=== PATIENT | female | born 1940 | race Caucasian/White ===

== ENCOUNTER → 2017-07-29 11:20 | Outpatient (CLI) | payer MEDICARE, SELFPAY ==
--- NOTE | 2017-07-29 16:23 | STRESSREP ---
Stress Test Report Exercise stress test. 77-year-old lady with a history of chest pain. Stress protocol: Resting EKG demonstrate normal sinus rhythm with a rate of 77 bpm. Resting blood pressure 7 and 38/92 mmHg. The patient exercised according to the regular [facility] protocol for a total duration of 3 minutes. The maximum heart rate attained was 126 bpm which was 87% of maximum predicted heart rate the maximum workload attained was 4.6 metabolic equivalents. At rest there were no ST or T-wave changes noted suggest ischemia at peak exercise upsloping ST changes only were noted with no meet the criteria for ischemia. Resting blood pressure was 138/92 with a peak blood pressure 152/84. The test was terminated due to leg fatigue. Conclusion: Exercise stress test with no EKG criteria for ischemia at a low workload. No clinical angina noted.
== END ==
PROVIDERS: Family Provider Family Medicine; PCP Family Medicine; Visit Provider Internal Medicine Cardiovascular Disease
DX: I47.1 Supraventricular tachycardia (principal); R06.09 Other forms of dyspnea
CPT/HCPCS: 93017

== ENCOUNTER 2017-11-03 22:25 | Emergency (ER) | payer MEDICARE, SELFPAY ==
--- NOTE | 2017-11-03 22:20 | CT_ITS ---
STUDY: CT BRAIN WITHOUT CONTRAST REASON FOR EXAM: Female, 77 years old. FALL, DIZZINESS AND NECK PAIN, BUMP RT FOREHEAD HX:HTN RADIATION DOSAGE (If Supplied By Facility): CTDIvol = ( 44.99 ) mGy, DLP = ( 796.11 ) mGycm TECHNIQUE: Transaxial CT imaging of the brain was performed without administration of intravenous contrast material. COMPARISON: None. FINDINGS: Soft tissue swelling of the right scalp. There is no underlying fracture. Normal calvarium. There are calcifications around the carotid artery. These are noted in the cavernous carotid arteries. There is mild cerebral atrophy with widening of the extra-axial spaces and ventricular dilatation. There are areas of decreased attenuation within the white matter tracts of the supratentorial brain, consistent with microvascular disease changes. Normal basal ganglia and thalami. Normal brainstem. There is mild cerebellar atrophy. There is no intracranial hemorrhage. There are no findings of an acute ischemic infarction. Normal visualized paranasal sinuses. IMPRESSION: Chronic involutional changes of the brain. Soft tissue swelling of the right scalp. There is no underlying fracture. Electronically Signed: Chester Ya MD at 22:54 EDT , Service support , EXAM: CT SPINE - CERVICAL WITHOUT IV REASON FOR EXAM: Female, 77 years old. FALL, DIZZINESS AND NECK PAIN, BUMP RT FOREHEAD HX:HTN RADIATION DOSAGE (If Supplied By Facility): CTDIvol = ( 28.47 ) mGy, DLP = ( 524.22 ) mGycm TECHNIQUE: Multiplanar images were obtained of the cervical spine. IV contrast was not utilized. COMPARISON: None. FINDINGS: The vertebral bodies do maintain their height. The odontoid process is intact. There is mild straightening of the normal cervical lordosis. This can suggest neck strain. There is no anterolisthesis or fracture. No pre-vertebral soft tissue swelling is seen. The intravertebral disc height is lost. There are scattered lymph nodes in the neck. There are degenerative changes of the osseous structures. There is bilateral facet arthropathy. There are scattered levels of foraminal stenosis. CT/Spine Cervical without Contras IMPRESSION: Degenerative changes of the cervical spine. There is mild straightening of the normal cervical lordosis. This can suggest neck strain. Electronically Signed: Chester Ya MD at 22:55 EDT , Service support ,
--- NOTE | 2017-11-03 22:20 | CT_ITS ---
STUDY: CT BRAIN WITHOUT CONTRAST REASON FOR EXAM: Female, 77 years old. FALL, DIZZINESS AND NECK PAIN, BUMP RT FOREHEAD HX:HTN RADIATION DOSAGE (If Supplied By Facility): CTDIvol = ( 44.99 ) mGy, DLP = ( 796.11 ) mGycm TECHNIQUE: Transaxial CT imaging of the brain was performed without administration of intravenous contrast material. COMPARISON: None. FINDINGS: Soft tissue swelling of the right scalp. There is no underlying fracture. Normal calvarium. There are calcifications around the carotid artery. These are noted in the cavernous carotid arteries. There is mild cerebral atrophy with widening of the extra-axial spaces and ventricular dilatation. There are areas of decreased attenuation within the white matter tracts of the supratentorial brain, consistent with microvascular disease changes. Normal basal ganglia and thalami. Normal brainstem. There is mild cerebellar atrophy. There is no intracranial hemorrhage. There are no findings of an acute ischemic infarction. Normal visualized paranasal sinuses. IMPRESSION: Chronic involutional changes of the brain. Soft tissue swelling of the right scalp. There is no underlying fracture. Electronically Signed: Chester Ya MD at 22:54 EDT , Service support , EXAM: CT SPINE - CERVICAL WITHOUT IV REASON FOR EXAM: Female, 77 years old. FALL, DIZZINESS AND NECK PAIN, BUMP RT FOREHEAD HX:HTN RADIATION DOSAGE (If Supplied By Facility): CTDIvol = ( 28.47 ) mGy, DLP = ( 524.22 ) mGycm TECHNIQUE: Multiplanar images were obtained of the cervical spine. IV contrast was not utilized. COMPARISON: None. FINDINGS: The vertebral bodies do maintain their height. The odontoid process is intact. There is mild straightening of the normal cervical lordosis. This can suggest neck strain. There is no anterolisthesis or fracture. No pre-vertebral soft tissue swelling is seen. The intravertebral disc height is lost. There are scattered lymph nodes in the neck. There are degenerative changes of the osseous structures. There is bilateral facet arthropathy. There are scattered levels of foraminal stenosis. CT/Brain/Head without Contrast IMPRESSION: Degenerative changes of the cervical spine. There is mild straightening of the normal cervical lordosis. This can suggest neck strain. Electronically Signed: Chester Ya MD at 22:55 EDT , Service support ,
--- NOTE | 2017-11-03 22:25 | DT_ITS ---
This patient was seen during an EMR downtime October 28, 2017 - November 04, 2017. This patient may have a combination of paper and electronic documentation or all paper documentation. All documentation is viewable within the e-chart portion of [facility] for each patient visit.
--- NOTE | 2017-11-03 22:35 | RAD_ITS ---
STUDY: X-RAY - RIGHT SHOULDER REASON FOR EXAM: Female, 77 years old. Pain, fall TECHNIQUE: 4 view(s) of the shoulder. COMPARISON: None. FINDINGS: Normal glenohumeral articulation. Normal acromioclavicular joint. Normal acromion. Normal humeral head and visualized proximal humerus. The soft tissue structures are unremarkable. Normal visualized pulmonary apex. RAD/Shoulder min 2 Views IMPRESSION: Normal x-ray examination of the shoulder. Electronically Signed: Alfonzo Elliott DO at 23:29 EDT , Service support ,
--- NOTE | 2017-11-03 22:35 | RAD_ITS ---
STUDY: X-RAY - LEFT ELBOW REASON FOR EXAM: Female, 77 years old. Fall, pain TECHNIQUE: 4 view(s) of the elbow. COMPARISON: None. FINDINGS: Normal visualized humerus, radius and ulna. Normal radiocapitellar and ulnotrochlear articulations. The soft tissue structures are unremarkable. There is no demonstrated fracture. RAD/Elbow min 3 Views IMPRESSION: Normal x-ray examination of the elbow. Electronically Signed: Alfonzo Elliott DO at 23:28 EDT , Service support ,
== END 2017-11-04 00:15 | disposition home or self-care (01) ==
PROVIDERS: Emergency Provider Emergency Medicine; Family Provider Family Medicine; PCP Family Medicine
DX: S00.03XA Contusion of scalp, initial encounter (principal); S16.1XXA Strain of muscle, fascia and tendon at neck level, initial encounter; S40.011A Contusion of right shoulder, initial encounter; S50.02XA Contusion of left elbow, initial encounter; R40.2410 Glasgow coma scale score 13-15, unspecified time; W01.198A Fall on same level from slipping, tripping and stumbling with subsequent striking against other object, initial encounter; Y93.9 Activity, unspecified; Y92.9 Unspecified place or not applicable; I10 Essential (primary) hypertension; E78.00 Pure hypercholesterolemia, unspecified; J45.909 Unspecified asthma, uncomplicated; Z90.89 Acquired absence of other organs; Z90.49 Acquired absence of other specified parts of digestive tract; Z78.0 Asymptomatic menopausal state; Z79.899 Other long term (current) drug therapy
CPT/HCPCS: 70450; 72125; 73030; 73080; 99283

== ENCOUNTER 2017-11-28 01:59 | Emergency (ER) | payer MEDICARE, SELFPAY ==
[2017-11-28 02:01] VITALS: BP 137/85; PULSE 72; RESP 16; TEMP 36.7; O2SAT 96; BMI 42.4
--- NOTE | 2017-11-28 02:18 | CT_ITS ---
STUDY: CT CERVICAL SPINE WITHOUT CONTRAST REASON FOR EXAM: Female, 77 years old. Trauma RADIATION DOSAGE (If Supplied By Facility): CTDIvol = ( 28.38 ) mGy, DLP = ( 494.25 ) mGycm TECHNIQUE: High resolution transaxial imaging was performed without contrast material. Sagittal and coronal images were reconstructed. Individualized dose optimization techniques were used for this CT. COMPARISON: None FINDINGS: There is normal alignment and curvature of the cervical spine with no acute fractures or dislocations but with degenerative changes at C5-C6 C6-C7 and C7-T1. The craniovertebral junction is intact. The tectorial membrane is also intact. The central canal is clear . CT/Spine Cervical without Contras IMPRESSION: Multilevel degenerative changes of cervical spine. No fractures Electronically Signed: Waldo Adams, at 3:08 EDT Tel , Service support ,
--- NOTE | 2017-11-28 02:18 | CT_ITS ---
STUDY: CT BRAIN WITHOUT CONTRAST REASON FOR EXAM: Female, 77 years old. Trauma RADIATION DOSAGE (If Supplied By Facility): CTDIvol = ( 44.99 ) mGy, DLP = ( 779.24 ) mGycm TECHNIQUE: Transaxial CT imaging of the brain was performed without administration of intravenous contrast material. Individualized dose optimization techniques were used for this CT. COMPARISON: None. FINDINGS: There is no scalp hematoma and no calvarial fractures. Age related involutional changes of the brain are noted. 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 No acute hemorrhage. There is no intra or extra-axial tumor mass. The orbits, paranasal sinuses and mastoid air cells are normal. CT/Brain/Head without Contrast IMPRESSION: No acute findings in the brain. Electronically Signed: Waldo Adams, at 3:10 EDT Tel , Service support ,
--- NOTE | 2017-11-28 02:18 | CT_ITS ---
STUDY: CT FACIAL BONES WITHOUT CONTRAST REASON FOR EXAM: Female, 77 years old. Trauma RADIATION DOSAGE (If Supplied By Facility): CTDIvol = ( 29.38 ) mGy, DLP = ( 532.76 ) mGycm TECHNIQUE: The patient was scanned in a multi detector CT scanner. Sagittal and coronal images were reconstructed. Individualized dose optimization techniques were used for this CT. COMPARISON: None. FINDINGS: The nasal septum is midline. The frontal processes of the maxillae are intact. The nasal bones are normal. The zygomatic arches, pterygoid plates and mandibles are normal. There are degenerative changes involving both temporomandibular joints. No fractures The orbits, paranasal sinuses and mastoid air cells are normal. The soft tissues of the face are normal. CT/Sinus/Facial Bone IMPRESSION: No acute fractures of the facial bones. Degenerative changes involving both temporomandibular joints Electronically Signed: Waldo Adams, at 3:12 EDT Tel , Service support ,
--- NOTE | 2017-11-28 02:18 | ED.VISSUMM ---
- ER Visit Summary Date of Service: 11/28/17 Chief Complaint: Fall, facial injuries History of Present Illness: The patient is a 77 F who presents with complaints of facial injuries after a fall. Patient tripped and fell approximately 8 hours ago, striking her face and head on concrete. She denies loss of consciousness. Patient is complaining of pain in the nose, cut in her mouth, and teeth numbness. She is also complaining of neck pain and forehead pain. Patient also landed on her right knee and has scrapes on it that were attended to by the medic on scene. Patient is not on any blood thinners. Denies any other complaints at this time. Physical Examination: Patient is well-nourished and well-developed, ambulated into the emergency department. No gait difficulty. Airway is patent. Pulses are 2+ and symmetrical distal extremities. Head shows mild tenderness to the mid forehead without any contusion, hematoma, abrasions or laceration. Mild swelling and abrasions to the nasal bridge. No septal hematoma. Mild amount of dried blood in the nares. Pupils are equal round reactive to light and extraocular movement intact. Small abrasion to the right superior nasal bridge consistent with the eyeglass nasal piece. Oropharynx shows no loose teeth. No impactions or obvious tooth fractures. There is a partial-thickness 5 mm laceration to the mid mucosal surface of the upper lip. No hemotympanum. No malocclusion. No midline tenderness deformities or step-offs to the neck. Mild paraspinal tenderness on the left. Lungs are clear to auscultation bilaterall. heart regular rate and rhythm without murmurs. No chest wall tenderness. Abdomen soft and nontender. Pelvis is stable. Negative logroll to the hips bilaterally. Small skin avulsion and surrounding abrasions to the right knee. Full flexion and extension. No other deformities or injuries noted to the extremities. Sensation, motor function and pulses present in all extremities. No back tenderness. Test Results: Clinical Impression(s) from Imaging Studies Brain CT 11/28/17 02:18 IMPRESSION: No acute findings in the brain. Electronically Signed: Waldo Adams, at 3:10 EDT Tel , Service support , Cervical Spine CT 11/28/17 02:18 IMPRESSION: Multilevel degenerative changes of cervical spine. No fractures Electronically Signed: Waldo Adams, at 3:08 EDT Tel , Service support , Facial/Sinus 11/28/17 02:18 IMPRESSION: No acute fractures of the facial bones. Degenerative changes involving both temporomandibular joints Electronically Signed: Waldo Adams, at 3:12 EDT Tel , Service support , Emergency Department Course and Treatment: Patient was given Tylenol for pain. CT of the head, C-spine, and facial bones was performed. There was no intracranial hemorrhage, fracture or dislocation of the C-spine, or maxillofacial fractures. Patient's mucosal lip laceration was small enough and superficial enough that primary closure is not necessary. There were no dental injuries identified that would require intervention at this time. Patient's knee was cleaned and bandaged. She is to follow-up with her dentist within the next day or 2 for reevaluation of her teeth. Patient was given care instructions for the mucosal laceration in her mouth, and was placed on prophylactic antibiotics to help prevent infection. Patient has multiple antibiotics listed on her allergy list. We discussed her amoxicillin allergy, and she stated she is not really allergic to it, it just causes her severe stomach upset, which may have resolved since she has had hiatal hernia repair in the meantime. She has taken penicillin in the past without any difficulty. Thus penicillin was chosen as her antibiotic for prophylaxis. Return precautions given. Patient was discharged home well-appearing and ambulating without difficulty. Treatment Plan: [] Disposition: [] Impression: Fall, closed head injury, nasal contusion, 5 mm mucosal upper lip laceration This note was generated with Wrappation software. It may contain incorrect words, spelling, and punctuation that were not noted in review of the chart prior to signing ED Disposition - Plan for ED Patient: Disposition: Home or Assisted Living Chief Complaint: Fall Instructions: ED Contusion Face, ED Mechanical Fall, ED Laceration Mouth Prescriptions: Penicillin V Potassium 500 mg PO BID 5 Days #10 tab Referrals: Christo Bland MD [Primary Care Provider] - 3-5 Days if not improving Additional Instructions: Your scans of your head, face and neck showed no fractures. Please apply ice to your nose as needed for pain and swelling. You may continue to use Tylenol as needed for pain. Please rinse your mouth out several times a day with warm water to help keep the cut on your upper inner lip clean. Avoid spicy or acid the foods until it is healed. Take the penicillin as prescribed to help prevent infection. Please follow-up with your dentist as soon as possible for an examination of your teeth. No obvious fractures or other injuries to your teeth were noted on your exam today, however given that you are having some numbness in your front teeth, this should be evaluated by your dentist. If you have any worsening of your condition or any new concerning symptoms, please return immediately to the emergency department for another evaluation.
--- NOTE | 2017-11-28 02:22 | ED.DCSUM_ITS ---
- ER Visit Summary Date of Service: 11/28/17 Chief Complaint: Fall, facial injuries History of Present Illness: The patient is a 77 F who presents with complaints of facial injuries after a fall. Patient tripped and fell approximately 8 hours ago, striking her face and head on concrete. She denies loss of consciousness. Patient is complaining of pain in the nose, cut in her mouth, and teeth numbness. She is also complaining of neck pain and forehead pain. Patient also landed on her right knee and has scrapes on it that were attended to by the medic on scene. Patient is not on any blood thinners. Denies any other complaints at this time. Physical Examination: Patient is well-nourished and well-developed, ambulated into the emergency department. No gait difficulty. Airway is patent. Pulses are 2+ and symmetrical distal extremities. Head shows mild tenderness to the mid forehead without any contusion, hematoma, abrasions or laceration. Mild swelling and abrasions to the nasal bridge. No septal hematoma. Mild amount of dried blood in the nares. Pupils are equal round reactive to light and extraocular movement intact. Small abrasion to the right superior nasal bridge consistent with the eyeglass nasal piece. Oropharynx shows no loose teeth. No impactions or obvious tooth fractures. There is a partial-thickness 5 mm laceration to the mid mucosal surface of the upper lip. No hemotympanum. No malocclusion. No midline tenderness deformities or step-offs to the neck. Mild paraspinal tenderness on the left. Lungs are clear to auscultation bilaterall. heart regular rate and rhythm without murmurs. No chest wall tenderness. Abdomen soft and nontender. Pelvis is stable. Negative logroll to the hips bilaterally. Small skin avulsion and surrounding abrasions to the right knee. Full flexion and extension. No other deformities or injuries noted to the extremities. Sensation, motor function and pulses present in all extremities. No back tenderness. Test Results: Clinical Impression(s) from Imaging Studies Brain CT 11/28/17 02:18 IMPRESSION: No acute findings in the brain. Electronically Signed: Waldo Adams, at 3:10 EDT Tel , Service support , Cervical Spine CT 11/28/17 02:18 IMPRESSION: Multilevel degenerative changes of cervical spine. No fractures Electronically Signed: Waldo Adams, at 3:08 EDT Tel , Service support , Facial/Sinus 11/28/17 02:18 IMPRESSION: No acute fractures of the facial bones. Degenerative changes involving both temporomandibular joints Electronically Signed: Waldo Adams, at 3:12 EDT Tel , Service support , Emergency Department Course and Treatment: Patient was given Tylenol for pain. CT of the head, C-spine, and facial bones was performed. There was no intracranial hemorrhage, fracture or dislocation of the C-spine, or maxillofacial fractures. Patient's mucosal lip laceration was small enough and superficial enough that primary closure is not necessary. There were no dental injuries identified that would require intervention at this time. Patient's knee was cleaned and bandaged. She is to follow-up with her dentist within the next day or 2 for reevaluation of her teeth. Patient was given care instructions for the mucosal laceration in her mouth, and was placed on prophylactic antibiotics to help prevent infection. Patient has multiple antibiotics listed on her allergy list. We discussed her amoxicillin allergy, and she stated she is not really allergic to it, it just causes her severe stomach upset, which may have resolved since she has had hiatal hernia repair in the meantime. She has taken penicillin in the past without any difficulty. Thus penicillin was chosen as her antibiotic for prophylaxis. Return precautions given. Patient was discharged home well-appearing and ambulating without difficulty. Treatment Plan: [] Disposition: [] Impression: Fall, closed head injury, nasal contusion, 5 mm mucosal upper lip laceration This note was generated with Ula[employer]ation software. It may contain incorrect words, spelling, and punctuation that were not noted in review of the chart prior to signing ED Disposition - Plan for ED Patient: Disposition: Home or Assisted Living Chief Complaint: Fall Instructions: ED Contusion Face, ED Mechanical Fall, ED Laceration Mouth Prescriptions: Penicillin V Potassium 500 mg PO BID 5 Days #10 tab Referrals: Christo Bland MD [Primary Care Provider] - 3-5 Days if not improving Additional Instructions: Your scans of your head, face and neck showed no fractures. Please apply ice to your nose as needed for pain and swelling. You may continue to use Tylenol as needed for pain. Please rinse your mouth out several times a day with warm water to help keep the cut on your upper inner lip clean. Avoid spicy or acid the foods until it is healed. Take the penicillin as prescribed to help prevent infection. Please follow-up with your dentist as soon as possible for an examination of your teeth. No obvious fractures or other injuries to your teeth were noted on your exam today, however given that you are having some numbness in your front teeth, this should be evaluated by your dentist. If you have any worsening of your condition or any new concerning symptoms, please return immediately to the emergency department for another evaluation.
[2017-11-28] MEDS: Acetaminophen 500 MG Tablet 1000 MG PO (02:25)
--- NOTE | 2017-11-28 03:24 | ED.DEP ---
ED Disposition - Plan for ED Patient: Disposition: Home or Assisted Living Chief Complaint: Fall Instructions: ED Mechanical Fall, ED Laceration Mouth, ED Contusion Face Prescriptions: Penicillin V Potassium 500 mg PO BID 5 Days #10 tab Referrals: Christo Bland MD [Primary Care Provider] - 3-5 Days if not improving Additional Instructions: Your scans of your head, face and neck showed no fractures. Please apply ice to your nose as needed for pain and swelling. You may continue to use Tylenol as needed for pain. Please rinse your mouth out several times a day with warm water to help keep the cut on your upper inner lip clean. Avoid spicy or acid the foods until it is healed. Take the penicillin as prescribed to help prevent infection. Please follow-up with your dentist as soon as possible for an examination of your teeth. No obvious fractures or other injuries to your teeth were noted on your exam today, however given that you are having some numbness in your front teeth, this should be evaluated by your dentist. If you have any worsening of your condition or any new concerning symptoms, please return immediately to the emergency department for another evaluation.
[2017-11-28] MEDS: Penicillin Vk 250 MG Tablet 500 MG PO (03:32)
[2017-11-28 03:38] VITALS: BP 136/80; PULSE 70; RESP 18; O2SAT 99
== END 2017-11-28 03:39 | disposition home or self-care (01) ==
PROVIDERS: Emergency Provider Emergency Medicine; Family Provider Family Medicine; PCP Family Medicine
DX: S01.511A Laceration without foreign body of lip, initial encounter (principal); S00.33XA Contusion of nose, initial encounter; S80.211A Abrasion, right knee, initial encounter; W01.0XXA Fall on same level from slipping, tripping and stumbling without subsequent striking against object, initial encounter; Y93.9 Activity, unspecified; Y92.9 Unspecified place or not applicable; I10 Essential (primary) hypertension; Z79.899 Other long term (current) drug therapy
CPT/HCPCS: 70450; 70486; 72125; 99283

== ENCOUNTER 2017-12-05 12:34 | Inpatient (IN) | payer MEDICARE, SELFPAY ==
[2017-12-05 12:36] VITALS: BP 155/70; PULSE 70; RESP 16; TEMP 36.6; O2SAT 97; BMI 43.4
--- NOTE | 2017-12-05 13:59 | RAD_ITS ---
STUDY: X-RAY - RIGHT TIBIA AND FIBULA REASON FOR EXAM: Pain, tingling, cellulitis. TECHNIQUE: 2 view(s) of the tibia and fibula were obtained. COMPARISON: None. FINDINGS: Normal visualized tibia. Normal visualized fibula. There are degenerative changes of the knee. There is soft tissue swelling. There are very small soft tissue calcifications at the medial posterior aspect of the distal lower leg. RAD/Tibia & Fibula 2 Views IMPRESSION: Soft tissue swelling. No demonstrated osteomyelitis. Electronically Signed: Israel York MD at 14:53 EDT Tel , Service support ,
[2017-12-05 14:58] LABS: Absolute Lymphocyte Count 2.47 X10^3/ul (0.83-4.51); Absolute Neutrophil Count 5.6 X10^3/uL (2.0-7.7); Basophil# 0.02 X10^3/uL; Basophil% 0.2 % (0-1); Eosinophil# 0.14 X10^3/uL; Eosinophils% 1.6 % (0-5); Hematocrit 41.4 % (37-47); Hemoglobin 13.9 g/dl (12.0-15.0); Lymphocyte # 2.47 X10^3/ul (4.0); Lymphocyte % 27.7 % (19-41); Mean Corp Hgb Conc 33.6 g/gl (32-36); Mean Corpuscular Hgb 30.6 pg (27.0-32.0); Mean Corpuscular Volume 91.2 fL (81-99); Monocyte# 0.69 X10^3/uL; Monocyte% 7.7 % (0-10); Neutrophil # 5.59 X10^3/uL (2.7-7.7); Neutrophil % 62.6 % (47-70); Platelet Count 246 K/mm3 (150-450); RBC Distribution Width CV 13.7 % (11.6-14.6); RBC Distribution Width SD 45.2 fl (35.1-43.9); Red Blood Count 4.54 M/mm3 (4.2-5.4); White Blood Count 8.9 K/mm3 (4.4-11.0)
[2017-12-05 14:59] LABS: POSITIVE COUNT NO; POSITIVE DIFFERENTIAL NO; POSITIVE MORPHOLOGY NO
[2017-12-05 15:11] LABS: ALB/GLOB Ratio 0.9 RATIO (0.9-2.4); AST(SGOT) 19 U/L (15-37); Alanine Aminotransfer ALT/SGPT 24 U/L (13-56); Albumin, Serum 3.7 g/dL (3.2-5.0); Alkaline Phosphatase 134 U/L (45-117); Anion Gap 9 (5-15); BUN 23 mg/dL (7-18); BUN/Creat Ratio 31.2 RATIO (10-20); Calcium,Total 8.9 mg/dL (8.5-10.1); Chloride 104 mmol/L (98-107); Creatinine, Serum 0.74 mg/dL (0.55-1.02); EST Glomerular Filtration Rate 81 mL/min (>60); Est Glom Filt Rate - Afr Amer 99 mL/min (>60); Estimated Creatinine Clearance 73.68 ml/min; Glucose 106 mg/dL (74-106); Potassium 3.7 mmol/L (3.5-5.1); Protein, Total 7.7 g/dL (6.4-8.2); Sodium Level 141 mmol/L (136-145)
--- NOTE | 2017-12-05 15:45 | ED.VISSUMM ---
- ER Visit Summary Date of Service: 12/05/17 Chief Complaint: Right leg pain History of Present Illness: The patient is a 77 F with erythema pain and swelling for 2-3 days in the right lower extremity she had an abrasion and ecchymosis after fall. She has been able to walk on it she noticed beginning of an infection about 2-3 days ago. Physical Examination: On examination patient has an unremarkable exam except for right lower extremity cellulitis without any crepitus. She is able to ambulate. Emergency Department Course and Treatment: Patient has negative x-ray, normal white count. She is quite reluctant to be discharged home observe her for IV antibiotics. Disposition: Admit stable condition observation Impression: Lower extremity cellulitis This note was generated with [employer] dictation software. It may contain incorrect words, spelling, and punctuation that were not noted in review of the chart prior to signing ED Disposition - Plan for ED Patient: Chief Complaint: Lower Extremity Injury Referrals: Christo Bland MD [Primary Care Provider] -
--- NOTE | 2017-12-05 15:54 | HP.PCM_ITS ---
History of Present Illness Date of Admission: 12/05/17 Chief Complaint: Pain, redness and swelling of right leg. The patient is a 77 year old F with a significant history of hypertension, asthma, diverticulitis status post right hemicolectomy, hiatal hernia status post surgery who presents to the ED because of pain, redness and swelling of right leg. The patient stated that on November 27 she fell and sustained an abrasion on her right knee. At that time she came to our emergency department where she was given penicillin and was sent home. Patient states that she has developed a progressively worsening pain right leg for which reason she is coming to ED for the second time. At emergency department patient was given clindamycin IV with a plan to be observed for 1 day and if she is doing well to be discharged on oral antibiotics. Past Medical History Past Medical History (Chronic Problems): Chronic Problems Status post right hemicolectomy (Chronic) Hypertension (Chronic) Hyperlipidemia (Chronic) History of diverticulosis (Chronic) GERD (Chronic) Allergies primidone Allergy (Verified 12/05/17 12:36) Itching albuterol sulfate [From Ventolin HFA] Adverse Reaction (Verified 12/05/17 12:36) Unknown amoxicillin [Amoxicillin] Adverse Reaction (Verified 12/05/17 12:36) Nausea amoxicillin trihydrate [From Augmentin] Adverse Reaction (Verified 12/05/17 12: 36) Abd cramps/diarrhea aspartame Adverse Reaction (Verified 12/05/17 12:36) Other caffeine Adverse Reaction (Verified 12/05/17 12:36) Other cephalexin monohydrate [From Keflex] Adverse Reaction (Verified 12/05/17 12:36) Other chocolate flavor Adverse Reaction (Verified 12/05/17 12:36) Other erythromycin base [Erythromycin Base] Adverse Reaction (Verified 12/05/17 12:36) Diarrhea hyoscyamine [Hyoscyamine] Adverse Reaction (Verified 12/05/17 12:36) Rash hyoscyamine sulfate [From Levbid] Adverse Reaction (Verified 12/05/17 12:36) Rash levofloxacin Adverse Reaction (Verified 12/05/17 12:36) Unknown lisinopril Adverse Reaction (Verified 12/05/17 12:36) Other metronidazole [From Flagyl] Adverse Reaction (Verified 12/05/17 12:36) Rash Metronidazole HCl [From Flagyl] Adverse Reaction (Verified 12/05/17 12:36) Rash morphine Adverse Reaction (Verified 12/05/17 12:36) Other naproxen Adverse Reaction (Verified 12/05/17 12:36) Nausea/Vom/Diarrhea NSAIDS (Non-Steroidal Anti-Inflamma Adverse Reaction (Verified 12/05/17 12:36) Abd cramps/diarrhea phenazopyridine HCl [From Pyridium] Adverse Reaction (Verified 12/05/17 12:36) Other potassium clavulanate [From Augmentin] Adverse Reaction (Verified 12/05/17 12:36 ) Abd cramps/diarrhea sulfamethoxazole [From Septra] Adverse Reaction (Verified 12/05/17 12:36) Unknown trimethoprim [From Septra] Adverse Reaction (Verified 12/05/17 12:36) Unknown IV DYE Allergy (Uncoded 12/05/17 12:36) Rash URISED Adverse Reaction (Uncoded 12/05/17 12:36) Other Home Medications: Ambulatory Orders Medication Instructions Recorded Atorvastatin Calcium [Lipitor] 10 mg PO QHS 08/07/13 Cholecalciferol (Vitamin D3) 1,000 unit PO DAILY 08/07/13 [Vitamin D3] Fluticasone 0.05% [Flonase Nasal 2 spray NASAL DAILY 08/07/13 [place]] Folic Acid 2.4 mg PO DAILY 08/07/13 Garlic 1,000 mg PO DAILY 08/07/13 Hydrochlorothiazide 25 mg PO DAILY 08/07/13 Krill/Om3/Dha/Epa/Om6/Lip/Astx 1 each PO DAILY #0 08/07/13 [Krill Oil 1,500 mg Softgel] Levalbuterol Tartrate [Xopenex Hfa 1 - 2 puff INHALATION Q4H PRN PRN 08/07/13 Inhaler] Losartan Potassium [Cozaar] 50 mg PO DAILY 08/07/13 Montelukast [Singulair] 10 mg PO QHS 08/07/13 Vitamin E 1,000 units PO DAILY 08/07/13 Acetaminophen [Pain Relief] 500 mg PO DAILY PRN PRN 04/25/15 Budesonide/Formoterol 160/4.5 2 puff INHALATION DAILY 04/25/15 [Symbicort 160/4.5 Mcg Inhaler (SP)] Calcium Carb/Vitamin D3/Vit K1 1 each PO DAILY 04/25/15 [Viactiv Soft Chew] Docusate Sodium [Colace] 100 - 200 mg PO DAILY PRN PRN 04/25/15 Estradiol [Estrace Vaginal Cream] 1 dose VAGINAL DAILY 04/25/15 Loratadine [Claritin] 10 mg PO DAILY 04/25/15 Ubidecarenone [Coenzyme Q10] 10 mg PO DAILY 04/25/15 Albuterol IH (ProAir) [Proair Hfa 2 puff INHALATION Q6H PRN PRN 12/05/17 (SP)Vent Pts] Fexofenadine HCl [Tawana Allergy] 180 mg PO DAILY 12/05/17 Flaxseed Oil 1,000 mg PO QHS 12/05/17 Lactobacillus Acidophilus 1 each PO DAILY 12/05/17 [Probiotic Acidophilus] Multivit-Min/FA/Lycopen/Lutein 2 each PO MOWEFR 12/05/17 [Centrum Silver Tablet] Multivit-Min/Folic Acid/Biotin 1 each PO SUTUTHSA 12/05/17 [Hair, Skin & Nails Caplet] Vit C/E/Zn/Coppr/Lutein/Zeaxan 1 each PO BID 12/05/17 [Preservision Areds 2 Softgel] Surgical History: - - Right hemicolectomy Smoking Status: Never smoker - *Family History Maternal Family History: Family History (Last Updated 12/05/17 @ 16:44 by Shayne Wilkins MD) Mother Cancer Father Diabetes History Items: No pertinent history Review of Systems Constitutional: Denies: Chills, Fever Eyes: Denies: Blurred vision HEENT: Denies: Difficulty Hearing, Difficulty Swallowing Cardiovascular: Denies: Chest Pain, Palpitations Respiratory: Denies: Cough, Shortness of breath at rest, Sputum production Gastrointestinal: Denies: Abdominal Pain, Nausea, Vomiting Genitourinary: Denies: Dysuria Skin: Denies: Rash, Wounds Neurological: Denies: Numbness, Tingling, Focal weakness Psychiatric: Reports: - - Recently lost her . Hematologic/ Lymphatic: Denies: Easy Bruising, Easy Bleeding VTE Information - Inpt Only VTE Present on Admission: No VTE Mechan Device Prophylaxis: None VTE Pharm Prophylaxis ordered?: Yes - Physical Exam General: Alert, Oriented x3, Cooperative HEENT: Atraumatic, PERRLA, EOMI, Normocephalic Neck: Supple, No JVD, Negative Carotid Bruits Lungs: Clear to auscultation, Normal air movement Cardiovascular: Regular rate, No murmurs Abdomen: Bowel Sounds Present Extremities: Edema - Right leg, Tenderness - Right Leg Skin: - - Redness of right leg with scabbed wound on the right knee. Lymphatic: No Cervical, Supraclavicular, or Inguinal Adenopathy Neurological: Cranial nerves II-XII grossly intact Psych/Mental Status: Appropriate Vital Signs Temp Pulse Resp BP Pulse Ox 98 F 70 16 155/70 H 97 12/05/17 12:36 12/05/17 12:36 12/05/17 12:36 12/05/17 12:36 12/05/17 12:36 Oxygen Delivery Method Room Air Weight: 97.522 kg Body Mass Index (BMI) 43.4 Laboratory Tests Past 24 Hrs 12/05/17 12/05/17 14:45 14:45 WBC 8.9 RBC 4.54 Hgb 13.9 Hct 41.4 MCV 91.2 MCH 30.6 MCHC 33.6 RDW 13.7 RDW Differential 45.2 H Plt Count 246 MPV 11.0 Immature Gran % (Auto) 0.200 Neut % (Auto) 62.6 Lymph % (Auto) 27.7 [place] % (Auto) 7.7 Eos % (Auto) 1.6 Baso % (Auto) 0.2 Absolute Neuts (auto) 5.6 Absolute Lymphs (auto) 2.47 Total Counted Not Reportable Sodium 141 Potassium 3.7 Chloride 104 Carbon Dioxide 28.0 Anion Gap 9 BUN 23 H Creatinine 0.74 Estim Creat Clear Calc 73.68 Est GFR (MDRD) Af Amer 99 Est GFR (MDRD) Non-Af 81 BUN/Creatinine Ratio 31.2 H Glucose 106 Calcium 8.9 Total Bilirubin 0.70 AST 19 ALT 24 Alkaline Phosphatase 134 H Total Protein 7.7 Albumin 3.7 Globulin 4.0 Albumin/Globulin Ratio 0.9 Assessment/Plan The patient is a 77 year old F with a significant history of hypertension, asthma, diverticulitis status post right hemicolectomy, hiatal hernia status post surgery returning to the ED with right leg pain, swelling and redness after a first visit where she had an abrasion on his right knee after she fell. Cellulitis Clindamycin IV on 12/05/2017 at the ED Clindamycin IV continued. Tdap ordered at ED on 12/05/2017 Oxycodone as needed for pain Hypertension Hydrochlorothiazide and losartan continued. Asthma Home breathing treatments as needed DVT prophylaxis Subcutaneous Lovenox. Code Visit Inpatient E&M: 27721 Init Hosp L2
[2017-12-05 16:17] VITALS: BMI 43.3
[2017-12-05 16:55] VITALS: BP 166/77; PULSE 74; RESP 18; TEMP 36.8; O2SAT 99
[2017-12-05 16:56] VITALS: BMI 43.0
[2017-12-05 17:03] VITALS: PULSE 70
--- NOTE | 2017-12-05 17:12 | VDLE_ITS ---
Reason For Study: LEG SWELLING RIGHT GSV is normal. CFV is compressible, spontaneous, phasic, competent and demonstrates normal augmentation. FV is compressible, spontaneous, phasic, competent and demonstrates normal augmentation. POP V is compressible, spontaneous, phasic, competent and demonstrates normal augmentation. T/P Trunk is compressible. PTV is compressible. RT PerV is compressible. Procedure Exam performed portable in patient room. A preliminary report was called and/or faxed to [facility]. Interpretation Summary Deep veins of the right lower extremity are patent and compressible segmentally. There is no evidence of right lower extremity deep vein thrombosis. Valvular competence appears intact within the proximal deep venous system on the right . The right greater saphenous vein appears patent and compressible segmentally. Ordering Physician: Shayne Wilkins Referring Physician: Christo Bland Performed By: Lilia Coronel RVT
[2017-12-05] MEDS: oxyCODONE 5 MG Tablet PO (17:34)
[2017-12-05] MEDS: Albuterol 2.5 MG/3 ML VIAL.NEB. INHALATION (19:14)
[2017-12-05] MEDS: Budesonide Respules 0.5 MG/2 ML AMPUL.NEB. INHALATION (19:15)
[2017-12-05 19:20] VITALS: PULSE 80; RESP 16
[2017-12-05] MEDS: Diphth,Pertuss(Acell),Tet Vac 0.5 ML Vial IM (20:12)
[2017-12-05 20:47] VITALS: BP 105/65; PULSE 80; RESP 17; TEMP 36.8; O2SAT 96
[2017-12-05 20:48] VITALS: O2SAT 96
[2017-12-05] MEDS: Atorvastatin Calcium 10 MG Tablet PO (21:05)
[2017-12-05] MEDS: Montelukast 10 MG Tablet PO (21:05)
[2017-12-05] MEDS: Acetaminophen 500 MG Tablet PO (21:07)
[2017-12-06] VITALS (7 sets, daily range): BP systolic 109–140; BP diastolic 50–69; PULSE 70–77; RESP 17–20; TEMP 36.3–36.9; O2SAT 97–100
[2017-12-06 06:17] LABS: Absolute Lymphocyte Count 2.14 X10^3/ul (0.83-4.51); Absolute Neutrophil Count 3.4 X10^3/uL (2.0-7.7); Basophil# 0.02 X10^3/uL; Basophil% 0.3 % (0-1); Eosinophil# 0.17 X10^3/uL; Eosinophils% 2.7 % (0-5); Hematocrit 35.7 % (37-47); Hemoglobin 11.5 g/dl (12.0-15.0); Lymphocyte # 2.14 X10^3/ul (4.0); Lymphocyte % 33.8 % (19-41); Mean Corp Hgb Conc 32.2 g/gl (32-36); Mean Corpuscular Hgb 29.5 pg (27.0-32.0); Mean Corpuscular Volume 91.5 fL (81-99); Mean Platelet Vol. 11.2 fl (6.2-12.0); Monocyte# 0.64 X10^3/uL; Monocyte% 10.1 % (0-10); Neutrophil # 3.36 X10^3/uL (2.7-7.7); Neutrophil % 52.9 % (47-70); Platelet Count 197 K/mm3 (150-450); RBC Distribution Width CV 13.8 % (11.6-14.6); RBC Distribution Width SD 46.1 fl (35.1-43.9); White Blood Count 6.3 K/mm3 (4.4-11.0)
[2017-12-06 06:23] LABS: POSITIVE COUNT NO; POSITIVE DIFFERENTIAL NO; POSITIVE MORPHOLOGY NO
[2017-12-06 06:35] LABS: Anion Gap 8 (5-15); BUN 25 mg/dL (7-18); BUN/Creat Ratio 32.4 RATIO (10-20); Calcium,Total 7.9 mg/dL (8.5-10.1); Chloride 106 mmol/L (98-107); Creatinine, Serum 0.77 mg/dL (0.55-1.02); EST Glomerular Filtration Rate 77 mL/min (>60); Est Glom Filt Rate - Afr Amer 93 mL/min (>60); Estimated Creatinine Clearance 73.21 ml/min; Glucose 114 mg/dL (74-106); Sodium Level 142 mmol/L (136-145)
[2017-12-06] MEDS: Albuterol 2.5 MG/3 ML VIAL.NEB. INHALATION ×3 (07:07→19:51)
[2017-12-06] MEDS: Budesonide Respules 0.5 MG/2 ML AMPUL.NEB. INHALATION ×2 (07:08→19:51)
[2017-12-06] MEDS: Folic Acid 1 MG Tablet 2.5 MG PO (09:20)
[2017-12-06] MEDS: Acetaminophen 500 MG Tablet PO ×2 (09:34→21:56)
[2017-12-06] MEDS: Fluticasone 0.05% 1 SPRAY NASAL.SRY 2 SPRAY NASAL (09:40)
[2017-12-06] MEDS: Vitamin E 400 UNITS Capsule 800 UNITS PO (09:41)
[2017-12-06] MEDS: Loratadine 10 MG Tablet PO (09:41)
[2017-12-06] MEDS: Enoxaparin 40 MG/0.4 ML Syringe SC (09:41)
[2017-12-06] MEDS: Losartan Potassium 50 MG Tablet PO (09:41)
[2017-12-06] MEDS: hydroCHLOROthiazide 25 MG Tablet PO (09:41)
--- NOTE | 2017-12-06 09:47 | PCM.PN.HOSP ---
Subjective: Patient is a 77-year-old female with a history of hypertension, asthma and diverticulitis status post right hemicolectomy as well as hiatal hernia was admitted by the ED on 12/05/2017 with a complaint of redness, pain and swelling of the right lower extremity. On November 27, she went to the [facility] both in [place] and fell and sustained an abrasion on her right knee. Subsequently noted that her right lower extremity was getting swollen and tender. At that time she acute went to the ED and was given penicillin and sent home. Pain swelling and redness of right lower extremity worsened. She came back to the ED. She denied any fever or chills, cough or chest pain, shortness of breath, abdominal pain, any diarrhea vomiting. She is able to ambulate but only with assistance because of pain in her right lower extremity. Started on IV clindamycin for cellulitis of the right lower extremity. Patient seen and examined. She feels well. She says the pain in her right leg is relatively improving. She denies any fever or chills, any cough or chest pain, shortness of breath, abdominal pain, any diarrhea vomiting. Review of systems otherwise negative. Vitals/I&O's: Vital Signs Temp Pulse Resp BP Pulse Ox 98.1 F 77 18 140/50 H 98 12/06/17 09:25 12/06/17 09:25 12/06/17 09:25 12/06/17 09:25 12/06/17 09:25 Oxygen Delivery Method Room Air Weight: 213 lb 10.047 oz Body Mass Index (BMI) 43.0 Intake and Output for Last 24 Hours 12/04/17 12/05/17 12/06/17 23:59 23:59 23:59 Intake Total 385 / 385 377 / 377 Balance 385 / 385 377 / 377 General: Alert, Oriented x3, Cooperative, No apparent distress HEENT: Atraumatic, PERRLA, EOMI, Normocephalic Oral: Moist Mucosa Neck: Supple, No JVD, Negative Carotid Bruits Lungs: Clear to auscultation, Normal air movement, No rhonchi, No wheeze, No rales Cardiovascular: Regular rate, Regular Rhythm, Normal S1, Normal S2, No murmurs Abdomen: Bowel Sounds Present, Soft, Non Tender, Non-Distended, No Hepato-splenomegaly Extremities: - - Right lower extremity mildly swollen and tender and erythematous. Erythema extends from ankle all the way up to knee. Has resolving superficial ulceration over right knee which appears to be focus of infection. Has moderate tenderness on palpation of right lower extremity. Skin: - - As described under extremities examination Musculoskeletal: No Tenderness to Palpation of Joints or Extremities Lymphatic: No Cervical, Supraclavicular, or Inguinal Adenopathy Neurological: Cranial nerves II-XII grossly intact, Motor Exam 5/5 strength throughout Psych/Mental Status: Normal Affect, Appropriate, Alert and oriented to time, place, person, mood and affect Laboratory Results 12/06/17 05:34: WBC 6.3, RBC 3.90 L, Hgb 11.5 L, Hct 35.7 L, MCV 91.5, MCH 29.5, MCHC 32.2, RDW 13.8, RDW Differential 46.1 H, Plt Count 197, MPV 11.2, Immature Gran % (Auto) 0.200, Neut % (Auto) 52.9, Lymph % (Auto) 33.8, [place] % (Auto) 10.1 H, Eos % (Auto) 2.7, Baso % (Auto) 0.3, Absolute Neuts (auto) 3.4, Absolute Lymphs (auto) 2.14, Total Counted Not Reportable 12/06/17 05:34: Sodium 142, Potassium 4.0, Chloride 106, Carbon Dioxide 28.0, Anion Gap 8, BUN 25 H, Creatinine 0.77, Estim Creat Clear Calc 73.21, Est GFR (MDRD) Af Amer 93, Est GFR (MDRD) Non-Af 77, BUN/Creatinine Ratio 32.4 H, Glucose 114 H, Calcium 7.9 L Current Medications Acetaminophen (Tylenol) 500 mg PO DAILY PRN PRN PRN Reason: PAIN/FEVER Last Admin: 12/06/17 09:34 Dose: 500 mg Albuterol Sulfate (Ventolin Aerosols) 2.5 mg INHALATION Q4H PRN PRN Reason: SOB &/OR WHEEZING Albuterol Sulfate (Ventolin Aerosols) 2.5 mg INHALATION Q6HWA.RT [facility] Last Admin: 12/06/17 07:07 Dose: 2.5 mg Atorvastatin Calcium (Lipitor) 10 mg PO QHS ISATU Last Admin: 12/05/17 21:05 Dose: 10 mg Bisacodyl (Dulcolax) 5 mg PO DAILY PRN PRN PRN Reason: Constipation Budesonide (Pulmicort Aerosol) 0.5 mg INHALATION Q12H.RT [facility] Last Admin: 12/06/17 07:08 Dose: 0.5 mg Cholecalciferol (Vitamin D) 1,000 unit PO DAILY [facility] Last Admin: 12/06/17 09:41 Dose: 1,000 unit Docusate Sodium (Colace) 100 - 200 mg PO DAILY PRN PRN PRN Reason: Constipation Enoxaparin Sodium (Lovenox) 40 mg SC DAILY@1000 [facility] Last Admin: 12/06/17 09:41 Dose: 40 mg Fluticasone Propionate (Flonase Nasal [place]) 2 spray NASAL DAILY [facility] Last Admin: 12/06/17 09:40 Dose: 2 spray Folic Acid (Folic Acid) 2.5 mg PO DAILY@0800 [facility] Last Admin: 12/06/17 09:20 Dose: 2.5 mg Hydrochlorothiazide (Hctz) 25 mg PO DAILY [facility] Last Admin: 12/06/17 09:41 Dose: 25 mg Clindamycin Phosphate 900 mg/ (Dextrose) 106 mls @ 75 mls/hr IV Q8 [facility] Last Admin: 12/06/17 05:39 Dose: 75 mls/hr Lactobacillus Acidophilus (Acidophilus) 1 tablet PO DAILY [facility] Last Admin: 12/06/17 09:41 Dose: 1 tablet Loratadine (Claritin) 10 mg PO DAILY [facility] Last Admin: 12/06/17 09:41 Dose: 10 mg Losartan Potassium (Cozaar) 50 mg PO DAILY [facility] Last Admin: 12/06/17 09:41 Dose: 50 mg Magnesium Hydroxide (Milk Of Magnesia) 30 ml PO DAILY PRN PRN PRN Reason: Constipation Montelukast Sodium (Singulair) 10 mg PO QHS [facility] Last Admin: 12/05/17 21:05 Dose: 10 mg Multivitamins/Minerals (Ocuvite) 1 tablet PO BID [facility] Last Admin: 12/06/17 09:41 Dose: 1 tablet Oxycodone HCl (Oxyir) 5 mg PO Q4H PRN PRN PRN Reason: Moderate Pain (pain scale 4-5) Last Admin: 12/05/17 17:34 Dose: 5 mg Vitamin E (Vitamin E) 800 units PO DAILY [facility] Last Admin: 12/06/17 09:41 Dose: 800 units Zolpidem Tartrate (Ambien (Generic)) 5 mg PO QHS PRN PRN PRN Reason: INSOMNIA Medical Necessity - Tobacco Use Smoking Status: Never smoker Tobacco Use: Non-smoker Assessment/Plan 77-year-old female with past medical history as listed above presenting with right lower extremity pain swelling and redness after she sustained a superficial abrasion of the right knee. 1. Cellulitis of right lower extremity. Pain is improved slightly but right lower extremity still swollen and erythematous. Leukocytosis has remained down. Started on IV clindamycin on 12/05/2017. Will continue. Received Tdap in the ED on 12/05/2017. On oxycodone as needed for pain. Blood cultures were not obtained prior to antibiotics being started. Will continue IV clindamycin. will get duplex of the LEs to rule out DVT due to patient's difficulty with ambulation and swelling. Area of redness and swelling demarcated to monitor for resolution 2. Hypertension: controlled ON chlorothiazide and losartan. 3. Asthma: Stable on breathing treatments. 4. Lipidemia: On atorvastatin. 5. DVT prophylaxis: Lovenox Code Visit OBSV E&M: 30442 Subsequent observation care L2
--- NOTE | 2017-12-06 09:54 | PN_ITS ---
Subjective: Patient is a 77-year-old female with a history of hypertension, asthma and diverticulitis status post right hemicolectomy as well as hiatal hernia was admitted by the ED on 12/05/2017 with a complaint of redness, pain and swelling of the right lower extremity. On November 27, she went to the [facility] both in [place] and fell and sustained an abrasion on her right knee. Subsequently noted that her right lower extremity was getting swollen and tender. At that time she acute went to the ED and was given penicillin and sent home. Pain swelling and redness of right lower extremity worsened. She came back to the ED. She denied any fever or chills, cough or chest pain, shortness of breath, abdominal pain, any diarrhea vomiting. She is able to ambulate but only with assistance because of pain in her right lower extremity. Started on IV clindamycin for cellulitis of the right lower extremity. Patient seen and examined. She feels well. She says the pain in her right leg is relatively improving. She denies any fever or chills, any cough or chest pain, shortness of breath, abdominal pain, any diarrhea vomiting. Review of systems otherwise negative. Vitals/I&O's: Vital Signs Temp Pulse Resp BP Pulse Ox 98.1 F 77 18 140/50 H 98 12/06/17 09:25 12/06/17 09:25 12/06/17 09:25 12/06/17 09:25 12/06/17 09:25 Oxygen Delivery Method Room Air Weight: 213 lb 10.047 oz Body Mass Index (BMI) 43.0 Intake and Output for Last 24 Hours 12/04/17 12/05/17 12/06/17 23:59 23:59 23:59 Intake Total 385 / 385 377 / 377 Balance 385 / 385 377 / 377 General: Alert, Oriented x3, Cooperative, No apparent distress HEENT: Atraumatic, PERRLA, EOMI, Normocephalic Oral: Moist Mucosa Neck: Supple, No JVD, Negative Carotid Bruits Lungs: Clear to auscultation, Normal air movement, No rhonchi, No wheeze, No rales Cardiovascular: Regular rate, Regular Rhythm, Normal S1, Normal S2, No murmurs Abdomen: Bowel Sounds Present, Soft, Non Tender, Non-Distended, No Hepato- splenomegaly Extremities: - - Right lower extremity mildly swollen and tender and erythematous. Erythema extends from ankle all the way up to knee. Has resolving superficial ulceration over right knee which appears to be focus of infection. Has moderate tenderness on palpation of right lower extremity. Skin: - - As described under extremities examination Musculoskeletal: No Tenderness to Palpation of Joints or Extremities Lymphatic: No Cervical, Supraclavicular, or Inguinal Adenopathy Neurological: Cranial nerves II-XII grossly intact, Motor Exam 5/5 strength throughout Psych/Mental Status: Normal Affect, Appropriate, Alert and oriented to time, place, person, mood and affect Laboratory Results 12/06/17 05:34: WBC 6.3, RBC 3.90 L, Hgb 11.5 L, Hct 35.7 L, MCV 91.5, MCH 29.5 , MCHC 32.2, RDW 13.8, RDW Differential 46.1 H, Plt Count 197, MPV 11.2, Immature Gran % (Auto) 0.200, Neut % (Auto) 52.9, Lymph % (Auto) 33.8, [place] % ( Auto) 10.1 H, Eos % (Auto) 2.7, Baso % (Auto) 0.3, Absolute Neuts (auto) 3.4, Absolute Lymphs (auto) 2.14, Total Counted Not Reportable 12/06/17 05:34: Sodium 142, Potassium 4.0, Chloride 106, Carbon Dioxide 28.0, Anion Gap 8, BUN 25 H, Creatinine 0.77, Estim Creat Clear Calc 73.21, Est GFR ( MDRD) Af Amer 93, Est GFR (MDRD) Non-Af 77, BUN/Creatinine Ratio 32.4 H, Glucose 114 H, Calcium 7.9 L Current Medications Acetaminophen (Tylenol) 500 mg PO DAILY PRN PRN PRN Reason: PAIN/FEVER Last Admin: 12/06/17 09:34 Dose: 500 mg Albuterol Sulfate (Ventolin Aerosols) 2.5 mg INHALATION Q4H PRN PRN Reason: SOB &/OR WHEEZING Albuterol Sulfate (Ventolin Aerosols) 2.5 mg INHALATION Q6HWA.RT [facility] Last Admin: 12/06/17 07:07 Dose: 2.5 mg Atorvastatin Calcium (Lipitor) 10 mg PO QHS [facility] Last Admin: 12/05/17 21:05 Dose: 10 mg Bisacodyl (Dulcolax) 5 mg PO DAILY PRN PRN PRN Reason: Constipation Budesonide (Pulmicort Aerosol) 0.5 mg INHALATION Q12H.RT [facility] Last Admin: 12/06/17 07:08 Dose: 0.5 mg Cholecalciferol (Vitamin D) 1,000 unit PO DAILY [facility] Last Admin: 12/06/17 09:41 Dose: 1,000 unit Docusate Sodium (Colace) 100 - 200 mg PO DAILY PRN PRN PRN Reason: Constipation Enoxaparin Sodium (Lovenox) 40 mg SC DAILY@1000 [facility] Last Admin: 12/06/17 09:41 Dose: 40 mg Fluticasone Propionate (Flonase Nasal [place]) 2 spray NASAL DAILY [facility] Last Admin: 12/06/17 09:40 Dose: 2 spray Folic Acid (Folic Acid) 2.5 mg PO DAILY@0800 [facility] Last Admin: 12/06/17 09:20 Dose: 2.5 mg Hydrochlorothiazide (Hctz) 25 mg PO DAILY [facility] Last Admin: 12/06/17 09:41 Dose: 25 mg Clindamycin Phosphate 900 mg/ (Dextrose) 106 mls @ 75 mls/hr IV Q8 [facility] Last Admin: 12/06/17 05:39 Dose: 75 mls/hr Lactobacillus Acidophilus (Acidophilus) 1 tablet PO DAILY [facility] Last Admin: 12/06/17 09:41 Dose: 1 tablet Loratadine (Claritin) 10 mg PO DAILY [facility] Last Admin: 12/06/17 09:41 Dose: 10 mg Losartan Potassium (Cozaar) 50 mg PO DAILY [facility] Last Admin: 12/06/17 09:41 Dose: 50 mg Magnesium Hydroxide (Milk Of Magnesia) 30 ml PO DAILY PRN PRN PRN Reason: Constipation Montelukast Sodium (Singulair) 10 mg PO QHS [facility] Last Admin: 12/05/17 21:05 Dose: 10 mg Multivitamins/Minerals (Ocuvite) 1 tablet PO BID [facility] Last Admin: 12/06/17 09:41 Dose: 1 tablet Oxycodone HCl (Oxyir) 5 mg PO Q4H PRN PRN PRN Reason: Moderate Pain (pain scale 4-5) Last Admin: 12/05/17 17:34 Dose: 5 mg Vitamin E (Vitamin E) 800 units PO DAILY [facility] Last Admin: 12/06/17 09:41 Dose: 800 units Zolpidem Tartrate (Ambien (Generic)) 5 mg PO QHS PRN PRN PRN Reason: INSOMNIA Medical Necessity - Tobacco Use Smoking Status: Never smoker Tobacco Use: Non-smoker Assessment/Plan 77-year-old female with past medical history as listed above presenting with right lower extremity pain swelling and redness after she sustained a superficial abrasion of the right knee. 1. Cellulitis of right lower extremity. * Pain is improved slightly but right lower extremity still swollen and erythematous. * Leukocytosis has remained down. * Started on IV clindamycin on 12/05/2017. Will continue. Received Tdap in the ED on 12/05/2017. * On oxycodone as needed for pain. * Blood cultures were not obtained prior to antibiotics being started. * Will continue IV clindamycin. * will get duplex of the LEs to rule out DVT due to patient's difficulty with ambulation and swelling. * Area of redness and swelling demarcated to monitor for resolution * 2. Hypertension: controlled ON chlorothiazide and losartan. 3. Asthma: Stable on breathing treatments. 4. Lipidemia: On atorvastatin. 5. DVT prophylaxis: Lovenox Code Visit OBSV E&M: 49099 Subsequent observation care L2
[2017-12-06] MEDS: Docusate Sodium 100 MG Capsule PO ×2 (11:53→11:57)
--- NOTE | 2017-12-06 17:00 | CHAPLAIN ---
Type of Pastoral Visit _x__ Initial Visit ___ Follow-up Visit ___ On-call Visit ___ General Patient Visit ___ Spiritual Assessment ___ Family Conference ___ Bereavement ___ Rapid Response ___ Code Blue ___ Other (describe below) Pastoral Care Referral From _x__ Patient ___ Family ___ Nurse ___ Physician ___ Job Analysis Manager ___ Center Consultant ___ Other (describe below) Sacrament/Intervention _x__ Active listening ___ Anointing ___ Rastafarian ___ Bereavement ___ Communion ___ Molly exploration ___ ___ Life review _x__ Prayer ___ Reconciliation ___ Sacrament of Sick ___ Supportive presence ___ Wedding ___ Other (describe below) Pastoral Comments
[2017-12-06] MEDS: Montelukast 10 MG Tablet PO (21:55)
[2017-12-06] MEDS: Atorvastatin Calcium 10 MG Tablet PO (21:55)
[2017-12-07] VITALS (7 sets, daily range): BP systolic 116–140; BP diastolic 40–85; PULSE 62–72; RESP 18–20; TEMP 36.4–37.6; O2SAT 96–98
[2017-12-07] MEDS: Acetaminophen 500 MG Tablet PO ×2 (06:25→14:22)
[2017-12-07] MEDS: Docusate Sodium 100 MG Capsule PO (06:30)
[2017-12-07] MEDS: Budesonide Respules 0.5 MG/2 ML AMPUL.NEB. INHALATION ×2 (07:07→20:57)
--- NOTE | 2017-12-07 07:32 | PCM.PN.HOSP ---
Subjective: Patient was seen and examined. Complained of pain in the left leg but wants only tylenol. Complained of constipation but started having bowel movements. Redness in the leg has slightly improved. Denies fever or chills. Objective: Physical exam: General: Alert, Oriented x3, Cooperative, No apparent distress HEENT: Atraumatic, PERRLA, EOMI, Normocephalic Oral: Moist Mucosa Neck: Supple, No JVD, Negative Carotid Bruits Lungs: Clear to auscultation, Normal air movement, No rhonchi, No wheeze, No rales Cardiovascular: Regular rate, Regular Rhythm, Normal S1, Normal S2, No murmurs Abdomen: Bowel Sounds Present, Soft, Non Tender, Non-Distended, No Hepato-splenomegaly Extremities: - - Right lower extremity mildly swollen and tender and erythematous. Erythema extends from ankle all the way up to knee. Has resolving superficial ulceration over right knee which appears to be focus of infection. Has moderate tenderness on palpation of right lower extremity. Skin: - - As described under extremities examination Musculoskeletal: No Tenderness to Palpation of Joints or Extremities Lymphatic: No Cervical, Supraclavicular, or Inguinal Adenopathy Neurological: Cranial nerves II-XII grossly intact, Motor Exam 5/5 strength throughout Psych/Mental Status: Normal Affect, Appropriate, Alert and oriented to time, place, person, mood and affect Vitals/I&O's: Vital Signs Temp Pulse Resp BP Pulse Ox 98.1 F 70 20 H 132/63 H 98 12/07/17 02:03 12/07/17 02:03 12/07/17 02:03 12/07/17 02:03 12/07/17 02:03 Oxygen Delivery Method Room Air Weight: 96.9 kg Body Mass Index (BMI) 43.0 Intake and Output for Last 24 Hours 12/05/17 12/06/17 12/07/17 23:59 23:59 23:59 Intake Total 385 / 385 1898 / 1898 755.1 / 755.1 Balance 385 / 385 1898 / 1898 755.1 / 755.1 Current Medications Acetaminophen (Tylenol) 500 mg PO Q6H PRN PRN PRN Reason: PAIN/FEVER Last Admin: 12/07/17 06:25 Dose: 500 mg Albuterol Sulfate (Ventolin Aerosols) 2.5 mg INHALATION Q4H PRN PRN Reason: SOB &/OR WHEEZING Albuterol Sulfate (Ventolin Aerosols) 2.5 mg INHALATION Q6HWA.RT [facility] Last Admin: 12/06/17 19:51 Dose: 2.5 mg Atorvastatin Calcium (Lipitor) 10 mg PO QHS [facility] Last Admin: 12/06/17 21:55 Dose: 10 mg Bisacodyl (Dulcolax) 5 mg PO DAILY PRN PRN PRN Reason: Constipation Budesonide (Pulmicort Aerosol) 0.5 mg INHALATION Q12H.RT [facility] Last Admin: 12/07/17 07:07 Dose: 0.5 mg Cholecalciferol (Vitamin D) 1,000 unit PO DAILY [facility] Last Admin: 12/06/17 09:41 Dose: 1,000 unit Docusate Sodium (Colace) 100 - 200 mg PO DAILY PRN PRN PRN Reason: Constipation Last Admin: 12/07/17 06:30 Dose: 200 mg Enoxaparin Sodium (Lovenox) 40 mg SC DAILY@1000 [facility] Last Admin: 12/06/17 09:41 Dose: 40 mg Fluticasone Propionate (Flonase Nasal [place]) 2 spray NASAL DAILY [facility] Last Admin: 12/06/17 09:40 Dose: 2 spray Folic Acid (Folic Acid) 2.5 mg PO DAILY@0800 [facility] Last Admin: 12/06/17 09:20 Dose: 2.5 mg Hydrochlorothiazide (Hctz) 25 mg PO DAILY [facility] Last Admin: 12/06/17 09:41 Dose: 25 mg Clindamycin Phosphate 900 mg/ (Dextrose) 106 mls @ 75 mls/hr IV Q8 [facility] Last Admin: 12/07/17 06:17 Dose: 75 mls/hr Lactobacillus Acidophilus (Acidophilus) 1 tablet PO DAILY [facility] Last Admin: 12/06/17 09:41 Dose: 1 tablet Loratadine (Claritin) 10 mg PO DAILY [facility] Last Admin: 12/06/17 09:41 Dose: 10 mg Losartan Potassium (Cozaar) 50 mg PO DAILY [facility] Last Admin: 12/06/17 09:41 Dose: 50 mg Magnesium Hydroxide (Milk Of Magnesia) 30 ml PO DAILY PRN PRN PRN Reason: Constipation Montelukast Sodium (Singulair) 10 mg PO QHS [facility] Last Admin: 12/06/17 21:55 Dose: 10 mg Multivitamins/Minerals (Ocuvite) 1 tablet PO BID [facility] Last Admin: 12/06/17 21:55 Dose: 1 tablet Oxycodone HCl (Oxyir) 5 mg PO Q4H PRN PRN PRN Reason: Moderate Pain (pain scale 4-5) Last Admin: 12/05/17 17:34 Dose: 5 mg Vitamin E (Vitamin E) 800 units PO DAILY [facility] Last Admin: 12/06/17 09:41 Dose: 800 units Zolpidem Tartrate (Ambien (Generic)) 5 mg PO QHS PRN PRN PRN Reason: INSOMNIA Medical Necessity - Tobacco Use Smoking Status: Never smoker Tobacco Use: Non-smoker Assessment/Plan 77-year-old female with past medical history past medical history of hypertension admitted with right lower extremity pain swelling and redness after she sustained a superficial abrasion of the right knee. 1. Cellulitis of right lower extremity, improving, remains on clindamycin, Day 3, history of penicillin allergy, Doppler ultrasound of lower extremities have been negative. Erythema is receding within the skin marking around cellulitis. Plan: Continue same for now, continue to elevate the lower extremity, possible discharge in a day or 2on 2. Hypertension, controlled, on chlorothiazide and losartan. 3. Asthma, stable, on prn breathing treatments. 4. Hyperlipidemia, on statin. 5. DVT prophylaxis: Lovenox 6. Disposition: Possible DC in next 24-48 hours Code Visit Inpatient E&M: 62708 Subs Hosp L2
[2017-12-07 08:03] LABS: Absolute Lymphocyte Count 2.29 X10^3/ul (0.83-4.51); Absolute Neutrophil Count 3.7 X10^3/uL (2.0-7.7); Basophil# 0.03 X10^3/uL; Basophil% 0.4 % (0-1); Eosinophil# 0.22 X10^3/uL; Eosinophils% 3.2 % (0-5); Hematocrit 37.5 % (37-47); Hemoglobin 12.4 g/dl (12.0-15.0); Lymphocyte # 2.29 X10^3/ul (4.0); Lymphocyte % 33.1 % (19-41); Mean Corp Hgb Conc 33.1 g/gl (32-36); Mean Corpuscular Hgb 30.3 pg (27.0-32.0); Mean Corpuscular Volume 91.7 fL (81-99); Mean Platelet Vol. 11.5 fl (6.2-12.0); Monocyte# 0.68 X10^3/uL; Monocyte% 9.8 % (0-10); Neutrophil # 3.69 X10^3/uL (2.7-7.7); Neutrophil % 53.4 % (47-70); Platelet Count 220 K/mm3 (150-450); RBC Distribution Width CV 14.1 % (11.6-14.6); RBC Distribution Width SD 46.8 fl (35.1-43.9); Red Blood Count 4.09 M/mm3 (4.2-5.4); White Blood Count 6.9 K/mm3 (4.4-11.0)
[2017-12-07 08:16] LABS: POSITIVE COUNT NO; POSITIVE DIFFERENTIAL NO; POSITIVE MORPHOLOGY NO
[2017-12-07] MEDS: Folic Acid 1 MG Tablet 2.5 MG PO (08:17)
[2017-12-07 08:25] LABS: Anion Gap 9 (5-15); BUN 19 mg/dL (7-18); BUN/Creat Ratio 23.5 RATIO (10-20); Calcium,Total 8.4 mg/dL (8.5-10.1); Chloride 106 mmol/L (98-107); Creatinine, Serum 0.81 mg/dL (0.55-1.02); EST Glomerular Filtration Rate 73 mL/min (>60); Est Glom Filt Rate - Afr Amer 89 mL/min (>60); Estimated Creatinine Clearance 90.39 ml/min; Glucose 111 mg/dL (74-106); Sodium Level 142 mmol/L (136-145)
[2017-12-07] MEDS: hydroCHLOROthiazide 25 MG Tablet PO (10:12)
[2017-12-07] MEDS: Fluticasone 0.05% 1 SPRAY NASAL.SRY 2 SPRAY NASAL (10:12)
[2017-12-07] MEDS: Vitamin E 400 UNITS Capsule 800 UNITS PO (10:12)
[2017-12-07] MEDS: Losartan Potassium 50 MG Tablet PO (10:12)
[2017-12-07] MEDS: Enoxaparin 40 MG/0.4 ML Syringe SC (10:13)
[2017-12-07] MEDS: Loratadine 10 MG Tablet PO (10:13)
--- NOTE | 2017-12-07 11:40 | CASEMGMT ---
CM INITIAL ASSESSMENT: Home: Patient states she lives alone in a two story home. There are 13 steps within the home and two steps to get into the home. She has a chair lift provided by [employer]. HHS/Aides: Denies. No preference, if needed. DME: Patient uses a chair lift. Denies use, but does have a knee scooter, walker, and cane available to her. Home Oxygen: Denies. [facility] Advance Directives: Patient states she does have advance directives. These are not located on her e-chart. Patient states her medical POA is her daughter, Zainab Domínguez. PCP: Christo Bland Specialists: Dr. Stevens (cardiology) DC Plan: Home, no needs identified. CM will continue to follow for safe and effective discharge planning.
[2017-12-07] MEDS: Montelukast 10 MG Tablet PO (22:22)
[2017-12-07] MEDS: Atorvastatin Calcium 10 MG Tablet PO (22:22)
[2017-12-08] MEDS: Acetaminophen 500 MG Tablet PO ×2 (00:20→07:56)
[2017-12-08 02:19] VITALS: BP 125/63; PULSE 71; RESP 18; TEMP 36.4; O2SAT 96
[2017-12-08 07:14] VITALS: PULSE 74; RESP 14; O2SAT 98
[2017-12-08] MEDS: Budesonide Respules 0.5 MG/2 ML AMPUL.NEB. INHALATION (07:14)
[2017-12-08] MEDS: Albuterol 2.5 MG/3 ML VIAL.NEB. INHALATION (07:14)
[2017-12-08] MEDS: Folic Acid 1 MG Tablet 2.5 MG PO (07:56)
[2017-12-08 07:58] VITALS: BP 99/40; PULSE 73; RESP 18; TEMP 36.8; O2SAT 95
[2017-12-08 08:00] VITALS: PULSE 68
--- NOTE | 2017-12-08 08:29 | PCM.DC ---
- Discharge Diagnoses Reason(s) for Visit for Discharge Instructions: Right leg swelling and redness You will use the following diet at home:: Cardiac Your food should be the consistency of: Regular Your liquids should be the consistency of: Regular/Thin Discharge Activity: Return to Normal Activity Additional Instructions: Continue to elevate your right lower leg. Complete all the antibiotics. Follow-up with your primary care doctor in 1 week or 2 weeks at most. Allergies/Adverse Reactions: Allergies primidone Allergy (Verified 12/05/17 12:36) Itching albuterol sulfate [From Ventolin HFA] Adverse Reaction (Verified 12/05/17 12:36) Unknown amoxicillin [Amoxicillin] Adverse Reaction (Verified 12/05/17 12:36) Nausea amoxicillin trihydrate [From Augmentin] Adverse Reaction (Verified 12/05/17 12:36) Abd cramps/diarrhea aspartame Adverse Reaction (Verified 12/05/17 12:36) Other caffeine Adverse Reaction (Verified 12/05/17 12:36) Other cephalexin monohydrate [From Keflex] Adverse Reaction (Verified 12/05/17 12:36) Other chocolate flavor Adverse Reaction (Verified 12/05/17 12:36) Other erythromycin base [Erythromycin Base] Adverse Reaction (Verified 12/05/17 12:36) Diarrhea hyoscyamine [Hyoscyamine] Adverse Reaction (Verified 12/05/17 12:36) Rash hyoscyamine sulfate [From Levbid] Adverse Reaction (Verified 12/05/17 12:36) Rash levofloxacin Adverse Reaction (Verified 12/05/17 12:36) Unknown lisinopril Adverse Reaction (Verified 12/05/17 12:36) Other metronidazole [From Flagyl] Adverse Reaction (Verified 12/05/17 12:36) Rash Metronidazole HCl [From Flagyl] Adverse Reaction (Verified 12/05/17 12:36) Rash morphine Adverse Reaction (Verified 12/05/17 12:36) Other naproxen Adverse Reaction (Verified 12/05/17 12:36) Nausea/Vom/Diarrhea NSAIDS (Non-Steroidal Anti-Inflamma Adverse Reaction (Verified 12/05/17 12:36) Abd cramps/diarrhea phenazopyridine HCl [From Pyridium] Adverse Reaction (Verified 12/05/17 12:36) Other potassium clavulanate [From Augmentin] Adverse Reaction (Verified 12/05/17 12:36) Abd cramps/diarrhea sulfamethoxazole [From ] Adverse Reaction (Verified 12/05/17 12:36) Unknown trimethoprim [From ] Adverse Reaction (Verified 12/05/17 12:36) Unknown IV DYE Allergy (Uncoded 12/05/17 12:36) Rash URISED Adverse Reaction (Uncoded 12/05/17 12:36) Other Medications to take at Discharge Atorvastatin Calcium [Lipitor] 10 mg PO QHS 08/07/13 Cholecalciferol (Vitamin D3) [Vitamin D3] 1,000 unit PO DAILY 08/07/13 Fluticasone 0.05% [Flonase Nasal [place]] 2 spray NASAL DAILY 08/07/13 Folic Acid 2.4 mg PO DAILY 08/07/13 Garlic 1,000 mg PO DAILY 08/07/13 Hydrochlorothiazide 25 mg PO DAILY 08/07/13 Krill/Om3/Dha/Epa/Om6/Lip/Astx [Krill Oil 1,500 mg Softgel] 1 each PO DAILY #0 08/07/13 Levalbuterol Tartrate [Xopenex Hfa Inhaler] 1 - 2 puff INHALATION Q4H PRN PRN 08/07/13 Losartan Potassium [Cozaar] 50 mg PO DAILY 08/07/13 Montelukast [Singulair] 10 mg PO QHS 08/07/13 Vitamin E 1,000 units PO DAILY 08/07/13 Acetaminophen [Pain Relief] 500 mg PO DAILY PRN PRN 04/25/15 Budesonide/Formoterol 160/4.5 [Symbicort 160/4.5 Mcg Inhaler (SP)] 2 puff INHALATION DAILY 04/25/15 Calcium Carb/Vitamin D3/Vit K1 [Viactiv Soft Chew] 1 each PO DAILY 04/25/15 Docusate Sodium [Colace] 100 - 200 mg PO DAILY PRN PRN 04/25/15 Estradiol [Estrace Vaginal Cream] 1 dose VAGINAL DAILY 04/25/15 Loratadine [Claritin] 10 mg PO DAILY 04/25/15 Ubidecarenone [Coenzyme Q10] 10 mg PO DAILY 04/25/15 Albuterol IH (ProAir) [Proair Hfa] 2 puff INHALATION Q6H PRN PRN 12/05/17 Fexofenadine HCl [Tawana Allergy] 180 mg PO DAILY 12/05/17 Flaxseed Oil 1,000 mg PO QHS 12/05/17 Lactobacillus Acidophilus [Probiotic Acidophilus] 1 each PO DAILY 12/05/17 Multivit-Min/FA/Lycopen/Lutein [Centrum Silver Tablet] 2 each PO MOWEFR 12/05/17 Multivit-Min/Folic Acid/Biotin [Hair, Skin and Nails Caplet] 1 each PO SUTUTHSA 12/05/17 Vit C/E/Zn/Coppr/Lutein/Zeaxan [Preservision Areds 2 Softgel] 1 each PO BID 12/05/17 Clindamycin HCl 300 mg PO 4X/DAY #16 cap 12/08/17 The following prescriptions were given: Clindamycin HCl 300 mg PO 4X/DAY #16 cap Orders to be completed after discharge: CBC W/Diff, Automated Time Frame: 3 Days, Location: Laboratory Primary Care Physician: Christo Bland MD [Primary Care Provider] - Please follow up with your Primary Care Physician in: in 1-2 weeks Test Results: Test results from this visit will be discussed in further detail at your follow-up appointment, if applicable. Proposed Discharge Date: 12/08/17
--- NOTE | 2017-12-08 08:31 | PCM.DC.SUM ---
Discharge Date and Diagnosis Date of Admission: 12/05/17 Date of Discharge: 12/08/17 - Primary Discharge Diagnosis Right leg cellulitis, s/p failed outpatient therapy - Secondary Discharge Diagnosis Chronic Problems Status post right hemicolectomy (Chronic) Hypertension (Chronic) Hyperlipidemia (Chronic) History of diverticulosis (Chronic) GERD (Chronic) Hospital Course and Treatment Imaging Results: Clinical Impression(s) from Imaging Studies Tibia/Fibula X-Ray 12/05/17 13:59 IMPRESSION: Soft tissue swelling. No demonstrated osteomyelitis. Electronically Signed: Israel York MD at 14:53 EDT Tel , Service support , None Operations: None Procedures: None Summary of Care Provided: 77-year-old female with past medical history hypertension admitted with right lower extremity pain swelling and redness after she sustained a superficial abrasion of the right knee on November 27. She was seen in the emergency room and she was given oral antibiotics and sent home. She developed progressive worsening pain in the right leg and came back the second time. 1. Cellulitis of right lower extremity, but this was failed outpatient therapy, Doppler ultrasound of lower extremities was negative. Managed on IV clindamycin and discharged on oral clindamycin to complete 7 days total. 2. Hypertension, controlled, on chlorothiazide and losartan. 3. Asthma, stable, 4. Hyperlipidemia, on statin. Discharge Diet: Low fat/ Low Cholesterol, 2000 mg Sodium Diet Discharge Activity: Return to Normal Activity Home Medications: Medications to take at Discharge Atorvastatin Calcium [Lipitor] 10 mg PO QHS 08/07/13 Cholecalciferol (Vitamin D3) [Vitamin D3] 1,000 unit PO DAILY 08/07/13 Fluticasone 0.05% [Flonase Nasal [address]] 2 spray NASAL DAILY 08/07/13 Folic Acid 2.4 mg PO DAILY 08/07/13 Garlic 1,000 mg PO DAILY 08/07/13 Hydrochlorothiazide 25 mg PO DAILY 08/07/13 Krill/Om3/Dha/Epa/Om6/Lip/Astx [Krill Oil 1,500 mg Softgel] 1 each PO DAILY #0 08/07/13 Levalbuterol Tartrate [Xopenex Hfa Inhaler] 1 - 2 puff INHALATION Q4H PRN PRN 08/07/13 Losartan Potassium [Cozaar] 50 mg PO DAILY 08/07/13 Montelukast [Singulair] 10 mg PO QHS 08/07/13 Vitamin E 1,000 units PO DAILY 08/07/13 Acetaminophen [Pain Relief] 500 mg PO DAILY PRN PRN 04/25/15 Budesonide/Formoterol 160/4.5 [Symbicort 160/4.5 Mcg Inhaler (SP)] 2 puff INHALATION DAILY 04/25/15 Calcium Carb/Vitamin D3/Vit K1 [Viactiv Soft Chew] 1 each PO DAILY 04/25/15 Docusate Sodium [Colace] 100 - 200 mg PO DAILY PRN PRN 04/25/15 Estradiol [Estrace Vaginal Cream] 1 dose VAGINAL DAILY 04/25/15 Loratadine [Claritin] 10 mg PO DAILY 04/25/15 Ubidecarenone [Coenzyme Q10] 10 mg PO DAILY 04/25/15 Albuterol IH (ProAir) [Proair Hfa] 2 puff INHALATION Q6H PRN PRN 12/05/17 Fexofenadine HCl [Tawana Allergy] 180 mg PO DAILY 12/05/17 Flaxseed Oil 1,000 mg PO QHS 12/05/17 Lactobacillus Acidophilus [Probiotic Acidophilus] 1 each PO DAILY 12/05/17 Multivit-Min/FA/Lycopen/Lutein [Centrum Silver Tablet] 2 each PO MOWEFR 12/05/17 Multivit-Min/Folic Acid/Biotin [Hair, Skin and Nails Caplet] 1 each PO SUTUTHSA 12/05/17 Vit C/E/Zn/Coppr/Lutein/Zeaxan [Preservision Areds 2 Softgel] 1 each PO BID 12/05/17 Clindamycin HCl 300 mg PO 4X/DAY #16 cap 12/08/17 Following Prescrptions Were Given to Patient: Clindamycin HCl 300 mg PO 4X/DAY #16 cap Other Amb Orders: CBC W/Diff, Automated Time Frame: 3 Days, Location: Laboratory Primary Care Physician: Christo Bland MD [Primary Care Provider] - Please follow up with your Primary Care Physician in: in 1-2 weeks Disposition: Home Minutes spent on discharge:: 35 Patient Condition:: Stable Medical Necessity - Tobacco Use Smoking Status: Never smoker Tobacco Use: Non-smoker Meaningful Use Info Meaningful Use Diagnoses (Choose all that apply): None applicable Code Visit Inpatient E&M: 92864 Disch Hosp
--- NOTE | 2017-12-08 08:35 | DS.PCM_ITS ---
Discharge Date and Diagnosis Date of Admission: 12/05/17 Date of Discharge: 12/08/17 - Primary Discharge Diagnosis Right leg cellulitis, s/p failed outpatient therapy - Secondary Discharge Diagnosis Chronic Problems Status post right hemicolectomy (Chronic) Hypertension (Chronic) Hyperlipidemia (Chronic) History of diverticulosis (Chronic) GERD (Chronic) Hospital Course and Treatment Imaging Results: Clinical Impression(s) from Imaging Studies Tibia/Fibula X-Ray 12/05/17 13:59 IMPRESSION: Soft tissue swelling. No demonstrated osteomyelitis. Electronically Signed: Israel York MD at 14:53 EDT Tel , Service support , None Operations: None Procedures: None Summary of Care Provided: 77-year-old female with past medical history hypertension admitted with right lower extremity pain swelling and redness after she sustained a superficial abrasion of the right knee on November 27. She was seen in the emergency room and she was given oral antibiotics and sent home. She developed progressive worsening pain in the right leg and came back the second time. 1. Cellulitis of right lower extremity, but this was failed outpatient therapy , Doppler ultrasound of lower extremities was negative. Managed on IV clindamycin and discharged on oral clindamycin to complete 7 days total. 2. Hypertension, controlled, on chlorothiazide and losartan. 3. Asthma, stable, 4. Hyperlipidemia, on statin. Discharge Diet: Low fat/ Low Cholesterol, 2000 mg Sodium Diet Discharge Activity: Return to Normal Activity Home Medications: Medications to take at Discharge Atorvastatin Calcium [Lipitor] 10 mg PO QHS 08/07/13 Cholecalciferol (Vitamin D3) [Vitamin D3] 1,000 unit PO DAILY 08/07/13 Fluticasone 0.05% [Flonase Nasal [place]] 2 spray NASAL DAILY 08/07/13 Folic Acid 2.4 mg PO DAILY 08/07/13 Garlic 1,000 mg PO DAILY 08/07/13 Hydrochlorothiazide 25 mg PO DAILY 08/07/13 Krill/Om3/Dha/Epa/Om6/Lip/Astx [Krill Oil 1,500 mg Softgel] 1 each PO DAILY #0 08/07/13 Levalbuterol Tartrate [Xopenex Hfa Inhaler] 1 - 2 puff INHALATION Q4H PRN PRN Losartan Potassium [Cozaar] 50 mg PO DAILY 08/07/13 Montelukast [Singulair] 10 mg PO QHS 08/07/13 Vitamin E 1,000 units PO DAILY 08/07/13 Acetaminophen [Pain Relief] 500 mg PO DAILY PRN PRN 04/25/15 Budesonide/Formoterol 160/4.5 [Symbicort 160/4.5 Mcg Inhaler (SP)] 2 puff INHALATION DAILY 04/25/15 Calcium Carb/Vitamin D3/Vit K1 [Viactiv Soft Chew] 1 each PO DAILY 04/25/15 Docusate Sodium [Colace] 100 - 200 mg PO DAILY PRN PRN 04/25/15 Estradiol [Estrace Vaginal Cream] 1 dose VAGINAL DAILY 04/25/15 Loratadine [Claritin] 10 mg PO DAILY 04/25/15 Ubidecarenone [Coenzyme Q10] 10 mg PO DAILY 04/25/15 Albuterol IH (ProAir) [Proair Hfa] 2 puff INHALATION Q6H PRN PRN 12/05/17 Fexofenadine HCl [Tawana Allergy] 180 mg PO DAILY 12/05/17 Flaxseed Oil 1,000 mg PO QHS 12/05/17 Lactobacillus Acidophilus [Probiotic Acidophilus] 1 each PO DAILY 12/05/17 Multivit-Min/FA/Lycopen/Lutein [Centrum Silver Tablet] 2 each PO MOWEFR Multivit-Min/Folic Acid/Biotin [Hair, Skin and Nails Caplet] 1 each PO SUTUTHSA 12/05/17 Vit C/E/Zn/Coppr/Lutein/Zeaxan [Preservision Areds 2 Softgel] 1 each PO BID 05/13 Clindamycin HCl 300 mg PO 4X/DAY #16 cap 12/08/17 Following Prescrptions Were Given to Patient: Clindamycin HCl 300 mg PO 4X/DAY #16 cap Other Amb Orders: CBC W/Diff, Automated Time Frame: 3 Days, Location: Laboratory Primary Care Physician: Christo Bland MD [Primary Care Provider] - Please follow up with your Primary Care Physician in: in 1-2 weeks Disposition: Home Minutes spent on discharge:: 35 Patient Condition:: Stable Medical Necessity - Tobacco Use Smoking Status: Never smoker Tobacco Use: Non-smoker Meaningful Use Info Meaningful Use Diagnoses (Choose all that apply): None applicable Code Visit Inpatient E&M: 36579 Disch Hosp
[2017-12-08 09:35] VITALS: BP 119/43
[2017-12-08] MEDS: Vitamin E 400 UNITS Capsule 800 UNITS PO (09:40)
[2017-12-08] MEDS: Losartan Potassium 50 MG Tablet PO (09:41)
[2017-12-08] MEDS: Loratadine 10 MG Tablet PO (09:41)
[2017-12-08] MEDS: Fluticasone 0.05% 1 SPRAY NASAL.SRY 2 SPRAY NASAL (09:41)
[2017-12-08 09:46] VITALS: BP 119/43; PULSE 72; RESP 18; TEMP 36.7; O2SAT 97
--- NOTE | 2017-12-09 16:04 | CASEMGMT ---
MATTHEW BENNETT Discharge Follow-up Phone Call: FAYE: Brigido Strata: 3 Call Date: 12/09/17 Discharge Date: 12/08/17 Time of Call: 1605 Duration: 3 min Admitting Diagnosis: Leg Cellulitis MATTHEW BENNETT completed follow-up phone call after recent hospitalization. Patient states that she is doing a little better. Patient states she was able to pick up driver her prescription without any problems. Patient states that she had no questions regarding discharge instructions. Patient will be scheduling her follow-up appt.
== END 2017-12-08 12:17 | disposition home or self-care (01) | DRG 603 ==
LOC: ED 14:14 → MS2 16:29 → MS3 12-07 07:19
PROVIDERS: Student in an Organized Health Care Education/Training Program; Admitting Provider Hospitalist; Emergency Provider Emergency Medicine; Family Provider Family Medicine; PCP Family Medicine; Visit Provider Internal Medicine
DX: L03.115 Cellulitis of right lower limb (principal); I10 Essential (primary) hypertension; J45.909 Unspecified asthma, uncomplicated; E78.5 Hyperlipidemia, unspecified; Z23 Encounter for immunization; Z90.49 Acquired absence of other specified parts of digestive tract; K21.9 Gastro-esophageal reflux disease without esophagitis; Z79.899 Other long term (current) drug therapy
CPT/HCPCS: 36415; 73590; 80048; 80053; 85025; 90715; 93971; 94640; 97161; 97166; 99282; J7030; A4216

== ENCOUNTER → 2018-04-02 12:58 | Outpatient (CLI) | payer MEDICARE, SELFPAY ==
--- NOTE | 2018-04-02 09:40 | ASPS_PTH ---
PATIENT: ANGEL COLON LOC: [facility] U#:[id number] AGE/SX: 85/F ROOM: RE04/02/[address]: Dr. George Liu MD : 1940 BED: DIS: SPEC #: [id number] RECD: 04/02/18 12:17 STATUS: [place] [facility] #: [id number] NEY: 04/02/18 09:[address]: George Liu DEPT: CYTOLOGY RECD BY: Altagracia Laureano ENTERED: 04/02/18 13:38 SP TYPE: ASPIRATION OTHR DR: Dr. 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 Left thyroid nodule, ultrasound-guided FNA (smears): Consistent with benign follicular nodule. Adequate for evaluation. B. Right thyroid nodule, ultrasound-guided FNA (smears): Nondiagnostic specimen. See comment. SJ:rg 04/03/18 COMMENT B. The specimen is nondiagnostic due to lack of adequate number of follicular cells. Correlation with clinical, radiologic findings and appropriate follow up are necessary. CYTOLOGY STUDY Slides are reviewed. CYTOLOGY GROSS A - Received are 12 smears labeled with the patient's name and designated per the requisition as left thyroid. Submitted for staining. B - Received are 12 smears labeled with the patient's name and designated per the requisition as right thyroid. Submitted for staining. 04/02/18 TC:5 CPT: 07757 x2
== END ==
PROVIDERS: Family Provider Family Medicine; PCP Family Medicine; Referring Provider Surgery; Visit Provider Surgery
DX: E04.2 Nontoxic multinodular goiter (principal)
CPT/HCPCS: 88161; 88313

== ENCOUNTER 2018-04-07 17:36 | Inpatient (IN) | payer MEDICARE, SELFPAY ==
[2018-04-07] VITALS (7 sets, daily range): BP systolic 135–182; BP diastolic 59–83; PULSE 77–88; RESP 14–16; TEMP 36.7–37.4; O2SAT 95–98; BMI 38.4
--- NOTE | 2018-04-07 18:19 | CT_ITS ---
STUDY: CT BRAIN WITHOUT CONTRAST REASON FOR EXAM: Female, 78 years old. Confusion RADIATION DOSAGE (If Supplied By Facility): CTDIvol = ( 44.99 ) mGy, DLP = ( 796.11 ) mGycm TECHNIQUE: Transaxial CT imaging of the brain was performed without administration of intravenous contrast material. Individualized dose optimization techniques were used for this CT. COMPARISON: November 28, 2017 CT scan head FINDINGS: Normal soft tissue structures. Normal calvarium. There is mild cerebral atrophy with widening of the extra-axial spaces and ventricular dilatation. There are areas of decreased attenuation within the white matter tracts of the supratentorial brain, consistent with microvascular disease changes. 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 Normal brainstem. There is mild cerebellar atrophy. There is no intracranial hemorrhage. There are no findings of an acute ischemic infarction. Normal visualized paranasal sinuses. CT/Brain/Head without Contrast IMPRESSION: Atrophy no visualized evidence of acute hemorrhage infarct or edema. Electronically Signed: Irasema Canales MD at 18:50 EST Tel , Service support ,
--- NOTE | 2018-04-07 18:22 | ED.VISSUMM ---
- ER Visit Summary Date of Service: 04/07/18 Chief Complaint: Confused History of Present Illness: The patient is a 78 F who presents at her daughter's behest for confusion. Daughter states the patient lives alone and is highly functional, and today she seems confused. The patient does not know why she is in the emergency department. Daughter states the patient has been urinating all day and had an episode of incontinence on the couch because she could not get to the bathroom in time. Patient complains of being sleepy, and had a recent thyroid biopsy biopsy secondary to increased fatigue recently. Patient does state she has been off balance and had to hold onto the asif today while walking. She has low back pain and a headache. She denies fever, chest pain, shortness of breath, cough, abdominal pain, nausea or vomiting, diarrhea, dysuria. History of hypertension and hypercholesterolemia. Diverticulosis and right hemicolectomy. Patient does not use tobacco or alcohol. Patient does not have a current med list with her. No history of dementia. Physical Examination: Vital signs: afebrile, hemodynamically stable, no hypoxia on room air General: well nourished, well developed, in no distress, laying in bed awake and alert Skin: warm, dry, no rash, no pallor HEENT: normocephalic and atraumatic; PERRL, EOMI, no nystagmus, moist mucous membranes Cardiovascular: regular rate and rhythm without murmurs, no peripheral edema, 2+ pulses all distal extremities Respiratory: No increased work of breathing, lungs are clear to auscultation bilaterally, no rales, rhonchi or wheezing Abdominal: Abdomen is soft, nontender with normoactive bowel sounds, no guarding or rebound, no masses MSK: Moves all extremities, no deformities, normal strength Neuro: Awake and alert, oriented to self, month, president, and location. Patient does not know the year. No facial droop, sensation and motor function intact and symmetric all extremities, normal cerebellar testing. Test Results: Abnormal Lab Results 04/07/18 04/07/18 04/07/18 18:20 18:20 18:20 WBC 9.3 RBC 4.62 Hgb 13.8 Hct 41.1 MCV 89.0 MCH 29.9 MCHC 33.6 RDW 14.1 RDW Differential 45.2 H Plt Count 261 MPV 11.2 Immature Gran % (Auto) 0.100 Neut % (Auto) 74.1 H Lymph % (Auto) 18.8 L [place] % (Auto) 6.9 Eos % (Auto) 0.0 Baso % (Auto) 0.1 Absolute Neuts (auto) 6.9 Absolute Lymphs (auto) 1.75 Total Counted Not Reportable PT 13.9 INR 1.1 APTT 28.9 Sodium 140 Potassium 3.7 Chloride 106 Carbon Dioxide 26.0 Anion Gap 8 BUN 16 Creatinine 0.71 Estim Creat Clear Calc 37.26 Est GFR (MDRD) Af Amer 103 Est GFR (MDRD) Non-Af 85 BUN/Creatinine Ratio 22.5 H Glucose 122 H Lactic Acid Calcium 9.0 Total Bilirubin 0.70 AST 21 ALT 23 Alkaline Phosphatase 141 H Ammonia Troponin I 1.700 H* Total Protein 7.6 Albumin 3.6 Globulin 4.0 Albumin/Globulin Ratio 0.9 TSH 1.13 Urine Color Urine Clarity Urine pH Ur Specific [place] Urine Protein Urine Glucose (UA) Urine Ketones Urine Occult Blood Urine Nitrite Urine Bilirubin Urine Urobilinogen Ur Leukocyte Esterase Urine RBC Urine WBC Ur Squamous Epith Cells Urine Bacteria Urine Mucus Ethyl Alcohol POC Glucose 04/07/18 04/07/18 04/07/18 18:20 18:20 18:20 WBC RBC Hgb Hct MCV MCH MCHC RDW RDW Differential Plt Count MPV Immature Gran % (Auto) Neut % (Auto) Lymph % (Auto) Hale % (Auto) Eos % (Auto) Baso % (Auto) Absolute Neuts (auto) Absolute Lymphs (auto) Total Counted PT INR APTT Sodium Potassium Chloride Carbon Dioxide Anion Gap BUN Creatinine Estim Creat Clear Calc Est GFR (MDRD) Af Amer Est GFR (MDRD) Non-Af BUN/Creatinine Ratio Glucose Lactic Acid 1.3 Calcium Total Bilirubin AST ALT Alkaline Phosphatase Ammonia < 10.0 L Troponin I Total Protein Albumin Globulin Albumin/Globulin Ratio TSH Urine Color Urine Clarity Urine pH Ur Specific [place] Urine Protein Urine Glucose (UA) Urine Ketones Urine Occult Blood Urine Nitrite Urine Bilirubin Urine Urobilinogen Ur Leukocyte Esterase Urine RBC Urine WBC Ur Squamous Epith Cells Urine Bacteria Urine Mucus Ethyl Alcohol < 3.0 POC Glucose 04/07/18 04/07/18 18:46 19:47 WBC RBC Hgb Hct MCV MCH MCHC RDW RDW Differential Plt Count MPV Immature Gran % (Auto) Neut % (Auto) Lymph % (Auto) Hale % (Auto) Eos % (Auto) Baso % (Auto) Absolute Neuts (auto) Absolute Lymphs (auto) Total Counted PT INR APTT Sodium Potassium Chloride Carbon Dioxide Anion Gap BUN Creatinine Estim Creat Clear Calc Est GFR (MDRD) Af Amer Est GFR (MDRD) Non-Af BUN/Creatinine Ratio Glucose Lactic Acid Calcium Total Bilirubin AST ALT Alkaline Phosphatase Ammonia Troponin I Total Protein Albumin Globulin Albumin/Globulin Ratio TSH Urine Color Yellow Urine Clarity Clear Urine pH 6.0 Ur Specific [place] 1.020 Urine Protein Negative Urine Glucose (UA) Normal Urine Ketones 15 H Urine Occult Blood 10 H Urine Nitrite Negative Urine Bilirubin Negative Urine Urobilinogen Normal Ur Leukocyte Esterase 25 H Urine RBC 0-5 SEEN Urine WBC 0-5 SEEN Ur Squamous Epith Cells 0-5 SEEN Urine Bacteria 0 SEEN Urine Mucus 1+ Ethyl Alcohol POC Glucose 127 H Clinical Impression(s) from Imaging Studies Brain CT 04/07/18 18:19 IMPRESSION: Atrophy no visualized evidence of acute hemorrhage infarct or edema. Electronically Signed: Irasema Canales MD at 18:50 EST Tel , Service support , Chest X-Ray 04/07/18 18:38 IMPRESSION: No demonstrated acute cardiopulmonary process. Electronically Signed: Irasema Canales MD at 18:49 EST Tel , Service support , Medications Given Discontinued Medications Aspirin (Aspirin) 325 mg PO X1 ONE Stop: 04/07/18 23:00 Last Admin: 04/07/18 23:18 Dose: 325 mg Sodium Chloride () 500 mls @ 1,000 mls/hr IV .Q30M ISATU Stop: 04/07/18 18:59 Last Admin: 04/07/18 18:40 Dose: 1,000 mls/hr Emergency Department Course and Treatment: Patient presents with vague symptoms of somnolence and acute confusion with urinary symptoms. General workup was performed to look for an underlying cause of these acute changes in patient's condition. EKG showed a sinus rhythm with first-degree block, no ischemic changes. Chest x-ray showed no signs of pneumonia. CT head showed no acute process. Labs were unremarkable except for a troponin that was elevated at 1.7. Alcohol negative. Ammonia level negative. Lactate within normal limits. Urine was negative for infection. Patient was given IV fluids for hydration. Because of the elevated troponin with vague fatigue and disequilibrium/weakness, patient was discussed with , who agreed that this requires further workup, and patient is going to be admitted due to concern for the disequilibrium and possibility of cerebellar pathology. Patient was ambulated to the bathroom while workup in progress, and she had difficulty secondary to weakness and also poor balance. Patient was discussed with the hospitalist for admission for further workup of disequilibrium, elevated troponin, and acute confusion and a 78-year-old lady who lives alone and is functional at baseline. Treatment Plan: [] Disposition: [] Impression: Disequilibrium, elevated troponin, acute confusion This note was generated with [employer] dictation software. It may contain incorrect words, spelling, and punctuation that were not noted in review of the chart prior to signing ED Disposition - Plan for ED Patient: Disposition: Acute Care Hospital [facility] Chief Complaint: Confusion
--- NOTE | 2018-04-07 18:25 | ED.DCSUM_ITS ---
- ER Visit Summary Date of Service: 04/07/18 Chief Complaint: Confused History of Present Illness: The patient is a 78 F who presents at her daughter's behest for confusion. Daughter states the patient lives alone and is highly functional, and today she seems confused. The patient does not know why she is in the emergency department. Daughter states the patient has been urinating all day and had an episode of incontinence on the couch because she could not get to the bathroom in time. Patient complains of being sleepy, and had a recent thyroid biopsy biopsy secondary to increased fatigue recently. Patient does state she has been off balance and had to hold onto the asif today while walking. She has low back pain and a headache. She denies fever, chest pain, shortness of breath, cough, abdominal pain, nausea or vomiting, diarrhea, dysuria. History of hypertension and hypercholesterolemia. Diverticulosis and right hemicolectomy. Patient does not use tobacco or alcohol. Patient does not have a current med list with her. No history of dementia. Physical Examination: Vital signs: afebrile, hemodynamically stable, no hypoxia on room air General: well nourished, well developed, in no distress, laying in bed awake and alert Skin: warm, dry, no rash, no pallor HEENT: normocephalic and atraumatic; PERRL, EOMI, no nystagmus, moist mucous membranes Cardiovascular: regular rate and rhythm without murmurs, no peripheral edema, 2+ pulses all distal extremities Respiratory: No increased work of breathing, lungs are clear to auscultation bilaterally, no rales, rhonchi or wheezing Abdominal: Abdomen is soft, nontender with normoactive bowel sounds, no guarding or rebound, no masses MSK: Moves all extremities, no deformities, normal strength Neuro: Awake and alert, oriented to self, month, president, and location. Patient does not know the year. No facial droop, sensation and motor function intact and symmetric all extremities, normal cerebellar testing. Test Results: Abnormal Lab Results 04/07/18 04/07/18 04/07/18 18:20 18:20 18:20 WBC 9.3 RBC 4.62 Hgb 13.8 Hct 41.1 MCV 89.0 MCH 29.9 MCHC 33.6 RDW 14.1 RDW Differential 45.2 H Plt Count 261 MPV 11.2 Immature Gran % (Auto) 0.100 Neut % (Auto) 74.1 H Lymph % (Auto) 18.8 L [place] % (Auto) 6.9 Eos % (Auto) 0.0 Baso % (Auto) 0.1 Absolute Neuts (auto) 6.9 Absolute Lymphs (auto) 1.75 Total Counted Not Reportable PT 13.9 INR 1.1 APTT 28.9 Sodium 140 Potassium 3.7 Chloride 106 Carbon Dioxide 26.0 Anion Gap 8 BUN 16 Creatinine 0.71 Estim Creat Clear Calc 37.26 Est GFR (MDRD) Af Amer 103 Est GFR (MDRD) Non-Af 85 BUN/Creatinine Ratio 22.5 H Glucose 122 H Lactic Acid Calcium 9.0 Total Bilirubin 0.70 AST 21 ALT 23 Alkaline Phosphatase 141 H Ammonia Troponin I 1.700 H* Total Protein 7.6 Albumin 3.6 Globulin 4.0 Albumin/Globulin Ratio 0.9 TSH 1.13 Urine Color Urine Clarity Urine pH Ur Specific [place] Urine Protein Urine Glucose (UA) Urine Ketones Urine Occult Blood Urine Nitrite Urine Bilirubin Urine Urobilinogen Ur Leukocyte Esterase Urine RBC Urine WBC Ur Squamous Epith Cells Urine Bacteria Urine Mucus Ethyl Alcohol POC Glucose 04/07/18 04/07/18 04/07/18 18:20 18:20 18:20 WBC RBC Hgb Hct MCV MCH MCHC RDW RDW Differential Plt Count MPV Immature Gran % (Auto) Neut % (Auto) Lymph % (Auto) [place] % (Auto) Eos % (Auto) Baso % (Auto) Absolute Neuts (auto) Absolute Lymphs (auto) Total Counted PT INR APTT Sodium Potassium Chloride Carbon Dioxide Anion Gap BUN Creatinine Estim Creat Clear Calc Est GFR (MDRD) Af Amer Est GFR (MDRD) Non-Af BUN/Creatinine Ratio Glucose Lactic Acid 1.3 Calcium Total Bilirubin AST ALT Alkaline Phosphatase Ammonia < 10.0 L Troponin I Total Protein Albumin Globulin Albumin/Globulin Ratio TSH Urine Color Urine Clarity Urine pH Ur Specific [place] Urine Protein Urine Glucose (UA) Urine Ketones Urine Occult Blood Urine Nitrite Urine Bilirubin Urine Urobilinogen Ur Leukocyte Esterase Urine RBC Urine WBC Ur Squamous Epith Cells Urine Bacteria Urine Mucus Ethyl Alcohol < 3.0 POC Glucose 04/07/18 04/07/18 18:46 19:47 WBC RBC Hgb Hct MCV MCH MCHC RDW RDW Differential Plt Count MPV Immature Gran % (Auto) Neut % (Auto) Lymph % (Auto) [place] % (Auto) Eos % (Auto) Baso % (Auto) Absolute Neuts (auto) Absolute Lymphs (auto) Total Counted PT INR APTT Sodium Potassium Chloride Carbon Dioxide Anion Gap BUN Creatinine Estim Creat Clear Calc Est GFR (MDRD) Af Amer Est GFR (MDRD) Non-Af BUN/Creatinine Ratio Glucose Lactic Acid Calcium Total Bilirubin AST ALT Alkaline Phosphatase Ammonia Troponin I Total Protein Albumin Globulin Albumin/Globulin Ratio TSH Urine Color Yellow Urine Clarity Clear Urine pH 6.0 Ur Specific [place] 1.020 Urine Protein Negative Urine Glucose (UA) Normal Urine Ketones 15 H Urine Occult Blood 10 H Urine Nitrite Negative Urine Bilirubin Negative Urine Urobilinogen Normal Ur Leukocyte Esterase 25 H Urine RBC 0-5 SEEN Urine WBC 0-5 SEEN Ur Squamous Epith Cells 0-5 SEEN Urine Bacteria 0 SEEN Urine Mucus 1+ Ethyl Alcohol POC Glucose 127 H Clinical Impression(s) from Imaging Studies Brain CT 04/07/18 18:19 IMPRESSION: Atrophy no visualized evidence of acute hemorrhage infarct or edema. Electronically Signed: Irasema Canales MD at 18:50 EST Tel , Service support , Chest X-Ray 04/07/18 18:38 IMPRESSION: No demonstrated acute cardiopulmonary process. Electronically Signed: Irasema Canales MD at 18:49 EST Tel , Service support , Medications Given Discontinued Medications Aspirin (Aspirin) 325 mg PO X1 ONE Stop: 04/07/18 23:00 Last Admin: 04/07/18 23:18 Dose: 325 mg Sodium Chloride () 500 mls @ 1,000 mls/hr IV .Q30M ISATU Stop: 04/07/18 18:59 Last Admin: 04/07/18 18:40 Dose: 1,000 mls/hr Emergency Department Course and Treatment: Patient presents with vague symptoms of somnolence and acute confusion with urinary symptoms. General workup was performed to look for an underlying cause of these acute changes in patient's condition. EKG showed a sinus rhythm with first-degree block, no ischemic changes. Chest x-ray showed no signs of pneumonia. CT head showed no acute process. Labs were unremarkable except for a troponin that was elevated at 1.7. Alcohol negative. Ammonia level negative. Lactate within normal limits. Urine was negative for infection. Patient was given IV fluids for hydration. Because of the elevated troponin with vague fatigue and disequilibrium/weakness, patient was discussed with , who agreed that this requires further workup, and patient is going to be admitted due to concern for the disequilibrium and possibility of cerebellar pathology. Patient was ambulated to the bathroom while workup in progress, and she had difficulty secondary to weakness and also poor balance. Patient was discussed with the hospitalist for admission for further workup of disequilibrium, elevated troponin, and acute con fusion and a 78-year-old lady who lives alone and is functional at baseline. Treatment Plan: [] Disposition: [] Impression: Disequilibrium, elevated troponin, acute confusion This note was generated with [employer] dictation software. It may contain incorrect words, spelling, and punctuation that were not noted in review of the chart prior to signing ED Disposition - Plan for ED Patient: Disposition: Acute Care Hospital [facility] Chief Complaint: Confusion
--- NOTE | 2018-04-07 18:38 | RAD_ITS ---
STUDY: X-RAY CHEST REASON FOR EXAM: Female, 78 years old. Confusion TECHNIQUE: Single AP portable view of the chest. COMPARISON: None. FINDINGS: The lungs are clear and expanded. There is no demonstrated pleural abnormality. There is borderline cardiomegaly. Normal mediastinum and arnaldo. Normal visualized pulmonary arteries. Normal visualized aortic arch and descending thoracic aorta. Normal visualized thoracic spine. Normal visualized ribs, clavicles, and shoulders. There is no demonstrated abnormality of the visualized soft tissue structures of the upper abdomen. RAD/Chest 1 View (Portable) IMPRESSION: No demonstrated acute cardiopulmonary process. Electronically Signed: Irasema Canales MD at 18:49 EST Tel , Service support ,
[2018-04-07 18:39] LABS: Absolute Lymphocyte Count 1.75 X10^3/ul (0.83-4.51); Absolute Neutrophil Count 6.9 X10^3/uL (2.0-7.7); Basophil# 0.01 X10^3/uL; Basophil% 0.1 % (0-1); Hematocrit 41.1 % (37-47); Hemoglobin 13.8 g/dl (12.0-15.0); Lymphocyte # 1.75 X10^3/ul (4.0); Lymphocyte % 18.8 % (19-41); Mean Corp Hgb Conc 33.6 g/gl (32-36); Mean Corpuscular Hgb 29.9 pg (27.0-32.0); Mean Platelet Vol. 11.2 fl (6.2-12.0); Monocyte# 0.64 X10^3/uL; Monocyte% 6.9 % (0-10); Neutrophil # 6.91 X10^3/uL (2.7-7.7); Neutrophil % 74.1 % (47-70); Platelet Count 261 K/mm3 (150-450); RBC Distribution Width CV 14.1 % (11.6-14.6); RBC Distribution Width SD 45.2 fl (35.1-43.9); Red Blood Count 4.62 M/mm3 (4.2-5.4); White Blood Count 9.3 K/mm3 (4.4-11.0)
[2018-04-07 18:42] LABS: POSITIVE COUNT NO; POSITIVE DIFFERENTIAL NO; POSITIVE MORPHOLOGY NO
[2018-04-07 18:55] LABS: Bedside Glucose 127 mg/dL (70-110)
[2018-04-07 19:01] LABS: Alcohol, Blood (Medical)-Serum < 3.0 mg/dL
[2018-04-07 19:03] LABS: International Normalized Ratio 1.1; Partial Thromboplast Time 28.9 Seconds (24.1-36.2); Prothrombin Time (Protime)PT. 13.9 SECONDS (11.7-14.9)
[2018-04-07 19:06] LABS: Lactic Acid 1.3 mmol/L (0.4-2.0)
[2018-04-07 19:10] LABS: ALB/GLOB Ratio 0.9 RATIO (0.9-2.4); AST(SGOT) 21 U/L (15-37); Alanine Aminotransfer ALT/SGPT 23 U/L (13-56); Albumin, Serum 3.6 g/dL (3.2-5.0); Alkaline Phosphatase 141 U/L (45-117); Anion Gap 8 (5-15); BUN 16 mg/dL (7-18); BUN/Creat Ratio 22.5 RATIO (10-20); Chloride 106 mmol/L (98-107); Creatinine, Serum 0.71 mg/dL (0.55-1.02); EST Glomerular Filtration Rate 85 mL/min (>60); Est Glom Filt Rate - Afr Amer 103 mL/min (>60); Estimated Creatinine Clearance 37.26 ml/min; Glucose 122 mg/dL (74-106); Potassium 3.7 mmol/L (3.5-5.1); Protein, Total 7.6 g/dL (6.4-8.2); Sodium Level 140 mmol/L (136-145); Thyroid Stim Hormone (TSH) 1.13 uIU/mL (0.358-3.74)
[2018-04-07 19:11] LABS: Ammonia < 10.0 umol/L (11-32)
--- NOTE | 2018-04-07 19:12 | ED.RN ---
CRITICAL LAB VALUE RECEIVED FROM LAB. TROPONIN 1.7. DR. CAMPUZANO NOTIFIED.
--- NOTE | 2018-04-07 19:16 | EKG12_ITS ---
Test Reason : CP Blood Pressure : / mmHG Vent. Rate : 084 BPM Atrial Rate : 084 BPM P-R Int : 228 ms QRS Dur : 074 ms QT Int : 398 ms P-R-T Axes : 051 -09 015 degrees QTc Int : 470 ms Sinus rhythm with 1st degree A-V block Otherwise normal ECG Confirmed by SABRINA JOSEPH, AMEE ([id number]), film editor NENA CURTIS ([id number] on 04/08/2018 3:24:46 PM Referred By: George Liu Confirmed By:AMEE BENNETT MD
[2018-04-07 19:52] LABS: Bacteria 0 SEEN /hpf (None Seen)
[2018-04-07 20:01] LABS: Color, Urine Yellow (Yellow); Glucose, Dipstick Normal (Normal); Ketone-Dipstick 15 mg/dl (Negative); Leukocyte Esterase-Dipstick 25 /ul (Negative); Nitrite-Dipstick Negative (Negative); Occult Blood-Urine 10 /ul (Negative); Protein-Dipstick Negative (Negative); Urine Bilirubin Dipstick Negative (Negative); Urine Clarity Clear (Clear); Urine Urobilinogen Normal (Normal)
[2018-04-07 20:05] LABS: Mucous, Urine 1+ /hpf (<or=2+); Red Blood Cells-Urine 0-5 SEEN /hpf (0-5); Squamous Epithelial Cells - UA 0-5 SEEN /hpf (5-10); White Blood Cells 0-5 SEEN /hpf (0-5)
--- NOTE | 2018-04-07 21:17 | PCM.HP.STD ---
Problem List (1) Confusion Status: Acute (2) Elevated troponin Status: Acute (3) Hypertension Status: Chronic (4) Hyperlipidemia Status: Chronic (5) History of diverticulosis Status: Chronic (6) GERD Status: Chronic History of Present Illness Date of Admission: 04/07/18 Chief Complaint: confusion The patient is a 78 year old female patient who lives independently presents to the ER with confusion. Her daughter called to check on her at 4:00 this afternoon and found her speech to be garbled and incoherent. The daughter then drove to [place] from [place] to bring her to the hospital. It is unclear when the change in speech occurred. This was a significant change from her baseline. 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 The patient is also noted to have a subtle left facial drop at the lips which the daughter has not appreciated before. The patient;s speech has improved to be understandable and answering appropriately but her memory and cognitive function remain somewhat impaired. She and her daughter confirm her wishes to be a DNR-CCA. Initial Troponin is elevated yet she denies chest pain at present time. Initial CT of the head is negative for infarct and there are no other signs of trauma. She had a procedure in her feet that was done at the [facility] that may include metal hardware so her MRI status needs to be investigated further. She will be admitted for further neurological assessment and cardiac care. Past Medical History Past Medical History (Chronic Problems): Chronic Problems (Last Reviewed 04/04/18 @ 07:33 by George Liu MD) Status post right hemicolectomy (Chronic) Hypertension (Chronic) Hyperlipidemia (Chronic) History of diverticulosis (Chronic) GERD (Chronic) Medical History: Medical History (Last Reviewed 04/04/18 @ 07:33 by George Liu MD) Age related osteoporosis M81.0 Asthma J45.909 Elevated fasting blood sugar R73.01 Essential tremor G25.0 Hyperlipidemia E78.5 Morbid obesity E66.01 SVT (supraventricular tachycardia) I47.1 Status post placement of implantable loop recorder Z95.818 Stress and adjustment reaction F43.29 Syncope R55 Thyroid nodule E04.1 HTN (hypertension) I10 Allergies primidone Allergy (Verified 04/02/18 09:37) Itching albuterol sulfate [From Ventolin HFA] Adverse Reaction (Verified 04/02/18:37) Unknown amoxicillin [Amoxicillin] Adverse Reaction (Verified 04/02/18:37) Nausea amoxicillin trihydrate [From Augmentin] Adverse Reaction (Verified 04/02/18:37) Abd cramps/diarrhea aspartame Adverse Reaction (Verified 04/02/18:37) Other caffeine Adverse Reaction (Verified 04/02/18 09:37) Other cephalexin monohydrate [From Keflex] Adverse Reaction (Verified 04/02/18:37) Other chocolate flavor Adverse Reaction (Verified 04/02/18:37) Other erythromycin base [Erythromycin Base] Adverse Reaction (Verified 04/02/18:37) Diarrhea hyoscyamine [Hyoscyamine] Adverse Reaction (Verified 04/02/18:37) Rash hyoscyamine sulfate [From Levbid] Adverse Reaction (Verified 04/02/18:37) Rash levofloxacin Adverse Reaction (Verified 04/02/18:37) Unknown lisinopril Adverse Reaction (Verified 04/02/18:37) Other metronidazole [From Flagyl] Adverse Reaction (Verified 04/02/18:37) Rash Metronidazole HCl [From Flagyl] Adverse Reaction (Verified 04/02/18:37) Rash morphine Adverse Reaction (Verified 04/02/18:37) Other naproxen Adverse Reaction (Verified 04/02/18:37) Nausea/Vom/Diarrhea NSAIDS (Non-Steroidal Anti-Inflamma Adverse Reaction (Verified 04/02/18 09:37) Abd cramps/diarrhea phenazopyridine HCl [From Pyridium] Adverse Reaction (Verified 04/02/18:37) Other potassium clavulanate [From Augmentin] Adverse Reaction (Verified 04/02/18:37) Abd cramps/diarrhea sulfamethoxazole [From Septra] Adverse Reaction (Verified 04/02/18:37) Unknown trimethoprim [From Septra] Adverse Reaction (Verified 04/02/18:37) Unknown IV DYE Allergy (Uncoded 12/05/17 12:36) Rash URISED Adverse Reaction (Uncoded 12/05/17 12:36) Other Home Medications: Ambulatory Orders Medication Instructions Recorded Fluticasone 0.05% [Flonase Nasal 2 spray NASAL DAILY 08/07/13 [place]] Folic Acid 2.4 mg PO DAILY 08/07/13 Krill/Om3/Dha/Epa/Om6/Lip/Astx 1 ea PO DAILY #0 08/07/13 [Krill Oil 1,500 mg Softgel] Losartan Potassium [Cozaar] 50 mg PO DAILY 08/07/13 Montelukast [Singulair] 10 mg PO QHS 08/07/13 Vitamin E 400 units PO DAILY 08/07/13 Budesonide/Formoterol 160/4.5 2 puff INHALATION DAILY 04/25/15 [Symbicort 160/4.5 Mcg Inhaler (SP)] Calcium Carb/Vitamin D3/Vit K1 1 ea PO DAILY 04/25/15 [Viactiv Soft Chew] Docusate Sodium [Colace] 100 - 200 mg PO DAILY PRN PRN 04/25/15 Ubidecarenone [Coenzyme Q10] 10 mg PO DAILY 04/25/15 Fexofenadine HCl [Tawana Allergy] 180 mg PO DAILY 12/05/17 Lactobacillus Acidophilus 1 ea PO DAILY 12/05/17 [Probiotic Acidophilus] Vit C/E/Zn/Coppr/Lutein/Zeaxan 1 ea PO BID 12/05/17 [Preservision Areds 2 Softgel] Acetaminophen [Tylenol] 500 mg PO PRN PRN 04/07/18 Albuterol Sulfate [Proair 2 puff PO Q6H PRN PRN 04/07/18 Respiclick] Atorvastatin Calcium [Lipitor] 10 mg PO QHS 04/07/18 Biotin 1 tab PO MOWEFR 04/07/18 Cholecalciferol (VIT D3) [Vitamin 1,000 unit PO DAILY 04/07/18 D] Estradiol 42.5 gm VG UD 04/07/18 Flaxseed Oil 1,000 mg PO DAILY 04/07/18 Garlic 1,200 mg PO DAILY 04/07/18 Hydrochlorothiazide [Hctz] 25 mg PO DAILY 04/07/18 Pnv 112/Iron/FA/Om-3S/Dha/Epa 2 tab PO DAILY 04/07/18 [Vitafol Gummies] Surgical History: Surgical History (Last Reviewed 04/04/18 @ 07:33 by George Liu MD) History of Z98.891 History of colectomy Z90.49 History of laparoscopic cholecystectomy Z90.49 History of repair of hiatal hernia Z98.890, Z87.19 Surgical History: - - Right hemicolectomy Smoking Status: Never smoker - *Family History Maternal Family History: Family History (Last Reviewed 04/04/18 @ 07:33 by George Liu MD) Mother Cancer Father Diabetes History Items: No pertinent history Review of Systems Constitutional: Denies: Chills, Fever, Weight Change HEENT: Denies: Head Aches, Sinus Congestion, Sinus Drainage Cardiovascular: Denies: Chest Pain, Palpitations Respiratory: Denies: Cough, Shortness of breath at rest, Sputum production Gastrointestinal: Denies: Abdominal Pain, Nausea, Vomiting Genitourinary: Denies: Dysuria Musculoskeletal: Denies: Joint Pain, Joint Tenderness Skin: Denies: Rash, Wounds Neurological: Reports: Change in Speech, Slurred speech, Confusion. Denies: Focal weakness, Numbness, Tingling Psychiatric: Denies: Anxiety, Depression, Homicidal Ideations, Suicidal Ideations Hematologic/ Lymphatic: Denies: Easy Bruising, Easy Bleeding VTE Information - Inpt Only VTE Present on Admission: No VTE Mechan Device Prophylaxis: None VTE Pharm Prophylaxis ordered?: Yes Patient Problems: Active and Suspected Problems (Last Reviewed 04/04/18 @ 07:33 by George Liu MD) Confusion (Acute) Elevated troponin (Acute) - Physical Exam General: Alert, Cooperative, No apparent distress, Well developed, Well nourished, Confused, Disoriented HEENT: Atraumatic, PERRLA, Normocephalic, - - eye muscles track well to right side but left inferior field (she did not follow my finger) Neck: Supple, No JVD, Negative Carotid Bruits Lungs: Clear to auscultation, Normal air movement, No rhonchi, No wheeze, No rales Cardiovascular: Regular rate, Regular Rhythm, Normal S1, Normal S2, No murmurs Abdomen: Bowel Sounds Present, Soft, Non Tender Extremities: No edema Skin: No rashes Musculoskeletal: No Tenderness to Palpation of Joints or Extremities Neurological: Facial Droop - left lip area, Muscle tone normal, Sensory exam intact to light touch and pain, - - motor function intact Psych/Mental Status: Normal Affect, Appropriate Vital Signs Temp Pulse Resp BP Pulse Ox 98.1 F 88 15 182/71 H 97 04/07/18 17:37 04/07/18 19:37 04/07/18 19:37 04/07/18 19:37 04/07/18 19:37 Oxygen Delivery Method Room Air Weight: 210 lb Body Mass Index (BMI) 38.4 Finger Stick Blood Glucose 127 Laboratory Tests Past 24 Hrs 04/07/18 04/07/18 04/07/18 18:20 18:20 18:20 WBC 9.3 RBC 4.62 Hgb 13.8 Hct 41.1 MCV 89.0 MCH 29.9 MCHC 33.6 RDW 14.1 RDW Differential 45.2 H Plt Count 261 MPV 11.2 Immature Gran % (Auto) 0.100 Neut % (Auto) 74.1 H Lymph % (Auto) 18.8 L [place] % (Auto) 6.9 Eos % (Auto) 0.0 Baso % (Auto) 0.1 Absolute Neuts (auto) 6.9 Absolute Lymphs (auto) 1.75 Total Counted Not Reportable PT 13.9 INR 1.1 APTT 28.9 Sodium 140 Potassium 3.7 Chloride 106 Carbon Dioxide 26.0 Anion Gap 8 BUN 16 Creatinine 0.71 Estim Creat Clear Calc 37.26 Est GFR (MDRD) Af Amer 103 Est GFR (MDRD) Non-Af 85 BUN/Creatinine Ratio 22.5 H Glucose 122 H Lactic Acid Calcium 9.0 Total Bilirubin 0.70 AST 21 ALT 23 Alkaline Phosphatase 141 H Ammonia Troponin I 1.700 H* Total Protein 7.6 Albumin 3.6 Globulin 4.0 Albumin/Globulin Ratio 0.9 TSH 1.13 Urine Color Urine Clarity Urine pH Ur Specific [place] Urine Protein Urine Glucose (UA) Urine Ketones Urine Occult Blood Urine Nitrite Urine Bilirubin Urine Urobilinogen Ur Leukocyte Esterase Urine RBC Urine WBC Ur Squamous Epith Cells Urine Bacteria Urine Mucus Ethyl Alcohol 04/07/18 04/07/18 04/07/18 18:20 18:20 18:20 WBC RBC Hgb Hct MCV MCH MCHC RDW RDW Differential Plt Count MPV Immature Gran % (Auto) Neut % (Auto) Lymph % (Auto) [place] % (Auto) Eos % (Auto) Baso % (Auto) Absolute Neuts (auto) Absolute Lymphs (auto) Total Counted PT INR APTT Sodium Potassium Chloride Carbon Dioxide Anion Gap BUN Creatinine Estim Creat Clear Calc Est GFR (MDRD) Af Amer Est GFR (MDRD) Non-Af BUN/Creatinine Ratio Glucose Lactic Acid 1.3 Calcium Total Bilirubin AST ALT Alkaline Phosphatase Ammonia < 10.0 L Troponin I Total Protein Albumin Globulin Albumin/Globulin Ratio TSH Urine Color Urine Clarity Urine pH Ur Specific [place] Urine Protein Urine Glucose (UA) Urine Ketones Urine Occult Blood Urine Nitrite Urine Bilirubin Urine Urobilinogen Ur Leukocyte Esterase Urine RBC Urine WBC Ur Squamous Epith Cells Urine Bacteria Urine Mucus Ethyl Alcohol < 3.0 04/07/18 19:47 WBC RBC Hgb Hct MCV MCH MCHC RDW RDW Differential Plt Count MPV Immature Gran % (Auto) Neut % (Auto) Lymph % (Auto) [place] % (Auto) Eos % (Auto) Baso % (Auto) Absolute Neuts (auto) Absolute Lymphs (auto) Total Counted PT INR APTT Sodium Potassium Chloride Carbon Dioxide Anion Gap BUN Creatinine Estim Creat Clear Calc Est GFR (MDRD) Af Amer Est GFR (MDRD) Non-Af BUN/Creatinine Ratio Glucose Lactic Acid Calcium Total Bilirubin AST ALT Alkaline Phosphatase Ammonia Troponin I Total Protein Albumin Globulin Albumin/Globulin Ratio TSH Urine Color Yellow Urine Clarity Clear Urine pH 6.0 Ur Specific [place] 1.020 Urine Protein Negative Urine Glucose (UA) Normal Urine Ketones 15 H Urine Occult Blood 10 H Urine Nitrite Negative Urine Bilirubin Negative Urine Urobilinogen Normal Ur Leukocyte Esterase 25 H Urine RBC 0-5 SEEN Urine WBC 0-5 SEEN Ur Squamous Epith Cells 0-5 SEEN Urine Bacteria 0 SEEN Urine Mucus 1+ Ethyl Alcohol POC Glucose 04/07/18 18:46 POC Glucose 127 H Assessment/Plan All Active Problems (Last Reviewed 04/04/18 @ 07:33 by George Liu MD) Confusion (Acute) Elevated troponin (Acute) Assessment - acute mental status change, possible CVA - elevated troponin, NSTEMI Plan - admit to PCU. - consult neurology and cardiology() - neurological evaluations per stroke protocol - initiate stroke protocol procedure plan for PCU (appears to be resolving) - obtain records regarding hardware in her feet to determine if MRI/MRA is feasible - aspirin 325mg po q day - LMWH for DVT prophylaxis - IV normal saline at 100 cc /hr - continue routine home medications - will need case management to discuss dc plan or transition to care depending on her course - she is DNR-CCA Code Visit Inpatient E&M: 26046 Init Hosp L3
[2018-04-07] MEDS: Aspirin 325 MG Tablet PO (23:18)
[2018-04-08] VITALS (15 sets, daily range): BP systolic 103–154; BP diastolic 42–65; PULSE 69–83; RESP 14–17; TEMP 36.8–37.5; O2SAT 94–99; BMI 38.4; BMI 40.8
[2018-04-08] MEDS: Montelukast 10 MG Tablet PO ×2 (00:33→21:16)
[2018-04-08] MEDS: Atorvastatin Calcium 10 MG Tablet PO (00:33)
--- NOTE | 2018-04-08 05:55 | EKG12_ITS ---
Test Reason : AM EKG Blood Pressure : / mmHG Vent. Rate : 076 BPM Atrial Rate : 077 BPM P-R Int : 190 ms QRS Dur : 088 ms QT Int : 428 ms P-R-T Axes : 069 004 023 degrees QTc Int : 481 ms Normal sinus rhythm Normal ECG When compared with ECG of 07-APR-2018 19:19, MANUAL COMPARISON REQUIRED, DATA IS UNCONFIRMED Confirmed by SINGH JOSEPH, JADE ([id number]), editor in chief NENA CURTIS ([id number] on 04/14/2018 2:26:05 PM Referred By: BARRETT Confirmed By:JADE WINTERS MD
[2018-04-08 06:12] LABS: Hematocrit 38.6 % (37-47); Hemoglobin 12.9 g/dl (12.0-15.0); Mean Corp Hgb Conc 33.4 g/gl (32-36); Mean Corpuscular Hgb 30.1 pg (27.0-32.0); Mean Corpuscular Volume 90.2 fL (81-99); Mean Platelet Vol. 10.6 fl (6.2-12.0); Platelet Count 251 K/mm3 (150-450); RBC Distribution Width CV 14.2 % (11.6-14.6); RBC Distribution Width SD 46.1 fl (35.1-43.9); Red Blood Count 4.28 M/mm3 (4.2-5.4); White Blood Count 8.8 K/mm3 (4.4-11.0)
[2018-04-08 06:15] LABS: International Normalized Ratio 1.1
[2018-04-08 06:16] LABS: Partial Thromboplast Time 30.6 Seconds (24.1-36.2)
[2018-04-08 06:23] LABS: Scan Indicated on CBC? Y/N NO
--- NOTE | 2018-04-08 06:27 | ECHOD_ITS ---
Reason For Study: S/P MS Procedure This was a 2D Doppler, Color Flow transthoracic echocardiogram. Exam performed portable in patient room. Left Ventricle Normal LV size. Left ventricular systolic function is normal. The estimated ejection fraction is 60 %. Transmitral and pulmonary venous doppler flow suggestive of impaired relaxation of left ventricle. No regional wall motion abnormalities noted. Right Ventricle Normal RV size. Normal systolic function. Atria The left atrium is mildly enlarged. The right atrium is mildly enlarged. Mitral Valve There is mild to moderate mitral annular calcification. Mild (1+) eccentric mitral valve insufficiency. Tricuspid Valve Normal tricuspid valve. Mild to moderate (1-2+) tricuspid valve insufficiency. Pulmonary artery systolic pressure is 36 mmHg. Aortic Valve Trisinus/trileaflet aortic valve. Pulmonic Valve Normal pulmonic valve. Great Vessels Normal aortic root. The pulmonary artery is normal size. Normal inferior vena cava. Pericardium/Pleural No pericardial effusion. MMode/2D Measurements & Calculations LVIDd: 4.1 cm IVSd: 1.1 cm LVOT diam: 2.0 cm LVIDs: 2.6 cm LVPWd: 1.1 cm LVOT area: 3.0 cm2 RVDd: 3.7 cm FS: 36.3 % Ao root diam: 2.7 cm LAV(MOD-bp): 103.5 ml LA A4 area: 27.9 cm2 LAV(MOD-bp) Indexed: 54.4 ml/m2 LAV(MOD-sp2): 100.2 ml LAV(MOD-sp4): 100.6 ml LA dimension(2D): 4.3 cm RA A4 area: 23.7 cm2 Time Measurements MV dec time: 0.28 sec Doppler Measurements & Calculations MV E max andrea: 123.9 cm/sec Lat Peak E' Andrea: 11.3 cm/sec Med Peak E' Andrea: 7.4 cm/sec MV A max andrea: 137.9 cm/sec E/E' lat: 11.0 E/E' med: 16.7 MV E/A: 0.90 Ao V2 max: 188.8 cm/sec LV V1 max: 155.4 cm/sec SV(LVOT): 103.5 ml Ao max P.3 mmHg LV V1 max P.7 mmHg Ao V2 mean: 127.2 cm/sec LV V1 mean P.4 mmHg Ao mean P.3 mmHg LV V1 mean: 110.5 cm/sec Ao V2 VTI: 39.8 cm LV V1 VTI: 34.3 cm AJNY(I,D): 2.6 cm2 JANY(V,D): 2.5 cm2 PA V2 max: 114.4 cm/sec TR max andrea: 280.4 cm/sec TR max P.5 mmHg Interpretation Summary Normal LV size. Left ventricular systolic function is normal. The estimated ejection fraction is 60 %. Transmitral and pulmonary venous doppler flow suggestive of impaired relaxation of left ventricle There is mild to moderate mitral annular calcification. Mild (1+) eccentric mitral valve insufficiency. Ordering Physician: Butch Bose Referring Physician: Christo Bland Performed By: Ashly Pinedo, ARA, RVT
--- NOTE | 2018-04-08 06:28 | PCM.CONS.C ---
Reason for Consult Date of Consultation: 04/08/18 Reason for Consultation: Abnormal cardiac enzymes History of Present Illness: The patient is a 78 year old F who presents at her daughter's behest for confusion. Daughter states the patient lives alone and is highly functional, and yesterday she seemed confused. She was brought to the emergency room but she did not know why she was in the emergency room. The patient does not know why she is in the emergency department. Daughter states the patient has been urinating all day and had an episode of incontinence on the couch because she could not get to the bathroom in time. Patient complains of being sleepy, and had a recent thyroid biopsy biopsy secondary to increased fatigue recently. Patient does state she has been off balance and had to hold onto the asif today while walking. She has low back pain and a headache. She denies fever, chest pain, shortness of breath, cough, abdominal pain, nausea or vomiting, diarrhea, dysuria. History of hypertension and hypercholesterolemia. As part of her workup an electric cardiogram was done which demonstrated normal sinus rhythm with no acute changes. Troponin enzymes were obtained which were noted to be abnormal. They were in the range suggestive of a non-ST elevation myocardial infarction. She is also currently being worked up for possible cerebrovascular accident. [] Past Medical History Allergies/Adverse Reactions: Allergies primidone Allergy (Verified 04/02/18 09:37) Itching albuterol sulfate [From Ventolin HFA] Adverse Reaction (Verified 04/02/18 09:37) Unknown amoxicillin [Amoxicillin] Adverse Reaction (Verified 04/02/18 09:37) Nausea amoxicillin trihydrate [From Augmentin] Adverse Reaction (Verified 04/02/18 09:37) Abd cramps/diarrhea aspartame Adverse Reaction (Verified 04/08/18 00:16) Dizziness caffeine Adverse Reaction (Verified 04/08/18 00:16) Dizziness cephalexin monohydrate [From Keflex] Adverse Reaction (Verified 04/08/18 00:16) Unknown chocolate flavor Adverse Reaction (Verified 04/02/18 09:37) Other erythromycin base [Erythromycin Base] Adverse Reaction (Verified 04/02/18 09:37) Diarrhea hyoscyamine [Hyoscyamine] Adverse Reaction (Verified 04/02/18 09:37) Rash hyoscyamine sulfate [From Levbid] Adverse Reaction (Verified 04/02/18 09:37) Rash levofloxacin Adverse Reaction (Verified 04/08/18 00:16) Itching lisinopril Adverse Reaction (Verified 04/08/18 00:16) Unknown metronidazole [From Flagyl] Adverse Reaction (Verified 04/02/18 09:37) Rash Metronidazole HCl [From Flagyl] Adverse Reaction (Verified 04/02/18 09:37) Rash morphine Adverse Reaction (Verified 04/08/18 00:16) abdominal pain naproxen Adverse Reaction (Verified 04/02/18 09:37) Nausea/Vom/Diarrhea NSAIDS (Non-Steroidal Anti-Inflamma Adverse Reaction (Verified 04/02/18 09:37) Abd cramps/diarrhea phenazopyridine HCl [From Pyridium] Adverse Reaction (Verified 04/08/18 00:16) Itching potassium clavulanate [From Augmentin] Adverse Reaction (Verified 04/02/18 09:37) Abd cramps/diarrhea sulfamethoxazole [From Septra] Adverse Reaction (Verified 04/02/18 09:37) Unknown trimethoprim [From Septra] Adverse Reaction (Verified 04/02/18 09:37) Unknown IV DYE Allergy (Uncoded 12/05/17 12:36) Rash URISED Adverse Reaction (Uncoded 12/05/17 12:36) Other Home Medications: Ambulatory Orders Medication Instructions Recorded Fluticasone 0.05% [Flonase Nasal 2 spray NASAL DAILY 08/07/13 [place]] Folic Acid 2.4 mg PO DAILY 08/07/13 Krill/Om3/Dha/Epa/Om6/Lip/Astx 1 ea PO DAILY #0 08/07/13 [Krill Oil 1,500 mg Softgel] Losartan Potassium [Cozaar] 50 mg PO DAILY 08/07/13 Montelukast [Singulair] 10 mg PO QHS 08/07/13 Vitamin E 400 units PO DAILY 08/07/13 Budesonide/Formoterol 160/4.5 1 puff INHALATION DAILY 04/25/15 [Symbicort 160/4.5 Mcg Inhaler (SP)] Calcium Carb/Vitamin D3/Vit K1 1 ea PO DAILY 04/25/15 [Viactiv Soft Chew] Docusate Sodium [Colace] 100 - 200 mg PO DAILY PRN PRN 04/25/15 Ubidecarenone [Coenzyme Q10] 10 mg PO DAILY 04/25/15 Fexofenadine HCl [Tawana Allergy] 180 mg PO DAILY 12/05/17 Lactobacillus Acidophilus 1 ea PO DAILY 12/05/17 [Probiotic Acidophilus] Vit C/E/Zn/Coppr/Lutein/Zeaxan 1 ea PO DAILY 12/05/17 [Preservision Areds 2 Softgel] Acetaminophen [Tylenol] 500 mg PO DAILY PRN 04/07/18 Albuterol Sulfate [Proair 2 puff PO Q6H PRN PRN 04/07/18 Respiclick] Atorvastatin Calcium [Lipitor] 10 mg PO QHS 04/07/18 Biotin 1 tab PO MOWEFR 04/07/18 Cholecalciferol (VIT D3) [Vitamin 1,000 unit PO DAILY 04/07/18 D] Estradiol 42.5 gm VG UD 04/07/18 Flaxseed Oil 1,000 mg PO DAILY 04/07/18 Garlic 1,200 mg PO DAILY 04/07/18 Hydrochlorothiazide [Hctz] 25 mg PO DAILY 04/07/18 Pnv 112/Iron/FA/Om-3S/Dha/Epa 2 tab PO DAILY 04/07/18 [Vitafol Gummies] Past Medical History (Chronic Problems): Chronic Problems (Last Reviewed 04/08/18 @ 11:49 by Adam Lee MD) Status post right hemicolectomy (Chronic) Hypertension (Chronic) Hyperlipidemia (Chronic) History of diverticulosis (Chronic) GERD (Chronic) Surgical History: - - Right hemicolectomy - *Family History Maternal Family History: Family History (Last Reviewed 04/08/18 @ 11:49 by Adam Lee MD) Mother Cancer Father Diabetes History Items: No pertinent history Lives: Alone Smoking Status: Never smoker Alcohol: None Drugs: None Review of Systems - Review of Systems General: Denies: Fever, Night Sweats, Fatigue HEENT: Denies: Vision Change Cardiovascular: Denies: Chest Discomfort, Shortness of Breath, Orthopnea, PND, Peripheral Edema, Palpitations, Lightheadedness, Dizziness, Near Syncope, Syncope Respiratory: Denies: Cough, Sputum Production, Hemoptysis Gastrointestinal: Denies: Indigestion, Hematemesis, Hematochezia, Melena Genitourinary: Denies: Dysuria, Hematuria Muscoloskeletal: Denies: Myalgias Skin: Denies: Rash Neurological: Reports: Confusion, Decreased Coordination. Denies: Dizziness Psychiatric: Denies: Anxiety Endocrine: Denies: Unexplained Weight Loss Hematologic/ Lymphatic: Denies: Anemia Subjectve: Patient seen and evaluated. Objective: Vital Signs Temp Pulse Resp BP Pulse Ox 98.7 F 69 14 111/43 L 94 04/08/18 03:52 04/08/18 03:52 04/08/18 03:52 04/08/18 03:52 04/08/18 03:52 Oxygen Delivery Method Room Air Weight: 209 lb 7.026 oz Body Mass Index (BMI) 40.8 Finger Stick Blood Glucose 127 General: Awake, Alert, Oriented x 3 HEENT: PERRL, EOMI, Sclera Non Icteric Neck: Supple, Good ROM, No Lymph Node Enlargement Lungs: Clear to auscultation Cardiovascular: Regular Rhythm, Normal S1, Normal S2, No Murmurs, No Rubs, No Gallops Vascular: No Carotid Bruits, Normal Femoral Pulses, Normal Radial Pulses, Normal Dorsalis Pedal Pulse, Normal Posterior Tibial Pulses Abdomen: Bowel Sounds Present, Soft, Non Tender, No HSM, No Organomegaly Extremities: No Cyanosis, No Clubbing, No edema Musculoskeletal: No Erythema Skin: No Rashes Lymphatic: No Lymph Node Enlargement Neurological: No Focal Motor or Sensory Deficit Psych/Mental Status: Appropriate 04/07/18 18:20: WBC 9.3, RBC 4.62, Hgb 13.8, Hct 41.1, MCV 89.0, MCH 29.9, MCHC 33.6, RDW 14.1, RDW Differential 45.2 H, Plt Count 261, MPV 11.2, Immature Gran % (Auto) 0.100, Neut % (Auto) 74.1 H, Lymph % (Auto) 18.8 L, [place] % (Auto) 6.9, Eos % (Auto) 0.0, Baso % (Auto) 0.1, Absolute Neuts (auto) 6.9, Total Counted Not Reportable 04/07/18 18:20: PT 13.9, INR 1.1, APTT 28.9 04/07/18 18:20: Sodium 140, Potassium 3.7, Chloride 106, Carbon Dioxide 26.0, Anion Gap 8, BUN 16, Creatinine 0.71, Est GFR (MDRD) Af Amer 103, Est GFR (MDRD) Non-Af 85, BUN/Creatinine Ratio 22.5 H, Glucose 122 H, Calcium 9.0, Total Bilirubin 0.70, Troponin I 1.700 H* 04/07/18 18:20: Lactic Acid 1.3 04/07/18 19:47: Urine Color Yellow, Urine Clarity Clear, Urine pH 6.0, Ur Specific [place] 1.020, Urine Protein Negative, Urine Glucose (UA) Normal, Urine Ketones 15 H, Urine Occult Blood 10 H, Urine Nitrite Negative, Urine Bilirubin Negative, Urine Urobilinogen Normal, Ur Leukocyte Esterase 25 H, Urine RBC 0-5 SEEN, Urine WBC 0-5 SEEN 04/08/18 00:05: Troponin I 2.330 H* 04/08/18 03:02: Troponin I 1.500 H* 04/08/18 05:55: WBC 8.8, RBC 4.28, Hgb 12.9, Hct 38.6, MCV 90.2, MCH 30.1, MCHC 33.4, RDW 14.2, RDW Differential 46.1 H, Plt Count 251, MPV 10.6 04/08/18 05:55: PT 14.0, INR 1.1, APTT 30.6 Rhythm: EKG: Normal sinus rhythm with no acute changes Assessment/Plan 1. Non-ST elevation myocardial infarction The etiology of the above is not entirely clear as to whether this is related to plaque rupture or possibly a stress-induced cardiomyopathy. She lost her in September of this year but she has not complained of any significant stress. Recommendation will be to obtain an echocardiogram to assess her left ventricular function-this demonstrated preserved left ventricular systolic function with no wall motion abnormalities present Aspirin 81 mg a day High intensity statin Will consider cardiac catheterization later today. If neurologic workup is negative then will suggest high-dose clopidogrel or ticagrelor. The above has been discussed with her and she understands and agrees to proceed. 2. Hypertension Blood pressure appears to be under good control No changes will be made with regard to the above. Addendum. After discussion with a neurologist it appears that she has had an acute cerebrovascular accident. It may be appropriate to wait 48-72 hours before considering any cardiac catheterization. I have discussed the above with the patient and her family they understand and agreed to proceed. A decision will be made later on during the week. Thank you for allowing me to participate in the care of your patient. Please don't hesitate to call if any issues arise
--- NOTE | 2018-04-08 06:33 | CON.PCM_ITS ---
Reason for Consult Date of Consultation: 04/08/18 Reason for Consultation: Abnormal cardiac enzymes History of Present Illness: The patient is a 78 year old F who presents at her daughter's behest for confusion. Daughter states the patient lives alone and is highly functional, and yesterday she seemed confused. She was brought to the emergency room but she did not know why she was in the emergency room. The patient does not know why she is in the emergency department. Daughter states the patient has been urinating all day and had an episode of incontinence on the couch because she could not get to the bathroom in time. Patient complains of being sleepy, and had a recent thyroid biopsy biopsy secondary to increased fatigue recently. Patient does state she has been off balance and had to hold onto the asif today while walking. She has low back pain and a headache. She denies fever, chest pain, shortness of breath, cough, abdominal pain, nausea or vomiting, diarrhea, dysuria. History of hypertension and hypercholesterolemia. As part of her workup an electric cardiogram was done which demonstrated normal sinus rhythm with no acute changes. Troponin enzymes were obtained which were noted to be abnormal. They were in the range suggestive of a non-ST elevation myocardial infarction. She is also currently being worked up for possible cerebrovascular accident. [] Past Medical History Allergies/Adverse Reactions: Allergies primidone Allergy (Verified 04/02/18 09:37) Itching albuterol sulfate [From Ventolin HFA] Adverse Reaction (Verified 04/02/18 09:37) Unknown amoxicillin [Amoxicillin] Adverse Reaction (Verified 04/02/18 09:37) Nausea amoxicillin trihydrate [From Augmentin] Adverse Reaction (Verified 04/02/18 09:37) Abd cramps/diarrhea aspartame Adverse Reaction (Verified 04/08/18 00:16) Dizziness caffeine Adverse Reaction (Verified 04/08/18 00:16) Dizziness cephalexin monohydrate [From Keflex] Adverse Reaction (Verified 04/08/18 00:16) Unknown chocolate flavor Adverse Reaction (Verified 04/02/18 09:37) Other erythromycin base [Erythromycin Base] Adverse Reaction (Verified 04/02/18 09:37) Diarrhea hyoscyamine [Hyoscyamine] Adverse Reaction (Verified 04/02/18 09:37) Rash hyoscyamine sulfate [From Levbid] Adverse Reaction (Verified 04/02/18 09:37) Rash levofloxacin Adverse Reaction (Verified 04/08/18 00:16) Itching lisinopril Adverse Reaction (Verified 04/08/18 00:16) Unknown metronidazole [From Flagyl] Adverse Reaction (Verified 04/02/18 09:37) Rash Metronidazole HCl [From Flagyl] Adverse Reaction (Verified 04/02/18 09:37) Rash morphine Adverse Reaction (Verified 04/08/18 00:16) abdominal pain naproxen Adverse Reaction (Verified 04/02/18 09:37) Nausea/Vom/Diarrhea NSAIDS (Non-Steroidal Anti-Inflamma Adverse Reaction (Verified 04/02/18 09:37) Abd cramps/diarrhea phenazopyridine HCl [From Pyridium] Adverse Reaction (Verified 04/08/18 00:16) Itching potassium clavulanate [From Augmentin] Adverse Reaction (Verified 04/02/18 09:37) Abd cramps/diarrhea sulfamethoxazole [From Septra] Adverse Reaction (Verified 04/02/18 09:37) Unknown trimethoprim [From Septra] Adverse Reaction (Verified 04/02/18 09:37) Unknown IV DYE Allergy (Uncoded 12/05/17 12:36) Rash URISED Adverse Reaction (Uncoded 12/05/17 12:36) Other Home Medications: Ambulatory Orders Medication Instructions Recorded Fluticasone 0.05% [Flonase Nasal 2 spray NASAL DAILY 08/07/13 [place]] Folic Acid 2.4 mg PO DAILY 08/07/13 Krill/Om3/Dha/Epa/Om6/Lip/Astx 1 ea PO DAILY #0 08/07/13 [Krill Oil 1,500 mg Softgel] Losartan Potassium [Cozaar] 50 mg PO DAILY 08/07/13 Montelukast [Singulair] 10 mg PO QHS 08/07/13 Vitamin E 400 units PO DAILY 08/07/13 Budesonide/Formoterol 160/4.5 1 puff INHALATION DAILY 04/25/15 [Symbicort 160/4.5 Mcg Inhaler (SP)] Calcium Carb/Vitamin D3/Vit K1 1 ea PO DAILY 04/25/15 [Viactiv Soft Chew] Docusate Sodium [Colace] 100 - 200 mg PO DAILY PRN PRN 04/25/15 Ubidecarenone [Coenzyme Q10] 10 mg PO DAILY 04/25/15 Fexofenadine HCl [Tawana Allergy] 180 mg PO DAILY 12/05/17 Lactobacillus Acidophilus 1 ea PO DAILY 12/05/17 [Probiotic Acidophilus] Vit C/E/Zn/Coppr/Lutein/Zeaxan 1 ea PO DAILY 12/05/17 [Preservision Areds 2 Softgel] Acetaminophen [Tylenol] 500 mg PO DAILY PRN 04/07/18 Albuterol Sulfate [Proair 2 puff PO Q6H PRN PRN 04/07/18 Respiclick] Atorvastatin Calcium [Lipitor] 10 mg PO QHS 04/07/18 Biotin 1 tab PO MOWEFR 04/07/18 Cholecalciferol (VIT D3) [Vitamin 1,000 unit PO DAILY 04/07/18 D] Estradiol 42.5 gm VG UD 04/07/18 Flaxseed Oil 1,000 mg PO DAILY 04/07/18 Garlic 1,200 mg PO DAILY 04/07/18 Hydrochlorothiazide [Hctz] 25 mg PO DAILY 04/07/18 Pnv 112/Iron/FA/Om-3S/Dha/Epa 2 tab PO DAILY 04/07/18 [Vitafol Gummies] Past Medical History (Chronic Problems): Chronic Problems (Last Reviewed 04/08/18 @ 11:49 by Adam Lee MD) Status post right hemicolectomy (Chronic) Hypertension (Chronic) Hyperlipidemia (Chronic) History of diverticulosis (Chronic) GERD (Chronic) Surgical History: - - Right hemicolectomy - *Family History Maternal Family History: Family History (Last Reviewed 04/08/18 @ 11:49 by Adam Lee MD) Mother Cancer Father Diabetes History Items: No pertinent history Lives: Alone Smoking Status: Never smoker Alcohol: None Drugs: None Review of Systems - Review of Systems General: Denies: Fever, Night Sweats, Fatigue HEENT: Denies: Vision Change Cardiovascular: Denies: Chest Discomfort, Shortness of Breath, Orthopnea, PND, Peripheral Edema, Palpitations, Lightheadedness, Dizziness, Near Syncope, Syncope Respiratory: Denies: Cough, Sputum Production, Hemoptysis Gastrointestinal: Denies: Indigestion, Hematemesis, Hematochezia, Melena Genitourinary: Denies: Dysuria, Hematuria Muscoloskeletal: Denies: Myalgias Skin: Denies: Rash Neurological: Reports: Confusion, Decreased Coordination. Denies: Dizziness Psychiatric: Denies: Anxiety Endocrine: Denies: Unexplained Weight Loss Hematologic/ Lymphatic: Denies: Anemia Subjectve: Patient seen and evaluated. Objective: Vital Signs Temp Pulse Resp BP Pulse Ox 98.7 F 69 14 111/43 L 94 04/08/18 03:52 04/08/18 03:52 04/08/18 03:52 04/08/18 03:52 04/08/18 03:52 Oxygen Delivery Method Room Air Weight: 209 lb 7.026 oz Body Mass Index (BMI) 40.8 Finger Stick Blood Glucose 127 General: Awake, Alert, Oriented x 3 HEENT: PERRL, EOMI, Sclera Non Icteric Neck: Supple, Good ROM, No Lymph Node Enlargement Lungs: Clear to auscultation Cardiovascular: Regular Rhythm, Normal S1, Normal S2, No Murmurs, No Rubs, No Gallops Vascular: No Carotid Bruits, Normal Femoral Pulses, Normal Radial Pulses, Normal Dorsalis Pedal Pulse, Normal Posterior Tibial Pulses Abdomen: Bowel Sounds Present, Soft, Non Tender, No HSM, No Organomegaly Extremities: No Cyanosis, No Clubbing, No edema Musculoskeletal: No Erythema Skin: No Rashes Lymphatic: No Lymph Node Enlargement Neurological: No Focal Motor or Sensory Deficit Psych/Mental Status: Appropriate 04/07/18 18:20: WBC 9.3, RBC 4.62, Hgb 13.8, Hct 41.1, MCV 89.0, MCH 29.9, MCHC 33.6, RDW 14.1, RDW Differential 45.2 H, Plt Count 261, MPV 11.2, Immature Gran % (Auto) 0.100, Neut % (Auto) 74.1 H, Lymph % (Auto) 18.8 L, [place] % (Auto) 6.9, Eos % (Auto) 0.0, Baso % (Auto) 0.1, Absolute Neuts (auto) 6.9, Total Counted Not Reportable 04/07/18 18:20: PT 13.9, INR 1.1, APTT 28.9 04/07/18 18:20: Sodium 140, Potassium 3.7, Chloride 106, Carbon Dioxide 26.0, Anion Gap 8, BUN 16, Creatinine 0.71, Est GFR (MDRD) Af Amer 103, Est GFR (MDRD) Non-Af 85, BUN/Creatinine Ratio 22.5 H, Glucose 122 H, Calcium 9.0, Total Bilirubin 0.70, Troponin I 1.700 H* 04/07/18 18:20: Lactic Acid 1.3 04/07/18 19:47: Urine Color Yellow, Urine Clarity Clear, Urine pH 6.0, Ur Specific [place] 1.020, Urine Protein Negative, Urine Glucose (UA) Normal, Urine Ketones 15 H, Urine Occult Blood 10 H, Urine Nitrite Negative, Urine Bilirubin Negative, Urine Urobilinogen Normal, Ur Leukocyte Esterase 25 H, Urine RBC 0-5 SEEN, Urine WBC 0-5 SEEN 04/08/18 00:05: Troponin I 2.330 H* 04/08/18 03:02: Troponin I 1.500 H* 04/08/18 05:55: WBC 8.8, RBC 4.28, Hgb 12.9, Hct 38.6, MCV 90.2, MCH 30.1, MCHC 33.4, RDW 14.2, RDW Differential 46.1 H, Plt Count 251, MPV 10.6 04/08/18 05:55: PT 14.0, INR 1.1, APTT 30.6 Rhythm: EKG: Normal sinus rhythm with no acute changes Assessment/Plan 1. Non-ST elevation myocardial infarction The etiology of the above is not entirely clear as to whether this is related to plaque rupture or possibly a stress-induced cardiomyopathy. She lost her in September of this year but she has not complained of any significant stress. * Recommendation will be to obtain an echocardiogram to assess her left ventricular function-this demonstrated preserved left ventricular systolic function with no wall motion abnormalities present * Aspirin 81 mg a day * High intensity statin * Will consider cardiac catheterization later today. * If neurologic workup is negative then will suggest high-dose clopidogrel or ticagrelor. * The above has been discussed with her and she understands and agrees to proceed. * 2. Hypertension * Blood pressure appears to be under good control * No changes will be made with regard to the above. * * * Addendum. * After discussion with a neurologist it appears that she has had an acute cerebrovascular accident. It may be appropriate to wait 48-72 hours before considering any cardiac catheterization. I have discussed the above with the patient and her family they understand and agreed to proceed. A decision will be made later on during the week. * Thank you for allowing me to participate in the care of your patient. Please don't hesitate to call if any issues arise
[2018-04-08] MEDS: Losartan Potassium 50 MG Tablet PO (06:41)
[2018-04-08] MEDS: 0.9% Normal Saline 1,000 ML 15 ML IV (06:41)
[2018-04-08 06:49] LABS: ALB/GLOB Ratio 0.9 RATIO (0.9-2.4); AST(SGOT) 26 U/L (15-37); Alanine Aminotransfer ALT/SGPT 22 U/L (13-56); Albumin, Serum 3.2 g/dL (3.2-5.0); Alkaline Phosphatase 131 U/L (45-117); Anion Gap 10 (5-15); BUN 16 mg/dL (7-18); BUN/Creat Ratio 21.6 RATIO (10-20); Calcium,Total 8.5 mg/dL (8.5-10.1); Chloride 109 mmol/L (98-107); Cholesterol 126 mg/dL (200); Creatinine, Serum 0.74 mg/dL (0.55-1.02); EST Glomerular Filtration Rate 81 mL/min (>60); Est Glom Filt Rate - Afr Amer 98 mL/min (>60); Estimated Creatinine Clearance 33.84 ml/min; Globulin 3.7 g/dL (2.2-4.2); Glucose 130 mg/dL (74-106); High Density Lipoprotein 53 mg/dL; Potassium 3.8 mmol/L (3.5-5.1); Protein, Total 6.9 g/dL (6.4-8.2); Sodium Level 143 mmol/L (136-145); Thyroid Stim Hormone (TSH) 1.49 uIU/mL (0.358-3.74); Triglycerides 97 mg/dL; Very Low Density Lipoprotein 19 mg/dL (5-40)
[2018-04-08] MEDS: Budesonide Respules 0.5 MG/2 ML AMPUL.NEB. INHALATION (06:52)
[2018-04-08] MEDS: Albuterol 2.5 MG/3 ML VIAL.NEB. INHALATION ×2 (06:52→19:50)
--- NOTE | 2018-04-08 08:05 | CASEMGMT ---
According to the [facility] website, the following are in-network tertiary facilities: [facility], [facility], [facility], [facility], [facility], [facility], [facility], [place], [facility], and . Muna CASTRO CM
--- NOTE | 2018-04-08 09:36 | MRI_ITS ---
STUDY: MRI BRAIN WITH AND WITHOUT CONTRAST REASON FOR EXAM: Female, 78 years old. Confusion, off balance, speech changes. TECHNIQUE: Standardized multiplanar fat and water weighted pulse sequences were obtained. 8 ml of Gadavist contrast material was administered intravenously for the contrast portion of the examination. COMPARISON: 04/07/2018 FINDINGS: There is mild cerebral atrophy with widening of the extra-axial spaces and ventricular dilatation. There are multiple confluent white matter hyperintensities, distributed throughout the deep white matter tracts of the cerebral hemispheres, consistent with severe chronic white matter ischemic changes. There is restricted diffusion of the left and central aurora with drop in signal on ADC map, consistent with acute infarctions. Additionally there are multiple small foci of restricted diffusion at the left anterior periinsular region (axial image #16 series 4) and left parietal lobe (axial image #20 series 4) Normal bilateral basal ganglia. Normal thalami. There is no extra-axial fluid accumulation. Normal flow voids within the major intracranial circulation suggesting patency by spin echo criteria. Normal venous enhancement. There is no enhancing intra-axial or extra-axial abnormality. Normal sella turcica, pituitary gland, infundibular stalk, optic chiasm and hypothalamus. Normal tectal plate and pineal gland. Normal cerebellum. Normal basal cisterns. MRI/Brain W/WO Contrast IMPRESSION: Acute infarctions of the left aurora, left frontal and parietal regions. Consider embolic etiology. Severe chronic microvascular ischemic changes. N.B. : The above information has been verbally conveyed by Tereza Trujillo MD to Dr. Carmelo MD, on 04/08/2018 12:43:50 (ET). Electronically Signed: Tereza Trujillo MD at 12:22 EST Tel , Service support ,
--- NOTE | 2018-04-08 10:45 | PCM.CONS.GEN ---
Reason for Consult Date of Consultation: 04/08/18 Reason for Consultation: cva History of Present Illness: The patient is a 78 year old F was noted yesterday by phone to be confused, family brought her to ed. had needle biopsy of thyroid 5-6 days ago per family, no recent illness. today family still notes abnormal speech and memory althought improved. family reports recent stress. family reports history of carotid stenosis but cannot define further, apparently evaluation at [facility]. Per admit H&P: The patient is a 78 year old female patient who lives independently presents to the ER with confusion. Her daughter called to check on her at 4:00 this afternoon and found her speech to be garbled and incoherent. The daughter then drove to [place] from [place] to bring her to the hospital. It is unclear when the change in speech occurred. This was a significant change from her baseline. 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 The patient is also noted to have a subtle left facial drop at the lips which the daughter has not appreciated before. The patient;s speech has improved to be understandable and answering appropriately but her memory and cognitive function remain somewhat impaired. She and her daughter confirm her wishes to be a DNR-CCA. Initial Troponin is elevated yet she denies chest pain at present time. Initial CT of the head is negative for infarct and there are no other signs of trauma. She had a procedure in her feet that was done at the [facility] that may include metal hardware so her MRI status needs to be investigated further. She will be admitted for further neurological assessment and cardiac care. 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 adjustment reaction 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 Syncope R55 Thyroid nodule E04.1 HTN (hypertension) I10 Allergies primidone Allergy (Verified 04/02/18 09:37) Itching albuterol sulfate [From Ventolin HFA] Adverse Reaction (Verified 04/02/18:37) Unknown amoxicillin [Amoxicillin] Adverse Reaction (Verified 04/02/18:37) Nausea amoxicillin trihydrate [From Augmentin] Adverse Reaction (Verified 04/02/18:37) Abd cramps/diarrhea aspartame Adverse Reaction (Verified 04/08/18 00:16) Dizziness caffeine Adverse Reaction (Verified 04/08/18 00:16) Dizziness cephalexin monohydrate [From Keflex] Adverse Reaction (Verified 04/08/18 00:16) Unknown chocolate flavor Adverse Reaction (Verified 04/02/18:37) Other erythromycin base [Erythromycin Base] Adverse Reaction (Verified 04/02/18:37) Diarrhea hyoscyamine [Hyoscyamine] Adverse Reaction (Verified 04/02/18:37) Rash hyoscyamine sulfate [From Levbid] Adverse Reaction (Verified 04/02/18:37) Rash levofloxacin Adverse Reaction (Verified 04/08/18 00:16) Itching lisinopril Adverse Reaction (Verified 04/08/18 00:16) Unknown metronidazole [From Flagyl] Adverse Reaction (Verified 04/02/18:37) Rash Metronidazole HCl [From Flagyl] Adverse Reaction (Verified 04/02/18:37) Rash morphine Adverse Reaction (Verified 04/08/18 00:16) abdominal pain naproxen Adverse Reaction (Verified 04/02/18:37) Nausea/Vom/Diarrhea NSAIDS (Non-Steroidal Anti-Inflamma Adverse Reaction (Verified 04/02/18:37) Abd cramps/diarrhea phenazopyridine HCl [From Pyridium] Adverse Reaction (Verified 04/08/18 00:16) Itching potassium clavulanate [From Augmentin] Adverse Reaction (Verified 04/02/18:37) Abd cramps/diarrhea sulfamethoxazole [From Septra] Adverse Reaction (Verified 04/02/18:37) Unknown trimethoprim [From Septra] Adverse Reaction (Verified 04/02/18 09:37) Unknown IV DYE Allergy (Uncoded 12/05/17 12:36) Rash URISED Adverse Reaction (Uncoded 12/05/17 12:36) Other Home Medications: Ambulatory Orders Medication Instructions Recorded Fluticasone 0.05% [Flonase Nasal 2 spray NASAL DAILY 08/07/13 [place]] Folic Acid 2.4 mg PO DAILY 08/07/13 Krill/Om3/Dha/Epa/Om6/Lip/Astx 1 ea PO DAILY #0 08/07/13 [Krill Oil 1,500 mg Softgel] Losartan Potassium [Cozaar] 50 mg PO DAILY 08/07/13 Montelukast [Singulair] 10 mg PO QHS 08/07/13 Vitamin E 400 units PO DAILY 08/07/13 Budesonide/Formoterol 160/4.5 1 puff INHALATION DAILY 04/25/15 [Symbicort 160/4.5 Mcg Inhaler (SP)] Calcium Carb/Vitamin D3/Vit K1 1 ea PO DAILY 04/25/15 [Viactiv Soft Chew] Docusate Sodium [Colace] 100 - 200 mg PO DAILY PRN PRN 04/25/15 Ubidecarenone [Coenzyme Q10] 10 mg PO DAILY 04/25/15 Fexofenadine HCl [Tawana Allergy] 180 mg PO DAILY 12/05/17 Lactobacillus Acidophilus 1 ea PO DAILY 12/05/17 [Probiotic Acidophilus] Vit C/E/Zn/Coppr/Lutein/Zeaxan 1 ea PO DAILY 12/05/17 [Preservision Areds 2 Softgel] Acetaminophen [Tylenol] 500 mg PO DAILY PRN 04/07/18 Albuterol Sulfate [Proair 2 puff PO Q6H PRN PRN 04/07/18 Respiclick] Atorvastatin Calcium [Lipitor] 10 mg PO QHS 04/07/18 Biotin 1 tab PO MOWEFR 04/07/18 Cholecalciferol (VIT D3) [Vitamin 1,000 unit PO DAILY 04/07/18 D] Estradiol 42.5 gm VG UD 04/07/18 Flaxseed Oil 1,000 mg PO DAILY 04/07/18 Garlic 1,200 mg PO DAILY 04/07/18 Hydrochlorothiazide [Hctz] 25 mg PO DAILY 04/07/18 Pnv 112/Iron/FA/Om-3S/Dha/Epa 2 tab PO DAILY 04/07/18 [Vitafol Gummies] Surgical History: Surgical History (Last Reviewed 04/08/18 @ 11:49 by Adam Lee MD) History of Z98.891 History of colectomy Z90.49 History of laparoscopic cholecystectomy Z90.49 History of repair of hiatal hernia Z98.890, Z87.19 Surgical History: - - Right hemicolectomy Lives: Alone Smoking Status: Never smoker Alcohol: None Drugs: None - *Family History Maternal Family History: Family History (Last Reviewed 04/08/18 @ 11:49 by Adam Lee MD) Mother Cancer Father Diabetes History Items: No pertinent history Patient Problems: Active and Suspected Problems (Last Reviewed 04/08/18 @ 11:49 by Adam Lee MD) Confusion (Acute) Elevated troponin (Acute) - Physical Exam General: Alert, Cooperative, No apparent distress, Confused HEENT: Atraumatic, PERRLA, EOMI Neurological: Cranial nerves II-XII grossly intact, Deep Tendon Reflexes 2+/4 and Symmetrical, Neuro grossly intact, Motor Exam 5/5 strength throughout, Sensory exam intact to light touch and pain, Coordination normal Vital Signs Temp Pulse Resp BP Pulse Ox 37.2 C 75 17 143/48 H 94 04/08/18 07:34 04/08/18 07:34 04/08/18 07:34 04/08/18 07:34 04/08/18 07:34 Oxygen Delivery Method Room Air Weight: 95 kg Body Mass Index (BMI) 40.8 Finger Stick Blood Glucose 127 Microbiology Past 72 Hours 04/07/18 19:47 Urine Culture - Preliminary Urine, Clean Catch Presumptive E. coli Laboratory Tests Past 24 Hrs 04/07/18 04/07/18 04/07/18 18:20 18:20 18:20 WBC 9.3 RBC 4.62 Hgb 13.8 Hct 41.1 MCV 89.0 MCH 29.9 MCHC 33.6 RDW 14.1 RDW Differential 45.2 H Plt Count 261 MPV 11.2 Immature Gran % (Auto) 0.100 Neut % (Auto) 74.1 H Lymph % (Auto) 18.8 L [place] % (Auto) 6.9 Eos % (Auto) 0.0 Baso % (Auto) 0.1 Absolute Neuts (auto) 6.9 Absolute Lymphs (auto) 1.75 Total Counted Not Reportable PT 13.9 INR 1.1 APTT 28.9 Sodium 140 Potassium 3.7 Chloride 106 Carbon Dioxide 26.0 Anion Gap 8 BUN 16 Creatinine 0.71 Estim Creat Clear Calc 37.26 Est GFR (MDRD) Af Amer 103 Est GFR (MDRD) Non-Af 85 BUN/Creatinine Ratio 22.5 H Glucose 122 H Lactic Acid Calcium 9.0 Total Bilirubin 0.70 AST 21 ALT 23 Alkaline Phosphatase 141 H Ammonia Troponin I 1.700 H* Total Protein 7.6 Albumin 3.6 Globulin 4.0 Albumin/Globulin Ratio 0.9 Triglycerides Cholesterol LDL Cholesterol VLDL Cholesterol HDL Cholesterol TSH 1.13 Urine Color Urine Clarity Urine pH Ur Specific [place] Urine Protein Urine Glucose (UA) Urine Ketones Urine Occult Blood Urine Nitrite Urine Bilirubin Urine Urobilinogen Ur Leukocyte Esterase Urine RBC Urine WBC Ur Squamous Epith Cells Urine Bacteria Urine Mucus Ethyl Alcohol 04/07/18 04/07/18 04/07/18 18:20 18:20 18:20 WBC RBC Hgb Hct MCV MCH MCHC RDW RDW Differential Plt Count MPV Immature Gran % (Auto) Neut % (Auto) Lymph % (Auto) Glades % (Auto) Eos % (Auto) Baso % (Auto) Absolute Neuts (auto) Absolute Lymphs (auto) Total Counted PT INR APTT Sodium Potassium Chloride Carbon Dioxide Anion Gap BUN Creatinine Estim Creat Clear Calc Est GFR (MDRD) Af Amer Est GFR (MDRD) Non-Af BUN/Creatinine Ratio Glucose Lactic Acid 1.3 Calcium Total Bilirubin AST ALT Alkaline Phosphatase Ammonia < 10.0 L Troponin I Total Protein Albumin Globulin Albumin/Globulin Ratio Triglycerides Cholesterol LDL Cholesterol VLDL Cholesterol HDL Cholesterol TSH Urine Color Urine Clarity Urine pH Ur Specific [place] Urine Protein Urine Glucose (UA) Urine Ketones Urine Occult Blood Urine Nitrite Urine Bilirubin Urine Urobilinogen Ur Leukocyte Esterase Urine RBC Urine WBC Ur Squamous Epith Cells Urine Bacteria Urine Mucus Ethyl Alcohol < 3.0 04/07/18 04/08/18 04/08/18 19:47 00:05 03:02 WBC RBC Hgb Hct MCV MCH MCHC RDW RDW Differential Plt Count MPV Immature Gran % (Auto) Neut % (Auto) Lymph % (Auto) Glades % (Auto) Eos % (Auto) Baso % (Auto) Absolute Neuts (auto) Absolute Lymphs (auto) Total Counted PT INR APTT Sodium Potassium Chloride Carbon Dioxide Anion Gap BUN Creatinine Estim Creat Clear Calc Est GFR (MDRD) Af Amer Est GFR (MDRD) Non-Af BUN/Creatinine Ratio Glucose Lactic Acid Calcium Total Bilirubin AST ALT Alkaline Phosphatase Ammonia Troponin I 2.330 H* 1.500 H* Total Protein Albumin Globulin Albumin/Globulin Ratio Triglycerides Cholesterol LDL Cholesterol VLDL Cholesterol HDL Cholesterol TSH Urine Color Yellow Urine Clarity Clear Urine pH 6.0 Ur Specific [place] 1.020 Urine Protein Negative Urine Glucose (UA) Normal Urine Ketones 15 H Urine Occult Blood 10 H Urine Nitrite Negative Urine Bilirubin Negative Urine Urobilinogen Normal Ur Leukocyte Esterase 25 H Urine RBC 0-5 SEEN Urine WBC 0-5 SEEN Ur Squamous Epith Cells 0-5 SEEN Urine Bacteria 0 SEEN Urine Mucus 1+ Ethyl Alcohol 04/08/18 04/08/18 04/08/18 05:55 05:55 05:55 WBC 8.8 RBC 4.28 Hgb 12.9 Hct 38.6 MCV 90.2 MCH 30.1 MCHC 33.4 RDW 14.2 RDW Differential 46.1 H Plt Count 251 MPV 10.6 Immature Gran % (Auto) Neut % (Auto) Lymph % (Auto) Glades % (Auto) Eos % (Auto) Baso % (Auto) Absolute Neuts (auto) Absolute Lymphs (auto) Total Counted PT 14.0 INR 1.1 APTT 30.6 Sodium 143 Potassium 3.8 Chloride 109 H Carbon Dioxide 24.0 Anion Gap 10 BUN 16 Creatinine 0.74 Estim Creat Clear Calc 33.84 Est GFR (MDRD) Af Amer 98 Est GFR (MDRD) Non-Af 81 BUN/Creatinine Ratio 21.6 H Glucose 130 H Lactic Acid Calcium 8.5 Total Bilirubin 1.00 AST 26 ALT 22 Alkaline Phosphatase 131 H Ammonia Troponin I 1.220 H* Total Protein 6.9 Albumin 3.2 Globulin 3.7 Albumin/Globulin Ratio 0.9 Triglycerides 97 Cholesterol 126 LDL Cholesterol 54 VLDL Cholesterol 19 HDL Cholesterol 53 TSH 1.49 Urine Color Urine Clarity Urine pH Ur Specific [place] Urine Protein Urine Glucose (UA) Urine Ketones Urine Occult Blood Urine Nitrite Urine Bilirubin Urine Urobilinogen Ur Leukocyte Esterase Urine RBC Urine WBC Ur Squamous Epith Cells Urine Bacteria Urine Mucus Ethyl Alcohol POC Glucose 04/07/18 18:46 POC Glucose [address] reviewed, no acute MRI reviewed. She has a very small acute left occipital infarct. Current Home Med List Fluticasone 0.05% [Flonase Nasal 2 spray NASAL DAILY 08/07/13 04/07/18 History [place]] Folic Acid 2.4 mg PO DAILY 08/07/13 04/07/18 History Krill/Om3/Dha/Epa/Om6/Lip/Astx 1 ea PO DAILY #0 08/07/13 04/07/18 History [Krill Oil 1,500 mg Softgel] Losartan Potassium [Cozaar] 50 mg PO DAILY 08/07/13 04/07/18 History Montelukast [Singulair] 10 mg PO QHS 08/07/13 04/07/18 History Vitamin E 400 units PO DAILY 08/07/13 04/07/18 History Budesonide/Formoterol 160/4.5 1 puff INHALATION DAILY 04/25/15 04/08/18 History [Symbicort 160/4.5 Mcg Inhaler (SP)] Calcium Carb/Vitamin D3/Vit K1 1 ea PO DAILY 04/25/15 04/07/18 History [Viactiv Soft Chew] Docusate Sodium [Colace] 100 - 200 mg PO DAILY PRN PRN 04/25/15 04/07/18 History Ubidecarenone [Coenzyme Q10] 10 mg PO DAILY 04/25/15 04/07/18 History Fexofenadine HCl [Tawana Allergy] 180 mg PO DAILY 12/05/17 04/07/18 History Lactobacillus Acidophilus 1 ea PO DAILY 12/05/17 04/07/18 History [Probiotic Acidophilus] Vit C/E/Zn/Coppr/Lutein/Zeaxan 1 ea PO DAILY 12/05/17 04/08/18 History [Preservision Areds 2 Softgel] Acetaminophen [Tylenol] 500 mg PO DAILY PRN 04/07/18 04/08/18 History Albuterol Sulfate [Proair 2 puff PO Q6H PRN PRN 04/07/18 04/07/18 History Respiclick] Atorvastatin Calcium [Lipitor] 10 mg PO QHS 04/07/18 04/07/18 History Biotin 1 tab PO MOWEFR 04/07/18 04/07/18 History Cholecalciferol (VIT D3) [Vitamin 1,000 unit PO DAILY 04/07/18 04/07/18 History D] Estradiol 42.5 gm VG UD 04/07/18 04/07/18 History Flaxseed Oil 1,000 mg PO DAILY 04/07/18 04/07/18 History Garlic 1,200 mg PO DAILY 04/07/18 04/07/18 History Hydrochlorothiazide [Hctz] 25 mg PO DAILY 04/07/18 04/07/18 History Pnv 112/Iron/FA/Om-3S/Dha/Epa 2 tab PO DAILY 04/07/18 04/07/18 History [Vitafol Gummies] Current Medications Generic Name Dose Route Start Last Admin Trade Name Freq PRN Reason Stop Dose Admin Acetaminophen 500 mg 04/07/18 23:38 Tylenol PO PRN PRN PAIN Albuterol Sulfate 2.5 mg 04/07/18 23:45 04/08/18 06:52 Ventolin Aerosols INHALATION 2.5 mg Q6HWA.RT ISATU Administration Aspirin 325 mg 04/08/18 08:00 Aspirin PO DAILY@0800 [facility] Atorvastatin Calcium 10 mg 04/07/18 23:38 04/08/18 00:33 Lipitor PO 10 mg QHS ISATU Administration Budesonide 0.5 mg 04/07/18 23:45 04/08/18 06:52 Pulmicort Aerosol INHALATION 0.5 mg Q12H.RT [facility] Administration Enoxaparin Sodium 40 mg 04/08/18 10:00 Lovenox SC DAILY@1000 [facility] Fluticasone Propionate 2 spray 04/08/18 10:00 Flonase Nasal [place] NASAL DAILY ISATU Hydrochlorothiazide 25 mg 04/08/18 10:00 Hctz PO DAILY [facility] Sodium Chloride 1,000 mls @ 0 mls/hr 04/08/18 06:30 04/08/18 06:41 IV 15 mls/hr .Q0M ISATU Administration KVO Labetalol HCl 10 mg 04/07/18 23:38 Trandate IV 04/08/18 23:39 Q10M PRN MAINTAIN BP < 220/120 Lactobacillus Acidophilus 1 tablet 04/08/18 10:00 Acidophilus PO DAILY ISATU Losartan Potassium 50 mg 04/08/18 10:00 04/08/18 06:41 Cozaar PO 50 mg DAILY ISATU Administration Magnesium Hydroxide 30 ml 04/07/18 23:38 Milk Of Magnesia PO DAILY PRN Constipation Montelukast Sodium 10 mg 04/07/18 23:38 04/08/18 00:33 Singulair PO 10 mg QHS ISATU Administration Nitroglycerin 0.4 mg 04/07/18 23:38 Nitrostat SUBLINGUAL Q5M PRN CHEST PAIN Sodium Chloride 5 - 30 ml 04/08/18 00:10 IV UD PRN SALINE FLUSH Assessment/Plan All Active Problems (Last Reviewed 04/08/18 @ 11:49 by Adam Lee MD) Confusion (Acute) Elevated troponin (Acute) confusion, probably multifactorial due to UTI, stress. also has very small acute left occipital infarct but this is tiny and not likely to be symptomatic. also intercurrent stress rec: echo tele postpone cath for now antiplt rx pt/ot/sp rx of uti
--- NOTE | 2018-04-08 11:07 | CASEMGMT ---
MATTHEW BENNETT assessment: Face to Face with patient for initial transition planning/care coordination assessment. MATTHEW BENNETT introduced self and role at [facility], granddaughter voices understanding and consents to assessment at this time. Pt is out of the dept in MRI at this time and per granddaughter still has some confusion. Granddaughter agrees to complete assessment at this time. Care providers, pharmacy, and demographics verified at this time. PCP: Edwina Specialists: Noe Cardoso Pharmacy: [facility] Insurance: [employer] Prescription Benefit: [employer] Living Will/HPOA: Granddaughter states that pt has LW/HPOA and that her mother, Zainab Domínguez, is HPOA. These are not currently on file at [facility]. LNOK: Zainab Domínguez, daughter; Ching Domínguez, granddaughter Living Arrangements: Pt lives alone in 2 story home with bedroom on 2nd floor and per granddaughter, pt has been struggling some with stairs. Per granddaughter, pt had been able to care for herself previously on a daily basis. Transportation: Pt does drive self and states no transportation concerns at this time. DME/HHC: Pt's granddaughter states pt has no current DME or need for any at this time. Granddaughter states no hx of HHC or SNF in the past. Granddaughter states concern with pt going home at time of discharge d/t continued confusion,dizziness, and unsteady on feet. MRI is pending. Pt does not smoke or drink ETOH. CM to follow for MRI results, PT/OT evals, and possible heart cath results. Advised granddaughter to ask for CM if any further questions/concerns/needs arise, voices understanding. Plan: TBD [place] MATTHEW BENNETT
--- NOTE | 2018-04-08 11:57 | CDU_ITS ---
Reason For Study: CVA Rt. Velocities/BP Lt. Velocities/BP Prox CCA 96.7/10.6 cm/sec. Prox CCA 116/14.9 cm/sec. Mid CCA 93.2/14.7 cm/sec. Mid CCA 64.5/11.1 cm/sec. Dist CCA 78.0/10.6 cm/sec. Dist CCA 99.7/18.2 cm/sec. Prox ICA 135/30.6 cm/sec. Prox ICA 85.0/14.7 cm/sec. Mid ICA 125/25.9 cm/sec. Mid ICA 55.1/11.7 cm/sec. Dist ICA 141/26.7 cm/sec. Dist ICA 83.2/21.7 cm/sec. Rt. ICA/CCA = 1.5. Lt. ICA/CCA = 1.3. Prox ECA 115/9.97 cm/sec. Prox ECA 69.2/10.1 cm/sec. Rt. Vert. 78.6/14.1 cm/sec. Right Extracranial There is heterogeneous, irregular atherosclerotic plaque noted in the right common carotid artery. There is heterogeneous, irregular atherosclerotic plaque noted in the right internal carotid artery. There is intimal thickening but no significant atherosclerotic plaque noted in the right external carotid artery. Antegrade flow is noted in the right vertebral artery. Left Extracranial There is heterogeneous, irregular atherosclerotic plaque noted in the left common carotid artery. There is heterogeneous, irregular atherosclerotic plaque noted in the left internal carotid artery. There is intimal thickening but no significant atherosclerotic plaque noted in the left external carotid artery. Retrograde flow seen in the left vertebral artery. Procedure Carotid Duplex [id number]. The exam was diagnostic. Exam performed portable in patient room. Interpretation Summary There is 50-69% stenosis in the right internal carotid artery and < 50% stenosis in the left internal carotid artery based on the velocity criteria. There is irregular heterogenous atherosclerotic plaque noted in bilateral interal carotid arteries and common carotid arteries. There is anterograde flow noted in the right vertebral artery but retrograde flow in the left vertebral artery. Clinical correlation is advised. Ordering Physician: Adam Lee Performed By: Soren Jacobsen RVT
--- NOTE | 2018-04-08 12:13 | PCM.PROGNOTE ---
<Brianna Saucedo - Last Filed: 04/08/18 12:56> Patient Problems: Active and Suspected Problems (Last Reviewed 04/08/18 @ 11:49 by dAam Lee MD) Confusion (Acute) Elevated troponin (Acute) Subjective: Patient seen and examined. Alert and oriented during assessment. Denies chest pain, shortness of breath. Denies neuro symptoms. - Physical Exam General: Alert, Oriented x3, Cooperative, No apparent distress HEENT: Atraumatic, PERRLA, EOMI, Normocephalic Oral: Moist Mucosa Neck: Supple, No JVD, Negative Carotid Bruits Lungs: Diminished, Wheezes Cardiovascular: Regular rate, Regular Rhythm, Normal S1, Normal S2, No murmurs Abdomen: Bowel Sounds Present, Soft, Non Tender, Non-Distended, Obese Extremities: No clubbing, No cyanosis, No edema, Capillary Refill Less than 3 Seconds Skin: No rashes, No breakdown Musculoskeletal: No Tenderness to Palpation of Joints or Extremities Neurological: Cranial nerves II-XII grossly intact, Neuro grossly intact Psych/Mental Status: Normal Affect, Appropriate Vital Signs Temp Pulse Resp BP Pulse Ox 98.3 F 69 16 136/56 H 99 04/08/18 11:38 04/08/18 11:38 04/08/18 11:38 04/08/18 11:38 04/08/18 11:38 Oxygen Delivery Method Room Air Weight: 209 lb 7.026 oz Body Mass Index (BMI) 40.8 Finger Stick Blood Glucose 127 Intake and Output for Last 24 Hours 04/06/18 04/07/18 04/08/18 23:59 23:59 23:59 Intake Total 103 / 103 Balance 103 / 103 Microbiology Past 72 Hours 04/07/18 19:47 Urine Culture - Preliminary Urine, Clean Catch Presumptive E. coli Laboratory Tests Past 24 Hrs 04/07/18 04/07/18 04/07/18 18:20 18:20 18:20 WBC 9.3 RBC 4.62 Hgb 13.8 Hct 41.1 MCV 89.0 MCH 29.9 MCHC 33.6 RDW 14.1 RDW Differential 45.2 H Plt Count 261 MPV 11.2 Immature Gran % (Auto) 0.100 Neut % (Auto) 74.1 H Lymph % (Auto) 18.8 L [place] % (Auto) 6.9 Eos % (Auto) 0.0 Baso % (Auto) 0.1 Absolute Neuts (auto) 6.9 Absolute Lymphs (auto) 1.75 Total Counted Not Reportable PT 13.9 INR 1.1 APTT 28.9 Sodium 140 Potassium 3.7 Chloride 106 Carbon Dioxide 26.0 Anion Gap 8 BUN 16 Creatinine 0.71 Estim Creat Clear Calc 37.26 Est GFR (MDRD) Af Amer 103 Est GFR (MDRD) Non-Af 85 BUN/Creatinine Ratio 22.5 H Glucose 122 H Lactic Acid Calcium 9.0 Total Bilirubin 0.70 AST 21 ALT 23 Alkaline Phosphatase 141 H Ammonia Troponin I 1.700 H* Total Protein 7.6 Albumin 3.6 Globulin 4.0 Albumin/Globulin Ratio 0.9 Triglycerides Cholesterol LDL Cholesterol VLDL Cholesterol HDL Cholesterol TSH 1.13 Urine Color Urine Clarity Urine pH Ur Specific [place] Urine Protein Urine Glucose (UA) Urine Ketones Urine Occult Blood Urine Nitrite Urine Bilirubin Urine Urobilinogen Ur Leukocyte Esterase Urine RBC Urine WBC Ur Squamous Epith Cells Urine Bacteria Urine Mucus Ethyl Alcohol 04/07/18 04/07/18 04/07/18 18:20 18:20 18:20 WBC RBC Hgb Hct MCV MCH MCHC RDW RDW Differential Plt Count MPV Immature Gran % (Auto) Neut % (Auto) Lymph % (Auto) [place] % (Auto) Eos % (Auto) Baso % (Auto) Absolute Neuts (auto) Absolute Lymphs (auto) Total Counted PT INR APTT Sodium Potassium Chloride Carbon Dioxide Anion Gap BUN Creatinine Estim Creat Clear Calc Est GFR (MDRD) Af Amer Est GFR (MDRD) Non-Af BUN/Creatinine Ratio Glucose Lactic Acid 1.3 Calcium Total Bilirubin AST ALT Alkaline Phosphatase Ammonia < 10.0 L Troponin I Total Protein Albumin Globulin Albumin/Globulin Ratio Triglycerides Cholesterol LDL Cholesterol VLDL Cholesterol HDL Cholesterol TSH Urine Color Urine Clarity Urine pH Ur Specific [place] Urine Protein Urine Glucose (UA) Urine Ketones Urine Occult Blood Urine Nitrite Urine Bilirubin Urine Urobilinogen Ur Leukocyte Esterase Urine RBC Urine WBC Ur Squamous Epith Cells Urine Bacteria Urine Mucus Ethyl Alcohol < 3.0 04/07/18 04/08/18 04/08/18 19:47 00:05 03:02 WBC RBC Hgb Hct MCV MCH MCHC RDW RDW Differential Plt Count MPV Immature Gran % (Auto) Neut % (Auto) Lymph % (Auto) [place] % (Auto) Eos % (Auto) Baso % (Auto) Absolute Neuts (auto) Absolute Lymphs (auto) Total Counted PT INR APTT Sodium Potassium Chloride Carbon Dioxide Anion Gap BUN Creatinine Estim Creat Clear Calc Est GFR (MDRD) Af Amer Est GFR (MDRD) Non-Af BUN/Creatinine Ratio Glucose Lactic Acid Calcium Total Bilirubin AST ALT Alkaline Phosphatase Ammonia Troponin I 2.330 H* 1.500 H* Total Protein Albumin Globulin Albumin/Globulin Ratio Triglycerides Cholesterol LDL Cholesterol VLDL Cholesterol HDL Cholesterol TSH Urine Color Yellow Urine Clarity Clear Urine pH 6.0 Ur Specific [place] 1.020 Urine Protein Negative Urine Glucose (UA) Normal Urine Ketones 15 H Urine Occult Blood 10 H Urine Nitrite Negative Urine Bilirubin Negative Urine Urobilinogen Normal Ur Leukocyte Esterase 25 H Urine RBC 0-5 SEEN Urine WBC 0-5 SEEN Ur Squamous Epith Cells 0-5 SEEN Urine Bacteria 0 SEEN Urine Mucus 1+ Ethyl Alcohol 04/08/18 04/08/18 04/08/18 05:55 05:55 05:55 WBC 8.8 RBC 4.28 Hgb 12.9 Hct 38.6 MCV 90.2 MCH 30.1 MCHC 33.4 RDW 14.2 RDW Differential 46.1 H Plt Count 251 MPV 10.6 Immature Gran % (Auto) Neut % (Auto) Lymph % (Auto) [place] % (Auto) Eos % (Auto) Baso % (Auto) Absolute Neuts (auto) Absolute Lymphs (auto) Total Counted PT 14.0 INR 1.1 APTT 30.6 Sodium 143 Potassium 3.8 Chloride 109 H Carbon Dioxide 24.0 Anion Gap 10 BUN 16 Creatinine 0.74 Estim Creat Clear Calc 33.84 Est GFR (MDRD) Af Amer 98 Est GFR (MDRD) Non-Af 81 BUN/Creatinine Ratio 21.6 H Glucose 130 H Lactic Acid Calcium 8.5 Total Bilirubin 1.00 AST 26 ALT 22 Alkaline Phosphatase 131 H Ammonia Troponin I 1.220 H* Total Protein 6.9 Albumin 3.2 Globulin 3.7 Albumin/Globulin Ratio 0.9 Triglycerides 97 Cholesterol 126 LDL Cholesterol 54 VLDL Cholesterol 19 HDL Cholesterol 53 TSH 1.49 Urine Color Urine Clarity Urine pH Ur Specific [place] Urine Protein Urine Glucose (UA) Urine Ketones Urine Occult Blood Urine Nitrite Urine Bilirubin Urine Urobilinogen Ur Leukocyte Esterase Urine RBC Urine WBC Ur Squamous Epith Cells Urine Bacteria Urine Mucus Ethyl Alcohol POC Glucose 04/07/18 18:46 POC Glucose 127 H Medical Necessity - Tobacco Use Smoking Status: Never smoker Assessment/Plan All Active Problems (Last Reviewed 04/08/18 @ 11:49 by Adam Lee MD) Confusion (Acute) Elevated troponin (Acute) 1. NSTEMI-cardiology following. Plan to wait 48-72 hours before considering cardiac catheterization given acute CVA. Patient denies chest pain. Continue aspirin, statin. 2. 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 Continue aspirin. Increase statin to 80 mg p.o. nightly. PT/OT/ST. Neurology following. Echo showed an EF of 60%, mild mitral valve insufficiency. Check hemoglobin A1c. Check fasting lipid panel in a.m. Monitor telemetry. [facility]. 3. Hypertension-permissive hypertension. Hold losartan, HCTZ given acute CVA. 4. Hyperlipidemia-statin increased to high dosing. 5. GERD-not on PPI. 6. Elevated glucose-check hemoglobin A1c. 7. Asthma-no acute exacerbation. Continue albuterol aerosol as needed. DVT prophylaxis-Lovenox subcu. This patient was seen by JACKELIN Edgar under the supervision of Dr. Rhodes. <Aurea Rhodes - Last Filed: 04/08/18 13:20> - Physical Exam Vital Signs Temp Pulse Resp BP Pulse Ox 98.3 F 69 16 136/56 H 99 04/08/18 11:38 04/08/18 12:34 04/08/18 11:38 04/08/18 11:38 04/08/18 11:38 Oxygen Delivery Method Room Air Weight: 209 lb 7.026 oz Body Mass Index (BMI) 40.8 Finger Stick Blood Glucose 127 Intake and Output for Last 24 Hours 04/06/18 04/07/18 04/08/18 23:59 23:59 23:59 Intake Total 103 / 103 Balance 103 / 103 Microbiology Past 72 Hours 04/07/18 19:47 Urine Culture - Preliminary Urine, Clean Catch Presumptive E. coli Laboratory Tests Past 24 Hrs 04/07/18 04/07/18 04/07/18 18:20 18:20 18:20 WBC 9.3 RBC 4.62 Hgb 13.8 Hct 41.1 MCV 89.0 MCH 29.9 MCHC 33.6 RDW 14.1 RDW Differential 45.2 H Plt Count 261 MPV 11.2 Immature Gran % (Auto) 0.100 Neut % (Auto) 74.1 H Lymph % (Auto) 18.8 L [place] % (Auto) 6.9 Eos % (Auto) 0.0 Baso % (Auto) 0.1 Absolute Neuts (auto) 6.9 Absolute Lymphs (auto) 1.75 Total Counted Not Reportable PT 13.9 INR 1.1 APTT 28.9 Sodium 140 Potassium 3.7 Chloride 106 Carbon Dioxide 26.0 Anion Gap 8 BUN 16 Creatinine 0.71 Estim Creat Clear Calc 37.26 Est GFR (MDRD) Af Amer 103 Est GFR (MDRD) Non-Af 85 BUN/Creatinine Ratio 22.5 H Glucose 122 H Hemoglobin A1c Lactic Acid Calcium 9.0 Total Bilirubin 0.70 AST 21 ALT 23 Alkaline Phosphatase 141 H Ammonia Troponin I 1.700 H* Total Protein 7.6 Albumin 3.6 Globulin 4.0 Albumin/Globulin Ratio 0.9 Triglycerides Cholesterol LDL Cholesterol VLDL Cholesterol HDL Cholesterol TSH 1.13 Urine Color Urine Clarity Urine pH Ur Specific [place] Urine Protein Urine Glucose (UA) Urine Ketones Urine Occult Blood Urine Nitrite Urine Bilirubin Urine Urobilinogen Ur Leukocyte Esterase Urine RBC Urine WBC Ur Squamous Epith Cells Urine Bacteria Urine Mucus Ethyl Alcohol 04/07/18 04/07/18 04/07/18 18:20 18:20 18:20 WBC RBC Hgb Hct MCV MCH MCHC RDW RDW Differential Plt Count MPV Immature Gran % (Auto) Neut % (Auto) Lymph % (Auto) [place] % (Auto) Eos % (Auto) Baso % (Auto) Absolute Neuts (auto) Absolute Lymphs (auto) Total Counted PT INR APTT Sodium Potassium Chloride Carbon Dioxide Anion Gap BUN Creatinine Estim Creat Clear Calc Est GFR (MDRD) Af Amer Est GFR (MDRD) Non-Af BUN/Creatinine Ratio Glucose Hemoglobin A1c Lactic Acid 1.3 Calcium Total Bilirubin AST ALT Alkaline Phosphatase Ammonia < 10.0 L Troponin I Total Protein Albumin Globulin Albumin/Globulin Ratio Triglycerides Cholesterol LDL Cholesterol VLDL Cholesterol HDL Cholesterol TSH Urine Color Urine Clarity Urine pH Ur Specific [place] Urine Protein Urine Glucose (UA) Urine Ketones Urine Occult Blood Urine Nitrite Urine Bilirubin Urine Urobilinogen Ur Leukocyte Esterase Urine RBC Urine WBC Ur Squamous Epith Cells Urine Bacteria Urine Mucus Ethyl Alcohol < 3.0 04/07/18 04/08/18 04/08/18 19:47 00:05 03:02 WBC RBC Hgb Hct MCV MCH MCHC RDW RDW Differential Plt Count MPV Immature Gran % (Auto) Neut % (Auto) Lymph % (Auto) [place] % (Auto) Eos % (Auto) Baso % (Auto) Absolute Neuts (auto) Absolute Lymphs (auto) Total Counted PT INR APTT Sodium Potassium Chloride Carbon Dioxide Anion Gap BUN Creatinine Estim Creat Clear Calc Est GFR (MDRD) Af Amer Est GFR (MDRD) Non-Af BUN/Creatinine Ratio Glucose Hemoglobin A1c Lactic Acid Calcium Total Bilirubin AST ALT Alkaline Phosphatase Ammonia Troponin I 2.330 H* 1.500 H* Total Protein Albumin Globulin Albumin/Globulin Ratio Triglycerides Cholesterol LDL Cholesterol VLDL Cholesterol HDL Cholesterol TSH Urine Color Yellow Urine Clarity Clear Urine pH 6.0 Ur Specific [place] 1.020 Urine Protein Negative Urine Glucose (UA) Normal Urine Ketones 15 H Urine Occult Blood 10 H Urine Nitrite Negative Urine Bilirubin Negative Urine Urobilinogen Normal Ur Leukocyte Esterase 25 H Urine RBC 0-5 SEEN Urine WBC 0-5 SEEN Ur Squamous Epith Cells 0-5 SEEN Urine Bacteria 0 SEEN Urine Mucus 1+ Ethyl Alcohol 04/08/18 04/08/18 04/08/18 05:55 05:55 05:55 WBC 8.8 RBC 4.28 Hgb 12.9 Hct 38.6 MCV 90.2 MCH 30.1 MCHC 33.4 RDW 14.2 RDW Differential 46.1 H Plt Count 251 MPV 10.6 Immature Gran % (Auto) Neut % (Auto) Lymph % (Auto) [place] % (Auto) Eos % (Auto) Baso % (Auto) Absolute Neuts (auto) Absolute Lymphs (auto) Total Counted PT 14.0 INR 1.1 APTT 30.6 Sodium 143 Potassium 3.8 Chloride 109 H Carbon Dioxide 24.0 Anion Gap 10 BUN 16 Creatinine 0.74 Estim Creat Clear Calc 33.84 Est GFR (MDRD) Af Amer 98 Est GFR (MDRD) Non-Af 81 BUN/Creatinine Ratio 21.6 H Glucose 130 H Hemoglobin A1c Lactic Acid Calcium 8.5 Total Bilirubin 1.00 AST 26 ALT 22 Alkaline Phosphatase 131 H Ammonia Troponin I 1.220 H* Total Protein 6.9 Albumin 3.2 Globulin 3.7 Albumin/Globulin Ratio 0.9 Triglycerides 97 Cholesterol 126 LDL Cholesterol 54 VLDL Cholesterol 19 HDL Cholesterol 53 TSH 1.49 Urine Color Urine Clarity Urine pH Ur Specific [place] Urine Protein Urine Glucose (UA) Urine Ketones Urine Occult Blood Urine Nitrite Urine Bilirubin Urine Urobilinogen Ur Leukocyte Esterase Urine RBC Urine WBC Ur Squamous Epith Cells Urine Bacteria Urine Mucus Ethyl Alcohol 04/08/18 05:55 WBC RBC Hgb Hct MCV MCH MCHC RDW RDW Differential Plt Count MPV Immature Gran % (Auto) Neut % (Auto) Lymph % (Auto) [place] % (Auto) Eos % (Auto) Baso % (Auto) Absolute Neuts (auto) Absolute Lymphs (auto) Total Counted PT INR APTT Sodium Potassium Chloride Carbon Dioxide Anion Gap BUN Creatinine Estim Creat Clear Calc Est GFR (MDRD) Af Amer Est GFR (MDRD) Non-Af BUN/Creatinine Ratio Glucose Hemoglobin A1c Pending Lactic Acid Calcium Total Bilirubin AST ALT Alkaline Phosphatase Ammonia Troponin I Total Protein Albumin Globulin Albumin/Globulin Ratio Triglycerides Cholesterol LDL Cholesterol VLDL Cholesterol HDL Cholesterol TSH Urine Color Urine Clarity Urine pH Ur Specific [place] Urine Protein Urine Glucose (UA) Urine Ketones Urine Occult Blood Urine Nitrite Urine Bilirubin Urine Urobilinogen Ur Leukocyte Esterase Urine RBC Urine WBC Ur Squamous Epith Cells Urine Bacteria Urine Mucus Ethyl Alcohol POC Glucose 04/07/18 18:46 POC Glucose 127 H Clinical Impression(s) from Imaging Studies Brain CT 04/07/18 18:19 IMPRESSION: Atrophy no visualized evidence of acute hemorrhage infarct or edema. Electronically Signed: Irasema Canales MD at 18:50 EST Tel , Service support , Chest X-Ray 04/07/18 18:38 IMPRESSION: No demonstrated acute cardiopulmonary process. Electronically Signed: Irasema Canales MD at 18:49 EST Tel , Service support , Brain MRI 04/08/18 09:36 IMPRESSION: Acute infarctions of the left aurora, left frontal and parietal regions. Consider embolic etiology. Severe chronic microvascular ischemic changes. N.B. : The above information has been verbally conveyed by Tereza Trujillo MD to Dr. Carmelo MD, on 04/08/2018 12:43:50 (ET). Electronically Signed: Tereza Trujillo MD at 12:22 EST Tel , Service support , Assessment/Plan Hospitalist note: I am seeing this patient in conjunction with Brianna Saucedo. I independently seen and examined the patient. Progress note above, laboratory data and imaging studies reviewed and I concur with the above treatment and workup plan. Patient presented to the emergency room because of reported confusion according to patient's daughter. This morning, patient never mentioned that she was not feeling well yesterday and she does not think that she was confused. During the encounter, patient was alert and oriented x3. She denied chest pain or shortness of breath. She denied abdominal pain, nausea vomiting. Her vital signs are stable. - Physical Exam General: Alert, Oriented x3, Cooperative, No apparent distress. HEENT: Atraumatic, PERRLA, EOMI. Neck: Supple, No JVD, Negative Carotid Bruits, Trachea Midline, Thyroid Normal. Lungs: Diminished breath sounds bilateral, otherwise clear. No rhonchi, No wheeze, No rales. Cardiovascular: Regular rate, Regular Rhythm, Normal S1, Normal S2, PMI Normal. Abdomen: Bowel Sounds Present, Soft, Non Tender, Non-Distended, No Hepato-splenomegaly. Extremities: No clubbing, No cyanosis, No edema Skin: No rashes, No breakdown Neurological: Neuro grossly intact Vital Signs are stable. 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 She has no significant focal deficit on physical examination. Her vital signs are stable, blood pressure under control. She is on aspirin and statins. 2D echocardiogram revealed normal LV size and function, mild to moderate mitral calcification, no significant valvular heart disease. Neurology on the case. Bilateral carotid Doppler ultrasound ordered. Plan to continue same treatment, PT OT evaluation and treatment. #2 acute non-ST elevation PR: Patient without chest pain, EKG without acute ischemic changes. Troponin is elevated and trending down. She is on aspirin and statins. Initial plan was to go for cardiac catheterization but this was canceled because she was found to have acute infarctions. 2D echocardiogram with normal LV size and function, ejection fraction 60%. Cardiology on the case. #3 other chronic medical problems: Stable, continue current medications. This note was generated with [employer] software. It may contain incorrect words, spelling, and punctuation that were not noted in checking the note before signing. Code Visit Inpatient E&M: 48149 Subs Hosp L3
--- NOTE | 2018-04-08 12:16 | PN_ITS ---
<Brianna Saucedo - Last Filed: 04/08/18 12:56> Patient Problems: Active and Suspected Problems (Last Reviewed 04/08/18 @ 11:49 by Adam Lee MD) Confusion (Acute) Elevated troponin (Acute) Subjective: Patient seen and examined. Alert and oriented during assessment. Denies chest pain, shortness of breath. Denies neuro symptoms. - Physical Exam General: Alert, Oriented x3, Cooperative, No apparent distress HEENT: Atraumatic, PERRLA, EOMI, Normocephalic Oral: Moist Mucosa Neck: Supple, No JVD, Negative Carotid Bruits Lungs: Diminished, Wheezes Cardiovascular: Regular rate, Regular Rhythm, Normal S1, Normal S2, No murmurs Abdomen: Bowel Sounds Present, Soft, Non Tender, Non-Distended, Obese Extremities: No clubbing, No cyanosis, No edema, Capillary Refill Less than 3 Seconds Skin: No rashes, No breakdown Musculoskeletal: No Tenderness to Palpation of Joints or Extremities Neurological: Cranial nerves II-XII grossly intact, Neuro grossly intact Psych/Mental Status: Normal Affect, Appropriate Vital Signs Temp Pulse Resp BP Pulse Ox 98.3 F 69 16 136/56 H 99 04/08/18 11:38 04/08/18 11:38 04/08/18 11:38 04/08/18 11:38 04/08/18 11:38 Oxygen Delivery Method Room Air Weight: 209 lb 7.026 oz Body Mass Index (BMI) 40.8 Finger Stick Blood Glucose 127 Intake and Output for Last 24 Hours 04/06/18 04/07/18 04/08/18 23:59 23:59 23:59 Intake Total 103 / 103 Balance 103 / 103 Microbiology Past 72 Hours 04/07/18 19:47 Urine Culture - Preliminary Urine, Clean Catch Presumptive E. coli Laboratory Tests Past 24 Hrs 04/07/18 04/07/18 04/07/18 18:20 18:20 18:20 WBC 9.3 RBC 4.62 Hgb 13.8 Hct 41.1 MCV 89.0 MCH 29.9 MCHC 33.6 RDW 14.1 RDW Differential 45.2 H Plt Count 261 MPV 11.2 Immature Gran % (Auto) 0.100 Neut % (Auto) 74.1 H Lymph % (Auto) 18.8 L [place] % (Auto) 6.9 Eos % (Auto) 0.0 Baso % (Auto) 0.1 Absolute Neuts (auto) 6.9 Absolute Lymphs (auto) 1.75 Total Counted Not Reportable PT 13.9 INR 1.1 APTT 28.9 Sodium 140 Potassium 3.7 Chloride 106 Carbon Dioxide 26.0 Anion Gap 8 BUN 16 Creatinine 0.71 Estim Creat Clear Calc 37.26 Est GFR (MDRD) Af Amer 103 Est GFR (MDRD) Non-Af 85 BUN/Creatinine Ratio 22.5 H Glucose 122 H Lactic Acid Calcium 9.0 Total Bilirubin 0.70 AST 21 ALT 23 Alkaline Phosphatase 141 H Ammonia Troponin I 1.700 H* Total Protein 7.6 Albumin 3.6 Globulin 4.0 Albumin/Globulin Ratio 0.9 Triglycerides Cholesterol LDL Cholesterol VLDL Cholesterol HDL Cholesterol TSH 1.13 Urine Color Urine Clarity Urine pH Ur Specific [place] Urine Protein Urine Glucose (UA) Urine Ketones Urine Occult Blood Urine Nitrite Urine Bilirubin Urine Urobilinogen Ur Leukocyte Esterase Urine RBC Urine WBC Ur Squamous Epith Cells Urine Bacteria Urine Mucus Ethyl Alcohol 04/07/18 04/07/18 04/07/18 18:20 18:20 18:20 WBC RBC Hgb Hct MCV MCH MCHC RDW RDW Differential Plt Count MPV Immature Gran % (Auto) Neut % (Auto) Lymph % (Auto) [place] % (Auto) Eos % (Auto) Baso % (Auto) Absolute Neuts (auto) Absolute Lymphs (auto) Total Counted PT INR APTT Sodium Potassium Chloride Carbon Dioxide Anion Gap BUN Creatinine Estim Creat Clear Calc Est GFR (MDRD) Af Amer Est GFR (MDRD) Non-Af BUN/Creatinine Ratio Glucose Lactic Acid 1.3 Calcium Total Bilirubin AST ALT Alkaline Phosphatase Ammonia < 10.0 L Troponin I Total Protein Albumin Globulin Albumin/Globulin Ratio Triglycerides Cholesterol LDL Cholesterol VLDL Cholesterol HDL Cholesterol TSH Urine Color Urine Clarity Urine pH Ur Specific [place] Urine Protein Urine Glucose (UA) Urine Ketones Urine Occult Blood Urine Nitrite Urine Bilirubin Urine Urobilinogen Ur Leukocyte Esterase Urine RBC Urine WBC Ur Squamous Epith Cells Urine Bacteria Urine Mucus Ethyl Alcohol < 3.0 04/07/18 04/08/18 04/08/18 19:47 00:05 03:02 WBC RBC Hgb Hct MCV MCH MCHC RDW RDW Differential Plt Count MPV Immature Gran % (Auto) Neut % (Auto) Lymph % (Auto) [place] % (Auto) Eos % (Auto) Baso % (Auto) Absolute Neuts (auto) Absolute Lymphs (auto) Total Counted PT INR APTT Sodium Potassium Chloride Carbon Dioxide Anion Gap BUN Creatinine Estim Creat Clear Calc Est GFR (MDRD) Af Amer Est GFR (MDRD) Non-Af BUN/Creatinine Ratio Glucose Lactic Acid Calcium Total Bilirubin AST ALT Alkaline Phosphatase Ammonia Troponin I 2.330 H* 1.500 H* Total Protein Albumin Globulin Albumin/Globulin Ratio Triglycerides Cholesterol LDL Cholesterol VLDL Cholesterol HDL Cholesterol TSH Urine Color Yellow Urine Clarity Clear Urine pH 6.0 Ur Specific [place] 1.020 Urine Protein Negative Urine Glucose (UA) Normal Urine Ketones 15 H Urine Occult Blood 10 H Urine Nitrite Negative Urine Bilirubin Negative Urine Urobilinogen Normal Ur Leukocyte Esterase 25 H Urine RBC 0-5 SEEN Urine WBC 0-5 SEEN Ur Squamous Epith Cells 0-5 SEEN Urine Bacteria 0 SEEN Urine Mucus 1+ Ethyl Alcohol 04/08/18 04/08/18 04/08/18 05:55 05:55 05:55 WBC 8.8 RBC 4.28 Hgb 12.9 Hct 38.6 MCV 90.2 MCH 30.1 MCHC 33.4 RDW 14.2 RDW Differential 46.1 H Plt Count 251 MPV 10.6 Immature Gran % (Auto) Neut % (Auto) Lymph % (Auto) [place] % (Auto) Eos % (Auto) Baso % (Auto) Absolute Neuts (auto) Absolute Lymphs (auto) Total Counted PT 14.0 INR 1.1 APTT 30.6 Sodium 143 Potassium 3.8 Chloride 109 H Carbon Dioxide 24.0 Anion Gap 10 BUN 16 Creatinine 0.74 Estim Creat Clear Calc 33.84 Est GFR (MDRD) Af Amer 98 Est GFR (MDRD) Non-Af 81 BUN/Creatinine Ratio 21.6 H Glucose 130 H Lactic Acid Calcium 8.5 Total Bilirubin 1.00 AST 26 ALT 22 Alkaline Phosphatase 131 H Ammonia Troponin I 1.220 H* Total Protein 6.9 Albumin 3.2 Globulin 3.7 Albumin/Globulin Ratio 0.9 Triglycerides 97 Cholesterol 126 LDL Cholesterol 54 VLDL Cholesterol 19 HDL Cholesterol 53 TSH 1.49 Urine Color Urine Clarity Urine pH Ur Specific [place] Urine Protein Urine Glucose (UA) Urine Ketones Urine Occult Blood Urine Nitrite Urine Bilirubin Urine Urobilinogen Ur Leukocyte Esterase Urine RBC Urine WBC Ur Squamous Epith Cells Urine Bacteria Urine Mucus Ethyl Alcohol POC Glucose 04/07/18 18:46 POC Glucose 127 H Medical Necessity - Tobacco Use Smoking Status: Never smoker Assessment/Plan All Active Problems (Last Reviewed 04/08/18 @ 11:49 by Adam Lee MD) Confusion (Acute) Elevated troponin (Acute) 1. NSTEMI-cardiology following. Plan to wait 48-72 hours before considering cardiac catheterization given acute CVA. Patient denies chest pain. Continue aspirin, statin. 2. 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 Continue aspirin. Increase statin to 80 mg p.o. nightly. PT/OT/ST. Neurology following. Echo showed an EF of 60%, mild mitral valve insufficiency. Check hemoglobin A1c. Check fasting lipid panel in a.m. Monitor telemetry. [facility]. 3. Hypertension-permissive hypertension. Hold losartan, HCTZ given acute CVA. 4. Hyperlipidemia-statin increased to high dosing. 5. GERD-not on PPI. 6. Elevated glucose-check hemoglobin A1c. 7. Asthma-no acute exacerbation. Continue albuterol aerosol as needed. DVT prophylaxis-Lovenox subcu. This patient was seen by JACKELIN Edgar under the supervision of Dr. Rhodes. <Aurea Rhodes - Last Filed: 04/08/18 13:20> - Physical Exam Vital Signs Temp Pulse Resp BP Pulse Ox 98.3 F 69 16 136/56 H 99 04/08/18 11:38 04/08/18 12:34 04/08/18 11:38 04/08/18 11:38 04/08/18 11:38 Oxygen Delivery Method Room Air Weight: 209 lb 7.026 oz Body Mass Index (BMI) 40.8 Finger Stick Blood Glucose 127 Intake and Output for Last 24 Hours 04/06/18 04/07/18 04/08/18 23:59 23:59 23:59 Intake Total 103 / 103 Balance 103 / 103 Microbiology Past 72 Hours 04/07/18 19:47 Urine Culture - Preliminary Urine, Clean Catch Presumptive E. coli Laboratory Tests Past 24 Hrs 04/07/18 04/07/18 04/07/18 18:20 18:20 18:20 WBC 9.3 RBC 4.62 Hgb 13.8 Hct 41.1 MCV 89.0 MCH 29.9 MCHC 33.6 RDW 14.1 RDW Differential 45.2 H Plt Count 261 MPV 11.2 Immature Gran % (Auto) 0.100 Neut % (Auto) 74.1 H Lymph % (Auto) 18.8 L [place] % (Auto) 6.9 Eos % (Auto) 0.0 Baso % (Auto) 0.1 Absolute Neuts (auto) 6.9 Absolute Lymphs (auto) 1.75 Total Counted Not Reportable PT 13.9 INR 1.1 APTT 28.9 Sodium 140 Potassium 3.7 Chloride 106 Carbon Dioxide 26.0 Anion Gap 8 BUN 16 Creatinine 0.71 Estim Creat Clear Calc 37.26 Est GFR (MDRD) Af Amer 103 Est GFR (MDRD) Non-Af 85 BUN/Creatinine Ratio 22.5 H Glucose 122 H Hemoglobin A1c Lactic Acid Calcium 9.0 Total Bilirubin 0.70 AST 21 ALT 23 Alkaline Phosphatase 141 H Ammonia Troponin I 1.700 H* Total Protein 7.6 Albumin 3.6 Globulin 4.0 Albumin/Globulin Ratio 0.9 Triglycerides Cholesterol LDL Cholesterol VLDL Cholesterol HDL Cholesterol TSH 1.13 Urine Color Urine Clarity Urine pH Ur Specific [place] Urine Protein Urine Glucose (UA) Urine Ketones Urine Occult Blood Urine Nitrite Urine Bilirubin Urine Urobilinogen Ur Leukocyte Esterase Urine RBC Urine WBC Ur Squamous Epith Cells Urine Bacteria Urine Mucus Ethyl Alcohol 04/07/18 04/07/18 04/07/18 18:20 18:20 18:20 WBC RBC Hgb Hct MCV MCH MCHC RDW RDW Differential Plt Count MPV Immature Gran % (Auto) Neut % (Auto) Lymph % (Auto) [place] % (Auto) Eos % (Auto) Baso % (Auto) Absolute Neuts (auto) Absolute Lymphs (auto) Total Counted PT INR APTT Sodium Potassium Chloride Carbon Dioxide Anion Gap BUN Creatinine Estim Creat Clear Calc Est GFR (MDRD) Af Amer Est GFR (MDRD) Non-Af BUN/Creatinine Ratio Glucose Hemoglobin A1c Lactic Acid 1.3 Calcium Total Bilirubin AST ALT Alkaline Phosphatase Ammonia < 10.0 L Troponin I Total Protein Albumin Globulin Albumin/Globulin Ratio Triglycerides Cholesterol LDL Cholesterol VLDL Cholesterol HDL Cholesterol TSH Urine Color Urine Clarity Urine pH Ur Specific [place] Urine Protein Urine Glucose (UA) Urine Ketones Urine Occult Blood Urine Nitrite Urine Bilirubin Urine Urobilinogen Ur Leukocyte Esterase Urine RBC Urine WBC Ur Squamous Epith Cells Urine Bacteria Urine Mucus Ethyl Alcohol < 3.0 04/07/18 04/08/18 04/08/18 19:47 00:05 03:02 WBC RBC Hgb Hct MCV MCH MCHC RDW RDW Differential Plt Count MPV Immature Gran % (Auto) Neut % (Auto) Lymph % (Auto) [place] % (Auto) Eos % (Auto) Baso % (Auto) Absolute Neuts (auto) Absolute Lymphs (auto) Total Counted PT INR APTT Sodium Potassium Chloride Carbon Dioxide Anion Gap BUN Creatinine Estim Creat Clear Calc Est GFR (MDRD) Af Amer Est GFR (MDRD) Non-Af BUN/Creatinine Ratio Glucose Hemoglobin A1c Lactic Acid Calcium Total Bilirubin AST ALT Alkaline Phosphatase Ammonia Troponin I 2.330 H* 1.500 H* Total Protein Albumin Globulin Albumin/Globulin Ratio Triglycerides Cholesterol LDL Cholesterol VLDL Cholesterol HDL Cholesterol TSH Urine Color Yellow Urine Clarity Clear Urine pH 6.0 Ur Specific [place] 1.020 Urine Protein Negative Urine Glucose (UA) Normal Urine Ketones 15 H Urine Occult Blood 10 H Urine Nitrite Negative Urine Bilirubin Negative Urine Urobilinogen Normal Ur Leukocyte Esterase 25 H Urine RBC 0-5 SEEN Urine WBC 0-5 SEEN Ur Squamous Epith Cells 0-5 SEEN Urine Bacteria 0 SEEN Urine Mucus 1+ Ethyl Alcohol 04/08/18 04/08/18 04/08/18 05:55 05:55 05:55 WBC 8.8 RBC 4.28 Hgb 12.9 Hct 38.6 MCV 90.2 MCH 30.1 MCHC 33.4 RDW 14.2 RDW Differential 46.1 H Plt Count 251 MPV 10.6 Immature Gran % (Auto) Neut % (Auto) Lymph % (Auto) [place] % (Auto) Eos % (Auto) Baso % (Auto) Absolute Neuts (auto) Absolute Lymphs (auto) Total Counted PT 14.0 INR 1.1 APTT 30.6 Sodium 143 Potassium 3.8 Chloride 109 H Carbon Dioxide 24.0 Anion Gap 10 BUN 16 Creatinine 0.74 Estim Creat Clear Calc 33.84 Est GFR (MDRD) Af Amer 98 Est GFR (MDRD) Non-Af 81 BUN/Creatinine Ratio 21.6 H Glucose 130 H Hemoglobin A1c Lactic Acid Calcium 8.5 Total Bilirubin 1.00 AST 26 ALT 22 Alkaline Phosphatase 131 H Ammonia Troponin I 1.220 H* Total Protein 6.9 Albumin 3.2 Globulin 3.7 Albumin/Globulin Ratio 0.9 Triglycerides 97 Cholesterol 126 LDL Cholesterol 54 VLDL Cholesterol 19 HDL Cholesterol 53 TSH 1.49 Urine Color Urine Clarity Urine pH Ur Specific [place] Urine Protein Urine Glucose (UA) Urine Ketones Urine Occult Blood Urine Nitrite Urine Bilirubin Urine Urobilinogen Ur Leukocyte Esterase Urine RBC Urine WBC Ur Squamous Epith Cells Urine Bacteria Urine Mucus Ethyl Alcohol 04/08/18 05:55 WBC RBC Hgb Hct MCV MCH MCHC RDW RDW Differential Plt Count MPV Immature Gran % (Auto) Neut % (Auto) Lymph % (Auto) [place] % (Auto) Eos % (Auto) Baso % (Auto) Absolute Neuts (auto) Absolute Lymphs (auto) Total Counted PT INR APTT Sodium Potassium Chloride Carbon Dioxide Anion Gap BUN Creatinine Estim Creat Clear Calc Est GFR (MDRD) Af Amer Est GFR (MDRD) Non-Af BUN/Creatinine Ratio Glucose Hemoglobin A1c Pending Lactic Acid Calcium Total Bilirubin AST ALT Alkaline Phosphatase Ammonia Troponin I Total Protein Albumin Globulin Albumin/Globulin Ratio Triglycerides Cholesterol LDL Cholesterol VLDL Cholesterol HDL Cholesterol TSH Urine Color Urine Clarity Urine pH Ur Specific [place] Urine Protein Urine Glucose (UA) Urine Ketones Urine Occult Blood Urine Nitrite Urine Bilirubin Urine Urobilinogen Ur Leukocyte Esterase Urine RBC Urine WBC Ur Squamous Epith Cells Urine Bacteria Urine Mucus Ethyl Alcohol POC Glucose 04/07/18 18:46 POC Glucose 127 H Clinical Impression(s) from Imaging Studies Brain CT 04/07/18 18:19 IMPRESSION: Atrophy no visualized evidence of acute hemorrhage infarct or edema. Electronically Signed: Irasema Canales MD at 18:50 EST Tel , Service support , Chest X-Ray 04/07/18 18:38 IMPRESSION: No demonstrated acute cardiopulmonary process. Electronically Signed: Irasema Canales MD at 18:49 EST Tel , Service support , Brain MRI 04/08/18 09:36 IMPRESSION: Acute infarctions of the left aurora, left frontal and parietal regions. Consider embolic etiology. Severe chronic microvascular ischemic changes. N.B. : The above information has been verbally conveyed by Tereza Trujillo MD to Dr. Carmelo MD, on 04/08/2018 12:43:50 (ET). Electronically Signed: Tereza Trujillo MD at 12:22 EST Tel , Service support , Assessment/Plan Hospitalist note: I am seeing this patient in conjunction with Brianna Saucedo. I independently seen and examined the patient. Progress note above, laboratory data and imaging studies reviewed and I concur with the above treatment and workup plan. Patient presented to the emergency room because of reported confusion according to patient's daughter. This morning, patient never mentioned that she was not feeling well yesterday and she does not think that she was confused. During the encounter, patient was alert and oriented x3. She denied chest pain or shortness of breath. She denied abdominal pain, nausea vomiting. Her vital signs are stable. - Physical Exam General: Alert, Oriented x3, Cooperative, No apparent distress. HEENT: Atraumatic, PERRLA, EOMI. Neck: Supple, No JVD, Negative Carotid Bruits, Trachea Midline, Thyroid Normal. Lungs: Diminished breath sounds bilateral, otherwise clear. No rhonchi, No wheeze, No rales. Cardiovascular: Regular rate, Regular Rhythm, Normal S1, Normal S2, PMI Normal. Abdomen: Bowel Sounds Present, Soft, Non Tender, Non-Distended, No Hepato- splenomegaly. Extremities: No clubbing, No cyanosis, No edema Skin: No rashes, No breakdown Neurological: Neuro grossly intact Vital Signs are stable. 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 She has no significant focal deficit on physical examination. Her vital signs are stable, blood pressure under control. She is on aspirin and statins. 2D echocardiogram revealed normal LV size and function, mild to moderate mitral calcification, no significant valvular heart disease. Neurology on the case. Bilateral carotid Doppler ultrasound ordered. Plan to continue same treatment, PT OT evaluation and treatment. #2 acute non-ST elevation DE: Patient without chest pain, EKG without acute ischemic changes. Troponin is elevated and trending down. She is on aspirin and statins. Initial plan was to go for cardiac catheterization but this was canceled because she was found to have acute infarctions. 2D echocardiogram with normal LV size and function, ejection fraction 60%. Cardiology on the case. #3 other chronic medical problems: Stable, continue current medications. This note was generated with [employer]cord[employer] software. It may contain incorrect words, spelling, and punctuation that were not noted in checking the note before signing. Code Visit Inpatient E&M: 52695 Subs Hosp L3
[2018-04-08] MEDS: hydroCHLOROthiazide 25 MG Tablet PO (12:24)
[2018-04-08] MEDS: Fluticasone 0.05% 1 SPRAY NASAL.SRY 2 SPRAY NASAL (12:24)
[2018-04-08] MEDS: Aspirin 325 MG Tablet PO (12:24)
[2018-04-08] MEDS: Enoxaparin 40 MG/0.4 ML Syringe SC (12:28)
[2018-04-08 13:23] LABS: Hemoglobin A1c 5.8 % (4.2-6.3)
[2018-04-08] MEDS: Atorvastatin Calcium 80 MG Tablet PO (21:17)
[2018-04-09] VITALS (21 sets, daily range): BP systolic 116–137; BP diastolic 35–58; PULSE 63–78; RESP 14–22; TEMP 36.7–37.2; O2SAT 94–99
[2018-04-09 06:06] LABS: Anion Gap 9 (5-15); BUN 13 mg/dL (7-18); BUN/Creat Ratio 19.6 RATIO (10-20); Calcium,Total 8.2 mg/dL (8.5-10.1); Chloride 109 mmol/L (98-107); Creatinine, Serum 0.66 mg/dL (0.55-1.02); EST Glomerular Filtration Rate 92 mL/min (>60); Est Glom Filt Rate - Afr Amer 111 mL/min (>60); Estimated Creatinine Clearance 33.84 ml/min; Glucose 127 mg/dL (74-106); Potassium 3.4 mmol/L (3.5-5.1); Sodium Level 144 mmol/L (136-145)
[2018-04-09] MEDS: Albuterol 2.5 MG/3 ML VIAL.NEB. INHALATION ×3 (07:06→19:06)
[2018-04-09] MEDS: Budesonide Respules 0.5 MG/2 ML AMPUL.NEB. INHALATION ×2 (07:07→19:06)
[2018-04-09] MEDS: Aspirin 325 MG Tablet PO (08:41)
[2018-04-09] MEDS: Fluticasone 0.05% 1 SPRAY NASAL.SRY 2 SPRAY NASAL (08:42)
[2018-04-09] MEDS: Enoxaparin 40 MG/0.4 ML Syringe SC (08:42)
--- NOTE | 2018-04-09 11:18 | CASEMGMT ---
Patient's daughter and granddaughter they are concerned about patient going home as she lives alone. Patient had a stroke so CHRISTIANO spoke with Usha in the rehab unit. She said Kelli is not very good about approving rehab especially since patient is walking 120'. CHRISTIANO spoke with Saida in TCU and she has beds. CHRISTIANO met with patient and her granddaughter. Introduced self and role at [facility]. Discussed placement. Patient said she would prefer to go home, but she understands she is waker than normal. She would like TCU. CHRISTIANO let them know TCU does have beds, but we have to wait on insurance to approve it. CHRISTIANO told them it would not be today, but maybe tomorrow. CHRISTIANO called Saida and she will start the pre-cert. Plan: [facility] TCU pending insurance approval. Alejandrina DELEON
--- NOTE | 2018-04-09 11:52 | PN.NEURO_ITS ---
Patient Problems: Active and Suspected Problems (Last Reviewed 04/08/18 @ 11:49 by Adam Lee MD) Confusion (Acute) Elevated troponin (Acute) Subjective: fells better today. friends at bedside, note minimal deficit - Physical Exam General: Alert, Oriented x3, Cooperative, No apparent distress Neurological: Cranial nerves II-XII grossly intact, - - mild abnormal right orbit testing Vital Signs Temp Pulse Resp BP Pulse Ox 36.9 C 70 20 H 137/51 H 98 04/09/18 08:21 04/09/18 09:58 04/09/18 09:58 04/09/18 08:21 04/09/18 09:58 Oxygen Delivery Method Room Air Weight: 95 kg Body Mass Index (BMI) 40.8 Finger Stick Blood Glucose 127 Intake and Output for Last 24 Hours 04/07/18 04/08/18 04/09/18 23:59 23:59 23:59 Intake Total 813 / 813 60 / 60 Balance 813 / 813 60 / 60 Microbiology Past 72 Hours 04/09/18 09:45 C. difficile DNA Amplification - Final Stool Toxigenic C. difficile DNA 04/07/18 19:47 Urine Culture - Final Urine, Clean Catch Mixed Gram Pos & Gram Neg Org Laboratory Tests Past 24 Hrs 04/08/18 04/09/18 05:55 05:30 Sodium 144 Potassium 3.4 L Chloride 109 H Carbon Dioxide 26.0 Anion Gap 9 BUN 13 Creatinine 0.66 Estim Creat Clear Calc 33.84 Est GFR (MDRD) Af Amer 111 Est GFR (MDRD) Non-Af 92 BUN/Creatinine Ratio 19.6 Glucose 127 H Hemoglobin A1c 5.8 Calcium 8.2 L Current Medications Generic Name Dose Route Start Last Admin Trade Name Freq PRN Reason Stop Dose Admin Acetaminophen 500 mg 04/07/18 23:38 Tylenol PO PRN PRN PAIN Albuterol Sulfate 2.5 mg 04/07/18 23:45 04/09/18 07:06 Ventolin Aerosols INHALATION 2.5 mg Q6HWA.RT ISATU Administration Aspirin 325 mg 04/08/18 08:00 04/09/18 08:41 Aspirin PO 325 mg DAILY@0800 ISATU Administration Atorvastatin Calcium 80 mg 04/08/18 22:00 04/08/18 21:17 Lipitor PO 80 mg QHS ISATU Administration Budesonide 0.5 mg 04/07/18 23:45 04/09/18 07:07 Pulmicort Aerosol INHALATION 0.5 mg Q12H.RT ISATU Administration Enoxaparin Sodium 40 mg 04/08/18 10:00 04/09/18 08:42 Lovenox SC 40 mg DAILY@1000 ISATU Administration Fluticasone Propionate 2 spray 04/08/18 10:00 04/09/18 08:42 Flonase Nasal [place] NASAL 2 spray DAILY ISATU Administration Lactobacillus Acidophilus 1 tablet 04/08/18 10:00 04/09/18 08:42 Acidophilus PO 1 tablet DAILY ISATU Administration Magnesium Hydroxide 30 ml 04/07/18 23:38 Milk Of Magnesia PO DAILY PRN Constipation Montelukast Sodium 10 mg 04/07/18 23:38 04/08/18 21:16 Singulair PO 10 mg QHS ISATU Administration Nitroglycerin 0.4 mg 04/07/18 23:38 Nitrostat SUBLINGUAL Q5M PRN CHEST PAIN Sodium Chloride 5 - 30 ml 04/08/18 00:10 IV UD PRN SALINE FLUSH mri: reviewed again, right pontine infarct acute as well as punctate right occip infarct Medical Necessity - Tobacco Use Smoking Status: Never smoker Assessment/Plan All Active Problems (Last Reviewed 04/08/18 @ 11:49 by Adam Lee MD) Confusion (Acute) Elevated troponin (Acute) confusion, probably multifactorial due to UTI, stress. also has very small acute left occipital infarct as well as right pontine infarct which i did not see upon my initial review of mri. confusion resolved, minimal right sided deficits. now diagnosed with c diff. reports last on antibiotics months ago. diarrhea less than one. rec: echo: ef 60% tele cath 24-48hrs antiplt rx pt/ot/sp: rehab if needed after cath rx of uti
--- NOTE | 2018-04-09 12:14 | PCM.PROGNOTE ---
<Brianna Saucedo - Last Filed: 04/09/18 12:22> Patient Problems: Active and Suspected Problems (Last Reviewed 04/08/18 @ 11:49 by Adam Lee MD) Confusion (Acute) Elevated troponin (Acute) Subjective: Patient seen and examined. Feels well. Denies chest pain, shortness of breath. Denies neuro symptoms. Complains of generalized weakness which per daughter has been ongoing. Plan for TCU at discharge. - Physical Exam General: Alert, Oriented x3, Cooperative HEENT: Atraumatic, PERRLA, EOMI, Normocephalic Neck: Supple, No JVD, Negative Carotid Bruits Lungs: Clear to auscultation, Diminished Cardiovascular: Regular rate, Regular Rhythm, Normal S1, Normal S2, No murmurs Abdomen: Bowel Sounds Present, Soft, Non Tender, Non-Distended, Obese Extremities: No clubbing, No cyanosis, No edema, Capillary Refill Less than 3 Seconds Skin: No rashes, No breakdown Musculoskeletal: No Tenderness to Palpation of Joints or Extremities Neurological: Cranial nerves II-XII grossly intact, Neuro grossly intact Psych/Mental Status: Normal Affect, Appropriate Vital Signs Temp Pulse Resp BP Pulse Ox 98.5 F 70 20 H 137/51 H 98 04/09/18 08:21 04/09/18 11:04 04/09/18 09:58 04/09/18 08:21 04/09/18 09:58 Oxygen Delivery Method Room Air Weight: 209 lb 7.026 oz Body Mass Index (BMI) 40.8 Finger Stick Blood Glucose 127 Intake and Output for Last 24 Hours 04/07/18 04/08/18 04/09/18 23:59 23:59 23:59 Intake Total 813 / 813 60 / 60 Balance 813 / 813 60 / 60 Microbiology Past 72 Hours 04/09/18 09:45 C. difficile DNA Amplification - Final Stool Toxigenic C. difficile DNA 04/07/18 19:47 Urine Culture - Final Urine, Clean Catch Mixed Gram Pos & Gram Neg Org Laboratory Tests Past 24 Hrs 04/08/18 04/09/18 05:55 05:30 Sodium 144 Potassium 3.4 L Chloride 109 H Carbon Dioxide 26.0 Anion Gap 9 BUN 13 Creatinine 0.66 Estim Creat Clear Calc 33.84 Est GFR (MDRD) Af Amer 111 Est GFR (MDRD) Non-Af 92 BUN/Creatinine Ratio 19.6 Glucose 127 H Hemoglobin A1c 5.8 Calcium 8.2 L Medical Necessity - Tobacco Use Smoking Status: Never smoker Assessment/Plan All Active Problems (Last Reviewed 04/08/18 @ 11:49 by Adam Lee MD) Confusion (Acute) Elevated troponin (Acute) 1. NSTEMI-cardiology following. Plan to wait 48-72 hours before considering cardiac catheterization given acute CVA. Patient denies chest pain. Continue aspirin, statin. 2. 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 Continue aspirin. Increase statin to 80 mg p.o. nightly. PT/OT/ST. Neurology following. Echo showed an EF of 60%, mild mitral valve insufficiency. Monitor telemetry. [facility]. TCU at discharge. 3. Hypertension-permissive hypertension. Hold losartan, HCTZ given acute CVA. 4. Hyperlipidemia-statin increased to high dosing. 5. GERD-not on PPI. 6. Elevated glucose-hemoglobin A1c 5.8%. 7. Asthma-no acute exacerbation. Continue albuterol aerosol as needed. DVT prophylaxis-Lovenox subcu. Discharge planning: TCU pending pre-CERT and cardiac catheterization. Its possible cath may take place on an outpatient basis. This patient was seen by JACKELIN Edgar under the supervision of Dr. Rhodes. <Aurea Rhodes - Last Filed: 04/09/18 13:12> - Physical Exam Vital Signs Temp Pulse Resp BP Pulse Ox 98.1 F 68 16 118/45 L 96 04/09/18 12:21 04/09/18 12:21 04/09/18 12:21 04/09/18 12:21 04/09/18 12:21 Oxygen Delivery Method Room Air Weight: 209 lb 7.026 oz Body Mass Index (BMI) 40.8 Finger Stick Blood Glucose 127 Intake and Output for Last 24 Hours 04/07/18 04/08/18 04/09/18 23:59 23:59 23:59 Intake Total 813 / 813 540 / 540 Balance 813 / 813 540 / 540 Microbiology Past 72 Hours 04/09/18 09:45 C. difficile DNA Amplification - Final Stool Toxigenic C. difficile DNA 04/07/18 19:47 Urine Culture - Final Urine, Clean Catch Mixed Gram Pos & Gram Neg Org Laboratory Tests Past 24 Hrs 04/08/18 04/09/18 05:55 05:30 Sodium 144 Potassium 3.4 L Chloride 109 H Carbon Dioxide 26.0 Anion Gap 9 BUN 13 Creatinine 0.66 Estim Creat Clear Calc 33.84 Est GFR (MDRD) Af Amer 111 Est GFR (MDRD) Non-Af 92 BUN/Creatinine Ratio 19.6 Glucose 127 H Hemoglobin A1c 5.8 Calcium 8.2 L Assessment/Plan Hospitalist note: I am seeing this patient in conjunction with Brianna Saucedo. I independently seen and examined the patient. Progress note above, laboratory data and imaging studies reviewed and I concur with the above treatment and workup plan. Patient seen and examined today. She denies any complaints. Her vital signs are stable. She tested positive for Clostridium difficile stool and she was started on oral vancomycin. - Physical Exam General: Alert, Oriented x3, Cooperative, No apparent distress. HEENT: Atraumatic, PERRLA, EOMI. Neck: Supple, No JVD, Negative Carotid Bruits, Trachea Midline, Thyroid Normal. Lungs: Diminished breath sounds bilateral, otherwise clear. No rhonchi, No wheeze, No rales. Cardiovascular: Regular rate, Regular Rhythm, Normal S1, Normal S2, PMI Normal. Abdomen: Bowel Sounds Present, Soft, Non Tender, Non-Distended, No Hepato-splenomegaly. Extremities: No clubbing, No cyanosis, No edema Skin: No rashes, No breakdown Neurological: Neuro grossly intact Vital Signs are stable. 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 MRI brain reviewed. She has no significant focal deficit on physical examination. Her vital signs are stable, blood pressure under control. She is on aspirin and statins. 2D echocardiogram revealed normal LV size and function, mild to moderate mitral calcification, no significant valvular heart disease. Neurology on the case. Bilateral carotid Doppler ultrasound done, awaiting the reports. Ordered. Plan to continue same treatment, plan is to have patient go to TCU when medically stable. #2 acute non-ST elevation [place]: She remains without chest pain, no acute ischemic changes on EKG. Troponin is elevated and trending down. She is on aspirin and statins. Echocardiogram reviewed as above. Cardiology on the case, plan for probable heart cath either during this admission or as outpatient, awaiting cardiology recommendations. #3 acute C. difficile colitis: Started on oral vancomycin. #4 other chronic medical problems: Stable, continue current medications. This note was generated with [employer] software. It may contain incorrect words, spelling, and punctuation that were not noted in checking the note before signing. Code Visit Inpatient E&M: 67725 Subs Hosp L2
--- NOTE | 2018-04-09 12:21 | PN_ITS ---
Addendum entered and electronically signed by JACKELIN Edgar 04/09/18 12:29: Code Visit Additional diagnosis: Acute diarrhea secondary to acute clostridium difficile- begin vancomycin 125 mg p.o. 4 times daily. Urine culture showing mixed contaminants. Denies urinary sx. Original Note: <Brianna Saucedo - Last Filed: 04/09/18 12:22> Patient Problems: Active and Suspected Problems (Last Reviewed 04/08/18 @ 11:49 by Adam Lee MD) Confusion (Acute) Elevated troponin (Acute) Subjective: Patient seen and examined. Feels well. Denies chest pain, shortness of breath. Denies neuro symptoms. Complains of generalized weakness which per daughter has been ongoing. Plan for TCU at discharge. - Physical Exam General: Alert, Oriented x3, Cooperative HEENT: Atraumatic, PERRLA, EOMI, Normocephalic Neck: Supple, No JVD, Negative Carotid Bruits Lungs: Clear to auscultation, Diminished Cardiovascular: Regular rate, Regular Rhythm, Normal S1, Normal S2, No murmurs Abdomen: Bowel Sounds Present, Soft, Non Tender, Non-Distended, Obese Extremities: No clubbing, No cyanosis, No edema, Capillary Refill Less than 3 Seconds Skin: No rashes, No breakdown Musculoskeletal: No Tenderness to Palpation of Joints or Extremities Neurological: Cranial nerves II-XII grossly intact, Neuro grossly intact Psych/Mental Status: Normal Affect, Appropriate Vital Signs Temp Pulse Resp BP Pulse Ox 98.5 F 70 20 H 137/51 H 98 04/09/18 08:21 04/09/18 11:04 04/09/18 09:58 04/09/18 08:21 04/09/18 09:58 Oxygen Delivery Method Room Air Weight: 209 lb 7.026 oz Body Mass Index (BMI) 40.8 Finger Stick Blood Glucose 127 Intake and Output for Last 24 Hours 04/07/18 04/08/18 04/09/18 23:59 23:59 23:59 Intake Total 813 / 813 60 / 60 Balance 813 / 813 60 / 60 Microbiology Past 72 Hours 04/09/18 09:45 C. difficile DNA Amplification - Final Stool Toxigenic C. difficile DNA 04/07/18 19:47 Urine Culture - Final Urine, Clean Catch Mixed Gram Pos & Gram Neg Org Laboratory Tests Past 24 Hrs 04/08/18 04/09/18 05:55 05:30 Sodium 144 Potassium 3.4 L Chloride 109 H Carbon Dioxide 26.0 Anion Gap 9 BUN 13 Creatinine 0.66 Estim Creat Clear Calc 33.84 Est GFR (MDRD) Af Amer 111 Est GFR (MDRD) Non-Af 92 BUN/Creatinine Ratio 19.6 Glucose 127 H Hemoglobin A1c 5.8 Calcium 8.2 L Medical Necessity - Tobacco Use Smoking Status: Never smoker Assessment/Plan All Active Problems (Last Reviewed 04/08/18 @ 11:49 by Adam Lee MD) Confusion (Acute) Elevated troponin (Acute) 1. NSTEMI-cardiology following. Plan to wait 48-72 hours before considering cardiac catheterization given acute CVA. Patient denies chest pain. Continue aspirin, statin. 2. 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 Continue aspirin. Increase statin to 80 mg p.o. nightly. PT/OT/ST. Neurology following. Echo showed an EF of 60%, mild mitral valve insufficiency. Monitor telemetry. [facility]. TCU at discharge. 3. Hypertension-permissive hypertension. Hold losartan, HCTZ given acute CVA. 4. Hyperlipidemia-statin increased to high dosing. 5. GERD-not on PPI. 6. Elevated glucose-hemoglobin A1c 5.8%. 7. Asthma-no acute exacerbation. Continue albuterol aerosol as needed. DVT prophylaxis-Lovenox subcu. Discharge planning: TCU pending pre-CERT and cardiac catheterization. Its possible cath may take place on an outpatient basis. This patient was seen by JACKELIN Edgar under the supervision of Dr. Rhodes. <Aurea Rhodes E - Last Filed: 04/09/18 13:12> - Physical Exam Vital Signs Temp Pulse Resp BP Pulse Ox 98.1 F 68 16 118/45 L 96 04/09/18 12:21 04/09/18 12:21 04/09/18 12:21 04/09/18 12:21 04/09/18 12:21 Oxygen Delivery Method Room Air Weight: 209 lb 7.026 oz Body Mass Index (BMI) 40.8 Finger Stick Blood Glucose 127 Intake and Output for Last 24 Hours 04/07/18 04/08/18 04/09/18 23:59 23:59 23:59 Intake Total 813 / 813 540 / 540 Balance 813 / 813 540 / 540 Microbiology Past 72 Hours 04/09/18 09:45 C. difficile DNA Amplification - Final Stool Toxigenic C. difficile DNA 04/07/18 19:47 Urine Culture - Final Urine, Clean Catch Mixed Gram Pos & Gram Neg Org Laboratory Tests Past 24 Hrs 04/08/18 04/09/18 05:55 05:30 Sodium 144 Potassium 3.4 L Chloride 109 H Carbon Dioxide 26.0 Anion Gap 9 BUN 13 Creatinine 0.66 Estim Creat Clear Calc 33.84 Est GFR (MDRD) Af Amer 111 Est GFR (MDRD) Non-Af 92 BUN/Creatinine Ratio 19.6 Glucose 127 H Hemoglobin A1c 5.8 Calcium 8.2 L Assessment/Plan Hospitalist note: I am seeing this patient in conjunction with Brianna Saucedo. I independently seen and examined the patient. Progress note above, laboratory data and imaging studies reviewed and I concur with the above treatment and workup plan. Patient seen and examined today. She denies any complaints. Her vital signs are stable. She tested positive for Clostridium difficile stool and she was started on oral vancomycin. - Physical Exam General: Alert, Oriented x3, Cooperative, No apparent distress. HEENT: Atraumatic, PERRLA, EOMI. Neck: Supple, No JVD, Negative Carotid Bruits, Trachea Midline, Thyroid Normal. Lungs: Diminished breath sounds bilateral, otherwise clear. No rhonchi, No wheeze, No rales. Cardiovascular: Regular rate, Regular Rhythm, Normal S1, Normal S2, PMI Normal. Abdomen: Bowel Sounds Present, Soft, Non Tender, Non-Distended, No Hepato- splenomegaly. Extremities: No clubbing, No cyanosis, No edema Skin: No rashes, No breakdown Neurological: Neuro grossly intact Vital Signs are stable. 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 MRI brain reviewed. She has no significant focal deficit on physical examination. Her vital signs are stable, blood pressure under control. She is on aspirin and statins. 2D echocardiogram revealed normal LV size and function, mild to moderate mitral calcification, no significant valvular heart disease. Neurology on the case. Bilateral carotid Doppler ultrasound done, awaiting the reports. Ordered. Plan to continue same treatment, plan is to have patient go to TCU when medically stable. #2 acute non-ST elevation [place]: She remains without chest pain, no acute ischemic changes on EKG. Troponin is elevated and trending down. She is on aspirin and statins. Echocardiogram reviewed as above. Cardiology on the case, plan for probable heart cath either during this admission or as outpatient, awaiting cardiology recommendations. #3 acute C. difficile colitis: Started on oral vancomycin. #4 other chronic medical problems: Stable, continue current medications. This note was generated with [employer] dictation software. It may contain incorrect words, spelling, and punctuation that were not noted in checking the note before signing. Code Visit Inpatient E&M: 60426 Subs Hosp L2
[2018-04-09] MEDS: Atorvastatin Calcium 80 MG Tablet PO (21:53)
[2018-04-09] MEDS: Montelukast 10 MG Tablet PO (21:53)
[2018-04-10] VITALS (15 sets, daily range): BP systolic 113–153; BP diastolic 35–53; PULSE 60–80; RESP 14–19; TEMP 36.3–37.1; O2SAT 92–98; BMI 40.8
[2018-04-10] MEDS: Budesonide Respules 0.5 MG/2 ML AMPUL.NEB. INHALATION ×2 (07:02→20:25)
[2018-04-10] MEDS: Albuterol 2.5 MG/3 ML VIAL.NEB. INHALATION ×3 (07:02→20:25)
[2018-04-10] MEDS: Enoxaparin 40 MG/0.4 ML Syringe SC (09:31)
[2018-04-10] MEDS: Aspirin 325 MG Tablet PO (09:31)
[2018-04-10] MEDS: Fluticasone 0.05% 1 SPRAY NASAL.SRY 2 SPRAY NASAL (09:32)
--- NOTE | 2018-04-10 14:56 | PCM.PROGNOTE ---
<Romulo Mcdonald - Last Filed: 04/10/18 14:56> Patient Problems: Active and Suspected Problems (Last Reviewed 04/08/18 @ 11:49 by Adam Lee MD) Confusion (Acute) Elevated troponin (Acute) Subjective: No CP/heaviness/tightness/palp/dizzyiness/LH. Headache resolved. No fever/chills. No dysuria/urgency. No abdominal pain. - Physical Exam General: Alert, Oriented x3, Cooperative HEENT: Atraumatic, PERRLA, EOMI, Normocephalic Neck: Supple, No JVD, Negative Carotid Bruits Lungs: Clear to auscultation, Normal air movement Cardiovascular: Regular rate, No murmurs Abdomen: Bowel Sounds Present, Soft, Non Tender Extremities: No edema, Capillary Refill Less than 3 Seconds Skin: No rashes, No breakdown Musculoskeletal: No Tenderness to Palpation of Joints or Extremities Neurological: Cranial nerves II-XII grossly intact Psych/Mental Status: Normal Affect, Appropriate, Alert and oriented to time, place, person, mood and affect Vital Signs Temp Pulse Resp BP Pulse Ox 97.4 F L 79 16 153/53 H 98 04/10/18 12:48 04/10/18 12:58 04/10/18 12:58 04/10/18 12:48 04/10/18 12:48 Oxygen Delivery Method Room Air Weight: 209 lb 7.026 oz Body Mass Index (BMI) 40.8 Finger Stick Blood Glucose 127 Intake and Output for Last 24 Hours 04/08/18 04/09/18 04/10/18 23:59 23:59 23:59 Intake Total 813 / 813 1375 / 1375 240 / 240 Balance 813 / 813 1375 / 1375 240 / 240 Microbiology Past 72 Hours 04/09/18 09:45 C. difficile DNA Amplification - Final Stool Toxigenic C. difficile DNA 04/07/18 19:47 Urine Culture - Final Urine, Clean Catch Mixed Gram Pos & Gram Neg Org Medical Necessity - Tobacco Use Smoking Status: Never smoker Tobacco Use: Non-smoker Assessment/Plan All Active Problems (Last Reviewed 04/08/18 @ 11:49 by Adam Lee MD) Confusion (Acute) Elevated troponin (Acute) 1. NSTEMI - continue current plan. Outpatient Cath. Follow up with Dr. Bose in 2 weeks. Echo done, see report. No CP. Asa/statin. Permissive htn, otherwise needs mike and BB when ok with neuro. 2. Acute Left CVA - frontal, parietal. Neuro following. Asa/statin. PTOTST. 3. HTN - permissive, again when ok with neuro needs mike/bb. 4. HLD - statin 5. GERD - currently nor on Rx. 6. Prediabetes with morbid obesity - a1c 5.8. Will order diabetic education. 7. Asthma - stable. prn albuterol. Pulmicort. 8. CDiff - po vanco. DVT ppx : lovenox DC planning: TCU This patient was seen by Romulo Mcdonald PA-C under the supervision of Doctor Carmelo. <Aurea Rhodes E - Last Filed: 04/10/18 15:15> - Physical Exam Vital Signs Temp Pulse Resp BP Pulse Ox 97.4 F L 73 16 153/53 H 98 04/10/18 12:48 04/10/18 15:04 04/10/18 12:58 04/10/18 12:48 04/10/18 12:48 Oxygen Delivery Method Room Air Weight: 209 lb 7.026 oz Body Mass Index (BMI) 40.8 Finger Stick Blood Glucose 127 Intake and Output for Last 24 Hours 04/08/18 04/09/18 04/10/18 23:59 23:59 23:59 Intake Total 813 / 813 1375 / 1375 240 / 240 Balance 813 / 813 1375 / 1375 240 / 240 Microbiology Past 72 Hours 04/09/18 09:45 C. difficile DNA Amplification - Final Stool Toxigenic C. difficile DNA 04/07/18 19:47 Urine Culture - Final Urine, Clean Catch Mixed Gram Pos & Gram Neg Org Assessment/Plan Hospitalist note: I am seeing this patient in conjunction with Romulo Mcdonald. I independently seen and examined the patient. Progress note above reviewed and I agree with above treatment plan. Patient seen and examined today. She has no specific complaints. She has no more diarrhea. Denies chest pain or shortness of breath. Her vital signs are stable. - Physical Exam General: Alert, Oriented x3, Cooperative, No apparent distress. HEENT: Atraumatic, PERRLA, EOMI. Neck: Supple, No JVD, Negative Carotid Bruits, Trachea Midline, Thyroid Normal. Lungs: Diminished breath sounds bilateral, otherwise clear. No rhonchi, No wheeze, No rales. Cardiovascular: Regular rate, Regular Rhythm, Normal S1, Normal S2, PMI Normal. Abdomen: Bowel Sounds Present, Soft, Non Tender, Non-Distended, No Hepato-splenomegaly. Extremities: No clubbing, No cyanosis, No edema Skin: No rashes, No breakdown Neurological: Neuro grossly intact Vital Signs are stable. 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 She is on aspirin and statins. MRI brain reviewed. Her vital signs are stable, blood pressure under control. She is on aspirin and statins. 2D echocardiogram revealed normal LV size and function, mild to moderate mitral calcification, no significant valvular heart disease. Neurology on the case. Bilateral carotid Doppler ultrasound done, awaiting the reports. Ordered. Plan to continue same treatment, awaiting insurance approval to go to transitional care unit. #2 acute non-ST elevation [place]: Remained asymptomatic, no chest pain. She is on aspirin and statins. Echocardiogram reviewed as above. Cardiology on the case, plan for cardiac catheterization as outpatient in 2 weeks. #3 acute C. difficile colitis: She is on oral vancomycin. Plan to continue treatment for 10 days. #4 other chronic medical problems: Stable, continue current medications. This note was generated with [employer] dictation software. It may contain incorrect words, spelling, and punctuation that were not noted in checking the note before signing. Code Visit Inpatient E&M: 49006 Subs Hosp L2
[2018-04-10] MEDS: Montelukast 10 MG Tablet PO (22:16)
[2018-04-10] MEDS: Atorvastatin Calcium 80 MG Tablet PO (22:16)
[2018-04-11] VITALS (17 sets, daily range): BP systolic 112–149; BP diastolic 41–61; PULSE 59–75; RESP 16–20; TEMP 36.4–37.1; O2SAT 92–97; BMI 40.8
[2018-04-11] MEDS: Budesonide Respules 0.5 MG/2 ML AMPUL.NEB. INHALATION ×2 (07:05→19:50)
[2018-04-11] MEDS: Albuterol 2.5 MG/3 ML VIAL.NEB. INHALATION ×2 (07:05→19:50)
[2018-04-11 07:25] LABS: Anion Gap 10 (5-15); BUN 15 mg/dL (7-18); BUN/Creat Ratio 18.7 RATIO (10-20); Calcium,Total 8.8 mg/dL (8.5-10.1); Chloride 109 mmol/L (98-107); EST Glomerular Filtration Rate 74 mL/min (>60); Est Glom Filt Rate - Afr Amer 89 mL/min (>60); Glucose 109 mg/dL (74-106); Potassium 4.2 mmol/L (3.5-5.1); Sodium Level 144 mmol/L (136-145)
[2018-04-11] MEDS: Aspirin 325 MG Tablet PO (09:59)
[2018-04-11] MEDS: Fluticasone 0.05% 1 SPRAY NASAL.SRY 2 SPRAY NASAL (09:59)
[2018-04-11] MEDS: Enoxaparin 40 MG/0.4 ML Syringe SC (09:59)
--- NOTE | 2018-04-11 14:02 | PCM.PROGNOTE ---
<Romulo Mcdonald - Last Filed: 04/11/18 14:02> Patient Problems: Active and Suspected Problems (Last Reviewed 04/08/18 @ 11:49 by Adam Lee MD) Confusion (Acute) Elevated troponin (Acute) Subjective: No issues. Resting comfortably in chair. No slurred speech. Slight left lip droop. No CP. No SOB. No Dizziness/LH. No further loose stools. No abdominal pain, cramping. Some flatus. No N/V. - Physical Exam General: Alert, Oriented x3, Cooperative HEENT: Atraumatic, PERRLA, EOMI, Normocephalic Neck: Supple, No JVD, Negative Carotid Bruits Lungs: Clear to auscultation, Normal air movement Cardiovascular: Regular rate, No murmurs Abdomen: Bowel Sounds Present, Soft, Non Tender Extremities: No edema, Capillary Refill Less than 3 Seconds Skin: No rashes, No breakdown Musculoskeletal: No Tenderness to Palpation of Joints or Extremities Neurological: Cranial nerves II-XII grossly intact Psych/Mental Status: Normal Affect, Appropriate, Alert and oriented to time, place, person, mood and affect Vital Signs Temp Pulse Resp BP Pulse Ox 97.8 F 67 16 131/41 H 97 04/11/18 13:01 04/11/18 13:01 04/11/18 13:01 04/11/18 13:01 04/11/18 13:01 Oxygen Delivery Method Room Air Weight: 209 lb 7.026 oz Body Mass Index (BMI) 40.8 Finger Stick Blood Glucose 127 Intake and Output for Last 24 Hours 04/09/18 04/10/18 04/11/18 23:59 23:59 23:59 Intake Total 1375 / 1375 480 / 480 480 / 480 Balance 1375 / 1375 480 / 480 480 / 480 Microbiology Past 72 Hours 04/09/18 09:45 C. difficile DNA Amplification - Final Stool Toxigenic C. difficile DNA 04/07/18 19:47 Urine Culture - Final Urine, Clean Catch Mixed Gram Pos & Gram Neg Org Laboratory Tests Past 24 Hrs 04/11/18 06:17 Sodium 144 Potassium 4.2 Chloride 109 H Carbon Dioxide 25.0 Anion Gap 10 BUN 15 Creatinine 0.80 Estim Creat Clear Calc 42.30 Est GFR (MDRD) Af Amer 89 Est GFR (MDRD) Non-Af 74 BUN/Creatinine Ratio 18.7 Glucose 109 H Calcium 8.8 Medical Necessity - Tobacco Use Smoking Status: Never smoker Tobacco Use: Non-smoker Assessment/Plan All Active Problems (Last Reviewed 04/08/18 @ 11:49 by Adam Lee MD) Confusion (Acute) Elevated troponin (Acute) 1. NSTEMI - continue current plan. Outpatient Cath. Follow up with Dr. Bose in 2 weeks. Echo done, see report. No CP. Asa/statin. Permissive htn, otherwise needs mike and BB when ok with neuro. 2. Acute Left CVA - frontal, parietal. Neuro following. Asa/statin. PTOTST. 3. HTN - permissive, again when ok with neuro needs mike/bb. 4. HLD - statin 5. GERD - currently nor on Rx. 6. Prediabetes with morbid obesity - a1c 5.8. Will order diabetic education. 7. Asthma - stable. prn albuterol. Pulmicort. 8. CDiff - po vanco. DVT ppx : lovenox DC planning: TCU This patient was seen by Romulo Mcdonald PA-C under the supervision of Doctor Carmelo. <Aurea Rhodes E - Last Filed: 04/11/18 14:22> - Physical Exam Vital Signs Temp Pulse Resp BP Pulse Ox 97.8 F 67 16 131/41 H 97 04/11/18 13:01 04/11/18 13:01 04/11/18 13:01 04/11/18 13:01 04/11/18 13:01 Oxygen Delivery Method Room Air Weight: 209 lb 7.026 oz Body Mass Index (BMI) 40.8 Finger Stick Blood Glucose 127 Intake and Output for Last 24 Hours 04/09/18 04/10/18 04/11/18 23:59 23:59 23:59 Intake Total 1375 / 1375 480 / 480 480 / 480 Balance 1375 / 1375 480 / 480 480 / 480 Microbiology Past 72 Hours 04/09/18 09:45 C. difficile DNA Amplification - Final Stool Toxigenic C. difficile DNA 04/07/18 19:47 Urine Culture - Final Urine, Clean Catch Mixed Gram Pos & Gram Neg Org Laboratory Tests Past 24 Hrs 04/11/18 06:17 Sodium 144 Potassium 4.2 Chloride 109 H Carbon Dioxide 25.0 Anion Gap 10 BUN 15 Creatinine 0.80 Estim Creat Clear Calc 42.30 Est GFR (MDRD) Af Amer 89 Est GFR (MDRD) Non-Af 74 BUN/Creatinine Ratio 18.7 Glucose 109 H Calcium 8.8 Assessment/Plan Hospitalist note: I am seeing this patient in conjunction with Romulo Mcdonald. I independently seen and examined the patient. Progress note above reviewed and I agree with above treatment plan. Patient seen and examined today. She has no specific complaints. Her vital signs are stable. - Physical Exam General: Alert, Oriented x3, Cooperative, No apparent distress. HEENT: Atraumatic, PERRLA, EOMI. Neck: Supple, No JVD, Negative Carotid Bruits, Trachea Midline, Thyroid Normal. Lungs: Diminished breath sounds bilateral, otherwise clear. No rhonchi, No wheeze, No rales. Cardiovascular: Regular rate, Regular Rhythm, Normal S1, Normal S2, PMI Normal. Abdomen: Bowel Sounds Present, Soft, Non Tender, Non-Distended, No Hepato-splenomegaly. Extremities: No clubbing, No cyanosis, No edema Skin: No rashes, No breakdown Neurological: Neuro grossly intact Vital Signs are stable. 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 MRI brain reviewed. Her vital signs are stable, blood pressure under control. She is on aspirin and statins. 2D echocardiogram revealed normal LV size and function, mild to moderate mitral calcification, no significant valvular heart disease. Neurology on the case. Bilateral carotid Doppler ultrasound done, awaiting the reports. Ordered. Plan to continue same treatment, still awaiting insurance approval to go to transitional care unit. #2 acute non-ST elevation MT: Remained asymptomatic, no chest pain. She is on aspirin and statins. Echocardiogram reviewed as above, ejection fraction 60%. Cardiology on the case, plan for cardiac catheterization as outpatient in 2 weeks. #3 acute C. difficile colitis: She is on oral vancomycin. Symptoms improved, she has no more diarrhea. Denied abdominal pain or fever. Plan to continue treatment for 10 days. #4 other chronic medical problems: Stable, continue current medications. This note was generated with [employer] software. It may contain incorrect words, spelling, and punctuation that were not noted in checking the note before signing.
--- NOTE | 2018-04-11 14:34 | PCM.TXEXTCAR ---
- Diet 04/08/18 12:31 Diet: Cardiac/Low Cholesterol Is pt able to select menu?: Yes Diet Comments: calorie control 2000 ivan / day - Routine Orders/Code Status Suppository Type: Dulcolax 10mg Suppository Frequency: Daily PRN Routine Lab Work: CBC - 1 week, BMP - 1 week [facility] Wound(s) R knee Wound Type: Abrasion - Therapies Physical Therapy: Eval and Treat Occupational Therapy: Eval and Treat Speech Therapy: Eval and Treat - Problem/Diagnosis (1) NSTEMI (non-ST elevated myocardial infarction) Status: Acute Current Visit: Yes (2) CVA (cerebral vascular accident) Status: Acute Current Visit: Yes (3) C. difficile colitis Status: Acute Current Visit: Yes (4) Prediabetes Status: Chronic Current Visit: Yes (5) Morbid obesity Status: Chronic Current Visit: Yes (6) Asthma Status: Acute Current Visit: Yes (7) GERD Status: Chronic Current Visit: No (8) Hyperlipidemia Status: Chronic Current Visit: No (9) Hypertension Status: Chronic Current Visit: No (10) Status post right hemicolectomy Status: Chronic Current Visit: No - Allergies/Procedures Done in Hospital Allergies/Adverse Reactions: Allergies primidone Allergy (Verified 04/02/18 09:37) Itching albuterol sulfate [From Ventolin HFA] Adverse Reaction (Verified 04/02/18 09:37) Unknown amoxicillin [Amoxicillin] Adverse Reaction (Verified 04/02/18 09:37) Nausea amoxicillin trihydrate [From Augmentin] Adverse Reaction (Verified 04/02/18 09:37) Abd cramps/diarrhea aspartame Adverse Reaction (Verified 04/08/18 00:16) Dizziness caffeine Adverse Reaction (Verified 04/08/18 00:16) Dizziness cephalexin monohydrate [From Keflex] Adverse Reaction (Verified 04/08/18 00:16) Unknown chocolate flavor Adverse Reaction (Verified 04/02/18 09:37) Other erythromycin base [Erythromycin Base] Adverse Reaction (Verified 04/02/18 09:37) Diarrhea hyoscyamine [Hyoscyamine] Adverse Reaction (Verified 04/02/18 09:37) Rash hyoscyamine sulfate [From Levbid] Adverse Reaction (Verified 04/02/18 09:37) Rash levofloxacin Adverse Reaction (Verified 04/08/18 00:16) Itching lisinopril Adverse Reaction (Verified 04/08/18 00:16) Unknown metronidazole [From Flagyl] Adverse Reaction (Verified 04/02/18 09:37) Rash Metronidazole HCl [From Flagyl] Adverse Reaction (Verified 04/02/18 09:37) Rash morphine Adverse Reaction (Verified 04/08/18 00:16) abdominal pain naproxen Adverse Reaction (Verified 04/02/18 09:37) Nausea/Vom/Diarrhea NSAIDS (Non-Steroidal Anti-Inflamma Adverse Reaction (Verified 04/02/18 09:37) Abd cramps/diarrhea phenazopyridine HCl [From Pyridium] Adverse Reaction (Verified 04/08/18 00:16) Itching potassium clavulanate [From Augmentin] Adverse Reaction (Verified 04/02/18 09:37) Abd cramps/diarrhea sulfamethoxazole [From Septra] Adverse Reaction (Verified 04/02/18 09:37) Unknown trimethoprim [From Septra] Adverse Reaction (Verified 04/02/18 09:37) Unknown IV DYE Allergy (Uncoded 12/05/17 12:36) Rash URISED Adverse Reaction (Uncoded 12/05/17 12:36) Other Procedures: 2-D Echocardiogram - Type of Care/Length of Stay Estimated LOS: Convalescent Care Less Than 30 days Type of Care Needed: Skilled Rehab Potential: Fair Prognosis: Fair - Additional Orders/Day of Discharge Day of Discharge: 04/11/18 - Dietary and Speech Recommendations Dietitian Recommendations/Changes: Suggest LENY post-cath to 1600 calorie controlled/cardiac. 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 Speech Linguistic Eval Summary: The patient is a 78 year old female patient who presented ot the ED on 04/07/2018 after being found to be confused w/ slurred/incoherent speech by daughter. Past medical history is significant for: HTN, Status post right hemicolectomy, HLD, History of diverticulosis, GERD, Age related osteoporosis, Asthma, Elevated fasting blood sugar, Essential tremor, Morbid obesity, SVT, Status post placement of implantable loop recorder, Stress and adjustment reaction, Syncope, and Thyroid nodule. 04/07/2018 CT/Brain/Head without Contrast IMPRESSION: Atrophy no visualized evidence of acute hemorrhage infarct or edema. 04/07/2018 Chest X-ray IMPRESSION: No demonstrated acute cardiopulmonary process. . The patient pased the RN dysphagia screening. Pt denies difficulty chewing/swallowing prior to admission nor w/ PO intake since presenting to the ED. Unable to further assess swallow function this date d/t NPO status as patient has abnormal cardiac enzymes, necessitating a heart cath later this date. . 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 Cognitive-linguistic evalution completed - deficits identified include: -mild to moderate dysrathria d/t trace left labial weakness/reduced lingual strength. -mild inattention, appears to be internally distracted. -orientation - not oriented to date (off by 3), age (off by 5 years - 73), nor current year, stated 2020. -poor generative/divergent naming skills, likely negatively impacted by attention deficits. -STM/recall - recalled 3/3 words immediately after presentation, 2/3 following delay, unable to recall w/ category cue but improved to 3/3 when given choice of 3. -numerical processing - unable to complete basic money and time calculations w/ any degree of consistency/accuracy. Reviewed findings w/ patient and granddaughter who both agree that these are significant changes from baseline function. Will await results of MRI being completed at this time. Recommend further skilled ST services to address the above mentioned deficits w/ the hoal of patient retiurning home at the highest level of independent functioning possible. Anticipate need for continued speech therapy services - inpatient rehab vs. outpatient - post discharge from acute care. - Follow Up Care Primary Care Physician: Christo Bland MD [Primary Care Provider] - Please follow up with your Primary Care Physician in: 2 weeks Please Follow Up With: Adam Lee MD When: 3-4 weeks Please Follow Up With: Butch Bose MD When: 2 weeks
--- NOTE | 2018-04-11 14:37 | TREXTCAR_ITS ---
- Diet 04/08/18 12:31 Diet: Cardiac/Low Cholesterol Is pt able to select menu?: Yes Diet Comments: calorie control 2000 ivan / day - Routine Orders/Code Status Suppository Type: Dulcolax 10mg Suppository Frequency: Daily PRN Routine Lab Work: CBC - 1 week, BMP - 1 week [facility] Wound[facility]s) R knee Wound Type: Abrasion - Therapies Physical Therapy: Eval and Treat Occupational Therapy: Eval and Treat Speech Therapy: Eval and Treat - Problem/Diagnosis (1) NSTEMI (non-ST elevated myocardial infarction) Status: Acute Current Visit: Yes (2) CVA (cerebral vascular accident) Status: Acute Current Visit: Yes (3) C. difficile colitis Status: Acute Current Visit: Yes (4) Prediabetes Status: Chronic Current Visit: Yes (5) Morbid obesity Status: Chronic Current Visit: Yes (6) Asthma Status: Acute Current Visit: Yes (7) GERD Status: Chronic Current Visit: No (8) Hyperlipidemia Status: Chronic Current Visit: No (9) Hypertension Status: Chronic Current Visit: No (10) Status post right hemicolectomy Status: Chronic Current Visit: No - Allergies/Procedures Done in Hospital Allergies/Adverse Reactions: Allergies primidone Allergy (Verified 04/02/18 09:37) Itching albuterol sulfate [From Ventolin HFA] Adverse Reaction (Verified 04/02/18 09:37) Unknown amoxicillin [Amoxicillin] Adverse Reaction (Verified 04/02/18 09:37) Nausea amoxicillin trihydrate [From Augmentin] Adverse Reaction (Verified 04/02/18 09:37) Abd cramps/diarrhea aspartame Adverse Reaction (Verified 04/08/18 00:16) Dizziness caffeine Adverse Reaction (Verified 04/08/18 00:16) Dizziness cephalexin monohydrate [From Keflex] Adverse Reaction (Verified 04/08/18 00:16) Unknown chocolate flavor Adverse Reaction (Verified 04/02/18 09:37) Other erythromycin base [Erythromycin Base] Adverse Reaction (Verified 04/02/18 09:37) Diarrhea hyoscyamine [Hyoscyamine] Adverse Reaction (Verified 04/02/18 09:37) Rash hyoscyamine sulfate [From Levbid] Adverse Reaction (Verified 04/02/18 09:37) Rash levofloxacin Adverse Reaction (Verified 04/08/18 00:16) Itching lisinopril Adverse Reaction (Verified 04/08/18 00:16) Unknown metronidazole [From Flagyl] Adverse Reaction (Verified 04/02/18 09:37) Rash Metronidazole HCl [From Flagyl] Adverse Reaction (Verified 04/02/18 09:37) Rash morphine Adverse Reaction (Verified 04/08/18 00:16) abdominal pain naproxen Adverse Reaction (Verified 04/02/18 09:37) Nausea/Vom/Diarrhea NSAIDS (Non-Steroidal Anti-Inflamma Adverse Reaction (Verified 04/02/18 09:37) Abd cramps/diarrhea phenazopyridine HCl [From Pyridium] Adverse Reaction (Verified 04/08/18 00:16) Itching potassium clavulanate [From Augmentin] Adverse Reaction (Verified 04/02/18 09:37) Abd cramps/diarrhea sulfamethoxazole [From Septra] Adverse Reaction (Verified 04/02/18 09:37) Unknown trimethoprim [From Septra] Adverse Reaction (Verified 04/02/18 09:37) Unknown IV DYE Allergy (Uncoded 12/05/17 12:36) Rash URISED Adverse Reaction (Uncoded 12/05/17 12:36) Other Procedures: 2-D Echocardiogram - Type of Care/Length of Stay Estimated LOS: Convalescent Care Less Than 30 days Type of Care Needed: Skilled Rehab Potential: Fair Prognosis: Fair - Additional Orders/Day of Discharge Day of Discharge: 04/11/18 - Dietary and Speech Recommendations Dietitian Recommendations/Changes: Suggest LENY post-cath to 1600 calorie contr olled/cardiac. 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 Speech Linguistic Eval Summary: The patient is a 78 year old female patient who presented ot the ED on 04/07/2018 after being found to be confused w/ slurred/incoherent speech by daughter. Past medical history is significant for: HTN, Status post right hemicolectomy, HLD, History of diverticulosis, GERD, Age related osteoporosis, Asthma, Elevated fasting blood sugar, Essential tremor, Morbid obesity, SVT, Status post placement of implantable loop recorder, Stress and adjustment reaction, Syncope, and Thyroid nodule. 04/07/2018 CT/Brain/Head without Contrast IMPRESSION: Atrophy no visualized evidence of acute hemorrhage infarct or edema. 04/07/2018 Chest X-ray IMPRESSION: No demonstrated acute cardiopulmonary process. . The patient pased the RN dysphagia screening. Pt denies difficulty chewing/swallowing prior to admission nor w/ PO intake since presenting to the ED. Unable to further assess swallow function this date d/t NPO status as patient has abnormal cardiac enzymes, necessitating a heart cath later this date. . 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 Cognitive-linguistic evalution completed - deficits identified include: -mild to moderate dysrathria d/t trace left labial weakness/reduced lingual strength. -mild inattention, appears to be internally distracted. -orientation - not oriented to date (off by 3), age (off by 5 years - 73), nor current year, stated 2020. -poor generative/divergent naming skills, likely negatively impacted by attention deficits. -STM/recall - recalled 3/3 words immediately after presentation, 2/3 following delay, unable to recall w/ category cue but improved to 3/3 when given choice of 3. -numerical processing - unable to complete basic money and time calculations w/ any degree of consistency/accuracy. Reviewed findings w/ patient and granddaughter who both agree that these are significant changes from baseline function. Will await results of MRI being completed at this time. Recommend further skilled ST services to address the above mentioned deficits w/ the hoal of patient retiurning home at the highest level of independent functioning possible. Anticipate need for continued speech therapy services - inpatient rehab vs. outpatient - post discharge from acute care. - Follow Up Care Primary Care Physician: Christo Bland MD [Primary Care Provider] - Please follow up with your Primary Care Physician in: 2 weeks Please Follow Up With: Adam Lee MD When: 3-4 weeks Please Follow Up With: Butch Bose MD When: 2 weeks
--- NOTE | 2018-04-11 17:20 | CASEMGMT ---
CHRISTIANO spoke with Saida in TCU and she has made phone calls to insurance numerous times throughout the day today with no response. CHRISTIANO let patient know that we continue to wait on insurance to approve her TCU stay. Saida is aware that if she receives insurance approval she will notify PCU. Alejandrina DELEON
[2018-04-11] MEDS: Montelukast 10 MG Tablet PO (21:09)
[2018-04-11] MEDS: Atorvastatin Calcium 80 MG Tablet PO (21:09)
[2018-04-12] VITALS (15 sets, daily range): BP systolic 113–174; BP diastolic 44–66; PULSE 64–73; RESP 15–20; TEMP 36.2–37; O2SAT 94–98; BMI 40.8
[2018-04-12] MEDS: Budesonide Respules 0.5 MG/2 ML AMPUL.NEB. INHALATION ×2 (07:07→20:50)
[2018-04-12] MEDS: Albuterol 2.5 MG/3 ML VIAL.NEB. INHALATION ×3 (07:07→20:50)
[2018-04-12] MEDS: Aspirin 325 MG Tablet PO (08:30)
[2018-04-12] MEDS: Fluticasone 0.05% 1 SPRAY NASAL.SRY 2 SPRAY NASAL (09:56)
[2018-04-12] MEDS: Enoxaparin 40 MG/0.4 ML Syringe SC (09:56)
--- NOTE | 2018-04-12 12:46 | PCM.PROGNOTE ---
<Romulo Mcdonald - Last Filed: 04/12/18 12:46> Patient Problems: Active and Suspected Problems (Last Reviewed 04/08/18 @ 11:49 by Adam Lee MD) Confusion (Acute) Elevated troponin (Acute) NSTEMI (non-ST elevated myocardial infarction) (Acute) CVA (cerebral vascular accident) (Acute) C. difficile colitis (Acute) Asthma (Acute) Subjective: c/o loose stools. No nausea/vomiting/cramping/distention. No fevers/chills. No RÍOS, diplopia, new weakness, parasthesias. - Physical Exam General: Alert, Oriented x3, Cooperative HEENT: Atraumatic, PERRLA, EOMI, Normocephalic Neck: Supple, No JVD, Negative Carotid Bruits Lungs: Clear to auscultation, Normal air movement Cardiovascular: Regular rate, No murmurs Abdomen: Bowel Sounds Present, Soft, Non Tender Extremities: No edema, Capillary Refill Less than 3 Seconds Skin: No rashes, No breakdown Musculoskeletal: No Tenderness to Palpation of Joints or Extremities Neurological: Cranial nerves II-XII grossly intact Psych/Mental Status: Normal Affect, Appropriate, Alert and oriented to time, place, person, mood and affect Vital Signs Temp Pulse Resp BP Pulse Ox 97.6 F L 64 16 123/44 H 97 04/12/18 08:19 04/12/18 11:54 04/12/18 08:19 04/12/18 08:19 04/12/18 08:19 Oxygen Delivery Method Room Air Weight: 209 lb 7.026 oz Body Mass Index (BMI) 40.8 Finger Stick Blood Glucose 127 Intake and Output for Last 24 Hours 04/10/18 04/11/18 04/12/18 23:59 23:59 23:59 Intake Total 480 / 480 960 / 960 200 / 200 Balance 480 / 480 960 / 960 200 / 200 Microbiology Past 72 Hours 04/09/18 09:45 C. difficile DNA Amplification - Final Stool Toxigenic C. difficile DNA 04/07/18 19:47 Urine Culture - Final Urine, Clean Catch Mixed Gram Pos & Gram Neg Org Medical Necessity - Tobacco Use Smoking Status: Never smoker Tobacco Use: Non-smoker Assessment/Plan All Active Problems (Last Reviewed 04/08/18 @ 11:49 by Adam Lee MD) Confusion (Acute) Elevated troponin (Acute) NSTEMI (non-ST elevated myocardial infarction) (Acute) CVA (cerebral vascular accident) (Acute) C. difficile colitis (Acute) Asthma (Acute) 1. NSTEMI - continue current plan. Outpatient Cath. Follow up with Dr. Bose in 2 weeks. Echo done, see report. No CP. Asa/statin. Permissive htn, otherwise needs mike and BB when ok with neuro. 2. Acute Left CVA - frontal, parietal. Neuro following. Asa/statin. PTOTST. 3. HTN - permissive, again when ok with neuro needs mike/bb. 4. HLD - statin 5. GERD - currently nor on Rx. 6. Prediabetes with morbid obesity - a1c 5.8. Will order diabetic education. 7. Asthma - stable. prn albuterol. Pulmicort. 8. CDiff - po vanco. DVT ppx : lovenox DC planning: TCU This patient was seen by Romulo Mcdonald PA-C under the supervision of Doctor Carmelo. <Aurea Rhodes E - Last Filed: 04/12/18 13:25> - Physical Exam Vital Signs Temp Pulse Resp BP Pulse Ox 97.6 F L 65 16 123/44 H 97 04/12/18 08:19 04/12/18 12:55 04/12/18 12:55 04/12/18 08:19 04/12/18 08:19 Oxygen Delivery Method Room Air Weight: 209 lb 7.026 oz Body Mass Index (BMI) 40.8 Finger Stick Blood Glucose 127 Intake and Output for Last 24 Hours 04/10/18 04/11/18 04/12/18 23:59 23:59 23:59 Intake Total 480 / 480 960 / 960 560 / 560 Balance 480 / 480 960 / 960 560 / 560 Microbiology Past 72 Hours 04/09/18 09:45 C. difficile DNA Amplification - Final Stool Toxigenic C. difficile DNA 04/07/18 19:47 Urine Culture - Final Urine, Clean Catch Mixed Gram Pos & Gram Neg Org Assessment/Plan Hospitalist note: I am seeing this patient in conjunction with Romulo Mcdonald. I independently seen and examined the patient. Progress note above reviewed and I agree with above treatment plan. Patient seen and examined today. This morning, she had one episode of loose stool. She denies abdominal pain or fever. Her vital signs are stable. - Physical Exam General: Alert, Oriented x3, Cooperative, No apparent distress. HEENT: Atraumatic, PERRLA, EOMI. Neck: Supple, No JVD, Negative Carotid Bruits, Trachea Midline, Thyroid Normal. Lungs: Diminished breath sounds bilateral, otherwise clear. No rhonchi, No wheeze, No rales. Cardiovascular: Regular rate, Regular Rhythm, Normal S1, Normal S2, PMI Normal. Abdomen: Bowel Sounds Present, Soft, Non Tender, Non-Distended, No Hepato-splenomegaly. Extremities: No clubbing, No cyanosis, No edema Skin: No rashes, No breakdown Neurological: Neuro grossly intact Vital Signs are stable. 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 MRI brain reviewed. Her vital signs are stable, blood pressure under control. She is on aspirin and statins. 2D echocardiogram revealed normal LV size and function, mild to moderate mitral calcification, no significant valvular heart disease. Neurology on the case. Bilateral carotid Doppler ultrasound done, no official report yet. Plan to continue same treatment, obtain official reading on the carbidopa, awaiting insurance approval for placement to TCU. #2 acute non-ST elevation [place]: Remained asymptomatic, no chest pain. She is on aspirin and statins. Echocardiogram reviewed as above, ejection fraction 60%. Cardiology on the case, plan for cardiac catheterization as outpatient in 2 weeks. #3 acute C. difficile colitis: She is on oral vancomycin. Symptoms improved, diarrhea improved. Denied abdominal pain or fever. Plan to continue treatment for total of 10 days. #4 other chronic medical problems: Stable, continue current medications. This note was generated with Postdeckation software. It may contain incorrect words, spelling, and punctuation that were not noted in checking the note before signing. Code Visit Inpatient E&M: 66058 Subs Hosp L2
[2018-04-12] MEDS: Montelukast 10 MG Tablet PO (20:26)
[2018-04-12] MEDS: Atorvastatin Calcium 80 MG Tablet PO (20:28)
[2018-04-13] VITALS (16 sets, daily range): BP systolic 113–150; BP diastolic 43–71; PULSE 60–73; RESP 15–18; TEMP 36.6–36.9; O2SAT 95–97; BMI 40.8
[2018-04-13] MEDS: Albuterol 2.5 MG/3 ML VIAL.NEB. INHALATION ×3 (07:54→19:08)
[2018-04-13] MEDS: Budesonide Respules 0.5 MG/2 ML AMPUL.NEB. INHALATION ×2 (07:54→19:08)
[2018-04-13] MEDS: Aspirin 325 MG Tablet PO (08:12)
[2018-04-13] MEDS: Fluticasone 0.05% 1 SPRAY NASAL.SRY 2 SPRAY NASAL (09:12)
[2018-04-13] MEDS: Enoxaparin 40 MG/0.4 ML Syringe SC (09:12)
--- NOTE | 2018-04-13 14:49 | PN_ITS ---
<Romulo Mcdonald - Last Filed: 04/13/18 14:47> Patient Problems: Active and Suspected Problems (Last Reviewed 04/08/18 @ 11:49 by Adam Lee MD) Confusion (Acute) Elevated troponin (Acute) NSTEMI (non-ST elevated myocardial infarction) (Acute) CVA (cerebral vascular accident) (Acute) C. difficile colitis (Acute) Asthma (Acute) Subjective: Stools are still somewhat loose today. No cramping, bloating, or abdominal pain. No nausea. No difficulty with PO. No new weakness, headache, dizziness. Resting comfortably in chair. - Physical Exam General: Alert, Oriented x3, Cooperative HEENT: Atraumatic, PERRLA, EOMI, Normocephalic Neck: Supple, No JVD, Negative Carotid Bruits Lungs: Clear to auscultation, Normal air movement Cardiovascular: Regular rate, No murmurs Abdomen: Bowel Sounds Present, Soft, Non Tender Extremities: No edema, Capillary Refill Less than 3 Seconds Skin: No rashes, No breakdown Musculoskeletal: No Tenderness to Palpation of Joints or Extremities Neurological: Cranial nerves II-XII grossly intact Psych/Mental Status: Normal Affect, Appropriate, Alert and oriented to time, place, person, mood and affect Vital Signs Temp Pulse Resp BP Pulse Ox 98.5 F 67 16 147/51 H 96 04/13/18 12:08 04/13/18 13:11 04/13/18 13:11 04/13/18 12:08 04/13/18 12:08 Oxygen Delivery Method Room Air Weight: 209 lb 7.026 oz Body Mass Index (BMI) 40.8 Finger Stick Blood Glucose 127 Intake and Output for Last 24 Hours 04/11/18 04/12/18 04/13/18 23:59 23:59 23:59 Intake Total 960 / 960 900 / 900 720 / 720 Balance 960 / 960 900 / 900 720 / 720 Medical Necessity - Tobacco Use Smoking Status: Never smoker Tobacco Use: Non-smoker Assessment/Plan All Active Problems (Last Reviewed 04/08/18 @ 11:49 by Adam Lee MD) Confusion (Acute) Elevated troponin (Acute) NSTEMI (non-ST elevated myocardial infarction) (Acute) CVA (cerebral vascular accident) (Acute) C. difficile colitis (Acute) Asthma (Acute) 1. NSTEMI - Still no chest pain / SOB. continue current plan. Outpatient Cath. Follow up with Dr. Bose in 2 weeks. Echo done, see report. No CP. Asa/statin. Permissive htn, otherwise needs mike and BB when ok with neuro. 2. Acute Left CVA - frontal, parietal. Neuro following. Asa/statin. PTOTST. 3. HTN - permissive, again when ok with neuro needs mike/bb. 4. HLD - statin 5. GERD - currently nor on Rx. 6. Prediabetes with morbid obesity - a1c 5.8. Will order diabetic education. 7. Asthma - stable. prn albuterol. Pulmicort. 8. CDiff - po vanco. Still some loose stools. 9. Hypokalemia resolved. DVT ppx : lovenox DC planning: TCU This patient was seen by Romulo Mcdonald PA-C under the supervision of Doctor Carmelo. <Aurea Rhodes E - Last Filed: 04/13/18 15:24> - Physical Exam Vital Signs Temp Pulse Resp BP Pulse Ox 98.5 F 67 16 147/51 H 96 04/13/18 12:08 04/13/18 13:11 04/13/18 13:11 04/13/18 12:08 04/13/18 12:08 Oxygen Delivery Method Room Air Weight: 209 lb 7.026 oz Body Mass Index (BMI) 40.8 Finger Stick Blood Glucose 127 Intake and Output for Last 24 Hours 04/11/18 04/12/18 04/13/18 23:59 23:59 23:59 Intake Total 960 / 960 900 / 900 720 / 720 Balance 960 / 960 900 / 900 720 / 720 Assessment/Plan Hospitalist note: I am seeing this patient in conjunction with Romulo Mcdonald. I independently seen and examined the patient. Progress note above reviewed and I agree with above treatment plan. She is still c/o diarrhea, 6-8 times since yesterday morning, lose stool. She denies abdominal pain or fever. Her vital signs are stable. - Physical Exam General: Alert, Oriented x3, Cooperative, No apparent distress. HEENT: Atraumatic, PERRLA, EOMI. Neck: Supple, No JVD, Negative Carotid Bruits, Trachea Midline, Thyroid Normal. Lungs: Diminished breath sounds bilateral, otherwise clear. No rhonchi, No wheeze, No rales. Cardiovascular: Regular rate, Regular Rhythm, Normal S1, Normal S2, PMI Normal. Abdomen: Bowel Sounds Present, Soft, Non Tender, Non-Distended, No Hepato- splenomegaly. Extremities: No clubbing, No cyanosis, No edema Skin: No rashes, No breakdown Neurological: Neuro grossly intact Vital Signs are stable. 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 Her vital signs are stable, blood pressure under control. She is on aspirin and statins. 2D echocardiogram revealed normal LV size and function, mild to moderate mitral calcification, no significant valvular heart disease. Neurology on the case. Bilateral carotid Doppler ultrasound done, no official report yet. Plan to continue same treatment, awaiting insurance approval for placement to TCU. #2 acute non-ST elevation [place]: Remained asymptomatic, no chest pain. She is on aspirin and statins. Echocardiogram reviewed as above, ejection fraction 60%. Cardiology on the case, plan for cardiac catheterization as outpatient in 2 weeks. #3 acute C. difficile colitis: She is on oral vancomycin. Symptoms improved, but still having diarrhea. Denied abdominal pain or fever. Plan to continue treatment for total of 10 days. #4 other chronic medical problems: Stable, continue current medications. This note was generated with [employer] dictation software. It may contain incorrect words, spelling, and punctuation that were not noted in checking the note b Code Visit Inpatient E&M: 74399 Subs Hosp L2
[2018-04-13] MEDS: 0.9% NaCl Peripheral Flush Adult/Peds IV (17:24)
[2018-04-13] MEDS: Atorvastatin Calcium 80 MG Tablet PO (20:23)
[2018-04-13] MEDS: Montelukast 10 MG Tablet PO (20:23)
[2018-04-14] VITALS (14 sets, daily range): BP systolic 114–154; BP diastolic 39–66; PULSE 58–85; RESP 16–18; TEMP 36.7–36.9; O2SAT 94–98; BMI 40.8
[2018-04-14] MEDS: Albuterol 2.5 MG/3 ML VIAL.NEB. INHALATION ×2 (07:09→18:44)
[2018-04-14] MEDS: Budesonide Respules 0.5 MG/2 ML AMPUL.NEB. INHALATION ×2 (07:09→18:44)
[2018-04-14] MEDS: Aspirin 325 MG Tablet PO (08:09)
[2018-04-14] MEDS: Fluticasone 0.05% 1 SPRAY NASAL.SRY 2 SPRAY NASAL (08:09)
[2018-04-14] MEDS: Enoxaparin 40 MG/0.4 ML Syringe SC (08:09)
--- NOTE | 2018-04-14 12:09 | CT_ITS ---
STUDY: CTA NECK WITH CONTRAST REASON FOR EXAM: Female, 78 years old. Cerebrovascular accident RADIATION DOSAGE (If Supplied By Facility): CTDIvol = ( ) mGy, DLP = ( 1550.69 ) mGycm TECHNIQUE: CT angiography with multi-detector data acquisition was performed from the aortic arch to the skull base following intravenous administration of 100 ml of Isovue 370 contrast. MIP images were reconstructed from the axial data set. Post-processing of the angiographic images was performed, with multiplanar reformation and 3D reconstruction. Individualized dose optimization techniques were used for this CT. COMPARISON: None. FINDINGS: AORTIC ARCH: There are minimal calcifications in the aortic arch. The origins of the right brachiocephalic and left common carotid arteries are within normal limits. There is marked calcification at the origin of the left subclavian artery with luminal narrowing. RIGHT CAROTID ARTERIES: There is tortuosity of the right common carotid artery. There is moderate atherosclerotic plaque in the right carotid bulb with mild narrowing. There is moderate atherosclerotic plaque formation of the origin of the right internal carotid artery with an estimated stenosis of 50-69% stenosis. There is tortuosity of the cervical portion of the right internal carotid artery. Normal origin of the right external carotid artery (ECA). LEFT CAROTID ARTERIES: There are no significant abnormalities in the left common carotid artery. There is mild atherosclerotic plaque in the left carotid bulb without significant narrowing. Normal origin of the left internal carotid artery without a hemodynamically significant stenosis. There is tortuosity of the cervical portion of the left internal carotid artery. Normal origin of the left external carotid artery (ECA). VERTEBRAL ARTERIES: The vertebral arteries show no significant abnormalities. No significant abnormalities are seen in the visualized lungs. There are no abnormal masses or enlarged lymph nodes in the upper mediastinum or throughout the neck. The thyroid is slightly heterogeneous without a discrete mass. The submandibular glands and parotid glands are symmetric and normal in appearance. There is minimal fluid in the left sphenoid sinus. The mastoid air cells are well aerated. There are moderate degenerative changes in the cervical spine. CT/CTA Neck W/WO Contrast IMPRESSION: There is moderate plaque in the right carotid bulb and proximal right internal carotid artery with estimated stenosis of 50-69%. There is only minimal calcified plaque in the left carotid bulb without narrowing. The vertebral arteries are patent and normal in appearance. There are dense calcifications at the origin of the left subclavian artery with moderate to severe narrowing. This is not well visualized since the study was not tailored to the aortic arch and great vessel origins. There is mild left sphenoid sinusitis. Electronically Signed: Zonia Valladares MD at 19:07 EST Tel Direct: [phone], Service support ,
--- NOTE | 2018-04-14 12:09 | CT_ITS ---
STUDY: CTA OF THE BRAIN REASON FOR EXAM: Female, 78 years old. Cerebrovascular accident RADIATION DOSAGE (If Supplied By Facility): CTDIvol = ( ) mGy, DLP = ( 1550.69 ) mGycm TECHNIQUE: CT angiography was performed with a multi-detector CT scanner. Data acquisition was obtained from the skull base through the vertex following intravenous administration of 100 ml of Isovue 370. MIP images were reconstructed from the axial data set. Post-processing of the angiographic images was performed, with multiplanar reformation and 3D reconstruction. Individualized dose optimization techniques were used for this CT. COMPARISON: Brain MRI dated April 08, 2018 FINDINGS: The petrous carotid arteries are normal in appearance. There is minimal calcified plaque formation of the right cavernous carotid artery, without significant luminal narrowing. There is minimal calcified plaque formation of the left cavernous carotid artery, without significant luminal narrowing. Normal right A1 segment of the anterior cerebral artery. Normal left A1 segment of the anterior cerebral artery. Normal intact anterior communicating artery (ACOM). Normal bilateral A2 segments of the anterior cerebral arteries. Normal right M1 and M2 segments of the middle cerebral arteries, with a normal M1 bifurcation. Normal left M1 and M2 segments of the middle cerebral arteries, with a normal M1 bifurcation. There is non-visualization of the right posterior communicating artery (PCOM). There is non-visualization of the left posterior communicating artery (PCOM). Normal bilateral distal vertebral arteries. Normal basilar artery with a normal basilar bifurcation. The visualized bilateral superior cerebellar (SCA) arteries are within normal limits. Normal bilateral P1, P2 and visualized P3 segments of the posterior cerebral arteries. There is no demonstrated aneurysm of the [place]. There is no demonstrated enhancement of the visualized brain. CT/CTA Head W/WO Contrast IMPRESSION: There is no demonstrated aneurysm or hemodynamically significant stenosis. Electronically Signed: Zonia Valladares MD at 18:54 EST Tel Direct: [phone], Service support ,
--- NOTE | 2018-04-14 12:57 | PCM.PROGNOTE ---
<Romulo Mcdonald - Last Filed: 04/14/18 12:57> Patient Problems: Active and Suspected Problems (Last Reviewed 04/08/18 @ 11:49 by Adam Lee MD) Confusion (Acute) Elevated troponin (Acute) NSTEMI (non-ST elevated myocardial infarction) (Acute) CVA (cerebral vascular accident) (Acute) C. difficile colitis (Acute) Asthma (Acute) Subjective: Stools continue to be less loose. No other abdominal complaints. No CP. No SOB. - Physical Exam General: Alert, Oriented x3, Cooperative HEENT: Atraumatic, PERRLA, EOMI, Normocephalic Neck: Supple, No JVD, Negative Carotid Bruits Lungs: Clear to auscultation, Normal air movement Cardiovascular: Regular rate, No murmurs Abdomen: Bowel Sounds Present, Soft, Non Tender Extremities: No edema, Capillary Refill Less than 3 Seconds Skin: No rashes, No breakdown Musculoskeletal: No Tenderness to Palpation of Joints or Extremities Neurological: Cranial nerves II-XII grossly intact Psych/Mental Status: Normal Affect, Appropriate, Alert and oriented to time, place, person, mood and affect Vital Signs Temp Pulse Resp BP Pulse Ox 98.4 F 62 16 154/53 H 98 04/14/18 11:56 04/14/18 11:56 04/14/18 11:56 04/14/18 11:56 04/14/18 11:56 Oxygen Delivery Method Room Air Weight: 209 lb 7.026 oz Body Mass Index (BMI) 40.8 Finger Stick Blood Glucose 127 Intake and Output for Last 24 Hours 04/12/18 04/13/18 04/14/18 23:59 23:59 23:59 Intake Total 900 / 900 1070 / 1070 360 / 360 Balance 900 / 900 1070 / 1070 360 / 360 Medical Necessity - Tobacco Use Smoking Status: Never smoker Tobacco Use: Non-smoker Assessment/Plan All Active Problems (Last Reviewed 04/08/18 @ 11:49 by Adam Lee MD) Confusion (Acute) Elevated troponin (Acute) NSTEMI (non-ST elevated myocardial infarction) (Acute) CVA (cerebral vascular accident) (Acute) C. difficile colitis (Acute) Asthma (Acute) 1. NSTEMI - Still no chest pain / SOB. continue current plan. Outpatient Cath. Follow up with Dr. Lidya in 2 weeks. Echo done, see report. No CP. Asa/statin. Permissive htn, otherwise needs mike and BB when ok with neuro. 2. Acute Left CVA - frontal, parietal. Neuro following. Asa/statin. PTOTST. There is some stenosis on her Carotid US and neuro suggests outpatient follow up with Dr. Edouard. Will obtain CTA head and neck - contrast allergy causes some extremity itching - will provide 50 mg IV benadryl and 60 mg IV solumedrol 1 hour prior to contrast. 3. HTN - permissive, again when ok with neuro needs mike/bb. 4. HLD - statin 5. GERD - currently not on Rx. 6. Prediabetes with morbid obesity - a1c 5.8. Will order diabetic education. 7. Asthma - stable. prn albuterol. Pulmicort. 8. CDiff - po vanco. Still some loose stools. 9. Hypokalemia resolved. DVT ppx : lovenox DC planning: TCU. Follow up with Neuro, Cardiology, Vascular, PCP This patient was seen by Romulo Mcdonald PA-C under the supervision of Doctor Devyn. <Pedro Pablo Shepard - Last Filed: 04/14/18 13:51> - Physical Exam Vital Signs Temp Pulse Resp BP Pulse Ox 98.4 F 62 16 154/53 H 98 04/14/18 11:56 04/14/18 11:56 04/14/18 11:56 04/14/18 11:56 04/14/18 11:56 Oxygen Delivery Method Room Air Weight: 95 kg Body Mass Index (BMI) 40.8 Finger Stick Blood Glucose 127 Intake and Output for Last 24 Hours 04/12/18 04/13/18 04/14/18 23:59 23:59 23:59 Intake Total 900 / 900 1070 / 1070 360 / 360 Balance 900 / 900 1070 / 1070 360 / 360 Assessment/Plan This patient was seen in conjunction with Romulo Mcdonald PA-C . I have independently interviewed and examined the patient and reviewed pertinent historical, laboratory, and other data. Please refer to Romulo Mcdonald PA-C note for details of this patient's presentation, findings, and recommendations. I have reviewed Romulo Mcdonald PA-C note and concur with documented findings. In brief, patient 78-year-old lady with multiple comorbidities admitted with complaint of feeling fuzzy. An assessment of acute non-STEMI as well as CVA made. Patient hospital stay complicated by development of CAD for which patient is on p.o. vancomycin Physical Examination: GENERAL: cooperative HEENT: Atraumatic; moist oral mucosa EYES; Anicteric, Normal Conjunctiva NECK; supple, normal thyroid, no distended JVD. RESPIRATORY: Diminished to auscultation bilaterally, CARDIOVASCULAR: Regular S1 S2, EXTREMITIES: No edema, no clubbing, no cyanosis. NEURO: Awake; SKIN: No Rash PSYCH; Normal affect Assessment: 1. Acute CVA imaging studies demonstrated Acute infarctions of the left aurora, left frontal and parietal regions; suspected to be embolic in origin 2. Carotid artery stenosis 3. Acute non-STEMI; medical management 4. Acute C. difficile colitis 5. Essential hypertension 6. Dyslipidemia 7. GERD 8. Hypokalemia corrected per protocol 9. DVT prophylaxis Lovenox Recommendations: 1. I have discussed the results of my overview and impressions with the patient 2. Options for management were reviewed Clinical Impression(s) from Imaging Studies Brain CT 04/07/18 18:19 IMPRESSION: Atrophy no visualized evidence of acute hemorrhage infarct or edema. Electronically Signed: Irasema Canales MD at 18:50 EST Tel , Service support , Chest X-Ray 04/07/18 18:38 IMPRESSION: No demonstrated acute cardiopulmonary process. Electronically Signed: Irasema Canales MD at 18:49 EST Tel , Service support , Brain MRI 04/08/18 09:36 IMPRESSION: Acute infarctions of the left aurora, left frontal and parietal regions. Consider embolic etiology. Severe chronic microvascular ischemic changes. N.B. : The above information has been verbally conveyed by Tereza Trujillo MD to Dr. Carmelo MD, on 04/08/2018 12:43:50 (ET). Electronically Signed: Tereza Trujillo MD at 12:22 EST Tel , Service support , Active Medications Acetaminophen (Tylenol) 500 mg PO PRN PRN PRN Reason: PAIN Albuterol Sulfate (Ventolin Aerosols) 2.5 mg INHALATION Q6HWA.RT [facility] Last Admin: 04/14/18 07:09 Dose: 2.5 mg Aspirin (Aspirin) 325 mg PO DAILY@0800 [facility] Last Admin: 04/14/18 08:09 Dose: 325 mg Atorvastatin Calcium (Lipitor) 80 mg PO QHS [facility] Last Admin: 04/13/18 20:23 Dose: 80 mg Budesonide (Pulmicort Aerosol) 0.5 mg INHALATION Q12H.RT [facility] Last Admin: 04/14/18 07:09 Dose: 0.5 mg Enoxaparin Sodium (Lovenox) 40 mg SC DAILY@1000 [facility] Last Admin: 04/14/18 08:09 Dose: 40 mg Fluticasone Propionate (Flonase Nasal [place]) 2 spray NASAL DAILY [facility] Last Admin: 04/14/18 08:09 Dose: 2 spray Lactobacillus Acidophilus (Acidophilus) 1 tablet PO DAILY [facility] Last Admin: 04/14/18 08:09 Dose: 1 tablet Magnesium Hydroxide (Milk Of Magnesia) 30 ml PO DAILY PRN PRN Reason: Constipation Montelukast Sodium (Singulair) 10 mg PO QHS [facility] Last Admin: 04/13/18 20:23 Dose: 10 mg Nitroglycerin (Nitrostat) 0.4 mg SUBLINGUAL Q5M PRN PRN Reason: CHEST PAIN Sodium Chloride () 5 - 30 ml IV UD PRN PRN Reason: SALINE FLUSH Last Admin: 04/13/18 17:24 Dose: 10 ml Vancomycin HCl () 125 mg PO Q6 [facility] Stop: 04/19/18 18:01 Last Admin: 04/14/18 12:06 Dose: 125 mg Code Visit Inpatient E&M: 34715 Subs Hosp L2
--- NOTE | 2018-04-14 13:10 | PN_ITS ---
<Romulo Mcdonald - Last Filed: 04/14/18 12:57> Patient Problems: Active and Suspected Problems (Last Reviewed 04/08/18 @ 11:49 by Adam Lee MD) Confusion (Acute) Elevated troponin (Acute) NSTEMI (non-ST elevated myocardial infarction) (Acute) CVA (cerebral vascular accident) (Acute) C. difficile colitis (Acute) Asthma (Acute) Subjective: Stools continue to be less loose. No other abdominal complaints. No CP. No SOB. - Physical Exam General: Alert, Oriented x3, Cooperative HEENT: Atraumatic, PERRLA, EOMI, Normocephalic Neck: Supple, No JVD, Negative Carotid Bruits Lungs: Clear to auscultation, Normal air movement Cardiovascular: Regular rate, No murmurs Abdomen: Bowel Sounds Present, Soft, Non Tender Extremities: No edema, Capillary Refill Less than 3 Seconds Skin: No rashes, No breakdown Musculoskeletal: No Tenderness to Palpation of Joints or Extremities Neurological: Cranial nerves II-XII grossly intact Psych/Mental Status: Normal Affect, Appropriate, Alert and oriented to time, place, person, mood and affect Vital Signs Temp Pulse Resp BP Pulse Ox 98.4 F 62 16 154/53 H 98 04/14/18 11:56 04/14/18 11:56 04/14/18 11:56 04/14/18 11:56 04/14/18 11:56 Oxygen Delivery Method Room Air Weight: 209 lb 7.026 oz Body Mass Index (BMI) 40.8 Finger Stick Blood Glucose 127 Intake and Output for Last 24 Hours 04/12/18 04/13/18 04/14/18 23:59 23:59 23:59 Intake Total 900 / 900 1070 / 1070 360 / 360 Balance 900 / 900 1070 / 1070 360 / 360 Medical Necessity - Tobacco Use Smoking Status: Never smoker Tobacco Use: Non-smoker Assessment/Plan All Active Problems (Last Reviewed 04/08/18 @ 11:49 by Adam Lee MD) Confusion (Acute) Elevated troponin (Acute) NSTEMI (non-ST elevated myocardial infarction) (Acute) CVA (cerebral vascular accident) (Acute) C. difficile colitis (Acute) Asthma (Acute) 1. NSTEMI - Still no chest pain / SOB. continue current plan. Outpatient Cath. Follow up with Dr. Lidya in 2 weeks. Echo done, see report. No CP. Asa/statin. Permissive htn, otherwise needs mike and BB when ok with neuro. 2. Acute Left CVA - frontal, parietal. Neuro following. Asa/statin. PTOTST. There is some stenosis on her Carotid US and neuro suggests outpatient follow up with Dr. Edouard. Will obtain CTA head and neck - contrast allergy causes some extremity itching - will provide 50 mg IV benadryl and 60 mg IV solumedrol 1 hour prior to contrast. 3. HTN - permissive, again when ok with neuro needs mike/bb. 4. HLD - statin 5. GERD - currently not on Rx. 6. Prediabetes with morbid obesity - a1c 5.8. Will order diabetic education. 7. Asthma - stable. prn albuterol. Pulmicort. 8. CDiff - po vanco. Still some loose stools. 9. Hypokalemia resolved. DVT ppx : lovenox DC planning: TCU. Follow up with Neuro, Cardiology, Vascular, PCP This patient was seen by Romulo Mcdonald PA-C under the supervision of Doctor Devyn. <Pedro Pablo Shepard - Last Filed: 04/14/18 13:51> - Physical Exam Vital Signs Temp Pulse Resp BP Pulse Ox 98.4 F 62 16 154/53 H 98 04/14/18 11:56 04/14/18 11:56 04/14/18 11:56 04/14/18 11:56 04/14/18 11:56 Oxygen Delivery Method Room Air Weight: 95 kg Body Mass Index (BMI) 40.8 Finger Stick Blood Glucose 127 Intake and Output for Last 24 Hours 04/12/18 04/13/18 04/14/18 23:59 23:59 23:59 Intake Total 900 / 900 1070 / 1070 360 / 360 Balance 900 / 900 1070 / 1070 360 / 360 Assessment/Plan This patient was seen in conjunction with Romulo Mcdonald PA-C . I have independently interviewed and examined the patient and reviewed pertinent historical, laboratory, and other data. Please refer to Romulo Mcdonald PA-C note for details of this patient's presentation, findings, and recommendations. I have reviewed Romulo Mcdonald PA-C note and concur with documented findings. In brief, patient 78-year-old lady with multiple comorbidities admitted with complaint of feeling fuzzy. An assessment of acute non-STEMI as well as CVA made. Patient hospital stay complicated by development of CAD for which patient is on p.o. vancomycin Physical Examination: GENERAL: cooperative HEENT: Atraumatic; moist oral mucosa EYES; Anicteric, Normal Conjunctiva NECK; supple, normal thyroid, no distended JVD. RESPIRATORY: Diminished to auscultation bilaterally, CARDIOVASCULAR: Regular S1 S2, EXTREMITIES: No edema, no clubbing, no cyanosis. NEURO: Awake; SKIN: No Rash PSYCH; Normal affect Assessment: 1. Acute CVA imaging studies demonstrated Acute infarctions of the left aurora, left frontal and parietal regions; suspected to be embolic in origin 2. Carotid artery stenosis 3. Acute non-STEMI; medical management 4. Acute C. difficile colitis 5. Essential hypertension 6. Dyslipidemia 7. GERD 8. Hypokalemia corrected per protocol 9. DVT prophylaxis Lovenox Recommendations: 1. I have discussed the results of my overview and impressions with the patient 2. Options for management were reviewed Clinical Impression(s) from Imaging Studies Brain CT 04/07/18 18:19 IMPRESSION: Atrophy no visualized evidence of acute hemorrhage infarct or edema. Electronically Signed: Irasema Canales MD at 18:50 EST Tel , Service support , Chest X-Ray 04/07/18 18:38 IMPRESSION: No demonstrated acute cardiopulmonary process. Electronically Signed: Irasema Canales MD at 18:49 EST Tel , Service support , Brain MRI 04/08/18 09:36 IMPRESSION: Acute infarctions of the left aurora, left frontal and parietal regions. Consider embolic etiology. Severe chronic microvascular ischemic changes. N.B. : The above information has been verbally conveyed by Tereza Trujillo MD to Dr. Carmelo MD, on 04/08/2018 12:43:50 (ET). Electronically Signed: Tereza Trujillo MD at 12:22 EST Tel , Service support , Active Medications Acetaminophen (Tylenol) 500 mg PO PRN PRN PRN Reason: PAIN Albuterol Sulfate (Ventolin Aerosols) 2.5 mg INHALATION Q6HWA.RT [facility] Last Admin: 04/14/18 07:09 Dose: 2.5 mg Aspirin (Aspirin) 325 mg PO DAILY@0800 [facility] Last Admin: 04/14/18 08:09 Dose: 325 mg Atorvastatin Calcium (Lipitor) 80 mg PO QHS [facility] Last Admin: 04/13/18 20:23 Dose: 80 mg Budesonide (Pulmicort Aerosol) 0.5 mg INHALATION Q12H.RT [facility] Last Admin: 04/14/18 07:09 Dose: 0.5 mg Enoxaparin Sodium (Lovenox) 40 mg SC DAILY@1000 [facility] Last Admin: 04/14/18 08:09 Dose: 40 mg Fluticasone Propionate (Flonase Nasal [place]) 2 spray NASAL DAILY [facility] Last Admin: 04/14/18 08:09 Dose: 2 spray Lactobacillus Acidophilus (Acidophilus) 1 tablet PO DAILY [facility] Last Admin: 04/14/18 08:09 Dose: 1 tablet Magnesium Hydroxide (Milk Of Magnesia) 30 ml PO DAILY PRN PRN Reason: Constipation Montelukast Sodium (Singulair) 10 mg PO QHS [facility] Last Admin: 04/13/18 20:23 Dose: 10 mg Nitroglycerin (Nitrostat) 0.4 mg SUBLINGUAL Q5M PRN PRN Reason: CHEST PAIN Sodium Chloride () 5 - 30 ml IV UD PRN PRN Reason: SALINE FLUSH Last Admin: 04/13/18 17:24 Dose: 10 ml Vancomycin HCl () 125 mg PO Q6 [facility] Stop: 04/19/18 18:01 Last Admin: 04/14/18 12:06 Dose: 125 mg Code Visit Inpatient E&M: 95832 Subs Hosp L2
[2018-04-14] MEDS: MethylPREDNISolone 125 MG/2 ML Vial 60 MG IV (13:29)
[2018-04-14] MEDS: DiphenhydrAMINE 50 MG/ML Syringe IV (13:29)
[2018-04-14] MEDS: Montelukast 10 MG Tablet PO (21:36)
[2018-04-14] MEDS: Atorvastatin Calcium 80 MG Tablet PO (21:36)
[2018-04-15] VITALS (8 sets, daily range): BP systolic 122–144; BP diastolic 44–71; PULSE 67–87; RESP 18; TEMP 36.6–36.9; O2SAT 94–97; BMI 40.8
[2018-04-15] MEDS: Budesonide Respules 0.5 MG/2 ML AMPUL.NEB. INHALATION (07:30)
[2018-04-15] MEDS: Albuterol 2.5 MG/3 ML VIAL.NEB. INHALATION ×2 (07:30→13:43)
[2018-04-15] MEDS: Aspirin 325 MG Tablet PO (08:16)
[2018-04-15] MEDS: Enoxaparin 40 MG/0.4 ML Syringe SC (08:16)
[2018-04-15] MEDS: Fluticasone 0.05% 1 SPRAY NASAL.SRY 2 SPRAY NASAL (08:16)
--- NOTE | 2018-04-15 08:57 | PCM.PN.HOSP ---
Patient Problems: Active and Suspected Problems (Last Reviewed 04/08/18 @ 11:49 by dAam Lee MD) Confusion (Acute) Elevated troponin (Acute) NSTEMI (non-ST elevated myocardial infarction) (Acute) CVA (cerebral vascular accident) (Acute) C. difficile colitis (Acute) Asthma (Acute) Subjective: Patient seen no significant events overnight awaiting insurance approval prior to patient being discharged to a [place] [facility] facility Objective: GENERAL: cooperative HEENT: Atraumatic; moist oral mucosa EYES; Anicteric, Normal Conjunctiva NECK; supple, normal thyroid, no distended JVD. RESPIRATORY: Diminished to auscultation bilaterally, CARDIOVASCULAR: Regular S1 S2, GI: Abdomen nondistended EXTREMITIES: No edema, no clubbing, no cyanosis. NEURO: Awake; SKIN: No Rash PSYCH; Normal affect Vitals/I&O's: Vital Signs Temp Pulse Resp BP Pulse Ox 98.4 F 72 18 122/68 H 96 04/15/18 03:30 04/15/18 07:30 04/15/18 07:30 04/15/18 03:30 04/15/18 07:30 Oxygen Delivery Method Room Air Weight: 95 kg Body Mass Index (BMI) 40.8 Finger Stick Blood Glucose 127 Intake and Output for Last 24 Hours 04/13/18 04/14/18 04/15/18 23:59 23:59 23:59 Intake Total 1070 / 1070 600 / 600 300 / 300 Balance 1070 / 1070 600 / 600 300 / 300 Current Medications Acetaminophen (Tylenol) 500 mg PO PRN PRN PRN Reason: PAIN Albuterol Sulfate (Ventolin Aerosols) 2.5 mg INHALATION Q6HWA.RT [facility] Last Admin: 04/15/18 07:30 Dose: 2.5 mg Aspirin (Aspirin) 325 mg PO DAILY@0800 [facility] Last Admin: 04/15/18 08:16 Dose: 325 mg Atorvastatin Calcium (Lipitor) 80 mg PO QHS [facility] Last Admin: 04/14/18 21:36 Dose: 80 mg Budesonide (Pulmicort Aerosol) 0.5 mg INHALATION Q12H.RT [facility] Last Admin: 04/15/18 07:30 Dose: 0.5 mg Enoxaparin Sodium (Lovenox) 40 mg SC DAILY@1000 [facility] Last Admin: 04/15/18 08:16 Dose: 40 mg Fluticasone Propionate (Flonase Nasal [place]) 2 spray NASAL DAILY [facility] Last Admin: 04/15/18 08:16 Dose: 2 spray Lactobacillus Acidophilus (Acidophilus) 1 tablet PO DAILY [facility] Last Admin: 04/15/18 08:16 Dose: 1 tablet Magnesium Hydroxide (Milk Of Magnesia) 30 ml PO DAILY PRN PRN Reason: Constipation Montelukast Sodium (Singulair) 10 mg PO QHS [facility] Last Admin: 04/14/18 21:36 Dose: 10 mg Nitroglycerin (Nitrostat) 0.4 mg SUBLINGUAL Q5M PRN PRN Reason: CHEST PAIN Sodium Chloride () 5 - 30 ml IV UD PRN PRN Reason: SALINE FLUSH Last Admin: 04/13/18 17:24 Dose: 10 ml Vancomycin HCl () 125 mg PO Q6 [facility] Stop: 04/19/18 18:01 Last Admin: 04/15/18 06:07 Dose: 125 mg Medical Necessity - Tobacco Use Smoking Status: Never smoker Tobacco Use: Non-smoker Assessment/Plan All Active Problems (Last Reviewed 04/08/18 @ 11:49 by Adam Lee MD) Confusion (Acute) Elevated troponin (Acute) NSTEMI (non-ST elevated myocardial infarction) (Acute) CVA (cerebral vascular accident) (Acute) C. difficile colitis (Acute) Asthma (Acute) In brief, patient 78-year-old lady with multiple comorbidities admitted with complaint of feeling fuzzy. An assessment of acute non-STEMI as well as CVA made. Patient hospital stay complicated by development of CAD for which patient is on p.o. vancomycin Assessment: 1. Acute CVA ; imaging studies demonstrated Acute infarctions of the left aurora, left frontal and parietal regions; suspected to be embolic in origin 2. Carotid artery stenosis; CTA of the neck demonstrated moderate plaque in the right carotid bulb and proximal right internal carotid artery with estimated stenosis of 50-69% 3. Acute non-STEMI; medical management 4. Acute C. difficile colitis; p.o. vancomycin 5. Essential hypertension-blood pressure controlled, home medications continued with dose adjustment as needed 6. Dyslipidemia-patient is on statin therapy, continued at home dose 7. GERD 8. Hypokalemia corrected per protocol 9. DVT prophylaxis Lovenox Advance planning; did discuss with the patient regarding her advanced directives as well as CODE STATUS. Did explain the various modalities involved ( FULL CODE, DNR CCA, DNR CCA with no intubation, and DNR CC ) patient elected to be DNR CCA no intubation. Order was placed. Time spent on discussion 18 minutes. Clinical Impression(s) from Imaging Studies Brain CT 04/07/18 18:19 IMPRESSION: Atrophy no visualized evidence of acute hemorrhage infarct or edema. Electronically Signed: Irasema Canales MD at 18:50 EST Tel , Service support , Chest X-Ray 04/07/18 18:38 IMPRESSION: No demonstrated acute cardiopulmonary process. Electronically Signed: Irasema Canales MD at 18:49 EST Tel , Service support , Brain MRI 04/08/18 09:36 IMPRESSION: Acute infarctions of the left aurora, left frontal and parietal regions. Consider embolic etiology. Severe chronic microvascular ischemic changes. N.B. : The above information has been verbally conveyed by Tereza Trujillo MD to Dr. Carmelo MD, on 04/08/2018 12:43:50 (ET). Electronically Signed: Tereza Trujillo MD at 12:22 EST Tel , Service support , Head CTA 04/14/18 12:09 IMPRESSION: There is no demonstrated aneurysm or hemodynamically significant stenosis. Electronically Signed: Zonia Valladares MD at 18:54 EST Tel Direct: [phone], Service support , ADDENDUM: 04/14/18 1905 Neck CTA 04/14/18 12:09 IMPRESSION: There is moderate plaque in the right carotid bulb and proximal right internal carotid artery with estimated stenosis of 50-69%. There is only minimal calcified plaque in the left carotid bulb without narrowing. The vertebral arteries are patent and normal in appearance. There are dense calcifications at the origin of the left subclavian artery with moderate to severe narrowing. This is not well visualized since the study was not tailored to the aortic arch and great vessel origins. There is mild left sphenoid sinusitis. Electronically Signed: Zonia Valladares MD at 19:07 EST Tel Direct: [phone], Service support , Active Medications Acetaminophen (Tylenol) 500 mg PO PRN PRN PRN Reason: PAIN Albuterol Sulfate (Ventolin Aerosols) 2.5 mg INHALATION Q6HWA.RT [facility] Last Admin: 04/15/18 07:30 Dose: 2.5 mg Aspirin (Aspirin) 325 mg PO DAILY@0800 [facility] Last Admin: 04/15/18 08:16 Dose: 325 mg Atorvastatin Calcium (Lipitor) 80 mg PO QHS [facility] Last Admin: 04/14/18 21:36 Dose: 80 mg Budesonide (Pulmicort Aerosol) 0.5 mg INHALATION Q12H.RT [facility] Last Admin: 04/15/18 07:30 Dose: 0.5 mg Enoxaparin Sodium (Lovenox) 40 mg SC DAILY@1000 [facility] Last Admin: 04/15/18 08:16 Dose: 40 mg Fluticasone Propionate (Flonase Nasal [place]) 2 spray NASAL DAILY [facility] Last Admin: 04/15/18 08:16 Dose: 2 spray Lactobacillus Acidophilus (Acidophilus) 1 tablet PO DAILY [facility] Last Admin: 04/15/18 08:16 Dose: 1 tablet Magnesium Hydroxide (Milk Of Magnesia) 30 ml PO DAILY PRN PRN Reason: Constipation Montelukast Sodium (Singulair) 10 mg PO QHS [facility] Last Admin: 04/14/18 21:36 Dose: 10 mg Nitroglycerin (Nitrostat) 0.4 mg SUBLINGUAL Q5M PRN PRN Reason: CHEST PAIN Sodium Chloride () 5 - 30 ml IV UD PRN PRN Reason: SALINE FLUSH Last Admin: 04/13/18 17:24 Dose: 10 ml Vancomycin HCl () 125 mg PO Q6 [facility] Stop: 04/19/18 18:01 Last Admin: 04/15/18 06:07 Dose: 125 mg Code Visit Inpatient E&M: 34126 Subs Hosp L2 Procedures: 42049 Advncd Care Plan 30 Min
--- NOTE | 2018-04-15 09:00 | PN_ITS ---
Patient Problems: Active and Suspected Problems (Last Reviewed 04/08/18 @ 11:49 by Adam Lee MD) Confusion (Acute) Elevated troponin (Acute) NSTEMI (non-ST elevated myocardial infarction) (Acute) CVA (cerebral vascular accident) (Acute) C. difficile colitis (Acute) Asthma (Acute) Subjective: Patient seen no significant events overnight awaiting insurance approval prior to patient being discharged to a snf facility Objective: GENERAL: cooperative HEENT: Atraumatic; moist oral mucosa EYES; Anicteric, Normal Conjunctiva NECK; supple, normal thyroid, no distended JVD. RESPIRATORY: Diminished to auscultation bilaterally, CARDIOVASCULAR: Regular S1 S2, GI: Abdomen nondistended EXTREMITIES: No edema, no clubbing, no cyanosis. NEURO: Awake; SKIN: No Rash PSYCH; Normal affect Vitals/I&O's: Vital Signs Temp Pulse Resp BP Pulse Ox 98.4 F 72 18 122/68 H 96 04/15/18 03:30 04/15/18 07:30 04/15/18 07:30 04/15/18 03:30 04/15/18 07:30 Oxygen Delivery Method Room Air Weight: 95 kg Body Mass Index (BMI) 40.8 Finger Stick Blood Glucose 127 Intake and Output for Last 24 Hours 04/13/18 04/14/18 04/15/18 23:59 23:59 23:59 Intake Total 1070 / 1070 600 / 600 300 / 300 Balance 1070 / 1070 600 / 600 300 / 300 Current Medications Acetaminophen (Tylenol) 500 mg PO PRN PRN PRN Reason: PAIN Albuterol Sulfate (Ventolin Aerosols) 2.5 mg INHALATION Q6HWA.RT [facility] Last Admin: 04/15/18 07:30 Dose: 2.5 mg Aspirin (Aspirin) 325 mg PO DAILY@0800 [facility] Last Admin: 04/15/18 08:16 Dose: 325 mg Atorvastatin Calcium (Lipitor) 80 mg PO QHS [facility] Last Admin: 04/14/18 21:36 Dose: 80 mg Budesonide (Pulmicort Aerosol) 0.5 mg INHALATION Q12H.RT [facility] Last Admin: 04/15/18 07:30 Dose: 0.5 mg Enoxaparin Sodium (Lovenox) 40 mg SC DAILY@1000 [facility] Last Admin: 04/15/18 08:16 Dose: 40 mg Fluticasone Propionate (Flonase Nasal [place]) 2 spray NASAL DAILY [facility] Last Admin: 04/15/18 08:16 Dose: 2 spray Lactobacillus Acidophilus (Acidophilus) 1 tablet PO DAILY [facility] Last Admin: 04/15/18 08:16 Dose: 1 tablet Magnesium Hydroxide (Milk Of Magnesia) 30 ml PO DAILY PRN PRN Reason: Constipation Montelukast Sodium (Singulair) 10 mg PO QHS [facility] Last Admin: 04/14/18 21:36 Dose: 10 mg Nitroglycerin (Nitrostat) 0.4 mg SUBLINGUAL Q5M PRN PRN Reason: CHEST PAIN Sodium Chloride () 5 - 30 ml IV UD PRN PRN Reason: SALINE FLUSH Last Admin: 04/13/18 17:24 Dose: 10 ml Vancomycin HCl () 125 mg PO Q6 [facility] Stop: 04/19/18 18:01 Last Admin: 04/15/18 06:07 Dose: 125 mg Medical Necessity - Tobacco Use Smoking Status: Never smoker Tobacco Use: Non-smoker Assessment/Plan All Active Problems (Last Reviewed 04/08/18 @ 11:49 by Adam Lee MD) Confusion (Acute) Elevated troponin (Acute) NSTEMI (non-ST elevated myocardial infarction) (Acute) CVA (cerebral vascular accident) (Acute) C. difficile colitis (Acute) Asthma (Acute) In brief, patient 78-year-old lady with multiple comorbidities admitted with complaint of feeling fuzzy. An assessment of acute non-STEMI as well as CVA made. Patient hospital stay complicated by development of CAD for which patient is on p.o. vancomycin Assessment: 1. Acute CVA ; imaging studies demonstrated Acute infarctions of the left aurora, left frontal and parietal regions; suspected to be embolic in origin 2. Carotid artery stenosis; CTA of the neck demonstrated moderate plaque in the right carotid bulb and proximal right internal carotid artery with estimated stenosis of 50-69% 3. Acute non-STEMI; medical management 4. Acute C. difficile colitis; p.o. vancomycin 5. Essential hypertension-blood pressure controlled, home medications continued with dose adjustment as needed 6. Dyslipidemia-patient is on statin therapy, continued at home dose 7. GERD 8. Hypokalemia corrected per protocol 9. DVT prophylaxis Lovenox Advance planning; did discuss with the patient regarding her advanced directives as well as CODE STATUS. Did explain the various modalities involved ( FULL CODE, DNR CCA, DNR CCA with no intubation, and DNR CC ) patient elected to be DNR CCA no intubation. Order was placed. Time spent on discussion 18 minutes. Clinical Impression(s) from Imaging Studies Brain CT 04/07/18 18:19 IMPRESSION: Atrophy no visualized evidence of acute hemorrhage infarct or edema. Electronically Signed: Irasema Canales MD at 18:50 EST Tel , Service support , Chest X-Ray 04/07/18 18:38 IMPRESSION: No demonstrated acute cardiopulmonary process. Electronically Signed: Irasema Canales MD at 18:49 EST Tel , Service support , Brain MRI 04/08/18 09:36 IMPRESSION: Acute infarctions of the left aurora, left frontal and parietal regions. Consider embolic etiology. Severe chronic microvascular ischemic changes. N.B. : The above information has been verbally conveyed by Tereza Trujillo MD to Dr. Carmelo MD, on 04/08/2018 12:43:50 (ET). Electronically Signed: Tereza Trujillo MD at 12:22 EST Tel , Service support , Head CTA 04/14/18 12:09 IMPRESSION: There is no demonstrated aneurysm or hemodynamically significant stenosis. Electronically Signed: Zonia Valladares MD at 18:54 EST Tel Direct: [phone], Service support , ADDENDUM: 04/14/18 1905 Neck CTA 04/14/18 12:09 IMPRESSION: There is moderate plaque in the right carotid bulb and proximal right internal carotid artery with estimated stenosis of 50-69%. There is only minimal calcified plaque in the left carotid bulb without narrowing. The vertebral arteries are patent and normal in appearance. There are dense calcifications at the origin of the left subclavian artery with moderate to severe narrowing. This is not well visualized since the study was not tailored to the aortic arch and great vessel origins. There is mild left sphenoid sinusitis. Electronically Signed: Zonia Valladares MD at 19:07 EST Tel Direct: [phone], Service support , Active Medications Acetaminophen (Tylenol) 500 mg PO PRN PRN PRN Reason: PAIN Albuterol Sulfate (Ventolin Aerosols) 2.5 mg INHALATION Q6HWA.RT [facility] Last Admin: 04/15/18 07:30 Dose: 2.5 mg Aspirin (Aspirin) 325 mg PO DAILY@0800 [facility] Last Admin: 04/15/18 08:16 Dose: 325 mg Atorvastatin Calcium (Lipitor) 80 mg PO QHS [facility] Last Admin: 04/14/18 21:36 Dose: 80 mg Budesonide (Pulmicort Aerosol) 0.5 mg INHALATION Q12H.RT [facility] Last Admin: 04/15/18 07:30 Dose: 0.5 mg Enoxaparin Sodium (Lovenox) 40 mg SC DAILY@1000 [facility] Last Admin: 04/15/18 08:16 Dose: 40 mg Fluticasone Propionate (Flonase Nasal [place]) 2 spray NASAL DAILY [facility] Last Admin: 04/15/18 08:16 Dose: 2 spray Lactobacillus Acidophilus (Acidophilus) 1 tablet PO DAILY [facility] Last Admin: 04/15/18 08:16 Dose: 1 tablet Magnesium Hydroxide (Milk Of Magnesia) 30 ml PO DAILY PRN PRN Reason: Constipation Montelukast Sodium (Singulair) 10 mg PO QHS [facility] Last Admin: 04/14/18 21:36 Dose: 10 mg Nitroglycerin (Nitrostat) 0.4 mg SUBLINGUAL Q5M PRN PRN Reason: CHEST PAIN Sodium Chloride () 5 - 30 ml IV UD PRN PRN Reason: SALINE FLUSH Last Admin: 04/13/18 17:24 Dose: 10 ml Vancomycin HCl () 125 mg PO Q6 [facility] Stop: 04/19/18 18:01 Last Admin: 04/15/18 06:07 Dose: 125 mg Code Visit Inpatient E&M: 52538 Subs Hosp L2 Procedures: 46808 Advncd Care Plan 30 Min
--- NOTE | 2018-04-15 09:40 | CASEMGMT ---
Saida in TCU spent 30 minutes on the phone with Kelli Saturday. She was told she could leave a message in the general mailbox for all of the nurse reviewers and it is checked hourly. She never heard from anyone so she called again this am. She spoke to a supervisor veneer this am who gave her a different fax number that goes directly to her and she will get back to Saida this am. Alejandrina VALENTINE MSW
[2018-04-15] MEDS: Clopidogrel Bisulfate 75 MG Tablet PO (11:35)
--- NOTE | 2018-04-15 13:46 | CASEMGMT ---
Saida called and she said patient was approved for TCU. CHRISTIANO notified RN, medical records secretary, patient and her daughter. Patient's daughter said she will be taking her home with her at d/c from TCU and wanted to know how long they approved her for. CHRISTIANO spoke with Saida and updates are due on Saturday so the worst case scenario would be discharge 04-24-18. CHRISTIANO called patient's daughter and let her know this information. Plan: d/c to [facility] under skilled level of care. Alejandrina VALENTINE MSW
--- NOTE | 2018-04-15 14:19 | TREXTCAR_ITS ---
- Diet 04/08/18 12:31 Diet: Cardiac/Low Cholesterol Is pt able to select menu?: Yes Diet Comments: calorie control 2000 ivan / day - Routine Orders/Code Status Suppository Type: Dulcolax 10mg Suppository Frequency: Daily PRN Routine Lab Work: CBC - 1 week, BMP - 1 week Code Status: [facility] - Wound(s) R knee Wound Type: Abrasion - Therapies Physical Therapy: Eval and Treat Occupational Therapy: Eval and Treat Speech Therapy: Eval and Treat - Allergies/Procedures Done in Hospital Allergies/Adverse Reactions: Allergies primidone Allergy (Verified 04/02/18 09:37) Itching albuterol sulfate [From Ventolin HFA] Adverse Reaction (Verified 04/02/18:37) Unknown amoxicillin [Amoxicillin] Adverse Reaction (Verified 04/02/18 09:37) Nausea amoxicillin trihydrate [From Augmentin] Adverse Reaction (Verified 04/02/18 09:37) Abd cramps/diarrhea aspartame Adverse Reaction (Verified 04/08/18 00:16) Dizziness caffeine Adverse Reaction (Verified 04/08/18 00:16) Dizziness cephalexin monohydrate [From Keflex] Adverse Reaction (Verified 04/08/18 00:16) Unknown chocolate flavor Adverse Reaction (Verified 04/02/18 09:37) Other erythromycin base [Erythromycin Base] Adverse Reaction (Verified 04/02/18 09:37) Diarrhea hyoscyamine [Hyoscyamine] Adverse Reaction (Verified 04/02/18 09:37) Rash hyoscyamine sulfate [From Levbid] Adverse Reaction (Verified 04/02/18:37) Rash levofloxacin Adverse Reaction (Verified 04/08/18 00:16) Itching lisinopril Adverse Reaction (Verified 04/08/18 00:16) Unknown metronidazole [From Flagyl] Adverse Reaction (Verified 04/02/18:37) Rash Metronidazole HCl [From Flagyl] Adverse Reaction (Verified 04/02/18:37) Rash morphine Adverse Reaction (Verified 04/08/18 00:16) abdominal pain naproxen Adverse Reaction (Verified 04/02/18 09:37) Nausea/Vom/Diarrhea NSAIDS (Non-Steroidal Anti-Inflamma Adverse Reaction (Verified 04/02/18 09:37) Abd cramps/diarrhea phenazopyridine HCl [From Pyridium] Adverse Reaction (Verified 04/08/18 00:16) Itching potassium clavulanate [From Augmentin] Adverse Reaction (Verified 04/02/18 09:37) Abd cramps/diarrhea sulfamethoxazole [From Septra] Adverse Reaction (Verified 04/02/18 09:37) Unknown trimethoprim [From Septra] Adverse Reaction (Verified 04/02/18 09:37) Unknown IV DYE Allergy (Uncoded 12/05/17 12:36) Rash URISED Adverse Reaction (Uncoded 12/05/17 12:36) Other Procedures: 2-D Echocardiogram - Type of Care/Length of Stay Estimated LOS: Convalescent Care Less Than 30 days Type of Care Needed: Skilled Rehab Potential: Fair Prognosis: Fair - Additional Orders/Day of Discharge Day of Discharge: 04/15/18 - Dietary and Speech Recommendations Dietitian Recommendations/Changes: Suggest 1800 calorie controlled/cardiac. Speech Linguistic Eval Summary: The patient is a 78 year old female patient who presented ot the ED on 04/07/2018 after being found to be confused w/ slurred/incoherent speech by daughter. Past medical history is significant for: HTN, Status post right hemicolectomy, HLD, History of diverticulosis, GERD, Age related osteoporosis, Asthma, Elevated fasting blood sugar, Essential tremor, Morbid obesity, SVT, Status post placement of implantable loop recorder, Stress and adjustment reaction, Syncope, and Thyroid nodule. 04/07/2018 CT/Brain/Head without Contrast IMPRESSION: Atrophy no visualized evidence of acute hemorrhage infarct or edema. 04/07/2018 Chest X-ray IMPRESSION: No demonstrated acute cardiopulmonary process. . The patient pased the RN dysphagia screening. Pt denies difficulty chewing/swallowing prior to admission nor w/ PO intake since presenting to the ED. Unable to further assess swallow function this date d/t NPO status as patient has abnormal cardiac enzymes, necessitating a heart cath later this date. . 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 Cognitive-linguistic evalution completed - deficits identified include: -mild to moderate dysrathria d/t trace left labial weakness/reduced lingual strength. -mild inattention, appears to be internally distracted. -orientation - not oriented to date (off by 3), age (off by 5 years - 73), nor current year, stated 2020. -poor generative/divergent naming skills, likely negatively impacted by attention deficits. -STM/recall - recalled 3/3 words immediately after presentation, 2/3 following delay, unable to recall w/ category cue but improved to 3/3 when given choice of 3. -numerical processing - unable to complete basic money and time calculations w/ any degree of consistency/accuracy. Reviewed findings w/ patient and granddaughter who both agree that these are significant changes from baseline function. Will await results of MRI being completed at this time. Recommend further skilled ST services to address the above mentioned deficits w/ the hoal of patient retiurning home at the highest level of independent functioning possible. Anticipate need for continued speech therapy services - inpatient rehab vs. outpatient - post discharge from acute care. - Follow Up Care Primary Care Physician: Christo Bland MD [Primary Care Provider] - Please follow up with your Primary Care Physician in: 2 weeks Please Follow Up With: Adam Lee MD When: 3-4 weeks Please Follow Up With: Butch Bose MD When: 2 weeks
--- NOTE | 2018-04-15 14:19 | PCM.DC.SUM ---
Discharge Date and Diagnosis - Problem List Patient Problems: Active and Suspected Problems (Last Reviewed 04/08/18 @ 11:49 by Adam Lee MD) Confusion (Acute) Elevated troponin (Acute) NSTEMI (non-ST elevated myocardial infarction) (Acute) CVA (cerebral vascular accident) (Acute) C. difficile colitis (Acute) Asthma (Acute) Date of Admission: 04/07/18 Date of Discharge: 04/15/18 - Primary Discharge Diagnosis Active and Suspected Problems (Last Reviewed 04/08/18 @ 11:49 by Adam Lee MD) Confusion (Acute) Elevated troponin (Acute) NSTEMI (non-ST elevated myocardial infarction) (Acute) CVA (cerebral vascular accident) (Acute) C. difficile colitis (Acute) Asthma (Acute) - Secondary Discharge Diagnosis Chronic Problems (Last Reviewed 04/08/18 @ 11:49 by Adam Lee MD) Prediabetes (Chronic) Morbid obesity (Chronic) Status post right hemicolectomy (Chronic) Hypertension (Chronic) Hyperlipidemia (Chronic) History of diverticulosis (Chronic) GERD (Chronic) Hospital Course and Treatment Imaging Results: Clinical Impression(s) from Imaging Studies Brain CT 04/07/18 18:19 IMPRESSION: Atrophy no visualized evidence of acute hemorrhage infarct or edema. Electronically Signed: Irasema Canales MD at 18:50 EST Tel , Service support , Chest X-Ray 04/07/18 18:38 IMPRESSION: No demonstrated acute cardiopulmonary process. Electronically Signed: Irasema Canales MD at 18:49 EST Tel , Service support , Brain MRI 04/08/18 09:36 IMPRESSION: Acute infarctions of the left aurora, left frontal and parietal regions. Consider embolic etiology. Severe chronic microvascular ischemic changes. N.B. : The above information has been verbally conveyed by Tereza Trujillo MD to Dr. Carmelo MD, on 04/08/2018 12:43:50 (ET). Electronically Signed: Tereza Trujillo MD at 12:22 EST Tel , Service support , Head CTA 04/14/18 12:09 IMPRESSION: There is no demonstrated aneurysm or hemodynamically significant stenosis. Electronically Signed: Zonia Valladares MD at 18:54 EST Tel Direct: [phone], Service support , ADDENDUM: 04/14/18 1905 Neck CTA 04/14/18 12:09 IMPRESSION: There is moderate plaque in the right carotid bulb and proximal right internal carotid artery with estimated stenosis of 50-69%. There is only minimal calcified plaque in the left carotid bulb without narrowing. The vertebral arteries are patent and normal in appearance. There are dense calcifications at the origin of the left subclavian artery with moderate to severe narrowing. This is not well visualized since the study was not tailored to the aortic arch and great vessel origins. There is mild left sphenoid sinusitis. Electronically Signed: Zonia Valladares MD at 19:07 EST Tel Direct: [phone], Service support , Microbiology 04/09/18 09:45 Stool C. difficile DNA Amplification - Final Toxigenic C. difficile DNA 04/07/18 19:47 Urine, Clean Catch Urine Culture - Final Mixed Gram Pos & Gram Neg Org Operations: None Summary of Care Provided: In brief, patient 78-year-old lady with multiple comorbidities admitted with complaint of feeling fuzzy. An assessment of acute non-STEMI as well as CVA made. Patient hospital stay complicated by development of C. difficile colitis for which patient is on p.o. vancomycin 1. Acute CVA ; imaging studies demonstrated Acute infarctions of the left aurora, left frontal and parietal regions; patient managed per protocol including use of antiplatelets. [facility] was [facility] to continue with rehab 2. Carotid artery stenosis; CTA of the neck demonstrated moderate plaque in the right carotid bulb and proximal right internal carotid artery with estimated stenosis of 50-69% 3. Acute non-STEMI; patient was seen in consultation by cardiology Dr. Bose who recommended medical management for now plan is for patient to follow-up as outpatient for subsequent evaluation if needed 4. Acute C. difficile colitis; p.o. vancomycin 5. Essential hypertension-blood pressure controlled, home medications continued with dose adjustment as needed 6. Dyslipidemia-patient is on statin therapy, continued at home dose 7. GERD 8. Hypokalemia corrected per protocol 9. DVT prophylaxis Lovenox Patient Problems: Active and Suspected Problems (Last Reviewed 04/08/18 @ 11:49 by Adam Lee MD) Confusion (Acute) Elevated troponin (Acute) NSTEMI (non-ST elevated myocardial infarction) (Acute) CVA (cerebral vascular accident) (Acute) C. difficile colitis (Acute) Asthma (Acute) - Physical Exam General: Cooperative HEENT: Atraumatic Neck: No JVD Lungs: Diminished Neurological: Neuro grossly intact Vital Signs Temp Pulse Resp BP Pulse Ox 98.0 F 75 18 137/44 H 97 04/15/18 09:30 04/15/18 13:44 04/15/18 13:44 04/15/18 09:30 04/15/18 09:30 Oxygen Delivery Method Room Air Weight: 95 kg Body Mass Index (BMI) 40.8 Finger Stick Blood Glucose 127 Intake and Output for Last 24 Hours 04/13/18 04/14/18 04/15/18 23:59 23:59 23:59 Intake Total 1070 / 1070 600 / 600 420 / 420 Balance 1070 / 1070 600 / 600 420 / 420 Discharge Diet: Low fat/ Low Cholesterol Home Medications: Medications to take at Discharge Fluticasone 0.05% [Flonase Nasal [place]] 2 spray NASAL DAILY 08/07/13 Folic Acid 2.4 mg PO DAILY 08/07/13 Montelukast [Singulair] 10 mg PO QHS 08/07/13 Budesonide/Formoterol 160/4.5 [Symbicort 160/4.5 Mcg Inhaler (SP)] 1 puff INHALATION DAILY 04/25/15 Calcium Carb/Vitamin D3/Vit K1 [Viactiv Soft Chew] 1 ea PO DAILY 04/25/15 Docusate Sodium [Colace] 100 - 200 mg PO DAILY PRN PRN 04/25/15 Acetaminophen [Tylenol] 500 mg PO DAILY PRN 04/07/18 Albuterol Sulfate [Proair Respiclick] 2 puff PO Q6H PRN PRN 04/07/18 Atorvastatin Calcium [Lipitor] 10 mg PO QHS 04/07/18 Cholecalciferol (VIT D3) [Vitamin D3] 1,000 unit PO DAILY 04/07/18 Aspirin 325 mg PO DAILY@0800 tablet 04/11/18 Lactobacillus Acidophilus [Probiotic Acidophilus] 1 ea PO DAILY #0 04/11/18 Losartan Potassium [Cozaar] 25 mg PO DAILY #0 04/11/18 Vancomcyin 125mg/5mL PO Liquid 125 mg PO Q6 po.syringe 04/11/18 Primary Care Physician: Christo Bland MD [Primary Care Provider] - Please follow up with your Primary Care Physician in: 2 weeks Please Follow Up With: Adam Lee MD When: 3-4 weeks Please Follow Up With: Butch Bose MD When: 2 weeks Minutes spent on discharge:: 45 Patient Condition:: Stable Medical Necessity - Tobacco Use Smoking Status: Never smoker Tobacco Use: Non-smoker Meaningful Use Info Meaningful Use Diagnoses (Choose all that apply): AMI - AMI Aspirin given w/in 24hrs of arrival?: Yes ASA at discharge?: Yes Statins at discharge?: Yes Ryne/ARB at discharge?: Yes Beta Riccardo at discharge?: Yes Done w/ Acute [place] measure.: Yes Code Visit Inpatient E&M: 89958 Disch Hosp
--- NOTE | 2018-04-15 14:24 | DS.PCM_ITS ---
Discharge Date and Diagnosis - Problem List Patient Problems: Active and Suspected Problems (Last Reviewed 04/08/18 @ 11:49 by Adam Lee MD) Confusion (Acute) Elevated troponin (Acute) NSTEMI (non-ST elevated myocardial infarction) (Acute) CVA (cerebral vascular accident) (Acute) C. difficile colitis (Acute) Asthma (Acute) Date of Admission: 04/07/18 Date of Discharge: 04/15/18 - Primary Discharge Diagnosis Active and Suspected Problems (Last Reviewed 04/08/18 @ 11:49 by Adam Lee MD) Confusion (Acute) Elevated troponin (Acute) NSTEMI (non-ST elevated myocardial infarction) (Acute) CVA (cerebral vascular accident) (Acute) C. difficile colitis (Acute) Asthma (Acute) - Secondary Discharge Diagnosis Chronic Problems (Last Reviewed 04/08/18 @ 11:49 by Adam Lee MD) Prediabetes (Chronic) Morbid obesity (Chronic) Status post right hemicolectomy (Chronic) Hypertension (Chronic) Hyperlipidemia (Chronic) History of diverticulosis (Chronic) GERD (Chronic) Hospital Course and Treatment Imaging Results: Clinical Impression(s) from Imaging Studies Brain CT 04/07/18 18:19 IMPRESSION: Atrophy no visualized evidence of acute hemorrhage infarct or edema. Electronically Signed: Irasema Canales MD at 18:50 EST Tel , Service support , Chest X-Ray 04/07/18 18:38 IMPRESSION: No demonstrated acute cardiopulmonary process. Electronically Signed: Irasema Canales MD at 18:49 EST Tel , Service support , Brain MRI 04/08/18 09:36 IMPRESSION: Acute infarctions of the left aurora, left frontal and parietal regions. Consider embolic etiology. Severe chronic microvascular ischemic changes. N.B. : The above information has been verbally conveyed by Tereza Trujillo MD to Dr. Carmelo MD, on 04/08/2018 12:43:50 (ET). Electronically Signed: Tereza Trujillo MD at 12:22 EST Tel , Service support , Head CTA 04/14/18 12:09 IMPRESSION: There is no demonstrated aneurysm or hemodynamically significant stenosis. Electronically Signed: Zonia Valladares MD at 18:54 EST Tel Direct: [phone], Service support , ADDENDUM: 04/14/18 1905 Neck CTA 04/14/18 12:09 IMPRESSION: There is moderate plaque in the right carotid bulb and proximal right internal carotid artery with estimated stenosis of 50-69%. There is only minimal calcified plaque in the left carotid bulb without narrowing. The vertebral arteries are patent and normal in appearance. There are dense calcifications at the origin of the left subclavian artery with moderate to severe narrowing. This is not well visualized since the study was not tailored to the aortic arch and great vessel origins. There is mild left sphenoid sinusitis. Electronically Signed: Zonia Valladares MD at 19:07 EST Tel Direct: [phone], Service support , Microbiology 04/09/18 09:45 Stool C. difficile DNA Amplification - Final Toxigenic C. difficile DNA 04/07/18 19:47 Urine, Clean Catch Urine Culture - Final Mixed Gram Pos & Gram Neg Org Operations: None Summary of Care Provided: In brief, patient 78-year-old lady with multiple comorbidities admitted with complaint of feeling fuzzy. An assessment of acute non-STEMI as well as CVA made. Patient hospital stay complicated by development of C. difficile colitis for which patient is on p.o. vancomycin 1. Acute CVA ; imaging studies demonstrated Acute infarctions of the left aurora, left frontal and parietal regions; patient managed per protocol including use of antiplatelets. Patient was discharged to a residential facility to continue with rehab 2. Carotid artery stenosis; CTA of the neck demonstrated moderate plaque in the right carotid bulb and proximal right internal carotid artery with estimated stenosis of 50-69% 3. Acute non-STEMI; patient was seen in consultation by cardiology Dr. Bose who recommended medical management for now plan is for patient to follow-up as outpatient for subsequent evaluation if needed 4. Acute C. difficile colitis; p.o. vancomycin 5. Essential hypertension-blood pressure controlled, home medications continued with dose adjustment as needed 6. Dyslipidemia-patient is on statin therapy, continued at home dose 7. GERD 8. Hypokalemia corrected per protocol 9. DVT prophylaxis Lovenox Patient Problems: Active and Suspected Problems (Last Reviewed 04/08/18 @ 11:49 by Adam Lee MD) Confusion (Acute) Elevated troponin (Acute) NSTEMI (non-ST elevated myocardial infarction) (Acute) CVA (cerebral vascular accident) (Acute) C. difficile colitis (Acute) Asthma (Acute) - Physical Exam General: Cooperative HEENT: Atraumatic Neck: No JVD Lungs: Diminished Neurological: Neuro grossly intact Vital Signs Temp Pulse Resp BP Pulse Ox 98.0 F 75 18 137/44 H 97 04/15/18 09:30 04/15/18 13:44 04/15/18 13:44 04/15/18 09:30 04/15/18 09:30 Oxygen Delivery Method Room Air Weight: 95 kg Body Mass Index (BMI) 40.8 Finger Stick Blood Glucose 127 Intake and Output for Last 24 Hours 04/13/18 04/14/18 04/15/18 23:59 23:59 23:59 Intake Total 1070 / 1070 600 / 600 420 / 420 Balance 1070 / 1070 600 / 600 420 / 420 Discharge Diet: Low fat/ Low Cholesterol Home Medications: Medications to take at Discharge Fluticasone 0.05% [Flonase Nasal [place]] 2 spray NASAL DAILY 08/07/13 Folic Acid 2.4 mg PO DAILY 08/07/13 Montelukast [Singulair] 10 mg PO QHS 08/07/13 Budesonide/Formoterol 160/4.5 [Symbicort 160/4.5 Mcg Inhaler (SP)] 1 puff INHALATION DAILY 04/25/15 Calcium Carb/Vitamin D3/Vit K1 [Viactiv Soft Chew] 1 ea PO DAILY 04/25/15 Docusate Sodium [Colace] 100 - 200 mg PO DAILY PRN PRN 04/25/15 Acetaminophen [Tylenol] 500 mg PO DAILY PRN 04/07/18 Albuterol Sulfate [Proair Respiclick] 2 puff PO Q6H PRN PRN 04/07/18 Atorvastatin Calcium [Lipitor] 10 mg PO QHS 04/07/18 Cholecalciferol (VIT D3) [Vitamin D3] 1,000 unit PO DAILY 04/07/18 Aspirin 325 mg PO DAILY@0800 tablet 04/11/18 Lactobacillus Acidophilus [Probiotic Acidophilus] 1 ea PO DAILY #0 04/11/18 Losartan Potassium [Cozaar] 25 mg PO DAILY #0 04/11/18 Vancomcyin 125mg/5mL PO Liquid 125 mg PO Q6 po.syringe 04/11/18 Primary Care Physician: Christo Bland MD [Primary Care Provider] - Please follow up with your Primary Care Physician in: 2 weeks Please Follow Up With: Adam Lee MD When: 3-4 weeks Please Follow Up With: Butch Bose MD When: 2 weeks Minutes spent on discharge:: 45 Patient Condition:: Stable Medical Necessity - Tobacco Use Smoking Status: Never smoker Tobacco Use: Non-smoker Meaningful Use Info Meaningful Use Diagnoses (Choose all that apply): AMI - AMI Aspirin given w/in 24hrs of arrival?: Yes ASA at discharge?: Yes Statins at discharge?: Yes Ryne/ARB at discharge?: Yes Beta Riccardo at discharge?: Yes Done w/ Acute [place] measure.: Yes Code Visit Inpatient E&M: [id number] Disch Hosp
--- NOTE | 2018-04-15 14:56 | NURSING ---
called report to Anne nurse in TCU. Pt to go to TCU Bed 10
== END 2018-04-15 15:30 | disposition skilled nursing facility (03) | DRG 65 ==
LOC: ED 19:01 → PCU 23:37
PROVIDERS: Internal Medicine Cardiovascular Disease; Nurse Practitioner Family; Physician Assistant; Admitting Provider Family Medicine; Emergency Provider Emergency Medicine; Family Provider Family Medicine; PCP Family Medicine; Visit Provider Internal Medicine
DX: I63.9 Cerebral infarction, unspecified (principal); A04.72 Enterocolitis due to Clostridium difficile, not specified as recurrent; Z68.41 Body mass index [BMI] 40.0-44.9, adult; E66.01 Morbid (severe) obesity due to excess calories; Z66 Do not resuscitate; K21.9 Gastro-esophageal reflux disease without esophagitis; R73.03 Prediabetes; Z90.49 Acquired absence of other specified parts of digestive tract; I10 Essential (primary) hypertension; E78.5 Hyperlipidemia, unspecified; Z87.19 Personal history of other diseases of the digestive system; I65.21 Occlusion and stenosis of right carotid artery; E87.6 Hypokalemia; J45.909 Unspecified asthma, uncomplicated; R74.8 Abnormal levels of other serum enzymes
CPT/HCPCS: 36415; 70450; 70496; 70498; 70553; 71045; 80048; 80053; 80061; 80320; 81001; 82140; 82962; 83036; 83605; 84443; 84484; 85025; 85027; 85610; 85730; 87086; 87088; 87493; 92523; 92526; 93005; 93306; 93880; 94640; 97116; 97162; 97165; 97530; 97535; 97802; 99285; A9585; J7030; J7040; Q9967; A4216; G0480

== ENCOUNTER 2018-04-15 15:42 | Inpatient (IN) | payer MEDICARE, SELFPAY ==
[2018-04-15 10:58] VITALS: BMI 40.8
[2018-04-15 15:59] VITALS: BP 139/64; PULSE 75; RESP 20; TEMP 36.5; O2SAT 97
[2018-04-15 16:18] VITALS: BMI 40.9
[2018-04-15 16:24] VITALS: BMI 40.9
--- NOTE | 2018-04-15 17:33 | NURSING ---
pt arrived at 1542 via bed from u
--- NOTE | 2018-04-15 17:36 | NURSING ---
CALLED MIRANDA CRAMER REGARDING CLARIFICATION OF LIPITOR DOSE, NEW ORDER TO CHANGE FROM 10MG TO 80MG.
--- NOTE | 2018-04-15 20:09 | PCM.HP.STD ---
Problem List (1) Acute confusional state Status: Acute (2) UTI (urinary tract infection) Status: Acute (3) Clostridium difficile diarrhea Status: Acute (4) Hypertension Status: Chronic (5) Hyperlipidemia Status: Chronic (6) Diverticulosis Status: Chronic (7) GERD (gastroesophageal reflux disease) Status: Chronic (8) Allergic rhinitis Status: Chronic (9) NSTEMI (non-ST elevated myocardial infarction) Status: Acute (10) CVA (cerebral vascular accident) Status: Acute (11) Asthma Status: Chronic History of Present Illness Date of Admission: 04/15/18 Chief Complaint: Here for rehabilitation, strengthening, prior to discharge home alone. The patient is a 78 year old Female with below past medical history presented to [facility] Emergency Department 04/07/2018 with confusion. 04/07/2018 CT brain showed atrophy. Daughter noted confusion, patient lives alone and is highly functioning. Frequency, incontinence of urine. EKG normal sinus rhythm, 1st degree AV block. Chest X-ray negative for pneumonia. Troponin 1.7. Alcohol, ammonia, lactate normal. UA negative. IV fluids given. 04/07/2018 Admit to Hospital. Aspirin 325MG daily, DVT prophylaxis. Consult Neurology, Consult Cardiology. 04/08/2018 MRI brain showed acute stroke left aurora, frontal, parietal regions. 04/08/2018 Dr. Bose consulted for NSTEMI. 04/08/2018 Dr. Lee recommended Echo, antiplatelet agent, PT/OT/ST. 04/08/2018 Carotid doppler ultrasound 50 to 69% right, < 50% left. 04/08/2018 Echo Normal LV size. LVSF normal. EF 60%. 04/14/2018 CTA head no aneurysm, no stenosis. 04/14/2018 CTA neck 50 to 69% right carotid stenosis. Left subclavian artery moderate to severe narrowing. Antiplatelet for stroke. Medical management for NSTEMI. Urine culture contaminated. Patient developed C. Diff diarrhea treated with PO Vancomycin. 04/15/2018 Admit to TCU with debility, here for rehabilitation, strengthening, prior to discharge home alone. Past Medical History Past Medical History (Chronic Problems): Chronic Problems (Last Reviewed 04/08/18 @ 11:49 by Adam Lee MD) Prediabetes (Chronic) Morbid obesity (Chronic) Asthma (Chronic) Hypertension (Chronic) Hyperlipidemia (Chronic) Diverticulosis (Chronic) GERD (gastroesophageal reflux disease) (Chronic) Allergic rhinitis (Chronic) Status post right hemicolectomy (Chronic) Hypertension (Chronic) Hyperlipidemia (Chronic) History of diverticulosis (Chronic) GERD (Chronic) Medical History: Medical History (Last Reviewed 04/08/18 @ 11:49 by Adam Lee MD) Age related osteoporosis M81.0 Asthma J45.909 Elevated fasting blood sugar R73.01 Essential tremor G25.0 Hyperlipidemia E78.5 Morbid obesity E66.01 SVT (supraventricular tachycardia) I47.1 Status post placement of implantable loop recorder Z95.818 Stress and adjustment reaction F43.29 Syncope R55 Thyroid nodule E04.1 HTN (hypertension) I10 Allergies primidone Allergy (Verified 04/02/18 09:37) Itching albuterol sulfate [From Ventolin HFA] Adverse Reaction (Verified 04/02/18 09:37) Unknown amoxicillin [Amoxicillin] Adverse Reaction (Verified 04/02/18 09:37) Nausea amoxicillin trihydrate [From Augmentin] Adverse Reaction (Verified 04/02/18 09:37) Abd cramps/diarrhea aspartame Adverse Reaction (Verified 04/08/18 00:16) Dizziness caffeine Adverse Reaction (Verified 04/08/18 00:16) Dizziness cephalexin monohydrate [From Keflex] Adverse Reaction (Verified 04/08/18 00:16) Unknown chocolate flavor Adverse Reaction (Verified 04/02/18 09:37) Other erythromycin base [Erythromycin Base] Adverse Reaction (Verified 04/02/18 09:37) Diarrhea hyoscyamine [Hyoscyamine] Adverse Reaction (Verified 04/02/18 09:37) Rash hyoscyamine sulfate [From Levbid] Adverse Reaction (Verified 04/02/18 09:37) Rash levofloxacin Adverse Reaction (Verified 04/08/18 00:16) Itching lisinopril Adverse Reaction (Verified 04/08/18 00:16) Unknown metronidazole [From Flagyl] Adverse Reaction (Verified 04/02/18 09:37) Rash Metronidazole HCl [From Flagyl] Adverse Reaction (Verified 04/02/18 09:37) Rash morphine Adverse Reaction (Verified 04/08/18 00:16) abdominal pain naproxen Adverse Reaction (Verified 04/02/18 09:37) Nausea/Vom/Diarrhea NSAIDS (Non-Steroidal Anti-Inflamma Adverse Reaction (Verified 04/02/18 09:37) Abd cramps/diarrhea phenazopyridine HCl [From Pyridium] Adverse Reaction (Verified 04/08/18 00:16) Itching potassium clavulanate [From Augmentin] Adverse Reaction (Verified 04/02/18 09:37) Abd cramps/diarrhea sulfamethoxazole [From Septra] Adverse Reaction (Verified 04/02/18 09:37) Unknown trimethoprim [From Septra] Adverse Reaction (Verified 04/02/18 09:37) Unknown IV DYE Allergy (Uncoded 12/05/17 12:36) Rash URISED Adverse Reaction (Uncoded 12/05/17 12:36) Other Home Medications: Ambulatory Orders Medication Instructions Recorded Fluticasone 0.05% [Flonase Nasal 2 spray NASAL DAILY 08/07/13 [place]] Folic Acid 2.4 mg PO DAILY 08/07/13 Montelukast [Singulair] 10 mg PO QHS 08/07/13 Budesonide/Formoterol 160/4.5 1 puff INHALATION DAILY 04/25/15 [Symbicort 160/4.5 Mcg Inhaler (SP)] Calcium Carb/Vitamin D3/Vit K1 1 ea PO DAILY 04/25/15 [Viactiv Soft Chew] Docusate Sodium [Colace] 100 - 200 mg PO DAILY PRN PRN 04/25/15 Acetaminophen [Tylenol] 500 mg PO DAILY PRN 04/07/18 Albuterol Sulfate [Proair 2 puff PO Q6H PRN PRN 04/07/18 Respiclick] Atorvastatin Calcium [Lipitor] 10 mg PO QHS 04/07/18 Cholecalciferol (VIT D3) [Vitamin 1,000 unit PO DAILY 04/07/18 D3] Lactobacillus Acidophilus 1 ea PO DAILY #0 04/11/18 [Probiotic Acidophilus] Losartan Potassium [Cozaar] 25 mg PO DAILY #0 04/11/18 Aspirin 325 mg PO DAILY@0800 04/15/18 Vancomcyin 125mg/5mL PO Liquid 125 mg PO Q6 04/15/18 Surgical History: Surgical History (Last Reviewed 04/08/18 @ 11:49 by Adam Lee MD) History of Z98.891 History of colectomy Z90.49 History of laparoscopic cholecystectomy Z90.49 History of repair of hiatal hernia Z98.890, Z87.19 Surgical History: cholecystectomy - Lap., colectomy - Right miguel angel., herniorrhaphy - Hiatal., - - . 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 Denies: Chills, Fever, Weight Change HEENT: Denies: Head Aches, Sinus Congestion, Sinus Drainage Cardiovascular: Denies: Chest Pain, Palpitations Respiratory: Denies: Cough, Shortness of breath at rest, Sputum production Gastrointestinal: Denies: Abdominal Pain, Nausea, Vomiting Genitourinary: Denies: Dysuria Musculoskeletal: Denies: Joint Pain, Joint Tenderness Skin: Denies: Rash, Wounds Neurological: Denies: Numbness, Tingling, Focal weakness Psychiatric: Denies: Anxiety, Depression, Homicidal Ideations, Suicidal Ideations Hematologic/ Lymphatic: Denies: Easy Bruising, Easy Bleeding VTE Information - Inpt Only VTE Present on Admission: No VTE Mechan Device Prophylaxis: Knee High NAWAF Hose VTE Pharm Prophylaxis ordered?: Yes Patient Problems: Active and Suspected Problems (Last Reviewed 04/08/18 @ 11:49 by Adam Lee MD) Acute confusional state (Acute) UTI (urinary tract infection) (Acute) Clostridium difficile diarrhea (Acute) - Physical Exam General: Alert, Oriented x3, Cooperative HEENT: Atraumatic, PERRLA, EOMI, Normocephalic Neck: Supple, No JVD, Negative Carotid Bruits Lungs: Clear to auscultation, Normal air movement Cardiovascular: Regular rate, No murmurs Abdomen: Bowel Sounds Present, Soft, Non Tender Extremities: No edema, Capillary Refill Less than 3 Seconds Skin: No rashes, No breakdown Musculoskeletal: No Tenderness to Palpation of Joints or Extremities Neurological: Cranial nerves II-XII grossly intact Psych/Mental Status: Normal Affect, Appropriate Vital Signs Temp Pulse Resp BP Pulse Ox 97.7 F L 75 20 H 139/64 H 97 04/15/18 15:59 04/15/18 15:59 04/15/18 15:59 04/15/18 15:59 04/15/18 15:59 Oxygen Delivery Method Room Air Weight: 95.1 kg Body Mass Index (BMI) 40.9 Finger Stick Blood Glucose 127 Intake and Output for Last 24 Hours 04/13/18 04/14/18 04/15/18 23:59 23:59 23:59 Intake Total 180 / 180 Balance 180 / 180 Assessment/Plan All Active Problems (Last Reviewed 04/08/18 @ 11:49 by Adam Lee MD) Confusion (Acute) Elevated troponin (Acute) NSTEMI (non-ST elevated myocardial infarction) (Acute) CVA (cerebral vascular accident) (Acute) C. difficile colitis (Acute) Acute confusional state (Acute) UTI (urinary tract infection) (Acute) Clostridium difficile diarrhea (Acute) 78 year old female with below past medical history hospitalized for acute change in mental status secondary to stroke, NSTEMI, complicated by C. Diff diarrhea, admitted to TCU with debility, here for rehabilitation, strengthening, prior to discharge home alone. Debility - PT/OT. Cognition - ST. Pain - Tylenol 1000MG Q6H PRN mild pain. Bowel - Miralax 17GM daily, Senna/colace 1 tablet BID, Dulcolax 10MG PO daily PRN. Pneumonia vaccination - Administer Prevnar 13 and/or Pneumovax 23 as necessary. DVT prophylaxis - Lovenox 40MG SC daily. Asthma - Advair 1 puff Q12H, Albuterol 2.5MG Q6H PRN. Stroke - Aspirin 325MG daily. Hyperlipidemia - Atorvastatin 80MG QHS. Calcium deficiency - Oscal 500MG daily. Vitamin D deficiency - D3 1000IU daily. Allergic Rhinitis - Singulair 10MG QHS, Flonase nasal spray 2 spray daily. Folate deficiency - Folic Acid 2MG daily. GI prophylaxis - Lactobacillus 1 tablet daily. Hypertension - Losartan 25MG daily. Skin irritation - Calmoseptine TID bilateral buttocks. C. Diff diarrhea - Vancomycin 125MG Q6H thru 04/26/2018.
--- NOTE | 2018-04-15 20:17 | HP.PCM_ITS ---
Problem List (1) Acute confusional state Status: Acute (2) UTI (urinary tract infection) Status: Acute (3) Clostridium difficile diarrhea Status: Acute (4) Hypertension Status: Chronic (5) Hyperlipidemia Status: Chronic (6) Diverticulosis Status: Chronic (7) GERD (gastroesophageal reflux disease) Status: Chronic (8) Allergic rhinitis Status: Chronic (9) NSTEMI (non-ST elevated myocardial infarction) Status: Acute (10) CVA (cerebral vascular accident) Status: Acute (11) Asthma Status: Chronic History of Present Illness Date of Admission: 04/15/18 Chief Complaint: Here for rehabilitation, strengthening, prior to discharge home alone. The patient is a 78 year old Female with below past medical history presented to [facility] Emergency Department 04/07/2018 with confusion. 04/07/2018 CT brain showed atrophy. Daughter noted confusion, patient lives alone and is highly functioning. Frequency, incontinence of urine. EKG normal sinus rhythm, 1st degree AV block. Chest X-ray negative for pneumonia. Troponin 1.7. Alcohol, ammonia, lactate normal. UA negative. IV fluids given. 04/07/2018 Admit to Hospital. Aspirin 325MG daily, DVT prophylaxis. Consult Neurology, Consult Cardiology. 04/08/2018 MRI brain showed acute stroke left aurora, frontal, parietal regions. 04/08/2018 Dr. Bose consulted for NSTEMI. 04/08/2018 Dr. Lee recommended Echo, antiplatelet agent, PT/OT/ST. 04/08/2018 Carotid doppler ultrasound 50 to 69% right, < 50% left. 04/08/2018 Echo Normal LV size. LVSF normal. EF 60%. 04/14/2018 CTA head no aneurysm, no stenosis. 04/14/2018 CTA neck 50 to 69% right carotid stenosis. Left subclavian artery moderate to severe narrowing. Antiplatelet for stroke. Medical management for NSTEMI. Urine culture contaminated. Patient developed C. Diff diarrhea treated with PO Vancomycin. 04/15/2018 Admit to TCU with debility, here for rehabilitation, strengthening, prior to discharge home alone. Past Medical History Past Medical History (Chronic Problems): Chronic Problems (Last Reviewed 04/08/18 @ 11:49 by Adam Lee MD) Prediabetes (Chronic) Morbid obesity (Chronic) Asthma (Chronic) Hypertension (Chronic) Hyperlipidemia (Chronic) Diverticulosis (Chronic) GERD (gastroesophageal reflux disease) (Chronic) Allergic rhinitis (Chronic) Status post right hemicolectomy (Chronic) Hypertension (Chronic) Hyperlipidemia (Chronic) History of diverticulosis (Chronic) GERD (Chronic) Medical History: Medical History (Last Reviewed 04/08/18 @ 11:49 by Adam Lee MD) Age related osteoporosis M81.0 Asthma J45.909 Elevated fasting blood sugar R73.01 Essential tremor G25.0 Hyperlipidemia E78.5 Morbid obesity E66.01 SVT (supraventricular tachycardia) I47.1 Status post placement of implantable loop recorder Z95.818 Stress and adjustment reaction F43.29 Syncope R55 Thyroid nodule E04.1 HTN (hypertension) I10 Allergies primidone Allergy (Verified 04/02/18 09:37) Itching albuterol sulfate [From Ventolin HFA] Adverse Reaction (Verified 04/02/18 09:37) Unknown amoxicillin [Amoxicillin] Adverse Reaction (Verified 04/02/18 09:37) Nausea amoxicillin trihydrate [From Augmentin] Adverse Reaction (Verified 04/02/18 09:37) Abd cramps/diarrhea aspartame Adverse Reaction (Verified 04/08/18 00:16) Dizziness caffeine Adverse Reaction (Verified 04/08/18 00:16) Dizziness cephalexin monohydrate [From Keflex] Adverse Reaction (Verified 04/08/18 00:16) Unknown chocolate flavor Adverse Reaction (Verified 04/02/18 09:37) Other erythromycin base [Erythromycin Base] Adverse Reaction (Verified 04/02/18 09:37) Diarrhea hyoscyamine [Hyoscyamine] Adverse Reaction (Verified 04/02/18 09:37) Rash hyoscyamine sulfate [From Levbid] Adverse Reaction (Verified 04/02/18 09:37) Rash levofloxacin Adverse Reaction (Verified 04/08/18 00:16) Itching lisinopril Adverse Reaction (Verified 04/08/18 00:16) Unknown metronidazole [From Flagyl] Adverse Reaction (Verified 04/02/18 09:37) Rash Metronidazole HCl [From Flagyl] Adverse Reaction (Verified 04/02/18 09:37) Rash morphine Adverse Reaction (Verified 04/08/18 00:16) abdominal pain naproxen Adverse Reaction (Verified 04/02/18 09:37) Nausea/Vom/Diarrhea NSAIDS (Non-Steroidal Anti-Inflamma Adverse Reaction (Verified 04/02/18 09:37) Abd cramps/diarrhea phenazopyridine HCl [From Pyridium] Adverse Reaction (Verified 04/08/18 00:16) Itching potassium clavulanate [From Augmentin] Adverse Reaction (Verified 04/02/18 09:37) Abd cramps/diarrhea sulfamethoxazole [From Septra] Adverse Reaction (Verified 04/02/18 09:37) Unknown trimethoprim [From Septra] Adverse Reaction (Verified 04/02/18 09:37) Unknown IV DYE Allergy (Uncoded 12/05/17 12:36) Rash URISED Adverse Reaction (Uncoded 12/05/17 12:36) Other Home Medications: Ambulatory Orders Medication Instructions Recorded Fluticasone 0.05% [Flonase Nasal 2 spray NASAL DAILY 08/07/13 [place]] Folic Acid 2.4 mg PO DAILY 08/07/13 Montelukast [Singulair] 10 mg PO QHS 08/07/13 Budesonide/Formoterol 160/4.5 1 puff INHALATION DAILY 04/25/15 [Symbicort 160/4.5 Mcg Inhaler (SP)] Calcium Carb/Vitamin D3/Vit K1 1 ea PO DAILY 04/25/15 [Viactiv Soft Chew] Docusate Sodium [Colace] 100 - 200 mg PO DAILY PRN PRN 04/25/15 Acetaminophen [Tylenol] 500 mg PO DAILY PRN 04/07/18 Albuterol Sulfate [Proair 2 puff PO Q6H PRN PRN 04/07/18 Respiclick] Atorvastatin Calcium [Lipitor] 10 mg PO QHS 04/07/18 Cholecalciferol (VIT D3) [Vitamin 1,000 unit PO DAILY 04/07/18 D3] Lactobacillus Acidophilus 1 ea PO DAILY #0 04/11/18 [Probiotic Acidophilus] Losartan Potassium [Cozaar] 25 mg PO DAILY #0 04/11/18 Aspirin 325 mg PO DAILY@0800 04/15/18 Vancomcyin 125mg/5mL PO Liquid 125 mg PO Q6 04/15/18 Surgical History: Surgical History (Last Reviewed 04/08/18 @ 11:49 by Adam Lee MD) History of Z98.891 History of colectomy Z90.49 History of laparoscopic cholecystectomy Z90.49 History of repair of hiatal hernia Z98.890, Z87.19 Surgical History: cholecystectomy - Lap., colectomy - Right miguel angel., herniorrhaphy - Hiatal., - - . 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 Denies: Chills, Fever, Weight Change HEENT: Denies: Head Aches, Sinus Congestion, Sinus Drainage Cardiovascular: Denies: Chest Pain, Palpitations Respiratory: Denies: Cough, Shortness of breath at rest, Sputum production Gastrointestinal: Denies: Abdominal Pain, Nausea, Vomiting Genitourinary: Denies: Dysuria Musculoskeletal: Denies: Joint Pain, Joint Tenderness Skin: Denies: Rash, Wounds Neurological: Denies: Numbness, Tingling, Focal weakness Psychiatric: Denies: Anxiety, Depression, Homicidal Ideations, Suicidal Ideations Hematologic/ Lymphatic: Denies: Easy Bruising, Easy Bleeding VTE Information - Inpt Only VTE Present on Admission: No VTE Mechan Device Prophylaxis: Knee High NAWAF Hose VTE Pharm Prophylaxis ordered?: Yes Patient Problems: Active and Suspected Problems (Last Reviewed 04/08/18 @ 11:49 by Adam Lee MD) Acute confusional state (Acute) UTI (urinary tract infection) (Acute) Clostridium difficile diarrhea (Acute) - Physical Exam General: Alert, Oriented x3, Cooperative HEENT: Atraumatic, PERRLA, EOMI, Normocephalic Neck: Supple, No JVD, Negative Carotid Bruits Lungs: Clear to auscultation, Normal air movement Cardiovascular: Regular rate, No murmurs Abdomen: Bowel Sounds Present, Soft, Non Tender Extremities: No edema, Capillary Refill Less than 3 Seconds Skin: No rashes, No breakdown Musculoskeletal: No Tenderness to Palpation of Joints or Extremities Neurological: Cranial nerves II-XII grossly intact Psych/Mental Status: Normal Affect, Appropriate Vital Signs Temp Pulse Resp BP Pulse Ox 97.7 F L 75 20 H 139/64 H 97 04/15/18 15:59 04/15/18 15:59 04/15/18 15:59 04/15/18 15:59 04/15/18 15:59 Oxygen Delivery Method Room Air Weight: 95.1 kg Body Mass Index (BMI) 40.9 Finger Stick Blood Glucose 127 Intake and Output for Last 24 Hours 04/13/18 04/14/18 04/15/18 23:59 23:59 23:59 Intake Total 180 / 180 Balance 180 / 180 Assessment/Plan All Active Problems (Last Reviewed 04/08/18 @ 11:49 by Adam Lee MD) Confusion (Acute) Elevated troponin (Acute) NSTEMI (non-ST elevated myocardial infarction) (Acute) CVA (cerebral vascular accident) (Acute) C. difficile colitis (Acute) Acute confusional state (Acute) UTI (urinary tract infection) (Acute) Clostridium difficile diarrhea (Acute) 78 year old female with below past medical history hospitalized for acute change in mental status secondary to stroke, NSTEMI, complicated by C. Diff diarrhea, admitted to TCU with debility, here for rehabilitation, strengthening, prior to discharge home alone. * Debility - PT/OT. * Cognition - ST. * Pain - Tylenol 1000MG Q6H PRN mild pain. * Bowel - Miralax 17GM daily, Senna/colace 1 tablet BID, Dulcolax 10MG PO daily PRN. * Pneumonia vaccination - Administer Prevnar 13 and/or Pneumovax 23 as necessary. * DVT prophylaxis - Lovenox 40MG SC daily. * Asthma - Advair 1 puff Q12H, Albuterol 2.5MG Q6H PRN. * Stroke - Aspirin 325MG daily. * Hyperlipidemia - Atorvastatin 80MG QHS. * Calcium deficiency - Oscal 500MG daily. * Vitamin D deficiency - D3 1000IU daily. * Allergic Rhinitis - Singulair 10MG QHS, Flonase nasal spray 2 spray daily. * Folate deficiency - Folic Acid 2MG daily. * GI prophylaxis - Lactobacillus 1 tablet daily. * Hypertension - Losartan 25MG daily. * Skin irritation - Calmoseptine TID bilateral buttocks. * C. Diff diarrhea - Vancomycin 125MG Q6H thru 04/26/2018.
[2018-04-15 21:00] VITALS: PULSE 70; O2SAT 96
[2018-04-15] MEDS: Menthol/Lanolin/Calamine/Znox 113 GM Tube 1 APPLIC TOPICAL (22:14)
[2018-04-15] MEDS: Montelukast 10 MG Tablet PO (22:14)
[2018-04-15] MEDS: Atorvastatin Calcium 80 MG Tablet PO (22:14)
[2018-04-15] MEDS: Fluticasone/Salmeterol 232-14 Inhaler 1 PUFF IH (22:25)
--- NOTE | 2018-04-16 00:29 | NURSING ---
Pt remains in contact isolation this shift. All care provided in room.
[2018-04-16 05:54] LABS: Absolute Neutrophil Count 5.2 X10^3/uL (2.0-7.7); Basophil# 0.04 X10^3/uL; Basophil% 0.5 % (0-1); Eosinophil# 0.09 X10^3/uL; Hematocrit 37.3 % (37-47); Hemoglobin 12.2 g/dl (12.0-15.0); Lymphocyte % 31.6 % (19-41); Mean Corp Hgb Conc 32.7 g/gl (32-36); Mean Corpuscular Volume 91.9 fL (81-99); Mean Platelet Vol. 11.6 fl (6.2-12.0); Monocyte# 0.66 X10^3/uL; Monocyte% 7.5 % (0-10); Neutrophil # 5.24 X10^3/uL (2.7-7.7); Neutrophil % 59.2 % (47-70); Platelet Count 236 K/mm3 (150-450); RBC Distribution Width CV 14.3 % (11.6-14.6); RBC Distribution Width SD 47.1 fl (35.1-43.9); Red Blood Count 4.06 M/mm3 (4.2-5.4); White Blood Count 8.9 K/mm3 (4.4-11.0)
[2018-04-16 05:56] LABS: POSITIVE COUNT NO; POSITIVE DIFFERENTIAL NO; POSITIVE MORPHOLOGY NO
[2018-04-16] MEDS: Menthol/Lanolin/Calamine/Znox 113 GM Tube 1 APPLIC TOPICAL ×3 (06:10→22:28)
[2018-04-16] MEDS: Fluticasone/Salmeterol 232-14 Inhaler 1 PUFF IH ×2 (06:11→17:38)
[2018-04-16] MEDS: Nystatin Powder 15gm Bottle 1 APPLIC TOPICAL ×2 (06:11→22:28)
[2018-04-16] MEDS: Losartan Potassium 25 MG Tablet PO (06:11)
[2018-04-16] MEDS: Fluticasone 0.05% 1 SPRAY NASAL.SRY 2 SPRAY NASAL (06:11)
[2018-04-16] MEDS: Enoxaparin 40 MG/0.4 ML Syringe SC (06:11)
[2018-04-16 06:14] LABS: Anion Gap 10 (5-15); BUN 23 mg/dL (7-18); Calcium,Total 8.3 mg/dL (8.5-10.1); Chloride 109 mmol/L (98-107); Creatinine, Serum 0.72 mg/dL (0.55-1.02); EST Glomerular Filtration Rate 84 mL/min (>60); Est Glom Filt Rate - Afr Amer 101 mL/min (>60); Estimated Creatinine Clearance 33.84 ml/min; Glucose 101 mg/dL (74-106); Potassium 3.8 mmol/L (3.5-5.1); Sodium Level 143 mmol/L (136-145)
--- NOTE | 2018-04-16 08:41 | NURSING ---
ALL PT CARE BEING GIVEN IN PT ROOM DUE TO CONTACT PRECAUTIONS FOR C/DIFF.
[2018-04-16] MEDS: Aspirin 325 MG Tablet PO (08:42)
[2018-04-16] MEDS: Calcium Carb/Vitamin D 1 TABLET Tablet PO (08:42)
[2018-04-16] MEDS: Folic Acid 1 MG Tablet 2 MG PO (08:42)
[2018-04-16] MEDS: Tuberculin,Purif.prot.deriv. 50 TU/ML Vial 5 ML ID (09:36)
--- NOTE | 2018-04-16 09:55 | NURSING ---
[id number] GIVEN IN PT LEFT DELT. PT TOLERATED WELL.
--- NOTE | 2018-04-16 11:15 | NURSING ---
PT STATED TO THIS NURSE THAT HER RIGHT FOOT FEELS A LITTLE MORE NUMB TODAY. PT COULD FEEL THIS NURSE TOUCHING HER FOOT. NO SWELLING/REDNESS. PT ALSO STATED SHE HAS HAD SURGERY TO HER FEET. REPORTED TO MATTHEW NASSAR
--- NOTE | 2018-04-16 14:28 | PHA.CONS_ITS ---
<Nael Salomon Nayla - Last Filed: 04/16/18 14:24> Progress Note - Pharmacy Subjective: TCU Admission Objective: Allergies primidone Allergy (Verified 04/02/18 09:37) Itching albuterol sulfate [From Ventolin HFA] Adverse Reaction (Verified 04/02/18 09:37) Unknown amoxicillin [Amoxicillin] Adverse Reaction (Verified 04/02/18 09:37) Nausea amoxicillin trihydrate [From Augmentin] Adverse Reaction (Verified 04/02/18:37) Abd cramps/diarrhea aspartame Adverse Reaction (Verified 04/08/18 00:16) Dizziness caffeine Adverse Reaction (Verified 04/08/18 00:16) Dizziness cephalexin monohydrate [From Keflex] Adverse Reaction (Verified 04/08/18 00:16) Unknown chocolate flavor Adverse Reaction (Verified 04/02/18:37) Other erythromycin base [Erythromycin Base] Adverse Reaction (Verified 04/02/18 09:37) Diarrhea hyoscyamine [Hyoscyamine] Adverse Reaction (Verified 04/02/18:37) Rash hyoscyamine sulfate [From Levbid] Adverse Reaction (Verified 04/02/18:37) Rash levofloxacin Adverse Reaction (Verified 04/08/18 00:16) Itching lisinopril Adverse Reaction (Verified 04/08/18 00:16) Unknown metronidazole [From Flagyl] Adverse Reaction (Verified 04/02/18 09:37) Rash Metronidazole HCl [From Flagyl] Adverse Reaction (Verified 04/02/18 09:37) Rash morphine Adverse Reaction (Verified 04/08/18 00:16) abdominal pain naproxen Adverse Reaction (Verified 04/02/18 09:37) Nausea/Vom/Diarrhea NSAIDS (Non-Steroidal Anti-Inflamma Adverse Reaction (Verified 04/02/18:37) Abd cramps/diarrhea phenazopyridine HCl [From Pyridium] Adverse Reaction (Verified 04/08/18 00:16) Itching potassium clavulanate [From Augmentin] Adverse Reaction (Verified 04/02/18:37) Abd cramps/diarrhea sulfamethoxazole [From Septra] Adverse Reaction (Verified 04/02/18:37) Unknown trimethoprim [From Septra] Adverse Reaction (Verified 04/02/18 09:37) Unknown IV DYE Allergy (Uncoded 12/05/17 12:36) Rash URISED Adverse Reaction (Uncoded 12/05/17 12:36) Other Current Medications Generic Name Dose Route Start Last Admin Trade Name Freq PRN Reason Stop Dose Admin Acetaminophen 1,000 mg 04/15/18 20:29 Tylenol PO Q6H PRN MILD PAIN (1-3/10) Albuterol Sulfate 2.5 mg 04/15/18 17:22 Ventolin Aerosols INHALATION Q6H PRN PRN SOB &/OR WHEEZING Aspirin 325 mg 04/16/18 08:00 04/16/18 08:42 Aspirin PO 325 mg DAILY@0800 ISATU Administration Atorvastatin Calcium 80 mg 04/15/18 22:00 04/15/18 22:14 Lipitor PO 80 mg QHS [facility] Administration Bisacodyl 10 mg 04/15/18 20:29 Dulcolax PO DAILY PRN Constipation Calamine/Phenol 1 applic 04/15/18 22:00 04/16/18 13:06 Calmoseptine Ointment TOPICAL 1 applicatio TID [facility] Administration Protocol Calcium/Vitamin D 1 tablet 04/15/18 07:45 04/16/18 08:42 Os-Ricci 500mg + D PO 1 tablet DAILY@0745 ISATU Administration Cholecalciferol 1,000 unit 04/16/18 06:00 04/16/18 06:12 Vitamin D PO 1,000 unit DAILY ISATU Administration Enoxaparin Sodium 40 mg 04/16/18 06:00 04/16/18 06:11 Lovenox SC 40 mg DAILY@0600 ISATU Administration Fluticasone Propionate 2 spray 04/16/18 06:00 04/16/18 06:11 Flonase Nasal [place] NASAL 2 spray DAILY ISATU Administration Folic Acid 2 mg 04/16/18 08:00 04/16/18 08:42 Folic Acid PO 2 mg DAILY@0800 [facility] Administration Lactobacillus Acidophilus 1 tablet 04/16/18 06:00 04/16/18 06:10 Acidophilus PO 04/26/18 06:01 1 tablet DAILY ISATU Administration Losartan Potassium 25 mg 04/16/18 06:00 04/16/18 06:11 Cozaar PO 25 mg DAILY ISATU Administration Montelukast Sodium 10 mg 04/15/18 22:00 04/15/18 22:14 Singulair PO 10 mg QHS [facility]ATU Administration Nystatin 1 applic 04/16/18 06:00 04/16/18 06:11 Mycostatin Powder TOPICAL 1 applicatio BID ISATU Administration Protocol Polyethylene Glycol 17 gm 04/16/18 06:00 04/16/18 06:11 Miralax PO Not Given DAILY [facility]ATU Fluticasone/Salmeterol 1 puff 04/15/18 18:00 04/16/18 06:11 Fluticasone-Salmeterol 232-14 IH 1 puff Q12 ISATU Administration Senna/Docusate Sodium 1 tablet 04/16/18 06:00 04/16/18 06:12 Senokot-S, Kimberly-Colace PO Not Given BID [facility]ATU Tuberculin PPD 5 tu 04/23/18 10:00 Tubersol, Aplisol, Ppd ID 04/23/18 10:01 X1 ONE Vancomycin HCl 125 mg 04/15/18 18:00 04/16/18 11:54 PO 04/26/18 00:01 125 mg Q6 ISATU Administration Problem List (Last Reviewed 04/08/18 @ 11:49 by Adam Lee MD) Acute confusional state (Acute) UTI (urinary tract infection) (Acute) Clostridium difficile diarrhea (Acute) Hypertension (Chronic) Hyperlipidemia (Chronic) Diverticulosis (Chronic) GERD (gastroesophageal reflux disease) (Chronic) Allergic rhinitis (Chronic) Vital Signs Temp Pulse Resp BP Pulse Ox 97.7 F L 70 20 H 139/64 H 96 04/15/18 15:59 04/15/18 21:00 04/15/18 15:59 04/15/18 15:59 04/15/18 21:00 Oxygen Delivery Method Room Air Weight: 95.1 kg Body Mass Index (BMI) 40.9 Finger Stick Blood Glucose 127 Sodium 143 mmol/L (136-145) 04/16/18 05:10 Potassium 3.8 mmol/L (3.5-5.1) 04/16/18 05:10 Chloride 109 mmol/L (98-107) H 04/16/18 05:10 Carbon Dioxide 24.0 mmol/L (21.0-32.0) 04/16/18 05:10 Anion Gap 10 (5-15) 04/16/18 05:10 BUN 23 mg/dL (7-18) H 04/16/18 05:10 Creatinine 0.72 mg/dL (0.55-1.02) 04/16/18 05:10 Est GFR (MDRD) Af Amer 101 mL/min (>60) 04/16/18 05:10 Est GFR (MDRD) Non-Af 84 mL/min (>60) 04/16/18 05:10 BUN/Creatinine Ratio 32.0 RATIO (10-20) H 04/16/18 05:10 Glucose 101 mg/dL (74-106) 04/16/18 05:10 Assessment/Plan: 1) Pain APAP for mild pain. Continue to monitor prn medication use, daily pain scores. 2) Pulm Advair inh, prn albuterol, montelukast. Continue to monitor prn medication use, for shortness of breath. 3) Stroke ASA, atorvastatin. Continue to monitor lipids, s/s stroke. 4) HTN Losartan daily. Continue to monitor BP/HR, renal function, electrolytes. 5) Nutrition Ca, D, FA. Continue to monitor clinically. 6) DVT PPx Enoxaparin daily. Continue to monitor for bleeding/clot. Psychotropic Medications: None Unnecessary Medications: None Bowel Regimen: 7) Senna/s, PEG, prn bisacodyl. Continue to monitor prn medication use, for constipation/diarrhea. Date of Note:: 04/16/18 - Provider Comments Provider responsibility: Provider responsible to enter orders to implement yamil mmendations <Julio Cesar Cisneros Chi - Last Filed: 04/16/18 17:04> Progress Note - Pharmacy Subjective: [] Objective: Allergies primidone Allergy (Verified 04/02/18 09:37) Itching albuterol sulfate [From Ventolin HFA] Adverse Reaction (Verified 04/02/18 09:37) Unknown amoxicillin [Amoxicillin] Adverse Reaction (Verified 04/02/18 09:37) Nausea amoxicillin trihydrate [From Augmentin] Adverse Reaction (Verified 04/02/18 09:37) Abd cramps/diarrhea aspartame Adverse Reaction (Verified 04/08/18 00:16) Dizziness caffeine Adverse Reaction (Verified 04/08/18 00:16) Dizziness cephalexin monohydrate [From Keflex] Adverse Reaction (Verified 04/08/18 00:16) Unknown chocolate flavor Adverse Reaction (Verified 04/02/18 09:37) Other erythromycin base [Erythromycin Base] Adverse Reaction (Verified 11/07/18 09:37) Diarrhea hyoscyamine [Hyoscyamine] Adverse Reaction (Verified 04/02/18 09:37) Rash hyoscyamine sulfate [From Levbid] Adverse Reaction (Verified 04/02/18 09:37) Rash levofloxacin Adverse Reaction (Verified 04/08/18 00:16) Itching lisinopril Adverse Reaction (Verified 04/08/18 00:16) Unknown metronidazole [From Flagyl] Adverse Reaction (Verified 04/02/18 09:37) Rash Metronidazole HCl [From Flagyl] Adverse Reaction (Verified 04/02/18 09:37) Rash morphine Adverse Reaction (Verified 04/08/18 00:16) abdominal pain naproxen Adverse Reaction (Verified 04/02/18 09:37) Nausea/Vom/Diarrhea NSAIDS (Non-Steroidal Anti-Inflamma Adverse Reaction (Verified 04/02/18 09:37) Abd cramps/diarrhea phenazopyridine HCl [From Pyridium] Adverse Reaction (Verified 04/08/18 00:16) Itching potassium clavulanate [From Augmentin] Adverse Reaction (Verified 04/02/18 09:37) Abd cramps/diarrhea sulfamethoxazole [From Septra] Adverse Reaction (Verified 04/02/18 09:37) Unknown trimethoprim [From Septra] Adverse Reaction (Verified 04/02/18 09:37) Unknown IV DYE Allergy (Uncoded 12/05/17 12:36) Rash URISED Adverse Reaction (Uncoded 12/05/17 12:36) Other Current Medications Generic Name Dose Route Start Last Admin Trade Name Freq PRN Reason Stop Dose Admin Acetaminophen 1,000 mg 04/15/18 20:29 Tylenol PO Q6H PRN MILD PAIN (1-3/10) Albuterol Sulfate 2.5 mg 04/15/18 17:22 Ventolin Aerosols INHALATION Q6H PRN PRN SOB &/OR WHEEZING Aspirin 325 mg 04/16/18 08:00 04/16/18 08:42 Aspirin PO 325 mg DAILY@0800 [facility] Administration Atorvastatin Calcium 80 mg 04/15/18 22:00 04/15/18 22:14 Lipitor PO 80 mg QHS [facility] Administration Bisacodyl 10 mg 04/15/18 20:29 Dulcolax PO DAILY PRN Constipation Calamine/Phenol 1 applic 04/15/18 22:00 04/16/18 13:06 Calmoseptine Ointment TOPICAL 1 applicatio TID [facility] Administration Protocol Calcium/Vitamin D 1 tablet 04/15/18 07:45 04/16/18 08:42 Os-Ricci 500mg + D PO 1 tablet DAILY@0745 ISATU Administration Cholecalciferol 1,000 unit 04/16/18 06:00 04/16/18 06:12 Vitamin D PO 1,000 unit DAILY [facility] Administration Enoxaparin Sodium 40 mg 04/16/18 06:00 04/16/18 06:11 Lovenox SC 40 mg DAILY@0600 [facility] Administration Fluticasone Propionate 2 spray 04/16/18 06:00 04/16/18 06:11 Flonase Nasal Gal[place] NASAL 2 spray DAILY [facility] Administration Folic Acid 2 mg 04/16/18 08:00 04/16/18 08:42 Folic Acid PO 2 mg DAILY@0800 [facility] Administration Lactobacillus Acidophilus 1 tablet 04/16/18 06:00 04/16/18 06:10 Acidophilus PO 04/26/18 06:01 1 tablet DAILY [facility] Administration Losartan Potassium 25 mg 04/16/18 06:00 04/16/18 06:11 Cozaar PO 25 mg DAILY [facility] Administration Montelukast Sodium 10 mg 04/15/18 22:00 04/15/18 22:14 Singulair PO 10 mg QHS [facility] Administration Nystatin 1 applic 04/16/18 06:00 04/16/18 06:11 Mycostatin Powder TOPICAL 1 applicatio BID [facility] Administration Protocol Polyethylene Glycol 17 gm 04/16/18 06:00 04/16/18 06:11 Miralax PO Not Given DAILY [facility] Fluticasone/Salmeterol 1 puff 04/15/18 18:00 04/16/18 06:11 Fluticasone-Salmeterol 232-14 IH 1 puff Q12 ISATU Administration Senna/Docusate Sodium 1 tablet 04/16/18 06:00 04/16/18 06:12 Senokot-S, Kimberly-Colace PO Not Given BID [facility] Tuberculin PPD 5 tu 04/23/18 10:00 Tubersol, Aplisol, Ppd ID 04/23/18 10:01 X1 ONE Vancomycin HCl 125 mg 04/15/18 18:00 04/16/18 11:54 PO 04/26/18 00:01 125 mg Q6 ISATU Administration Problem List (Last Reviewed 04/08/18 @ 11:49 by Adam Lee MD) Acute confusional state (Acute) UTI (urinary tract infection) (Acute) Clostridium difficile diarrhea (Acute) Hypertension (Chronic) Hyperlipidemia (Chronic) Diverticulosis (Chronic) GERD (gastroesophageal reflux disease) (Chronic) Allergic rhinitis (Chronic) Vital Signs Temp Pulse Resp BP Pulse Ox 98.7 F 58 L 16 143/66 H 94 04/16/18 15:51 04/16/18 15:51 04/16/18 15:51 04/16/18 15:51 04/16/18 15:51 Oxygen Delivery Method Room Air Weight: 95.1 kg Body Mass Index (BMI) 40.9 Finger Stick Blood Glucose 127 Sodium 143 mmol/L (136-145) 04/16/18 05:10 Potassium 3.8 mmol/L (3.5-5.1) 04/16/18 05:10 Chloride 109 mmol/L (98-107) H 04/16/18 05:10 Carbon Dioxide 24.0 mmol/L (21.0-32.0) 04/16/18 05:10 Anion Gap 10 (5-15) 04/16/18 05:10 BUN 23 mg/dL (7-18) H 04/16/18 05:10 Creatinine 0.72 mg/dL (0.55-1.02) 04/16/18 05:10 Est GFR (MDRD) Af Amer 101 mL/min (>60) 04/16/18 05:10 Est GFR (MDRD) Non-Af 84 mL/min (>60) 04/16/18 05:10 BUN/Creatinine Ratio 32.0 RATIO (10-20) H 04/16/18 05:10 Glucose 101 mg/dL (74-106) 04/16/18 05:10 Assessment/Plan: Psychotropic Medications: Unnecessary Medications: Bowel Regimen: - Provider Comments Provider responsibility: Provider responsible to enter orders to implement recommendations Provider Comments to Recommendations by Pharmacy: Agree
[2018-04-16 15:51] VITALS: BP 143/66; PULSE 58; RESP 16; TEMP 37.1; O2SAT 94
[2018-04-16 22:00] VITALS: BP 119/54; PULSE 62; RESP 16; TEMP 36.6; O2SAT 95
[2018-04-16] MEDS: Atorvastatin Calcium 80 MG Tablet PO (22:27)
[2018-04-16] MEDS: Montelukast 10 MG Tablet PO (22:27)
--- NOTE | 2018-04-17 00:50 | NURSING ---
All care provided in room d/t pt remains in precautions.
[2018-04-17] MEDS: Enoxaparin 40 MG/0.4 ML Syringe SC (06:34)
[2018-04-17] MEDS: Losartan Potassium 25 MG Tablet PO (06:34)
[2018-04-17] MEDS: Nystatin Powder 15gm Bottle 1 APPLIC TOPICAL ×2 (06:42→22:26)
[2018-04-17] MEDS: Menthol/Lanolin/Calamine/Znox 113 GM Tube 1 APPLIC TOPICAL ×3 (06:42→22:26)
[2018-04-17] MEDS: Fluticasone 0.05% 1 SPRAY NASAL.SRY 2 SPRAY NASAL (06:47)
[2018-04-17] MEDS: Fluticasone/Salmeterol 232-14 Inhaler 1 PUFF IH ×2 (06:47→18:40)
[2018-04-17] MEDS: Folic Acid 1 MG Tablet 2 MG PO (08:30)
[2018-04-17] MEDS: Calcium Carb/Vitamin D 1 TABLET Tablet PO (08:31)
[2018-04-17] MEDS: Aspirin 325 MG Tablet PO (08:31)
[2018-04-17 15:45] VITALS: BP 155/73; PULSE 60; RESP 18; TEMP 36.7; O2SAT 91
[2018-04-17] MEDS: Senna/Docusate Sodium 1 Tablet PO (18:48)
[2018-04-17] MEDS: Atorvastatin Calcium 80 MG Tablet PO (22:25)
[2018-04-17] MEDS: Montelukast 10 MG Tablet PO (22:26)
[2018-04-17 22:30] VITALS: PULSE 74; RESP 18; O2SAT 96
--- NOTE | 2018-04-18 02:53 | NURSING ---
PATIENT REMAINS IN CONTACT ISOLATION. ALL CARE PROVIDED IN ROOM.
[2018-04-18] MEDS: Fluticasone 0.05% 1 SPRAY NASAL.SRY 2 SPRAY NASAL (04:54)
[2018-04-18] MEDS: Losartan Potassium 25 MG Tablet PO (04:56)
[2018-04-18] MEDS: Nystatin Powder 15gm Bottle 1 APPLIC TOPICAL ×2 (04:57→20:54)
[2018-04-18] MEDS: Fluticasone/Salmeterol 232-14 Inhaler 1 PUFF IH ×2 (04:57→17:03)
[2018-04-18] MEDS: Menthol/Lanolin/Calamine/Znox 113 GM Tube 1 APPLIC TOPICAL ×3 (04:57→20:54)
[2018-04-18] MEDS: Enoxaparin 40 MG/0.4 ML Syringe SC (04:58)
[2018-04-18] MEDS: Calcium Carb/Vitamin D 1 TABLET Tablet PO (08:27)
[2018-04-18] MEDS: Folic Acid 1 MG Tablet 2 MG PO (08:27)
[2018-04-18] MEDS: Aspirin 325 MG Tablet PO (08:27)
[2018-04-18 15:16] VITALS: BP 147/74; PULSE 58; RESP 16; TEMP 36.7; O2SAT 97
[2018-04-18] MEDS: Atorvastatin Calcium 80 MG Tablet PO (20:54)
[2018-04-18] MEDS: Montelukast 10 MG Tablet PO (20:54)
--- NOTE | 2018-04-18 21:14 | NURSING ---
Addendum entered by Allyn Jiménez 04/18/18 21:29: Pt in isolation precautions for C DIFF Original Note: Pt remains in isolation precautions for rhinovirus. All nursing care provided in room. Continuing to monitor.
[2018-04-19] MEDS: Menthol/Lanolin/Calamine/Znox 113 GM Tube 1 APPLIC TOPICAL ×3 (06:06→21:31)
[2018-04-19] MEDS: Fluticasone 0.05% 1 SPRAY NASAL.SRY 2 SPRAY NASAL (06:07)
[2018-04-19] MEDS: Enoxaparin 40 MG/0.4 ML Syringe SC (06:07)
[2018-04-19] MEDS: Losartan Potassium 25 MG Tablet PO (06:07)
[2018-04-19] MEDS: Nystatin Powder 15gm Bottle 1 APPLIC TOPICAL ×2 (06:07→21:37)
[2018-04-19] MEDS: Fluticasone/Salmeterol 232-14 Inhaler 1 PUFF IH ×2 (06:07→17:20)
[2018-04-19] MEDS: Calcium Carb/Vitamin D 1 TABLET Tablet PO (08:44)
--- NOTE | 2018-04-19 08:44 | NURSING ---
ALL CARE GIVEN IN PT ROOM DUE TO PT IN PRECAUTIONS FOR C/DIFF.
[2018-04-19] MEDS: Folic Acid 1 MG Tablet 2 MG PO (08:45)
[2018-04-19] MEDS: Aspirin 325 MG Tablet PO (08:45)
[2018-04-19 16:00] VITALS: BP 137/54; PULSE 62; RESP 20; TEMP 36.1; O2SAT 97
[2018-04-19] MEDS: Atorvastatin Calcium 80 MG Tablet PO (21:28)
[2018-04-19] MEDS: Montelukast 10 MG Tablet PO (21:28)
[2018-04-19 22:34] VITALS: PULSE 72; RESP 16; O2SAT 93
--- NOTE | 2018-04-19 23:37 | NURSING ---
Pt remains in contact precautions this shift. All care provided in room.
[2018-04-20] MEDS: Fluticasone 0.05% 1 SPRAY NASAL.SRY 2 SPRAY NASAL (05:18)
[2018-04-20] MEDS: Fluticasone/Salmeterol 232-14 Inhaler 1 PUFF IH ×2 (05:19→17:18)
[2018-04-20] MEDS: Nystatin Powder 15gm Bottle 1 APPLIC TOPICAL ×2 (05:22→20:20)
[2018-04-20] MEDS: Losartan Potassium 25 MG Tablet PO (05:28)
[2018-04-20] MEDS: Enoxaparin 40 MG/0.4 ML Syringe SC (05:29)
[2018-04-20] MEDS: Menthol/Lanolin/Calamine/Znox 113 GM Tube 1 APPLIC TOPICAL ×3 (05:32→20:20)
[2018-04-20] MEDS: Aspirin 325 MG Tablet PO (08:41)
[2018-04-20] MEDS: Calcium Carb/Vitamin D 1 TABLET Tablet PO (08:41)
[2018-04-20] MEDS: Folic Acid 1 MG Tablet 2 MG PO (08:41)
--- NOTE | 2018-04-20 08:43 | NURSING ---
ALL PT CARE IN ROOM DUE TO PT IN PRECAUTIONS FOR C/DIFF.
[2018-04-20 15:42] VITALS: BP 150/63; PULSE 65; RESP 18; TEMP 36.9; O2SAT 95
[2018-04-20] MEDS: Montelukast 10 MG Tablet PO (20:21)
[2018-04-20] MEDS: Atorvastatin Calcium 80 MG Tablet PO (20:21)
--- NOTE | 2018-04-21 02:27 | NURSING ---
Pt remains in contact precautions this shift. All care provided in room.
[2018-04-21] MEDS: Menthol/Lanolin/Calamine/Znox 113 GM Tube 1 APPLIC TOPICAL ×3 (05:44→19:39)
[2018-04-21] MEDS: Fluticasone 0.05% 1 SPRAY NASAL.SRY 2 SPRAY NASAL (05:44)
[2018-04-21] MEDS: Enoxaparin 40 MG/0.4 ML Syringe SC (05:44)
[2018-04-21] MEDS: Fluticasone/Salmeterol 232-14 Inhaler 1 PUFF IH ×2 (05:44→17:13)
[2018-04-21] MEDS: Nystatin Powder 15gm Bottle 1 APPLIC TOPICAL ×2 (05:44→19:39)
[2018-04-21] MEDS: Losartan Potassium 25 MG Tablet PO (05:44)
[2018-04-21] MEDS: Folic Acid 1 MG Tablet 2 MG PO (09:42)
[2018-04-21] MEDS: Aspirin 325 MG Tablet PO (09:43)
[2018-04-21] MEDS: Calcium Carb/Vitamin D 1 TABLET Tablet PO (09:43)
--- NOTE | 2018-04-21 10:50 | CASEMGMT ---
Addendum entered by Kim Aly 04/21/18 13:12: Reviewed and approved social work student MDS documentation. KAYLEIGH Samuel, DIRECTOR HEALTH Original Note: Brief interview for mental status (BIMS) and mood (PHQ-9) completed on this day. BIMS score . PHQ-9 score 06/22. Nelli Leal social work student
--- NOTE | 2018-04-21 13:32 | CASEMGMT ---
Insurance Clinical information sent. Pending continued stay approval at this time. Auth#[id number] KAYLEIGH Samuel, ENTERPRISE INFRASTRUCTURE ARCHITECT
[2018-04-21 16:00] VITALS: BP 150/58; PULSE 60; RESP 16; TEMP 37.1; O2SAT 97
[2018-04-21] MEDS: Montelukast 10 MG Tablet PO (19:38)
[2018-04-21] MEDS: Atorvastatin Calcium 80 MG Tablet PO (19:38)
--- NOTE | 2018-04-21 23:19 | NURSING ---
All care provided in room d/t pt remains in precautions.
[2018-04-22] MEDS: Losartan Potassium 25 MG Tablet PO (06:20)
[2018-04-22] MEDS: Nystatin Powder 15gm Bottle 1 APPLIC TOPICAL ×2 (06:20→19:50)
[2018-04-22] MEDS: Enoxaparin 40 MG/0.4 ML Syringe SC (06:20)
[2018-04-22] MEDS: Fluticasone 0.05% 1 SPRAY NASAL.SRY 2 SPRAY NASAL (06:21)
[2018-04-22] MEDS: Menthol/Lanolin/Calamine/Znox 113 GM Tube 1 APPLIC TOPICAL ×3 (06:21→19:50)
[2018-04-22] MEDS: Fluticasone/Salmeterol 232-14 Inhaler 1 PUFF IH ×2 (06:21→17:04)
[2018-04-22] MEDS: Folic Acid 1 MG Tablet 2 MG PO (08:02)
[2018-04-22] MEDS: Aspirin 325 MG Tablet PO (08:02)
[2018-04-22] MEDS: Calcium Carb/Vitamin D 1 TABLET Tablet PO (08:03)
--- NOTE | 2018-04-22 11:30 | NURSING ---
ALL CARE GIVEN IN ROOM DUE TO PT IN PRECAUTIONS FOR C/DIFF.
[2018-04-22 15:04] VITALS: PULSE 65; RESP 18; O2SAT 98
--- NOTE | 2018-04-22 15:12 | CHAPLAIN ---
Type of Pastoral Visit _x__ Initial Visit ___ Follow-up Visit ___ On-call Visit ___ General Patient Visit ___ Spiritual Assessment ___ Family Conference ___ Bereavement ___ Rapid Response ___ Code Blue ___ Other (describe below) Pastoral Care Referral From _x__ Patient ___ Family ___ Nurse ___ Physician ___ Vice President Of Software Development ___ Garage Door Hanger ___ Other (describe below) Sacrament/Intervention _x__ Active listening ___ Anointing ___ Tenriism ___ Bereavement ___ Communion ___ Molly exploration ___ ___ Life review _x__ Prayer ___ Reconciliation ___ Sacrament of Sick ___ Supportive presence ___ Wedding ___ Other (describe below) Pastoral Comments
[2018-04-22 15:45] VITALS: BP 139/66; PULSE 58; RESP 20; TEMP 36.9; O2SAT 96
[2018-04-22] MEDS: Atorvastatin Calcium 80 MG Tablet PO (19:48)
[2018-04-22] MEDS: Montelukast 10 MG Tablet PO (19:48)
--- NOTE | 2018-04-22 19:51 | NURSING ---
All care given to patient in patient room. Patient in isolation for c-diff.
[2018-04-23 06:09] LABS: Absolute Lymphocyte Count 2.19 X10^3/ul (0.83-4.51); Absolute Neutrophil Count 4.2 X10^3/uL (2.0-7.7); Basophil# 0.03 X10^3/uL; Basophil% 0.4 % (0-1); Eosinophil# 0.17 X10^3/uL; Eosinophils% 2.3 % (0-5); Hematocrit 39.5 % (37-47); Hemoglobin 12.7 g/dl (12.0-15.0); Lymphocyte # 2.19 X10^3/ul (4.0); Mean Corp Hgb Conc 32.2 g/gl (32-36); Mean Corpuscular Hgb 29.1 pg (27.0-32.0); Mean Corpuscular Volume 90.4 fL (81-99); Mean Platelet Vol. 11.6 fl (6.2-12.0); Monocyte# 0.65 X10^3/uL; Monocyte% 8.9 % (0-10); Neutrophil # 4.23 X10^3/uL (2.7-7.7); Neutrophil % 58.1 % (47-70); Platelet Count 221 K/mm3 (150-450); RBC Distribution Width CV 14.2 % (11.6-14.6); RBC Distribution Width SD 46.8 fl (35.1-43.9); Red Blood Count 4.37 M/mm3 (4.2-5.4); White Blood Count 7.3 K/mm3 (4.4-11.0)
[2018-04-23 06:11] LABS: Anion Gap 9 (5-15); BUN 18 mg/dL (7-18); BUN/Creat Ratio 22.8 RATIO (10-20); Calcium,Total 8.5 mg/dL (8.5-10.1); Chloride 110 mmol/L (98-107); Creatinine, Serum 0.79 mg/dL (0.55-1.02); EST Glomerular Filtration Rate 75 mL/min (>60); Est Glom Filt Rate - Afr Amer 91 mL/min (>60); Estimated Creatinine Clearance 33.84 ml/min; Glucose 112 mg/dL (74-106); Potassium 4.1 mmol/L (3.5-5.1); Sodium Level 144 mmol/L (136-145)
[2018-04-23] MEDS: Fluticasone/Salmeterol 232-14 Inhaler 1 PUFF IH ×2 (06:19→18:20)
[2018-04-23] MEDS: Enoxaparin 40 MG/0.4 ML Syringe SC (06:20)
[2018-04-23] MEDS: Losartan Potassium 25 MG Tablet PO (06:20)
[2018-04-23] MEDS: Fluticasone 0.05% 1 SPRAY NASAL.SRY 2 SPRAY NASAL (06:20)
[2018-04-23 06:24] LABS: POSITIVE COUNT NO; POSITIVE DIFFERENTIAL NO; POSITIVE MORPHOLOGY NO
[2018-04-23] MEDS: Menthol/Lanolin/Calamine/Znox 113 GM Tube 1 APPLIC TOPICAL ×3 (06:24→20:08)
[2018-04-23] MEDS: Nystatin Powder 15gm Bottle 1 APPLIC TOPICAL ×2 (06:24→20:08)
[2018-04-23] MEDS: Calcium Carb/Vitamin D 1 TABLET Tablet PO (08:51)
[2018-04-23] MEDS: Aspirin 325 MG Tablet PO (08:51)
[2018-04-23] MEDS: Folic Acid 1 MG Tablet 2 MG PO (08:51)
--- NOTE | 2018-04-23 08:55 | NURSING ---
ALL PT CARE DONE IN ROOM DUE TO PT IN PRECAUTIONS FOR C/DIFF.
[2018-04-23 13:30] VITALS: PULSE 86; RESP 18; O2SAT 97
--- NOTE | 2018-04-23 13:32 | CASEMGMT ---
Plan of care meeting held. Resident present as well as resident family. No discharge date set at this time. Resident to continue with further care and treatment on the Transitional Care Unit at this time. Resident plans to discharge to daughters home at time of discharge. Support given. Will continue to follow. KAYLEIGH Samuel, SENIOR PROJECT ENGINEER
[2018-04-23 16:00] VITALS: BP 138/75; PULSE 66; RESP 18; TEMP 36.7; O2SAT 94
[2018-04-23] MEDS: Tuberculin,Purif.prot.deriv. 50 TU/ML Vial 5 ML ID (16:01)
--- NOTE | 2018-04-23 19:51 | NURSING ---
Pt remains in contact isolation this shift. All care provided in room.
[2018-04-23] MEDS: Montelukast 10 MG Tablet PO (20:08)
[2018-04-23] MEDS: Atorvastatin Calcium 80 MG Tablet PO (20:08)
--- NOTE | 2018-04-24 05:55 | NURSING ---
Pt off unit at this time for surgery.
[2018-04-24] MEDS: Menthol/Lanolin/Calamine/Znox 113 GM Tube 1 APPLIC TOPICAL ×3 (05:57→20:44)
[2018-04-24] MEDS: Fluticasone/Salmeterol 232-14 Inhaler 1 PUFF IH ×2 (05:58→17:15)
[2018-04-24] MEDS: Fluticasone 0.05% 1 SPRAY NASAL.SRY 2 SPRAY NASAL (05:58)
[2018-04-24] MEDS: Losartan Potassium 25 MG Tablet PO (05:58)
[2018-04-24] MEDS: Nystatin Powder 15gm Bottle 1 APPLIC TOPICAL ×2 (05:58→20:47)
[2018-04-24] MEDS: Enoxaparin 40 MG/0.4 ML Syringe SC (05:58)
[2018-04-24] MEDS: Folic Acid 1 MG Tablet 2 MG PO (08:30)
[2018-04-24] MEDS: Calcium Carb/Vitamin D 1 TABLET Tablet PO (08:30)
[2018-04-24] MEDS: Aspirin 325 MG Tablet PO (08:30)
[2018-04-24 10:00] VITALS: PULSE 80; RESP 16
--- NOTE | 2018-04-24 12:02 | CASEMGMT ---
Addendum entered by Kim Aly 04/24/18 12:15: Reviewed and approved social work student discharge documentation and below note. KAYLEIGH Samuel, PRODUCT SAFETY TEST ENGINEER Original Note: Social work Patient in room. Patient choosing to discharge home Saturday, 04/26. Team agreeable to discharge date. No further therapy recommended at this time. Patient reporting to have walker in home. Patient plans to discharge to daughter's home at time of discharge. Patient agreeable to social worker aide contacting daughter covering discharge plan. Telephone call to patient daughter. Spoke with daughter on telephone. Daughter agreeable to discharge plan on 04/26. Proposed discharged plan: 04/26 Plans to discharge to daughter's home Nelli Leal social work student
[2018-04-24 15:00] VITALS: BP 134/58; PULSE 63; RESP 15; TEMP 36.9; O2SAT 95
--- NOTE | 2018-04-24 20:12 | DCINST_ITS ---
- Discharge Diagnoses Current Active Problems: Current Active and Chronic Problems (Last Reviewed 04/08/18 @ 11:49 by Adam Lee MD) Acute confusional state (Acute) UTI (urinary tract infection) (Acute) Clostridium difficile diarrhea (Acute) Hypertension (Chronic) Hyperlipidemia (Chronic) Diverticulosis (Chronic) GERD (gastroesophageal reflux disease) (Chronic) Allergic rhinitis (Chronic) You will use the following diet at home:: No restrictions, Regular Your food should be the consistency of: Regular Your liquids should be the consistency of: Regular/Thin Discharge Activity: Return to Normal Activity, Use Walker Weight Bearing Status: Weight bearing as tolerated Call your doctor if you observe: Fever of 101 or Higher, Inability to urinate, Inability to have a bowel movement, Shortness of breath, Chest pain, Uncontrolled pain Allergies/Adverse Reactions: Allergies primidone Allergy (Verified 04/02/18 09:37) Itching albuterol sulfate [From Ventolin HFA] Adverse Reaction (Verified 04/02/18 09:37) Unknown amoxicillin [Amoxicillin] Adverse Reaction (Verified 04/02/18:37) Nausea amoxicillin trihydrate [From Augmentin] Adverse Reaction (Verified 04/02/18 09:37) Abd cramps/diarrhea aspartame Adverse Reaction (Verified 04/08/18 00:16) Dizziness caffeine Adverse Reaction (Verified 04/08/18 00:16) Dizziness cephalexin monohydrate [From Keflex] Adverse Reaction (Verified 04/08/18 00:16) Unknown chocolate flavor Adverse Reaction (Verified 04/02/18 09:37) Other erythromycin base [Erythromycin Base] Adverse Reaction (Verified 04/02/18 09:37) Diarrhea hyoscyamine [Hyoscyamine] Adverse Reaction (Verified 04/02/18 09:37) Rash hyoscyamine sulfate [From Levbid] Adverse Reaction (Verified 04/02/18 09:37) Rash levofloxacin Adverse Reaction (Verified 04/08/18 00:16) Itching lisinopril Adverse Reaction (Verified 04/08/18 00:16) Unknown metronidazole [From Flagyl] Adverse Reaction (Verified 04/02/18 09:37) Rash Metronidazole HCl [From Flagyl] Adverse Reaction (Verified 04/02/18 09:37) Rash morphine Adverse Reaction (Verified 04/08/18 00:16) abdominal pain naproxen Adverse Reaction (Verified 04/02/18 09:37) Nausea/Vom/Diarrhea NSAIDS (Non-Steroidal Anti-Inflamma Adverse Reaction (Verified 04/02/18 09:37) Abd cramps/diarrhea phenazopyridine HCl [From Pyridium] Adverse Reaction (Verified 04/08/18 00:16) Itching potassium clavulanate [From Augmentin] Adverse Reaction (Verified 04/02/18 09:37) Abd cramps/diarrhea sulfamethoxazole [From Septra] Adverse Reaction (Verified 04/02/18 09:37) Unknown trimethoprim [From Septra] Adverse Reaction (Verified 04/02/18 09:37) Unknown IV DYE Allergy (Uncoded 12/05/17 12:36) Rash URISED Adverse Reaction (Uncoded 12/05/17 12:36) Other Medications to take at Discharge Fluticasone 0.05% [Flonase Nasal [place]] 2 spray NASAL DAILY 08/07/13 Folic Acid 2.4 mg PO DAILY 08/07/13 Montelukast [Singulair] 10 mg PO QHS 08/07/13 Budesonide/Formoterol 160/4.5 [Symbicort 160/4.5 Mcg Inhaler (SP)] 1 puff INHALATION DAILY 04/25/15 Calcium Carb/Vitamin D3/Vit K1 [Viactiv Soft Chew] 1 ea PO DAILY 04/25/15 Docusate Sodium [Colace] 100 - 200 mg PO DAILY PRN PRN 04/25/15 Albuterol Sulfate [Proair Respiclick] 2 puff PO Q6H PRN PRN 04/07/18 Cholecalciferol (VIT D3) [Vitamin D3] 1,000 unit PO DAILY 04/07/18 Lactobacillus Acidophilus [Probiotic Acidophilus] 1 ea PO DAILY #0 04/11/18 Losartan Potassium [Cozaar] 25 mg PO DAILY #0 04/11/18 Aspirin 325 mg PO DAILY@0800 04/15/18 Acetaminophen [Tylenol] 1,000 mg PO Q6H PRN tablet 04/24/18 Atorvastatin Calcium [Lipitor] 80 mg PO QHS #30 tablet 04/24/18 Menthol/Lanolin/Calamine/Znox [Calmoseptine Ointment] 1 applic TOPICAL TID tube 04/24/18 Nystatin Powder [Mycostatin Powder] 1 applic TOPICAL 0600,2200 bottle 04/24/18 The following prescriptions were given: Atorvastatin Calcium [Lipitor] 80 mg PO QHS #30 tablet Primary Care Physician: Christo Bland MD [Primary Care Provider] - Please follow up with your Primary Care Physician in: 1 week. Test Results: Test results from this visit will be discussed in further detail at your follow- up appointment, if applicable. Please Follow Up With: Adma Lee MD When: 3-4 weeks Please Follow Up With: Butch Bose MD When: in 2 weeks Please Follow Up With: Christo Bland MD When: after D/C from TCU Proposed Discharge Date: 04/26/18
--- NOTE | 2018-04-24 20:12 | PCM.DC.SUM ---
Discharge Date and Diagnosis - Problem List Patient Problems: Active and Suspected Problems (Last Reviewed 04/08/18 @ 11:49 by Adam Lee MD) Acute confusional state (Acute) UTI (urinary tract infection) (Acute) Clostridium difficile diarrhea (Acute) Date of Admission: 04/15/18 Date of Discharge: 04/26/18 - Primary Discharge Diagnosis Active and Suspected Problems (Last Reviewed 04/08/18 @ 11:49 by Adam Lee MD) Acute confusional state (Acute) UTI (urinary tract infection) (Acute) Clostridium difficile diarrhea (Acute) - Secondary Discharge Diagnosis Chronic Problems (Last Reviewed 04/08/18 @ 11:49 by Adam Lee MD) Prediabetes (Chronic) Morbid obesity (Chronic) Asthma (Chronic) Hypertension (Chronic) Hyperlipidemia (Chronic) Diverticulosis (Chronic) GERD (gastroesophageal reflux disease) (Chronic) Allergic rhinitis (Chronic) Status post right hemicolectomy (Chronic) Hypertension (Chronic) Hyperlipidemia (Chronic) History of diverticulosis (Chronic) GERD (Chronic) Hospital Course and Treatment Imaging Results: 04/15/18 16:45 Diet: Cardiac: Calorie-Controlled Is pt able to select menu?: Yes Diet Comments: no sausage How many daily calories?: 1600 calorie Labs (Last 48 Hours) 04/23/18 04/23/18 05:17 05:17 WBC 7.3 RBC 4.37 Hgb 12.7 Hct 39.5 MCV 90.4 MCH 29.1 MCHC 32.2 RDW 14.2 RDW Differential 46.8 H Plt Count 221 MPV 11.6 Immature Gran % (Auto) 0.300 Neut % (Auto) 58.1 Lymph % (Auto) 30.0 [place] % (Auto) 8.9 Eos % (Auto) 2.3 Baso % (Auto) 0.4 Absolute Neuts (auto) 4.2 Absolute Lymphs (auto) 2.19 Total Counted Not Reportable Sodium 144 Potassium 4.1 Chloride 110 H Carbon Dioxide 25.0 Anion Gap 9 BUN 18 Creatinine 0.79 Estim Creat Clear Calc 33.84 Est GFR (MDRD) Af Amer 91 Est GFR (MDRD) Non-Af 75 BUN/Creatinine Ratio 22.8 H Glucose 112 H Calcium 8.5 Operations: None Procedures: None Summary of Care Provided: The patient is a 78 year old Female with below past medical history hospitalized for acute change in mental status secondary to stroke, NSTEMI, complicated by C. Diff diarrhea, admitted to TCU with debility, here for rehabilitation, strengthening, prior to discharge home alone. Discharge home with daughter. Patient Problems: Active and Suspected Problems (Last Reviewed 04/08/18 @ 11:49 by Adam Lee MD) Acute confusional state (Acute) UTI (urinary tract infection) (Acute) Clostridium difficile diarrhea (Acute) - Physical Exam Vital Signs Temp Pulse Resp BP Pulse Ox 98.4 F 63 15 134/58 H 95 04/24/18 15:00 04/24/18 15:00 04/24/18 15:00 04/24/18 15:00 04/24/18 15:00 Oxygen Delivery Method Room Air Weight: 94.483 kg Body Mass Index (BMI) 40.9 Finger Stick Blood Glucose 127 Intake and Output for Last 24 Hours 04/22/18 04/23/18 04/24/18 23:59 23:59 23:59 Intake Total 1500 / 1500 1380 / 1380 600 / 600 Balance 1500 / 1500 1380 / 1380 600 / 600 Discharge Diet: No Restrictions Discharge Activity: Return to Normal Activity, Use Walker Weight Bearing Status: Weight bearing as tolerated Call your doctor if you observe: Fever of 101 or Higher, Inability to urinate, Inability to have a bowel movement, Shortness of breath, Chest pain, Uncontrolled pain Home Medications: Medications to take at Discharge Fluticasone 0.05% [Flonase Nasal [place]] 2 spray NASAL DAILY 08/07/13 Folic Acid 2.4 mg PO DAILY 08/07/13 Montelukast [Singulair] 10 mg PO QHS 08/07/13 Budesonide/Formoterol 160/4.5 [Symbicort 160/4.5 Mcg Inhaler (SP)] 1 puff INHALATION DAILY 04/25/15 Calcium Carb/Vitamin D3/Vit K1 [Viactiv Soft Chew] 1 ea PO DAILY 04/25/15 Docusate Sodium [Colace] 100 - 200 mg PO DAILY PRN PRN 04/25/15 Albuterol Sulfate [Proair Respiclick] 2 puff PO Q6H PRN PRN 04/07/18 Cholecalciferol (VIT D3) [Vitamin D3] 1,000 unit PO DAILY 04/07/18 Lactobacillus Acidophilus [Probiotic Acidophilus] 1 ea PO DAILY #0 04/11/18 Losartan Potassium [Cozaar] 25 mg PO DAILY #0 04/11/18 Aspirin 325 mg PO DAILY@0800 04/15/18 Acetaminophen [Tylenol] 1,000 mg PO Q6H PRN tablet 04/24/18 Atorvastatin Calcium [Lipitor] 80 mg PO QHS #30 tablet 04/24/18 Menthol/Lanolin/Calamine/Znox [Calmoseptine Ointment] 1 applic TOPICAL TID tube 04/24/18 Nystatin Powder [Mycostatin Powder] 1 applic TOPICAL 0600,2200 bottle 04/24/18 Following Prescrptions Were Given to Patient: Atorvastatin Calcium [Lipitor] 80 mg PO QHS #30 tablet Primary Care Physician: Christo Bland MD [Primary Care Provider] - Please follow up with your Primary Care Physician in: 1 week. Please Follow Up With: Adam Lee MD When: 3-4 weeks Please Follow Up With: Butch Bose MD When: in 2 weeks Please Follow Up With: Christo Bland MD When: after D/C from TCU Disposition: Home Minutes spent on discharge:: 30 Patient Condition:: Stable Medical Necessity - Tobacco Use Smoking Status: Never smoker Tobacco Use: Non-smoker Meaningful Use Info Meaningful Use Diagnoses (Choose all that apply): None applicable
[2018-04-24] MEDS: Atorvastatin Calcium 80 MG Tablet PO (20:42)
[2018-04-24] MEDS: Montelukast 10 MG Tablet PO (20:42)
--- NOTE | 2018-04-25 02:21 | NURSING ---
All care provided to pt in room d/t isolation precautions for CDIFF.
[2018-04-25] MEDS: Losartan Potassium 25 MG Tablet PO (06:32)
[2018-04-25] MEDS: Menthol/Lanolin/Calamine/Znox 113 GM Tube 1 APPLIC TOPICAL ×3 (06:33→21:45)
[2018-04-25] MEDS: Nystatin Powder 15gm Bottle 1 APPLIC TOPICAL ×2 (06:34→21:45)
[2018-04-25] MEDS: Fluticasone/Salmeterol 232-14 Inhaler 1 PUFF IH ×2 (06:40→17:23)
[2018-04-25] MEDS: Fluticasone 0.05% 1 SPRAY NASAL.SRY 2 SPRAY NASAL (06:41)
[2018-04-25] MEDS: Enoxaparin 40 MG/0.4 ML Syringe SC (06:44)
[2018-04-25] MEDS: Folic Acid 1 MG Tablet 2 MG PO (08:31)
[2018-04-25] MEDS: Aspirin 325 MG Tablet PO (08:31)
[2018-04-25] MEDS: Calcium Carb/Vitamin D 1 TABLET Tablet PO (08:31)
[2018-04-25 15:48] VITALS: BP 148/70; PULSE 65; RESP 14; TEMP 36.8; O2SAT 96
[2018-04-25] MEDS: Montelukast 10 MG Tablet PO (21:45)
[2018-04-25] MEDS: Atorvastatin Calcium 80 MG Tablet PO (21:45)
[2018-04-26] MEDS: Losartan Potassium 25 MG Tablet PO (06:18)
[2018-04-26] MEDS: Enoxaparin 40 MG/0.4 ML Syringe SC (06:21)
[2018-04-26] MEDS: Fluticasone 0.05% 1 SPRAY NASAL.SRY 2 SPRAY NASAL (06:22)
[2018-04-26] MEDS: Fluticasone/Salmeterol 232-14 Inhaler 1 PUFF IH (06:23)
[2018-04-26] MEDS: Aspirin 325 MG Tablet PO (08:34)
[2018-04-26] MEDS: Folic Acid 1 MG Tablet 2 MG PO (08:34)
[2018-04-26] MEDS: Calcium Carb/Vitamin D 1 TABLET Tablet PO (08:34)
[2018-04-26 10:00] VITALS: PULSE 67; O2SAT 98
[2018-04-26 11:18] VITALS: BP 157/74; PULSE 70; RESP 20; TEMP 36.6; O2SAT 93
--- NOTE | 2018-04-28 10:22 | MDS.RN ---
Information for the mds was obtained from review of the clinical record, interview of resident, staff, and direct observation of resident's care.
--- NOTE | 2018-04-28 11:25 | CASEMGMT ---
Insurance Insurance notified that pt d/c on 04/26/18 with no continued services. Auth # [id number] KAYLEIGH Dowling
== END 2018-04-26 11:15 | disposition home or self-care (01) | DRG 947 ==
PROVIDERS: Admitting Provider Family Medicine Geriatric Medicine; Family Provider Family Medicine; PCP Family Medicine; Referring Provider Family Medicine Geriatric Medicine; Visit Provider Family Medicine Geriatric Medicine
DX: R53.81 Other malaise (principal); I21.4 Non-ST elevation (NSTEMI) myocardial infarction; Z68.41 Body mass index [BMI] 40.0-44.9, adult; A04.72 Enterocolitis due to Clostridium difficile, not specified as recurrent; F05 Delirium due to known physiological condition; E78.5 Hyperlipidemia, unspecified; I10 Essential (primary) hypertension; J45.909 Unspecified asthma, uncomplicated; K21.9 Gastro-esophageal reflux disease without esophagitis; E66.01 Morbid (severe) obesity due to excess calories; R73.03 Prediabetes; M81.0 Age-related osteoporosis without current pathological fracture; G25.0 Essential tremor; E04.1 Nontoxic single thyroid nodule; E55.9 Vitamin D deficiency, unspecified; Z86.73 Personal history of transient ischemic attack (TIA), and cerebral infarction without residual deficits; Z71.3 Dietary counseling and surveillance; Z90.49 Acquired absence of other specified parts of digestive tract; Z87.440 Personal history of urinary (tract) infections
CPT/HCPCS: 36415; 80048; 85025; 92507; 92523; 92610; 97110; 97116; 97163; 97166; 97530; 97535; 97802

== ENCOUNTER → 2018-06-24 15:07 | Outpatient (CLI) | payer MEDICARE, SELFPAY ==
[2018-06-20 17:13] VITALS: BMI 40.0
[2018-06-24 16:25] LABS: Hematocrit 35.7 % (37-47); Hemoglobin 11.2 g/dl (12.0-15.0); Mean Corp Hgb Conc 31.4 g/gl (32-36); Mean Corpuscular Hgb 28.4 pg (27.0-32.0); Mean Corpuscular Volume 90.4 fL (81-99); Mean Platelet Vol. 10.9 fl (6.2-12.0); Platelet Count 335 K/mm3 (150-450); RBC Distribution Width CV 14.7 % (11.6-14.6); RBC Distribution Width SD 48.3 fl (35.1-43.9); Red Blood Count 3.95 M/mm3 (4.2-5.4); White Blood Count 9.6 K/mm3 (4.4-11.0)
[2018-06-24 16:26] LABS: Scan Indicated on CBC? Y/N NO
[2018-06-24 16:39] LABS: Anion Gap 10 (5-15); BUN 17 mg/dL (7-18); BUN/Creat Ratio 22.9 RATIO (10-20); Chloride 108 mmol/L (98-107); Creatinine, Serum 0.74 mg/dL (0.55-1.02); EST Glomerular Filtration Rate 81 mL/min (>60); Est Glom Filt Rate - Afr Amer 98 mL/min (>60); Glucose 90 mg/dL (74-106); Potassium 3.8 mmol/L (3.5-5.1); Sodium Level 144 mmol/L (136-145)
[2018-06-24 16:51] LABS: Prothrombin Time (Protime)PT. 13.6 SECONDS (11.7-14.9)
[2018-06-24 16:52] LABS: Partial Thromboplast Time 29.1 Seconds (24.1-36.2)
== END ==
PROVIDERS: Family Provider Family Medicine; PCP Family Medicine; Referring Provider Nurse Practitioner Family; Visit Provider Nurse Practitioner Family
DX: I47.1 Supraventricular tachycardia (principal); I25.2 Old myocardial infarction; I36.1 Nonrheumatic tricuspid (valve) insufficiency
CPT/HCPCS: 36415; 80048; 85027; 85610; 85730

== ENCOUNTER 2018-06-30 08:37 | Day surgery (SDC) | payer MEDICARE, SELFPAY ==
[2018-05-16 10:23] VITALS: BMI 40.0
[2018-06-20 17:13] VITALS: BMI 40.0
[2018-06-27 09:03] VITALS: BMI 40.8
--- NOTE | 2018-06-30 10:02 | CL.D_ITS ---
Patient Name: ANGEL COLON Study Date: 06/30/2018 Performing: Butch Bose MD Ht: 59.84 inches 152 cm : 1940 Wt: 209.44 lbs 95 kg Age: 78 Gender: female BSA: 1.9 PROCEDURE(S) PERFORMED [id number]/LV CLINICAL PROFILE AND INDICATIONS Indications: Suspected CAD Heart Failure: None Stress/Imaging Stress/Image Study Performed: No CONCLUSIONS Non obstructive coronary arteries Moderate mid right CA disease RECOMMENDATIONS Medical therapy DESCRIPTION OF PROCEDURE The patient arrived to the procedure lab. The risks and benefits of the procedure as well as a full d escription of our services here and current unavailability of surgical backup were fully explained to the patient and/or their significant other prior to the catheterization. The Timeout was completed, verifying the correct patient and procedure. The patient's procedural site was prepped and draped in the usual fashion. Local anesthetic was given subcutaneously to right radial region with Lidocaine 2% . Using a modified Seldinger technique, arterial access was obtained via the right radial artery, a 6 Fr sheath was inserted. Right Coronary Artery selective angiography was performed in multiple views using a 5 Fr. 4.0 [place] catheter. Left Coronary Artery selective angiography was performed in multipl e views using a 5 Fr. 4.0 [place] catheter. Left Ventriculography was performed in [place]ED[place] projection using a 5 Fr. [place] catheter. LV to AO pullback pressures were then recorded.The arterial sheath was pulled and a TR Band was applied for hemostasis CORONARY ANGIOGRAPHY DOMINANCE: Right Dominant LEFT HEART ASSESSMENT Left Ventricular Ejection Fraction: by LV Gram 60 % Normal LV wall motion Normal Left Ventricular systolic function LEFT MAIN: Mild calcification, Angiographically normal LEFT ANTERIOR DECENDING ARTERY: No significant disease noted CIRCUMFLEX ARTERY: Mild luminal irregularities OM 1: Proximal - Mild luminal irregularities RIGHT CORONARY ARTERY: PROX RCA: Moderate luminal irregularities up to 50% VALVE FINDINGS: Annular calcification noted COMPLICATIONS No Complications PROCEDURE MEDICATIONS Fentanyl 50 mcg IV Versed 1 mg IV Versed 1 mg IV Oxygen: 2 L/min via nasal cannula Benadryl 25 mg IV @ 06/30/2018 09:18:35 Heparin diluted in 23cc Heparinized saline. Patient given 10cc IA of this solution. 06/30/2018 09:36:2 7 Solu-cortef 100 mg IV 06/30/2018 09:18:49 Verapamil 2.5mg, Ntg 100mcgs, 2000 units of Heparin diluted in 23cc Heparinized saline. Patient give n 10cc IA of this solution. 06/30/2018 09:36:27 SUMMARY OF HEMODYNAMIC DATA Time AIR REST ECG 08:58:35 AO 152/65 (100) SA 09:40:38 LV 147/5, 17 09:46:14 LV 153/8, 14 09:46:21 LV 159/2, 20 09:47:18 LVp 163/2, 30 09:47:23 AOp 174/79 (124) 09:47:28 Signed By Butch Bose MD On 06/30/2018 10:00:16 Butch Bose MD
== END 2018-06-30 15:00 | disposition home or self-care (01) ==
LOC: CLSP 08:37
PROVIDERS: Family Provider Family Medicine; PCP Family Medicine; Referring Provider Internal Medicine Cardiovascular Disease; Visit Provider Internal Medicine Cardiovascular Disease
DX: I25.10 Atherosclerotic heart disease of native coronary artery without angina pectoris (principal); I25.2 Old myocardial infarction; I65.21 Occlusion and stenosis of right carotid artery; I10 Essential (primary) hypertension; E78.2 Mixed hyperlipidemia; I36.1 Nonrheumatic tricuspid (valve) insufficiency; I47.1 Supraventricular tachycardia; E66.01 Morbid (severe) obesity due to excess calories; J45.909 Unspecified asthma, uncomplicated; M81.0 Age-related osteoporosis without current pathological fracture; Z95.818 Presence of other cardiac implants and grafts; Z79.82 Long term (current) use of aspirin; Z79.899 Other long term (current) drug therapy; Z86.73 Personal history of transient ischemic attack (TIA), and cerebral infarction without residual deficits
CPT/HCPCS: 93458; 99152; 99153; J7040; C1769; C1894; Q9967

== ENCOUNTER 2018-11-17 12:44 | Observation (INO) | payer MEDICARE, SELFPAY ==
[2018-08-18 12:50] VITALS: BMI 40.8
[2018-11-17] VITALS (7 sets, daily range): BP systolic 111–152; BP diastolic 45–73; PULSE 68–81; RESP 16–21; TEMP 36.7–37.3; O2SAT 94–99; BMI 42.2; BMI 29.3; BMI 39.2
--- NOTE | 2018-11-17 13:53 | EKG12_ITS ---
Test Reason : EPIGASTIC PAIN Blood Pressure : / mmHG Vent. Rate : 068 BPM Atrial Rate : 068 BPM P-R Int : 208 ms QRS Dur : 086 ms QT Int : 412 ms P-R-T Axes : 064 -18 025 degrees QTc Int : 438 ms Normal sinus rhythm Normal ECG Confirmed by SINGH JOSEPH, JADE ([id number]), manuscript editor DUSTIN CARDOZO ([id number]) on 11/18/2018 7:47:56 AM Referred By: JERONIMO Confirmed By:JADE WINTERS MD
--- NOTE | 2018-11-17 13:53 | RAD_ITS ---
STUDY: X-RAY CHEST REASON FOR EXAM: Female, 78 years old. TECHNIQUE: 1 view COMPARISON: April 07, 2018 FINDINGS: The lungs are clear and expanded. There is no demonstrated pleural abnormality. Normal size heart. Normal mediastinum and arnaldo. Normal visualized pulmonary arteries. Normal visualized aortic arch and descending thoracic aorta. There is moderate fixed hiatal hernia behind the heart. Normal visualized thoracic spine. Normal visualized ribs, clavicles, and shoulders. There is no demonstrated abnormality of the visualized soft tissue structures of the upper abdomen. RAD/Chest 1 View (Portable) IMPRESSION: Moderate fixed hiatal hernia, no active intrathoracic disease. The study is unchanged since April 07, 2018. Electronically Signed: Madhav Camara, at 15:07 EDT Tel , Service support ,
--- NOTE | 2018-11-17 13:55 | ED.DCSUM_ITS ---
- ER Visit Summary Date of Service: 11/17/18 Chief Complaint: Shortness of breath History of Present Illness: The patient is a 78 F history of CVA, CAD, [place], asthma. She states she had exertional shortness of breath for the last 2 weeks. Denies any chest pain. States when she walks down the hallway of her anabaptist she has to stop because she starts to have trouble breathing. But denies any chest pain. No leg pain or swelling. No hemoptysis. No recent travel, surgery or immobilization. No leg pain or swelling. No pleuritic chest pain. Physical Examination: Elderly female no acute distress vital signs are stable afebrile. Her pulse ox is 98%. Currently sitting in bed resting she is having no symptoms. HEENT exam unremarkable. Neck nontender no lymphadenopathy. No JVD. Lungs to auscultation bilaterally. Heart regular rhythm no murmur. Abdomen is soft and nontender. Extremities moves all 4. Calves are nontender without edema or cords. Neurologically she is awake and alert with no focal motor deficits. Normal heel pricker strength. Normal dorsi plantar flexion. Test Results: BC normal white count 8. Hemoglobin 14. Chemistries normal normal creatinine gap. Troponin normal. EKG sinus rhythm rate of 68 no acute signs of [place] or ischemia. Chest x-ray portable one view no acute abnormality. Hiatal hernia. No change from a prior. Read both by myself and the radiologist. Emergency Department Course and Treatment: Patient with exertional dyspnea. Treatment Plan: Repeat exam the patient is doing well at 15 12 PM. She feels fine unless she is walking or exerting herself and ask when she gets shortness of breath. She and I went over all of her test results. Speak with the hospitalist about admission. Disposition: Admission Impression: Acute exertional dyspnea of uncertain etiology History of CAD and prior [place]. This note was generated with TermSync[employer] software. It may contain incorrect words, spelling, and punctuation that were not noted in review of the chart prior to signing ED Disposition - Plan for ED Patient: Referrals: Christo Bland MD [Primary Care Provider] -
[2018-11-17] MEDS: Aspirin 81 MG TAB.CHEW 324 MG PO (14:14)
[2018-11-17 14:49] LABS: Absolute Lymphocyte Count 2.34 X10^3/ul (0.83-4.51); Basophil# 0.04 X10^3/uL; Basophil% 0.5 % (0-1); Eosinophil# 0.09 X10^3/uL; Eosinophils% 1.1 % (0-5); Hematocrit 43.4 % (37-47); Hemoglobin 14.4 g/dl (12.0-15.0); Lymphocyte # 2.34 X10^3/ul (4.0); Lymphocyte % 28.5 % (19-41); Mean Corp Hgb Conc 33.2 g/gl (32-36); Mean Corpuscular Hgb 28.8 pg (27.0-32.0); Mean Corpuscular Volume 86.8 fL (81-99); Mean Platelet Vol. 10.7 fl (6.2-12.0); Monocyte# 0.71 X10^3/uL; Monocyte% 8.6 % (0-10); Neutrophil # 5.01 X10^3/uL (2.7-7.7); Neutrophil % 61.1 % (47-70); POSITIVE COUNT NO; POSITIVE DIFFERENTIAL NO; POSITIVE MORPHOLOGY NO; Platelet Count 220 K/mm3 (150-450); RBC Distribution Width CV 16.4 % (11.6-14.6); RBC Distribution Width SD 52.4 fl (35.1-43.9); White Blood Count 8.2 K/mm3 (4.4-11.0)
[2018-11-17 14:54] LABS: Prothrombin Time (Protime)PT. 13.4 SECONDS (11.7-14.9)
[2018-11-17 15:05] LABS: Anion Gap 9 (5-15); BUN 18 mg/dL (7-18); BUN/Creat Ratio 24.1 RATIO (10-20); Calcium,Total 9.3 mg/dL (8.5-10.1); Chloride 106 mmol/L (98-107); Creatinine, Serum 0.75 mg/dL (0.55-1.02); EST Glomerular Filtration Rate 80 mL/min (>60); Est Glom Filt Rate - Afr Amer 97 mL/min (>60); Estimated Creatinine Clearance 33.84 ml/min; Glucose 105 mg/dL (74-106); Potassium 3.7 mmol/L (3.5-5.1); Sodium Level 142 mmol/L (136-145)
--- NOTE | 2018-11-17 15:59 | PCM.HP.STD ---
Problem List (1) Chest pain Status: Acute Qualifiers: Chest pain type: unspecified Qualified Code(s): R07.9 - Chest pain, unspecified History of Present Illness Date of Admission: 11/17/18 Chief Complaint: dyspnea on exertion. The patient is a 78 year old F presents with a 2 to 3-week history of dyspnea on exertion. Patient states that walking in her alevism and walking elsewhere patient starts getting shortness of breath. States that she has to sit down and symptoms do resolve. Patient last year was admitted with a stroke and elevated troponins. In June, did undergo a left heart catheterization that showed nonobstructive coronary artery disease. No intervention with stents was necessary. She states that she is never had dyspnea on exertion like this before. Patient states that she also has some intermittent lower sternal chest pain as well as left neck and ear pain but is not correlated with exertion nor her shortness of breath. [] Past Medical History Past Medical History (Chronic Problems): Chronic Problems (Last Reviewed 08/18/18 @ 12:54 by Ashly Brown) Atherosclerosis of coronary artery of [place] heart without angina pectoris (Chronic) Non-rheumatic tricuspid valve insufficiency (Chronic) SVT (supraventricular tachycardia) (Chronic) Essential (primary) hypertension (Chronic) CVA (cerebral vascular accident) (Chronic) Morbid obesity (Chronic) Hyperlipidemia (Chronic) Medical History: Medical History (Last Reviewed 11/17/18 @ 16:02 by Jamar Marquis DO) Atherosclerosis of coronary artery of [place] heart without angina pectoris (Chronic) I25.10 Non-rheumatic tricuspid valve insufficiency (Chronic) I36.1 SVT (supraventricular tachycardia) (Chronic) I47.1 Essential (primary) hypertension (Chronic) I10 NSTEMI (non-ST elevated myocardial infarction) (Resolved) I21.4 CVA (cerebral vascular accident) (Chronic) I63.9 Morbid obesity (Chronic) E66.01 Hyperlipidemia (Chronic) E78.5 Asthma J45.909 Essential tremor G25.0 Morbid obesity E66.01 Age related osteoporosis M81.0 Diverticulosis K57.90 GERD (gastroesophageal reflux disease) K21.9 Stenosis of right carotid artery I65.21 Stress and adjustment reaction F43.29 Syncope R55 Thyroid nodule E04.1 Elevated fasting blood sugar R73.01 Allergies primidone Allergy (Verified 08/18/18 12:49) Itching albuterol sulfate [From Ventolin HFA] Adverse Reaction (Verified 11/17/18 12:47) Unknown amoxicillin [Amoxicillin] Adverse Reaction (Verified 11/17/18 12:47) Nausea amoxicillin trihydrate [From Augmentin] Adverse Reaction (Verified 11/17/18 12:47) Abd cramps/diarrhea aspartame Adverse Reaction (Verified 11/17/18 12:47) Dizziness caffeine Adverse Reaction (Verified 11/17/18 12:47) Dizziness cephalexin monohydrate [From Keflex] Adverse Reaction (Verified 11/17/18 12:47) Unknown chocolate flavor Adverse Reaction (Verified 11/17/18 12:47) Other erythromycin base [Erythromycin Base] Adverse Reaction (Verified 11/17/18 12:47) Diarrhea hyoscyamine [Hyoscyamine] Adverse Reaction (Verified 11/17/18 12:47) Rash hyoscyamine sulfate [From Levbid] Adverse Reaction (Verified 11/17/18 12:47) Rash levofloxacin Adverse Reaction (Verified 11/17/18 12:47) Itching lisinopril Adverse Reaction (Verified 11/17/18 12:47) Unknown metronidazole [From Flagyl] Adverse Reaction (Verified 11/17/18 12:47) Rash Metronidazole HCl [From Flagyl] Adverse Reaction (Verified 11/17/18 12:47) Rash morphine Adverse Reaction (Verified 11/17/18 12:47) abdominal pain naproxen Adverse Reaction (Verified 11/17/18 12:47) Nausea/Vom/Diarrhea NSAIDS (Non-Steroidal Anti-Inflamma Adverse Reaction (Verified 11/17/18 12:47) Abd cramps/diarrhea phenazopyridine HCl [From Pyridium] Adverse Reaction (Verified 11/17/18 12:47) Itching potassium clavulanate [From Augmentin] Adverse Reaction (Verified 11/17/18 12:47) Abd cramps/diarrhea sulfamethoxazole [From Septra] Adverse Reaction (Verified 11/17/18 12:47) Unknown trimethoprim [From Septra] Adverse Reaction (Verified 11/17/18 12:47) Unknown IV DYE Allergy (Uncoded 11/17/18 12:47) Rash URISED Adverse Reaction (Uncoded 11/17/18 12:47) Other Home Medications: Ambulatory Orders Medication Instructions Recorded Fluticasone 0.05% [Flonase Nasal 2 spray NASAL DAILY 08/07/13 [place]] Folic Acid 2.4 mg PO DAILY 08/07/13 Montelukast [Singulair] 10 mg PO QHS 08/07/13 Budesonide/Formoterol 160/4.5 2 puff INHALATION DAILY 04/25/15 [Symbicort 160/4.5 Mcg Inhaler (SP)] Albuterol Sulfate [Proair 2 puff PO Q6H PRN PRN 04/07/18 Respiclick] Cholecalciferol (VIT D3) [Vitamin 1,000 unit PO DAILY 04/07/18 D3] Lactobacillus Acidophilus 1 ea PO DAILY #0 04/11/18 [Probiotic Acidophilus] Acetaminophen [Tylenol] 1,000 mg PO Q6H PRN tab 04/24/18 Atorvastatin Calcium [Lipitor] 80 mg PO QHS #30 tab 04/24/18 aspirin 81 mg tablet,delayed 81 mg PO DAILY 06/20/18 release Calcium Carb/Vitamin D3/Vit K1 1 ea PO DAILY 11/17/18 [Viactiv 650 mg-12.5 Mcg Chew] Fish Oil/Dha/Epa [Fish Oil 1,200 1 cap PO DAILY 11/17/18 mg Fish Oil] Folic Acid/Multivit-Min/Lutein 1 tab PO DAILY 11/17/18 [Centrum Silver Chewable Tablet] Garlic 500 mg PO DAILY 11/17/18 Gluc Li/Chondro Li A/Vit C/Mn 1 tab PO DAILY 11/17/18 [Glucosamine Chondroitin Tab] Hydrochlorothiazide [Hctz] 25 mg PO DAILY 11/17/18 Losartan Potassium 25 mg PO DAILY 11/17/18 Menthol/Lanolin/Calamine/Znox 1 applic TOPICAL TID PRN PRN 11/17/18 [Calmoseptine Ointment] Tolterodine Tartrate [Tolterodine 4 mg PO DAILY 11/17/18 Tartrate ER] Vitamin E 800 units PO DAILY 11/17/18 Surgical History: Surgical History (Last Reviewed 11/17/18 @ 16:03 by Jamar Marquis DO) Status post placement of implantable loop recorder Z95.818 History of Z98.891 History of colectomy Z90.49 History of hemicolectomy Z90.49 History of laparoscopic cholecystectomy Z90.49 History of left heart catheterization Onset Date: 06/30/18 Z98.890 History of repair of hiatal hernia Z98.890, Z87.19 Surgical History: cholecystectomy - Lap., colectomy - Right miguel angel., herniorrhaphy - Hiatal., - - . 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 Denies: Edema Respiratory: Reports: Shortness of breath upon exertion. Denies: Shortness of breath at rest Gastrointestinal: Denies: Abdominal Pain, Nausea, Vomiting Genitourinary: Denies: Dysuria Musculoskeletal: Denies: Joint Pain, Joint Tenderness Skin: Denies: Rash, Wounds Neurological: Denies: Numbness, Tingling, Focal weakness Psychiatric: Denies: Anxiety, Depression Endocrine: Denies: Change in Body Habitus, Heat/ Cold Intolerance Hematologic/ Lymphatic: Denies: Easy Bruising, Easy Bleeding, Hx of blood clot Comment: A 10 point review of systems were negative except as mentioned in the history of present illness and the other review of systems. VTE Information - Inpt Only VTE Present on Admission: No VTE Mechan Device Prophylaxis: None VTE Pharm Prophylaxis ordered?: No Reason prophylaxis not ordered:: Procedure Not Indicated Patient Problems: Active and Suspected Problems (Last Reviewed 08/18/18 @ 12:54 by Ashly Brown) Chest pain (Acute) - Physical Exam General: Alert, No apparent distress HEENT: Atraumatic, Normocephalic Oral: Moist Mucosa, No Gingival or Mucosal Lesions/ Ulcerations Neck: No Nodes, Thyroid Normal Size and Texture Lungs: Clear to auscultation, Normal air movement, No rhonchi, No wheeze, No rales Cardiovascular: Regular rate, Regular Rhythm, Normal S1, Normal S2, No murmurs Abdomen: Bowel Sounds Present, Soft, Non Tender, Non-Distended, No Hepato-splenomegaly Extremities: No edema, No Calf Tenderness Skin: No rashes, No breakdown Musculoskeletal: No Muscle Wasting, - - Midsternal chest wall tenderness to very light palpation. Psych/Mental Status: Normal Affect, Appropriate Vital Signs Temp Pulse Resp BP Pulse Ox 36.9 C 71 16 111/46 L 99 11/17/18 12:47 11/17/18 15:41 11/17/18 15:41 11/17/18 15:41 11/17/18 15:41 Oxygen Flow Rate (L/min) 2 Oxygen Delivery Method Nasal Cannula Weight: 98.1 kg Body Mass Index (BMI) 42.2 Finger Stick Blood Glucose 127 Laboratory Tests Past 24 Hrs 11/17/18 11/17/18 11/17/18 14:40 14:40 14:40 WBC 8.2 RBC 5.00 Hgb 14.4 Hct 43.4 MCV 86.8 MCH 28.8 MCHC 33.2 RDW 16.4 H RDW Differential 52.4 H Plt Count 220 MPV 10.7 Immature Gran % (Auto) 0.200 Neut % (Auto) 61.1 Lymph % (Auto) 28.5 [place] % (Auto) 8.6 Eos % (Auto) 1.1 Baso % (Auto) 0.5 Absolute Neuts (auto) 5.0 Absolute Lymphs (auto) 2.34 Total Counted Not Reportable PT 13.4 INR 1.0 Sodium 142 Potassium 3.7 Chloride 106 Carbon Dioxide 27.0 Anion Gap 9 BUN 18 Creatinine 0.75 Estim Creat Clear Calc 33.84 Est GFR (MDRD) Af Amer 97 Est GFR (MDRD) Non-Af 80 BUN/Creatinine Ratio 24.1 H Glucose 105 Calcium 9.3 Troponin I < 0.015 Clinical Impression(s) from Imaging Studies Chest X-Ray 11/17/18 13:53 IMPRESSION: Moderate fixed hiatal hernia, no active intrathoracic disease. The study is unchanged since April 07, 2018. Electronically Signed: Madhav Camara, at 15:07 EDT Tel , Service support , EKG reviewed and showed normal sinus rhythm without any acute changes. Assessment/Plan All Active Problems (Last Reviewed 08/18/18 @ 12:54 by Ashly Brown) Chest pain (Acute) NSTEMI (non-ST elevated myocardial infarction) (Resolved) NSTEMI (non-ST elevated myocardial infarction) (Resolved) Confusion (Resolved) Elevated troponin (Resolved) UTI (urinary tract infection) (Resolved) 1. Chest pain Primarily her symptoms are dyspnea on exertion though she does endorse at other times she is having some chest pain as well as left-sided neck pain. Concern is for cardiac equivalent though patient does have some underlying asthma which could explain her dyspnea on exertion as well. Heart score of 4. WILL score of 4 Continue with aspirin Cycle troponins Plan for chemical stress test on the . Patient expressed a apprehensive about undergoing the stress test. I explained to her my reasoning for doing so rather than treadmill stress test, particularly being that a did not feel that she would be able to meet effective heart rate range to have an adequate read on the treadmill given her dyspnea on exertion. She is very apprehensive about the medications. Told her that the medications are safe and that she will be monitored closely. 2. VTE prophylaxis: Not indicated as patient is being brought in under observation status. If hospitalization is to extend longer than 1 nights then may need to consider adding VTE prophylaxis at that time. 3. Advanced care planning: Discussed with the patient. Patient wishes to have CPR and to be intubated at least short-term. Does not want a PEG tube in the event of dysphasia. Therefore, the patient is status, no PEG tube. Code Visit OBSV E&M: 16850 Initial observation care L2
--- NOTE | 2018-11-17 16:11 | EKG12_ITS ---
Test Reason : AM EKG Blood Pressure : / mmHG Vent. Rate : 074 BPM Atrial Rate : 074 BPM P-R Int : 164 ms QRS Dur : 072 ms QT Int : 412 ms P-R-T Axes : 069 -03 -05 degrees QTc Int : 457 ms Normal sinus rhythm Normal ECG Confirmed by SABRINA JOSEPH, AMEE ([id number]), science editor DUSTIN CARDOZO ([id number]) on 11/19/2018 8:14:22 AM Referred By: THERESA Confirmed By:AMEE BENNETT MD
[2018-11-17] MEDS: Budesonide Respules 0.5 MG/2 ML AMPUL.NEB. INHALATION (19:00)
[2018-11-17] MEDS: Albuterol 2.5 MG/3 ML VIAL.NEB. INHALATION (19:00)
[2018-11-17] MEDS: Montelukast 10 MG Tablet PO (21:37)
[2018-11-17] MEDS: Atorvastatin Calcium 80 MG Tablet PO (21:37)
[2018-11-17] MEDS: 0.9% NaCl Peripheral Flush Adult/Peds IV (21:37)
[2018-11-17] MEDS: Acetaminophen 325 MG Tablet 650 MG PO (21:37)
[2018-11-18] VITALS (9 sets, daily range): BP systolic 102–123; BP diastolic 44–66; PULSE 59–73; RESP 16–19; TEMP 36.2–36.7; O2SAT 93–98
[2018-11-18 05:19] LABS: Absolute Lymphocyte Count 2.77 X10^3/ul (0.83-4.51); Absolute Neutrophil Count 3.3 X10^3/uL (2.0-7.7); Basophil# 0.02 X10^3/uL; Basophil% 0.3 % (0-1); Eosinophil# 0.09 X10^3/uL; Eosinophils% 1.3 % (0-5); Hematocrit 38.4 % (37-47); Hemoglobin 12.6 g/dl (12.0-15.0); Lymphocyte # 2.77 X10^3/ul (4.0); Lymphocyte % 40.3 % (19-41); Mean Corp Hgb Conc 32.8 g/gl (32-36); Mean Corpuscular Hgb 28.1 pg (27.0-32.0); Mean Corpuscular Volume 85.7 fL (81-99); Mean Platelet Vol. 11.1 fl (6.2-12.0); Monocyte% 10.2 % (0-10); Neutrophil # 3.28 X10^3/uL (2.7-7.7); Neutrophil % 47.8 % (47-70); Platelet Count 217 K/mm3 (150-450); RBC Distribution Width CV 16.6 % (11.6-14.6); RBC Distribution Width SD 51.7 fl (35.1-43.9); Red Blood Count 4.48 M/mm3 (4.2-5.4); White Blood Count 6.9 K/mm3 (4.4-11.0)
[2018-11-18 05:27] LABS: International Normalized Ratio 1.1; Prothrombin Time (Protime)PT. 13.6 SECONDS (11.7-14.9)
[2018-11-18 05:28] LABS: Partial Thromboplast Time 29.9 Seconds (24.1-36.2)
[2018-11-18 05:33] LABS: POSITIVE COUNT NO; POSITIVE DIFFERENTIAL NO; POSITIVE MORPHOLOGY NO
[2018-11-18 05:41] LABS: Anion Gap 9 (5-15); BUN 17 mg/dL (7-18); BUN/Creat Ratio 21.3 RATIO (10-20); Calcium,Total 8.5 mg/dL (8.5-10.1); Chloride 109 mmol/L (98-107); Cholesterol 113 mg/dL (200); EST Glomerular Filtration Rate 74 mL/min (>60); Est Glom Filt Rate - Afr Amer 90 mL/min (>60); Glucose 116 mg/dL (74-106); High Density Lipoprotein 51 mg/dL; Potassium 3.8 mmol/L (3.5-5.1); Sodium Level 144 mmol/L (136-145); Thyroid Stim Hormone (TSH) 1.94 uIU/mL (0.358-3.74); Triglycerides 89 mg/dL; Very Low Density Lipoprotein 18 mg/dL (5-40)
[2018-11-18] MEDS: Aspirin E.C. 81 MG Tablet PO (05:49)
[2018-11-18] MEDS: Losartan Potassium 25 MG Tablet PO (05:49)
--- NOTE | 2018-11-18 05:55 | EKG12_ITS ---
Test Reason : CP ADMISSION Blood Pressure : / mmHG Vent. Rate : 072 BPM Atrial Rate : 072 BPM P-R Int : 170 ms QRS Dur : 082 ms QT Int : 412 ms P-R-T Axes : 044 -15 031 degrees QTc Int : 451 ms Normal sinus rhythm Normal ECG Confirmed by SABRINA JOSEPH, AMEE ([id number]), television news video editor DUSTIN CARDOZO ([id number]) on 11/19/2018 8:15:34 AM Referred By: THERESA Confirmed By:AMEE BENNETT MD
--- NOTE | 2018-11-18 09:25 | STRESSREP ---
Stress Test Report Date: 11-18-18 Procedure: Pharmacologic stress nuclear imaging study Indications: Chest pain; shortness of breath/dyspnea on exertion; history of non-ST segment elevation HI, SVT, and syncope Consent: Per the patient Procedure: The patient underwent pharmacologic (Regadenoson) evaluation with a peak heart rate of 109 beats per minute (76 %predicted maximal heart rate) and a peak blood pressure of 140/82 mmHg. The baseline ECG demonstrated sinus rhythm. The peak pharmacologic ECG demonstrated no obvious ECG changes. There was a rare PVC during infusion and recovery. There was no complaint of chest discomfort during pharmacologic infusion or recovery. The examination was discontinued secondary to completion of protocol. Impression: 1. Pharmacologic (Regadenoson) evaluation 2. Peak pharmacologic ECG with no obvious ECG changes. 3. There was a rare PVC during infusion and recovery. 4. Nuclear images pending Myocardial perfusion imaging study: Technique: The patient was injected with 14.1 millicuries of technetium 99m Cardiolite and subsequently rest SPECT Cardiolite nuclear imaging was obtained in the horizontal long, vertical long, and short axis views. The patient underwent pharmacologic (Regadenoson) evaluation with a peak heart rate of 109 beats per minute (76 % percent predicted maximal heart rate) and a peak blood pressure of 140/82 mmHg. The patient was injected with 43.9 millicuries of technetium 99m Cardiolite and subsequently stress SPECT Cardiolite nuclear imaging was obtained in the horizontal long, vertical long, and short axis views. A gated Cardiolite study at peak stress was obtained. Interpretation: Rest and stress SPECT Cardiolite nuclear imaging status post realignment, normalization, and attenuation correction demonstrate relative uniform tracer uptake and myocardial perfusion appearing within normal limits. There are no myocardial perfusion changes noted on the resting or stress poor map images. There is end systolic thickening and brightening. The gated Cardiolite study demonstrates myocardial thickening and inward wall motion. The reported LVEF is 81 %. Impression: 1. Rest and stress SPECT Cardiolite nuclear imaging demonstrate relative uniform tracer uptake and myocardial perfusion appearing within normal limits. 2. The gated Cardiolite study reports an LVEF of 81 %. This note was generated with [employer] software. It may contain incorrect words, spelling, and punctuation that were not noted in checking the note before signing.
[2018-11-18] MEDS: Fluticasone 0.05% 1 SPRAY NASAL.SRY 2 SPRAY NASAL (09:36)
[2018-11-18] MEDS: Multivitamins,Ther W-Minerals Tablet 1 TABLET PO (09:36)
[2018-11-18] MEDS: Tolterodine Tartrate 4 MG CAP.SA PO (09:36)
[2018-11-18] MEDS: Vitamin E 400 UNITS Capsule 800 UNITS PO (09:37)
[2018-11-18] MEDS: hydroCHLOROthiazide 25 MG Tablet PO (09:37)
[2018-11-18] MEDS: Albuterol 2.5 MG/3 ML VIAL.NEB. INHALATION (12:48)
[2018-11-18 13:17] LABS: D-Dimer Quantitative (DVT/PE) 1.02 FEU/ug/m (0.27-0.49)
--- NOTE | 2018-11-18 13:22 | CT_ITS ---
STUDY: CTA CHEST REASON FOR EXAM: Female, 78 years old. Shortness of breath, elevated d-dimer. RADIATION DOSAGE (If Supplied By Facility): CTDIvol = ( 28.21 ) mGy, DLP = ( 521.37 ) mGycm TECHNIQUE: The examination was performed with the intravenous administration of 100ML IV Isovue 370. Post-processing of the angiographic images was performed, with multiplanar reformation and 3D reconstruction. Individualized dose optimization techniques were used for this CT. COMPARISON: None. FINDINGS: Large irregular area of markedly increased attenuation within the upper right arm, right supraclavicular area, and right breast which may represent extravasated contrast. Normal enhancement of the main pulmonary artery and right and left pulmonary arteries. Normal enhancement of the bilateral peripheral pulmonary arteries. There is no demonstrated pulmonary embolism. Normal thoracic aorta and visualized great vessels. There is no demonstrated aortic dissection. Normal heart and pericardium. Normal mediastinum. Normal hilar regions. Normal visualized trachea and bronchi. The lungs are well expanded. Focal alveolar density in the right lower lobe the lungs consistent with subsegmental atelectasis or pneumonitis. Normal pleura. Elevated left hemidiaphragm. Normal chest wall structures. Normal osseous structures. Normal visualized upper abdomen. CT/CTA Chest W/WO Contrast IMPRESSION: 1. Normal CTA chest examination, without a demonstrated pulmonary embolism or arterial dissection. 2. Some right lower lobe subsegmental atelectasis or pneumonitis. 3. Suspect extravasated contrast in the upper right arm, supraclavicular area, and right breast. Electronically Signed: Burton Mccoy MD at 16:14 EDT Tel , Service support ,
--- NOTE | 2018-11-18 13:28 | PCM.PROGNOTE ---
Patient Problems: Active and Suspected Problems (Last Reviewed 11/17/18 @ 16:02 by Jamar Marquis DO) Chest pain (Acute) Subjective: Patient seen and examined. Reports increased shortness of breath with minimal exertion. Denies cough, wheezing. Denies chest pain. - Physical Exam General: Alert, Oriented x3, Cooperative HEENT: Atraumatic, PERRLA, EOMI, Normocephalic Neck: Supple, No JVD, Negative Carotid Bruits Lungs: Clear to auscultation, Diminished Cardiovascular: Regular rate, Regular Rhythm, Normal S1, Normal S2, No murmurs Abdomen: Bowel Sounds Present, Soft, Non Tender, Non-Distended, Obese Extremities: No clubbing, No cyanosis, No edema Skin: No rashes, No breakdown Musculoskeletal: No Tenderness to Palpation of Joints or Extremities Neurological: Cranial nerves II-XII grossly intact, Neuro grossly intact Psych/Mental Status: Normal Affect, Appropriate Vital Signs Temp Pulse Resp BP Pulse Ox 98.1 F 68 16 121/66 H 95 11/18/18 05:48 11/18/18 12:48 11/18/18 12:48 11/18/18 05:48 11/18/18 12:48 Oxygen Flow Rate (L/min) 2 Oxygen Delivery Method Room Air Weight: 201 lb Body Mass Index (BMI) 39.2 Finger Stick Blood Glucose 127 Intake and Output for Last 24 Hours 11/16/18 11/17/18 11/18/18 23:59 23:59 23:59 Intake Total 240 / 640 420 / 420 Balance 240 / 640 420 / 420 Laboratory Tests Past 24 Hrs 11/17/18 11/17/18 11/17/18 14:40 14:40 14:40 WBC 8.2 RBC 5.00 Hgb 14.4 Hct 43.4 MCV 86.8 MCH 28.8 MCHC 33.2 RDW 16.4 H RDW Differential 52.4 H Plt Count 220 MPV 10.7 Immature Gran % (Auto) 0.200 Neut % (Auto) 61.1 Lymph % (Auto) 28.5 [place] % (Auto) 8.6 Eos % (Auto) 1.1 Baso % (Auto) 0.5 Absolute Neuts (auto) 5.0 Absolute Lymphs (auto) 2.34 Total Counted Not Reportable PT 13.4 INR 1.0 APTT D-Dimer Quant (PE/DVT) Sodium 142 Potassium 3.7 Chloride 106 Carbon Dioxide 27.0 Anion Gap 9 BUN 18 Creatinine 0.75 Estim Creat Clear Calc 33.84 Est GFR (MDRD) Af Amer 97 Est GFR (MDRD) Non-Af 80 BUN/Creatinine Ratio 24.1 H Glucose 105 Calcium 9.3 Troponin I < 0.015 B-Natriuretic Peptide Triglycerides Cholesterol LDL Cholesterol VLDL Cholesterol HDL Cholesterol TSH 11/17/18 11/17/18 11/18/18 17:50 20:50 05:02 WBC 6.9 RBC 4.48 Hgb 12.6 Hct 38.4 MCV 85.7 MCH 28.1 MCHC 32.8 RDW 16.6 H RDW Differential 51.7 H Plt Count 217 MPV 11.1 Immature Gran % (Auto) 0.100 Neut % (Auto) 47.8 Lymph % (Auto) 40.3 [place] % (Auto) 10.2 H Eos % (Auto) 1.3 Baso % (Auto) 0.3 Absolute Neuts (auto) 3.3 Absolute Lymphs (auto) 2.77 Total Counted Not Reportable PT INR APTT D-Dimer Quant (PE/DVT) Sodium Potassium Chloride Carbon Dioxide Anion Gap BUN Creatinine Estim Creat Clear Calc Est GFR (MDRD) Af Amer Est GFR (MDRD) Non-Af BUN/Creatinine Ratio Glucose Calcium Troponin I < 0.015 < 0.015 B-Natriuretic Peptide Triglycerides Cholesterol LDL Cholesterol VLDL Cholesterol HDL Cholesterol TSH 11/18/18 11/18/18 11/18/18 05:02 05:02 05:02 WBC RBC Hgb Hct MCV MCH MCHC RDW RDW Differential Plt Count MPV Immature Gran % (Auto) Neut % (Auto) Lymph % (Auto) [place] % (Auto) Eos % (Auto) Baso % (Auto) Absolute Neuts (auto) Absolute Lymphs (auto) Total Counted PT 13.6 INR 1.1 APTT 29.9 D-Dimer Quant (PE/DVT) 1.02 H* Sodium 144 Potassium 3.8 Chloride 109 H Carbon Dioxide 26.0 Anion Gap 9 BUN 17 Creatinine 0.80 Estim Creat Clear Calc 42.30 Est GFR (MDRD) Af Amer 90 Est GFR (MDRD) Non-Af 74 BUN/Creatinine Ratio 21.3 H Glucose 116 H Calcium 8.5 Troponin I B-Natriuretic Peptide Triglycerides 89 Cholesterol 113 LDL Cholesterol 44 VLDL Cholesterol 18 HDL Cholesterol 51 TSH 1.94 11/18/18 05:02 WBC RBC Hgb Hct MCV MCH MCHC RDW RDW Differential Plt Count MPV Immature Gran % (Auto) Neut % (Auto) Lymph % (Auto) [place] % (Auto) Eos % (Auto) Baso % (Auto) Absolute Neuts (auto) Absolute Lymphs (auto) Total Counted PT INR APTT D-Dimer Quant (PE/DVT) Sodium Potassium Chloride Carbon Dioxide Anion Gap BUN Creatinine Estim Creat Clear Calc Est GFR (MDRD) Af Amer Est GFR (MDRD) Non-Af BUN/Creatinine Ratio Glucose Calcium Troponin I B-Natriuretic Peptide Pending Triglycerides Cholesterol LDL Cholesterol VLDL Cholesterol HDL Cholesterol TSH Medical Necessity - Tobacco Use Smoking Status: Never smoker Tobacco Use: Non-smoker Assessment/Plan All Active Problems (Last Reviewed 11/17/18 @ 16:02 by Jamar Marquis DO) Chest pain (Acute) NSTEMI (non-ST elevated myocardial infarction) (Resolved) NSTEMI (non-ST elevated myocardial infarction) (Resolved) Confusion (Resolved) Elevated troponin (Resolved) UTI (urinary tract infection) (Resolved) 1. Dyspnea on exertion-troponin negative. Patient underwent nuclear stress test which was negative for ischemia, LVEF 81%. Patient had echocardiogram March 2018 which demonstrated an EF of 60%, mild mitral valve insufficiency, impaired relaxation of left ventricle. D-dimer 1.02. CTA chest pending. BNP pending. Oxygen stable on room air. 2. CAD/history of [id number] had cardiac catheterization June 2018 which showed proximal RCA with moderate luminal irregularities up to 50%. Nonobstructive coronary arteries. Patient follows with Dr. Bose. 3. Carotid artery stenosis-continue aspirin, statin. Carotid ultrasounds March 2018 with 50 to 69% stenosis in the right internal carotid artery and less than 50% stenosis in the left. 4. Hypertension-stable, continue home losartan/HCTZ regimen. 5. Hyperlipidemia-continue statin. 6. History of CVA-continue aspirin, statin. 7. 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 8. Chronic asthma-no acute exacerbation. As needed albuterol aerosol. 9. Obesity-encouraged diet and lifestyle modifications. Nutrition consult. 10. Overactive bladder-continue tolterodine regimen. DVT prophylaxis- Lovenox sc This patient was seen by JACKELIN Edgar under the supervision of Dr. Byers.
[2018-11-18 13:47] LABS: BNP,B-Type NATRIURETIC PEPTIDE 94.9 pg/mL (0-100)
[2018-11-18] MEDS: 0.9% NaCl Peripheral Flush Adult/Peds IV (14:22)
[2018-11-18] MEDS: DiphenhydrAMINE 50 MG/ML Syringe IV (14:22)
--- NOTE | 2018-11-18 16:27 | PCM.DC ---
- Discharge Diagnoses Current Active Problems: Current Active and Chronic Problems (Last Reviewed 11/17/18 @ 16:02 by Jamar Marquis DO) Chest pain (Acute) You will use the following diet at home:: Cardiac Discharge Activity: Return to Normal Activity Call your doctor if you observe: Shortness of breath, Dizziness, Fainting spells, Chest pain Additional Instructions: Your stress test was normal. You also had a CT of your chest and you did not have any pulmonary embolism or acute abnormality. Allergies/Adverse Reactions: Allergies primidone Allergy (Verified 08/18/18 12:49) Itching albuterol sulfate [From Ventolin HFA] Adverse Reaction (Verified 11/17/18 12:47) Unknown amoxicillin [Amoxicillin] Adverse Reaction (Verified 11/17/18 12:47) Nausea amoxicillin trihydrate [From Augmentin] Adverse Reaction (Verified 11/17/18 12:47) Abd cramps/diarrhea aspartame Adverse Reaction (Verified 11/17/18 12:47) Dizziness caffeine Adverse Reaction (Verified 11/17/18 12:47) Dizziness cephalexin monohydrate [From Keflex] Adverse Reaction (Verified 11/17/18 12:47) Unknown chocolate flavor Adverse Reaction (Verified 11/17/18 12:47) Other erythromycin base [Erythromycin Base] Adverse Reaction (Verified 11/17/18 12:47) Diarrhea hyoscyamine [Hyoscyamine] Adverse Reaction (Verified 11/17/18 12:47) Rash hyoscyamine sulfate [From Levbid] Adverse Reaction (Verified 11/17/18 12:47) Rash levofloxacin Adverse Reaction (Verified 11/17/18 12:47) Itching lisinopril Adverse Reaction (Verified 11/17/18 12:47) Unknown metronidazole [From Flagyl] Adverse Reaction (Verified 11/17/18 12:47) Rash Metronidazole HCl [From Flagyl] Adverse Reaction (Verified 11/17/18 12:47) Rash morphine Adverse Reaction (Verified 11/17/18 12:47) abdominal pain naproxen Adverse Reaction (Verified 11/17/18 12:47) Nausea/Vom/Diarrhea NSAIDS (Non-Steroidal Anti-Inflamma Adverse Reaction (Verified 11/17/18 12:47) Abd cramps/diarrhea phenazopyridine HCl [From Pyridium] Adverse Reaction (Verified 11/17/18 12:47) Itching potassium clavulanate [From Augmentin] Adverse Reaction (Verified 11/17/18 12:47) Abd cramps/diarrhea sulfamethoxazole [From Septra] Adverse Reaction (Verified 11/17/18 12:47) Unknown trimethoprim [From Janra] Adverse Reaction (Verified 11/17/18 12:47) Unknown IV DYE Allergy (Uncoded 11/17/18 12:47) Rash URISED Adverse Reaction (Uncoded 11/17/18 12:47) Other Medications to take at Discharge Fluticasone 0.05% [Flonase Nasal [place]] 2 spray NASAL DAILY 08/07/13 Folic Acid 2.4 mg PO DAILY 08/07/13 Montelukast [Singulair] 10 mg PO QHS 08/07/13 Budesonide/Formoterol 160/4.5 [Symbicort 160/4.5 Mcg Inhaler (SP)] 2 puff INHALATION DAILY 04/25/15 Albuterol Sulfate [Proair Respiclick] 2 puff PO Q6H PRN PRN 04/07/18 Cholecalciferol (VIT D3) [Vitamin D3] 1,000 unit PO DAILY 04/07/18 Lactobacillus Acidophilus [Probiotic Acidophilus] 1 ea PO DAILY #0 04/11/18 Acetaminophen [Tylenol] 1,000 mg PO Q6H PRN tab 04/24/18 Atorvastatin Calcium [Lipitor] 80 mg PO QHS #30 tab 04/24/18 aspirin 81 mg tablet,delayed release 81 mg PO DAILY 06/20/18 Calcium Carb/Vitamin D3/Vit K1 [Viactiv 650 mg-12.5 Mcg Chew] 1 ea PO DAILY 11/17/18 Fish Oil/Dha/Epa [Fish Oil 1,200 mg Fish Oil] 1 cap PO DAILY 11/17/18 Folic Acid/Multivit-Min/Lutein [Centrum Silver Chewable Tablet] 1 tab PO DAILY 11/17/18 Garlic 500 mg PO DAILY 11/17/18 Gluc Li/Chondro Li A/Vit C/Mn [Glucosamine Chondroitin Tab] 1 tab PO DAILY 11/17/18 Hydrochlorothiazide [Hctz] 25 mg PO DAILY 11/17/18 Losartan Potassium 25 mg PO DAILY 11/17/18 Menthol/Lanolin/Calamine/Znox [Calmoseptine Ointment] 1 applic TOPICAL TID PRN PRN 11/17/18 Tolterodine Tartrate [Tolterodine Tartrate ER] 4 mg PO DAILY 11/17/18 Vitamin E 800 units PO DAILY 11/17/18 Primary Care Physician: Christo Bland MD [Primary Care Provider] - Please follow up with your Primary Care Physician in: 1 Week Test Results: Test results from this visit will be discussed in further detail at your follow-up appointment, if applicable. Please Follow Up With: Butch Bose MD When: As scheduled, 12/18/18 Proposed Discharge Date: 11/18/18
--- NOTE | 2018-11-18 16:35 | PCM.DC.SUM ---
Discharge Date and Diagnosis Date of Admission: 11/17/18 Date of Discharge: 11/18/18 - Primary Discharge Diagnosis Active and Suspected Problems (Last Reviewed 11/17/18 @ 16:02 by Jamar Marquis DO) 1. Chest pain/Dyspnea on exertion- ACS ruled out. 2. CAD/history of non-STEMI 3. Carotid artery stenosis 4. Hypertension 5. Hyperlipidemia 6. History of CVA 7. Nontoxic multinodular goiter 8. Chronic asthma 9. Obesity 10. Overactive bladder - Secondary Discharge Diagnosis Chronic Problems (Last Reviewed 11/17/18 @ 16:02 by Jamar Marquis DO) Atherosclerosis of coronary artery of [place] heart without angina pectoris (Chronic) Non-rheumatic tricuspid valve insufficiency (Chronic) SVT (supraventricular tachycardia) (Chronic) Essential (primary) hypertension (Chronic) CVA (cerebral vascular accident) (Chronic) Morbid obesity (Chronic) Hyperlipidemia (Chronic) Hospital Course and Treatment Imaging Results: Diagnostic Data Chest X-Ray 11/17/18 13:53 IMPRESSION: Moderate fixed hiatal hernia, no active intrathoracic disease. The study is unchanged since April 07, 2018. Electronically Signed: Madhav Camara at 15:07 EDT Tel , Service support , Chest CTA 11/18/18 13:22 IMPRESSION: 1. Normal CTA chest examination, without a demonstrated pulmonary embolism or arterial dissection. 2. Some right lower lobe subsegmental atelectasis or pneumonitis. 3. Suspect extravasated contrast in the upper right arm, supraclavicular area, and right breast. Electronically Signed: Burton Mccoy MD at 16:14 EDT Tel , Service support , Operations: None Procedures: Stress test Summary of Care Provided: The patient is a 78 year old F admitted 11/17/2018 due to dyspnea on exertion. 1. Dyspnea on exertion/Chest pain-troponin negative. Patient underwent nuclear stress test which was negative for ischemia, LVEF 81%. Patient had echocardiogram March 2018 which demonstrated an EF of 60%, mild mitral valve insufficiency, impaired relaxation of left ventricle. D-dimer 1.02. CTA chest negative for PE. BNP normal. Oxygen stable on room air. ACS ruled out. Dyspnea possibly due to underlying asthma. Continue home inhaler regimen. Follow-up with primary care provider in 1 week. Follow-up with cardiology as scheduled. 2. CAD/history of [id number] had cardiac catheterization June 2018 which showed proximal RCA with moderate luminal irregularities up to 50%. Nonobstructive coronary arteries. Patient follows with Dr. Bose. Continue follow-up with cardiology as scheduled. 3. Carotid artery stenosis-continue aspirin, statin. Carotid ultrasounds March 2018 with 50 to 69% stenosis in the right internal carotid artery and less than 50% stenosis in the left. 4. Hypertension-stable, continue home losartan/HCTZ regimen. 5. Hyperlipidemia-continue statin. 6. History of CVA-continue aspirin, statin. 7. 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 8. Chronic asthma-no acute exacerbation. Continue home inhaler regimen. 9. Obesity-encouraged diet and lifestyle modifications. 10. Overactive bladder-continue tolterodine regimen. General: Alert, Oriented x3, Cooperative HEENT: Atraumatic, PERRLA, EOMI, Normocephalic Neck: Supple, No JVD, Negative Carotid Bruits Lungs: Clear to auscultation, Diminished Cardiovascular: Regular rate, Regular Rhythm, Normal S1, Normal S2, No murmurs Abdomen: Bowel Sounds Present, Soft, Non Tender, Non-Distended, Obese Extremities: No clubbing, No cyanosis, No edema Skin: No rashes, No breakdown Musculoskeletal: No Tenderness to Palpation of Joints or Extremities Neurological: Cranial nerves II-XII grossly intact, Neuro grossly intact Psych/Mental Status: Normal Affect, Appropriate Patient seen and examined prior to discharge. Physical assessment as noted above. Patient is stable for discharge with follow up recommendations as noted above. This patient was seen by JACKELIN Edgar under the supervision of Dr. Byers. - Physical Exam Vital Signs Temp Pulse Resp BP Pulse Ox 97.9 F 71 16 102/57 L 95 11/18/18 11:45 11/18/18 15:28 11/18/18 12:48 11/18/18 11:45 11/18/18 12:48 Oxygen Flow Rate (L/min) 2 Oxygen Delivery Method Room Air Weight: 201 lb Body Mass Index (BMI) 39.2 Finger Stick Blood Glucose 127 Intake and Output for Last 24 Hours 11/16/18 11/17/18 11/18/18 23:59 23:59 23:59 Intake Total 240 / 640 780 / 780 Balance 240 / 640 780 / 780 Laboratory Tests Past 24 Hrs 11/17/18 11/17/18 11/18/18 17:50 20:50 05:02 WBC 6.9 RBC 4.48 Hgb 12.6 Hct 38.4 MCV 85.7 MCH 28.1 MCHC 32.8 RDW 16.6 H RDW Differential 51.7 H Plt Count 217 MPV 11.1 Immature Gran % (Auto) 0.100 Neut % (Auto) 47.8 Lymph % (Auto) 40.3 [place] % (Auto) 10.2 H Eos % (Auto) 1.3 Baso % (Auto) 0.3 Absolute Neuts (auto) 3.3 Absolute Lymphs (auto) 2.77 Total Counted Not Reportable PT INR APTT D-Dimer Quant (PE/DVT) Sodium Potassium Chloride Carbon Dioxide Anion Gap BUN Creatinine Estim Creat Clear Calc Est GFR (MDRD) Af Amer Est GFR (MDRD) Non-Af BUN/Creatinine Ratio Glucose Calcium Troponin I < 0.015 < 0.015 B-Natriuretic Peptide Triglycerides Cholesterol LDL Cholesterol VLDL Cholesterol HDL Cholesterol TSH 11/18/18 11/18/18 11/18/18 05:02 05:02 05:02 WBC RBC Hgb Hct MCV MCH MCHC RDW RDW Differential Plt Count MPV Immature Gran % (Auto) Neut % (Auto) Lymph % (Auto) [place] % (Auto) Eos % (Auto) Baso % (Auto) Absolute Neuts (auto) Absolute Lymphs (auto) Total Counted PT 13.6 INR 1.1 APTT 29.9 D-Dimer Quant (PE/DVT) 1.02 H* Sodium 144 Potassium 3.8 Chloride 109 H Carbon Dioxide 26.0 Anion Gap 9 BUN 17 Creatinine 0.80 Estim Creat Clear Calc 42.30 Est GFR (MDRD) Af Amer 90 Est GFR (MDRD) Non-Af 74 BUN/Creatinine Ratio 21.3 H Glucose 116 H Calcium 8.5 Troponin I B-Natriuretic Peptide Triglycerides 89 Cholesterol 113 LDL Cholesterol 44 VLDL Cholesterol 18 HDL Cholesterol 51 TSH 1.94 11/18/18 05:02 WBC RBC Hgb Hct MCV MCH MCHC RDW RDW Differential Plt Count MPV Immature Gran % (Auto) Neut % (Auto) Lymph % (Auto) [place] % (Auto) Eos % (Auto) Baso % (Auto) Absolute Neuts (auto) Absolute Lymphs (auto) Total Counted PT INR APTT D-Dimer Quant (PE/DVT) Sodium Potassium Chloride Carbon Dioxide Anion Gap BUN Creatinine Estim Creat Clear Calc Est GFR (MDRD) Af Amer Est GFR (MDRD) Non-Af BUN/Creatinine Ratio Glucose Calcium Troponin I B-Natriuretic Peptide 94.9 Triglycerides Cholesterol LDL Cholesterol VLDL Cholesterol HDL Cholesterol TSH Discharge Diet: Low fat/ Low Cholesterol Discharge Activity: Return to Normal Activity Call your doctor if you observe: Shortness of breath, Dizziness, Fainting spells, Chest pain Home Medications: Medications to take at Discharge Fluticasone 0.05% [Flonase Nasal [place]] 2 spray NASAL DAILY 08/07/13 Folic Acid 2.4 mg PO DAILY 08/07/13 Montelukast [Singulair] 10 mg PO QHS 08/07/13 Budesonide/Formoterol 160/4.5 [Symbicort 160/4.5 Mcg Inhaler (SP)] 2 puff INHALATION DAILY 04/25/15 Albuterol Sulfate [Proair Respiclick] 2 puff PO Q6H PRN PRN 04/07/18 Cholecalciferol (VIT D3) [Vitamin D3] 1,000 unit PO DAILY 04/07/18 Lactobacillus Acidophilus [Probiotic Acidophilus] 1 ea PO DAILY #0 04/11/18 Acetaminophen [Tylenol] 1,000 mg PO Q6H PRN tab 04/24/18 Atorvastatin Calcium [Lipitor] 80 mg PO QHS #30 tab 04/24/18 aspirin 81 mg tablet,delayed release 81 mg PO DAILY 06/20/18 Calcium Carb/Vitamin D3/Vit K1 [Viactiv 650 mg-12.5 Mcg Chew] 1 ea PO DAILY 11/17/18 Fish Oil/Dha/Epa [Fish Oil 1,200 mg Fish Oil] 1 cap PO DAILY 11/17/18 Folic Acid/Multivit-Min/Lutein [Centrum Silver Chewable Tablet] 1 tab PO DAILY 11/17/18 Garlic 500 mg PO DAILY 11/17/18 Gluc Li/Chondro Li A/Vit C/Mn [Glucosamine Chondroitin Tab] 1 tab PO DAILY 11/17/18 Hydrochlorothiazide [Hctz] 25 mg PO DAILY 11/17/18 Losartan Potassium 25 mg PO DAILY 11/17/18 Menthol/Lanolin/Calamine/Znox [Calmoseptine Ointment] 1 applic TOPICAL TID PRN PRN 11/17/18 Tolterodine Tartrate [Tolterodine Tartrate ER] 4 mg PO DAILY 11/17/18 Vitamin E 800 units PO DAILY 11/17/18 Primary Care Physician: Christo Bland MD [Primary Care Provider] - Please follow up with your Primary Care Physician in: 1 Week Please Follow Up With: Butch Bose MD When: As scheduled, 12/18/18 Disposition: Home Minutes spent on discharge:: 35 Patient Condition:: Stable Medical Necessity - Tobacco Use Smoking Status: Never smoker Tobacco Use: Non-smoker Meaningful Use Info Meaningful Use Diagnoses (Choose all that apply): None applicable
--- NOTE | 2018-11-18 17:05 | CHAPLAIN ---
Type of Pastoral Visit _x__ Initial Visit ___ Follow-up Visit ___ On-call Visit ___ General Patient Visit ___ Spiritual Assessment ___ Family Conference ___ Bereavement ___ Rapid Response ___ Code Blue ___ Other (describe below) Pastoral Care Referral From _x__ Patient ___ Family ___ Nurse ___ Physician ___ Bag Bundler ___ Animal Rehabilitator ___ Other (describe below) Sacrament/Intervention _x__ Active listening ___ Anointing ___ Zoroastrian ___ Bereavement ___ Communion _x__ Molly exploration ___ _x__ Life review _x__ Prayer ___ Reconciliation ___ Sacrament of Sick _x__ Supportive presence ___ Wedding ___ Other (describe below) Pastoral Comments
--- NOTE | 2018-11-18 18:42 | NURSING ---
notified by ip attorney that pt experienced extravasation during injection for ct. they removed iv and placed new. pt to floor. swollen area noted above right chest. orders received for warm compress and to monitor for 1 hour. updated vianca massey, on area and she stated okay to send patient home and for her to monitor. if she is itchy or has redness,okay for her to take a benadryl at home.
== END 2018-11-18 16:28 | disposition home or self-care (01) ==
LOC: ED 13:46 → PCU 15:59
PROVIDERS: Nurse Practitioner Family; Emergency Provider Emergency Medicine; Family Provider Family Medicine; PCP Family Medicine; Visit Provider Internal Medicine
DX: R07.89 Other chest pain (principal); R06.09 Other forms of dyspnea; I25.2 Old myocardial infarction; I25.10 Atherosclerotic heart disease of native coronary artery without angina pectoris; J45.909 Unspecified asthma, uncomplicated; E66.01 Morbid (severe) obesity due to excess calories; E78.5 Hyperlipidemia, unspecified; Z79.899 Other long term (current) drug therapy; Z79.84 Long term (current) use of oral hypoglycemic drugs; Z86.73 Personal history of transient ischemic attack (TIA), and cerebral infarction without residual deficits; Z68.39 Body mass index [BMI] 39.0-39.9, adult; Z71.3 Dietary counseling and surveillance; K21.9 Gastro-esophageal reflux disease without esophagitis; G25.0 Essential tremor; N32.81 Overactive bladder; E04.2 Nontoxic multinodular goiter; I10 Essential (primary) hypertension
CPT/HCPCS: 36415; 71045; 71275; 78452; 80048; 80061; 83880; 84443; 84484; 85025; 85379; 85610; 85730; 93005; 93017; 94640; 96374; 99218; 99285; A9500; J7030; Q9967; A4216; G0378; J2785

== ENCOUNTER → 2018-12-11 09:11 | Outpatient (CLI) | payer MEDICARE, SELFPAY ==
[2018-11-17 16:16] VITALS: BMI 39.2
--- NOTE | 2018-12-11 09:13 | RAD_ITS ---
STUDY: AIR CONTRAST UPPER G I SERIES. REASON FOR EXAM: Female, 78 years old. Esophageal dysphasia. Shortness of breath. FLUOROSCOPY TIME (if supplied): (0:51) minutes/seconds TECHNIQUE: The patient ingested barium. Multiple images of the esophagus, stomach and duodenum were obtained. COMPARISON: None. FINDINGS: There is evidence of a tertiary contractions of the mid and distal esophagus. No evidence of ulceration or reflux. The stomach and duodenum are unremarkable. No mass lesion is seen. No evidence of ulcer ration. RAD/Upper GI Series Only IMPRESSION: Tertiary contractions of the mid and distal esophagus. Electronically Signed: Byron Beebe, at 15:17 EDT , Service support ,
== END ==
PROVIDERS: Family Provider Family Medicine; PCP Family Medicine; Referring Provider Family Medicine; Visit Provider Family Medicine
DX: R13.10 Dysphagia, unspecified (principal)
CPT/HCPCS: 74246

== ENCOUNTER → 2019-12-24 14:45 | Outpatient (CLI) | payer MEDICARE, SELFPAY ==
[2019-12-24 13:12] VITALS: BMI 42.0
== END ==
PROVIDERS: PCP Family Medicine; Referring Provider Internal Medicine Cardiovascular Disease; Visit Provider Internal Medicine Cardiovascular Disease
DX: I47.1 Supraventricular tachycardia (principal)
CPT/HCPCS: 36415; 84443

== ENCOUNTER → 2019-12-30 12:22 | Outpatient (CLI) | payer MEDICARE, SELFPAY ==
[2019-12-24 13:12] VITALS: BMI 42.0
--- NOTE | 2019-12-30 12:23 | US_ITS ---
STUDY: THYROID ULTRASOUND REASON FOR EXAM: Female, 79 years old. GOITER -- PREVIOUS SCANS DONE AT [facility] TECHNIQUE: Ultrasound evaluation of the thyroid was performed with real-time and static horn-scale imaging. COMPARISON: None. FINDINGS: RIGHT LOBE: The right lobe of the thyroid gland measures 5 cm x 1.9 cm x 1.5 cm. There is a heterogeneous echotexture. There are 6 subcentimeter hypoechoic solid nodules seen in the right lobe of the thyroid. These may represent goitrous changes. LEFT LOBE: The left lobe of the thyroid gland measures 4.5 cm x 1.9 cm x 2.0 cm. There is a heterogeneous echotexture. Dominant 1.4 cm x 1.5 cm x 0.9 cm hypoechoic solid nodule in the mid and lower pole of the left lobe. A biopsy recommended. There are 3 subcentimeter hypoechoic solid nodules within the left lobe. ISTHMUS: The isthmus measures 4.0 mm. The regional lymph nodes are normal. US/Thyroid IMPRESSION: Dominant nodule in the lower pole of the left lobe of the thyroid. Biopsy is recommended. Electronically Signed: Byron Beebe, at 15:58 EDT , Service support ,
== END ==
PROVIDERS: PCP Family Medicine; Referring Provider Surgery; Visit Provider Surgery
DX: E04.9 Nontoxic goiter, unspecified (principal)
CPT/HCPCS: 76536

== ENCOUNTER → 2020-01-14 15:38 | Outpatient (CLI) | payer MEDICARE, SELFPAY ==
--- NOTE | 2020-01-14 13:00 | ASPS_PTH ---
PATIENT: ANGEL COLON LOC: [facility] U#:[id number] AGE/SX: 85/F ROOM: RE01/14/[address]: Dr. George Liu MD : 1940 BED: DIS: SPEC #: [id number] RECD: 01/14/20 15:04 STATUS: [facility] #: [id number] NEY: 01/14/20 13:[address]: George Liu DEPT: CYTOLOGY RECD BY: Luis Ogden ENTERED: 01/15/20 08:15 SP TYPE: ASPIRATION OTHR DR: Dr. Christo Bland MD Tissues: Thyroid gland, NOS Procedures: Special Stain Group II Cytology Other HEADER OPERATION: Ultrasound-guided fine needle aspiration left thyroid PRE-OP DIAGNOSIS: Multinodular goiter E04.2 TISSUE SUBMITTED: Fine needle aspiration left thyroid slides x12 DIAGNOSIS CYTOLOGY Left thyroid nodule, ultrasound-guided FNA (smears): A few benign follicular cells noted. See comment. SJ:delonte 01/18/20 SJ:delonte 01/20/20 COMMENT The specimen is limited in evaluation due to lack of adequate number of follicular cells. Correlation with clinical, radiologic findings and appropriate follow up are necessary. Please make reference to previous specimen ([id number]) left thyroid nodule, ultrasound-guided FNA with diagnosis of consistent with benign follicular nodule and right thyroid nodule, ultrasound-guided FNA with diagnosis of nondiagnostic specimen. Case has been reviewed in consultation with Dr. Jones who concurs with the above diagnosis. IDC:AM CYTOLOGY STUDY Slides are reviewed. CYTOLOGY GROSS Received are 12 smears labeled with the patient's name and designated per the requisition as left thyroid. Submitted for staining. / delonte 01/15/20 TC: Cannot code CPT: 20255
--- NOTE | 2020-01-14 13:00 | ASPS_PTH ---
PATIENT: ANGEL COLON LOC: [facility] U#:[id number] AGE/SX: 85/F ROOM: RE01/14/[address]: Dr. George Liu MD : 1940 BED: DIS: SPEC #: [id number] RECD: 01/14/20 15:04 STATUS: [facility] #: [id number] NEY: 01/14/20 13:[address]: George Liu DEPT: CYTOLOGY RECD BY: Luis Ogden ENTERED: 01/15/20 08:15 SP TYPE: ASPIRATION OTHR DR: Dr. Christo Bland MD Tissues: Thyroid gland, NOS Procedures: Special Stain Group II Cytology Other HEADER OPERATION: Ultrasound-guided fine needle aspiration left thyroid PRE-OP DIAGNOSIS: Multinodular goiter E04.2 TISSUE SUBMITTED: Fine needle aspiration left thyroid slides x12 DIAGNOSIS CYTOLOGY Left thyroid nodule, ultrasound-guided FNA (smears): Nondiagnostic specimen. See comment. SJ:delonte 01/18/20 COMMENT The specimen is nondiagnostic due to lack of follicular cells. Correlation with clinical, radiologic findings and appropriate follow up are necessary. Please make reference to previous specimen ([id number]) left thyroid nodule, ultrasound-guided FNA with diagnosis of consistent with benign follicular nodule and right thyroid nodule, ultrasound-guided FNA with diagnosis of nondiagnostic specimen. CYTOLOGY STUDY Slides are reviewed. CYTOLOGY GROSS Received are 12 smears labeled with the patient's name and designated per the requisition as left thyroid. Submitted for staining. / delonte 01/15/20 TC: Cannot code CPT: 91369
[2020-01-14 13:02] VITALS: BMI 42.0
== END ==
PROVIDERS: PCP Family Medicine; Referring Provider Surgery; Visit Provider Surgery
DX: E04.2 Nontoxic multinodular goiter (principal)
CPT/HCPCS: 88161; 88313

== ENCOUNTER → 2020-02-02 11:28 | Outpatient (CLI) | payer MEDICARE, SELFPAY ==
[2020-01-14 13:02] VITALS: BMI 42.0
--- NOTE | 2020-02-02 11:31 | US_ITS ---
STUDY: THYROID ULTRASOUND REASON FOR EXAM: Female, 79 years old. MULTINODULAR GOITER TECHNIQUE: Ultrasound evaluation of the thyroid was performed with real-time and static horn-scale imaging. COMPARISON: Comparison is made with prior ultrasound dated 12/30/2019. FINDINGS: RIGHT LOBE: The right lobe of the thyroid gland measures 4.8 cm x 1.5 cm x 1.5 cm. There is a heterogeneous echotexture. Once again, multiple nodules are seen in the right lobe. The largest measures 1.1 cm x 0.6 cm x 0.6 cm. LEFT LOBE: The left lobe of the thyroid gland measures 4.2 cm x 1.5 cm x 1.6 cm. There is a heterogeneous echotexture. Multiple nodules are seen. The dominant hypoechoic nodule is seen in the inferior lateral portion of the left lobe measuring 1.3 cm x 0.4 cm x 0.8 cm. The patient was scheduled for biopsy of this nodule and the biopsy was canceled. ISTHMUS: The isthmus measures 2.0 mm. The regional lymph nodes are normal. US/Thyroid IMPRESSION: Stable examination. There is been no change since prior study. Electronically Signed: Byron Beebe, at 14:04 EDT , Service support ,
== END ==
PROVIDERS: PCP Family Medicine; Referring Provider Surgery; Visit Provider Surgery
DX: E04.2 Nontoxic multinodular goiter (principal)
CPT/HCPCS: 76536

== ENCOUNTER → 2020-07-25 09:59 | Outpatient (CLI) | payer MEDICARE, SELFPAY ==
[2020-01-20 13:43] VITALS: BMI 42.0
--- NOTE | 2020-07-25 10:04 | US_ITS ---
STUDY: THYROID ULTRASOUND REASON FOR EXAM: Female, 80 years old. Multinodular goiter -- Dr. Liu would like the new ultrasound machine TECHNIQUE: Ultrasound evaluation of the thyroid was performed with real-time and static horn-scale imaging. COMPARISON: Comparison is made with prior examination dated 02/02/2020. FINDINGS: RIGHT LOBE: The right lobe of the thyroid gland measures 4.9 cm x 1.5 cm x 2.1 cm. There is a homogeneous echotexture. Once again, 3 nodules are seen in the right lobe. The largest measures 1.3 cm x 0.6 cm x 0.6 cm. This is in the lower pole of the right lobe of the thyroid. Is also evidence of a 1.1 cm x 0.6 cm x 2.5 cm hypoechoic solid nodule in the mid pole as well as a 6 mm x 5 mm x 4 mm cyst in the lower pole. LEFT LOBE: The left lobe of the thyroid gland measures 4.4 cm x 1.6 cm x 2.1 cm. There is a homogeneous echotexture. Once again, multiple nodules are seen. There is a complex cystic nodule measuring 1.3 cm x 0.5 cm x 0.8 cm in the inferior lateral portion of the left lobe. This is also evidence of a 9 mm x 6 mm x 7 mm cyst in the midpole. ISTHMUS: The isthmus measures 4 mm. The regional lymph nodes are normal. US/Thyroid IMPRESSION: Stable examination with the nodules in both thyroids. Biopsy of the dominant solid nodule in the right lobe of the thyroid is recommended. Electronically Signed: Byron Beebe MD at 16:33 EST , Service support ,
== END ==
PROVIDERS: PCP Family Medicine; Referring Provider Surgery; Visit Provider Surgery
DX: E04.2 Nontoxic multinodular goiter (principal)
CPT/HCPCS: 76536

== ENCOUNTER 2020-12-10 08:33 | Emergency (ER) | payer MEDICARE, SELFPAY ==
[2020-01-20 13:43] VITALS: BMI 42.0
[2020-12-10 08:35] VITALS: BP 185/68; PULSE 84; RESP 15; TEMP 36.4; O2SAT 98; BMI 42.3
--- NOTE | 2020-12-10 08:59 | RAD_ITS ---
HISTORY: chf. TECHNIQUE: XR Chest 2 Views. # of images incl. paperwork: 3. COMPARISON: 11/17/2018. FINDINGS: CARDIOMEDIASTINAL STRUCTURES: Cardiac silhouette not enlarged. Mediastinal contour unremarkable. LUNGS: Radiographically clear. PLEURA: No pleural effusion or pneumothorax. OSSEOUS STRUCTURES: Degenerative change. RAD/Chest PA and Lateral IMPRESSION: No radiographic evidence of acute cardiopulmonary disease. at 1008 Reported and signed by: Odilia Barahona MD Electronically Signed: Odilia Barahona MD at 10:07 EDT Tel , Service support ,
--- NOTE | 2020-12-10 08:59 | EKG12_ITS ---
Test Reason : L EXTREM PAIN Blood Pressure : / mmHG Vent. Rate : 081 BPM Atrial Rate : 081 BPM P-R Int : 316 ms QRS Dur : 076 ms QT Int : 402 ms P-R-T Axes : 045 -11 018 degrees QTc Int : 466 ms Sinus rhythm with 1st degree A-V block Low voltage QRS Borderline ECG Confirmed by SINGH OJSEPH, JADE ([id number]), publishing editor KAILA MORGAN ([id number]) on 12/12/2020 2:20:30 PM Referred By: SOHAM Confirmed By:JADE WINTERS MD
[2020-12-10 09:39] LABS: Absolute Lymphocyte Count 2.53 X10^3/uL (0.83-4.51); Absolute Neutrophil Count 4.4 X10^3/uL (2.0-7.7); Basophil# 0.04 X10^3/uL; Basophil% 0.5 % (0-1); Eosinophil# 0.13 X10^3/uL; Eosinophils% 1.6 % (0-5); Hematocrit 41.6 % (37-47); Hemoglobin 13.7 g/dL (12.0-15.0); Lymphocyte # 2.53 X10^3/ul (0.83-4.51); Lymphocyte % 31.9 % (19-41); Mean Corp Hgb Conc 32.9 g/dL (32-36); Mean Corpuscular Hgb 29.6 pg (27.0-32.0); Mean Corpuscular Volume 89.8 fL (81-99); Mean Platelet Vol. 11.2 fl (6.2-12.0); Monocyte# 0.77 X10^3/uL; Monocyte% 9.7 % (0-10); NRBC Flagged by Analyzer 0 % (0-5); Neutrophil # 4.42 X10^3/uL (2.7-7.7); Neutrophil % 55.9 % (47-70); Platelet Count 234 K/mm3 (150-450); RBC Distribution Width CV 14.2 % (11.6-14.6); RBC Distribution Width SD 46.9 fl (35.1-43.9); Red Blood Count 4.63 M/mm3 (4.2-5.4); White Blood Count 7.9 K/mm3 (4.4-11.0)
[2020-12-10 09:54] LABS: Anion Gap 7 (5-15); BUN 20 mg/dL (7-18); BUN/Creat Ratio 26.2 RATIO (10-20); Chloride 105 mmol/L (98-107); Creatinine, Serum 0.76 mg/dL (0.55-1.02); EST Glomerular Filtration Rate 78 mL/min (>60); Est Glom Filt Rate - Afr Amer 94 mL/min (>60); Estimated Creatinine Clearance 32.77 ml/min; Glucose 148 mg/dL (74-106); Potassium 3.9 mmol/L (3.5-5.1); Sodium Level 141 mmol/L (136-145); Troponin-I HS 11.6 pg/mL (3.0-53.7)
[2020-12-10 10:07] LABS: BNP,B-Type NATRIURETIC PEPTIDE 64.7 pg/mL (0-100)
[2020-12-10 10:37] VITALS: BP 171/82; PULSE 77; RESP 17; O2SAT 97
--- NOTE | 2020-12-10 10:38 | ED.VIS.LOWEX ---
HPI History of Present Illness Chief Complaint: Lower Extremity Injury Narrative Narrative: Patient presenting for evaluation secondary to pain and itching of her lower extremities. Patient reports that this been going on for at least a month, if not longer. Associated with generalized pain of her lower extremities and a significant itching sensation and some redness of the skin. She does report that she has some swelling of her legs. She also endorses that she has some shortness of breath. She denies any chest pain. Patient denies any fevers associated with this. She denies any underlying history of heart failure, but does have a underlying history of atherosclerotic heart disease. Patient has not yet seen her primary care for this. Patient is on hydrochlorothiazide as a diuretic. Patient called the rescue squad today because she stated that she was tired of dealing with this. Review of systems otherwise negative. [facility] Medical History Age related osteoporosis Asthma Atherosclerosis of coronary artery of [place] without angina pectoris Diverticulosis Elevated fasting blood sugar Essential (primary) hypertension Essential tremor GERD (gastroesophageal reflux disease) History of CVA (cerebrovascular accident) (03/2018) Hyperlipidemia Lower GI bleed (2014) Morbid obesity Morbid obesity Non-rheumatic tricuspid valve insufficiency NSTEMI (non-ST elevated myocardial infarction) (04/08/18) Paroxysmal supraventricular tachycardia Stenosis of left subclavian artery Stenosis of right carotid artery Stress and adjustment reaction Syncope Thyroid nodule Home Medications fluticasone propionate 2 spray NASAL DAILY 08/07/13 [History Last Taken 11/16/18] folic acid 2.4 mg PO DAILY 08/07/13 [History Last Taken 11/17/18] montelukast 10 mg PO QHS 08/07/13 [History Last Taken 11/16/18] budesonide-formoterol 2 puff INHALATION DAILY 04/25/15 [History Last Taken 11/17/18] albuterol sulfate 2 puff PO Q6H PRN PRN 04/07/18 [History Last Taken Unknown] cholecalciferol (vitamin D3) 1,000 unit PO DAILY 04/07/18 [History Last Taken 11/17/18] Lactobacillus acidophilus 1 ea PO DAILY #0 04/11/18 [Rx Last Taken 11/17/18] acetaminophen 1,000 mg PO Q6H PRN tab 04/24/18 [Rx Last Taken 11/14/18] aspirin 81 mg tablet,delayed release 81 mg PO DAILY 06/20/18 [History Last Taken 11/17/18] garlic 500 mg PO DAILY 11/17/18 [History Last Taken 11/17/18] yosjvjzmorj-afrmengic-mjb C-Mn 1 tab PO DAILY 11/17/18 [History Last Taken 11/17/18] hydrochlorothiazide 25 mg PO DAILY 11/17/18 [History Last Taken 11/17/18] losartan 25 mg PO DAILY 11/17/18 [History Last Taken 11/17/18] menthol-zinc oxide 1 applic TOPICAL TID PRN PRN 11/17/18 [History Last Taken Unknown] ie-pfq-jtrfb acid-lutein 1 tab PO DAILY 11/17/18 [History Last Taken 11/16/18] tolterodine 4 mg PO DAILY 11/17/18 [History Last Taken 11/17/18] vitamin E (dl, acetate) 800 units PO DAILY 11/17/18 [History Last Taken 11/16/18] calcium carb 300 mg-D3 800 unit-mag ox 25 mg-endoscopy technican 0.5 mg-soren-Zn tablet 1 tab PO DAILY 12/24/19 [History Last Taken Unknown] rosuvastatin 40 mg tablet 40 mg PO DAILY tab 12/24/19 [History Last Taken Unknown] estradiol 0.5 g VAGINAL 2XW PRN g 01/06/20 [History Last Taken Unknown] Allergy/AdvReac Type Severity Reaction Status Date / Time primidone Allergy Itching Verified 12/10/20 08:41 albuterol sulfate AdvReac Unknown Verified 12/10/20 08:41 [From Ventolin HFA] amoxicillin [Amoxicillin] AdvReac Nausea Verified 12/10/20 08:41 amoxicillin trihydrate AdvReac Abd Verified 12/10/20 08:41 [From Augmentin] cramps/diarrhea aspartame AdvReac Dizziness Verified 12/10/20 08:41 caffeine AdvReac Dizziness Verified 12/10/20 08:41 cephalexin monohydrate AdvReac Unknown Verified 12/10/20 08:41 [From Keflex] chocolate flavor AdvReac Other Verified 12/10/20 08:41 erythromycin base AdvReac Diarrhea Verified 12/10/20 08:41 [Erythromycin Base] hyoscyamine [Hyoscyamine] AdvReac Rash Verified 12/10/20 08:41 hyoscyamine sulfate AdvReac Rash Verified 12/10/20 08:41 [From Levbid] levofloxacin AdvReac Itching Verified 12/10/20 08:41 lisinopril AdvReac Unknown Verified 12/10/20 08:41 metronidazole [From Flagyl] AdvReac Rash Verified 12/10/20 08:41 Metronidazole HCl AdvReac Rash Verified 12/10/20 08:41 [From Flagyl] morphine AdvReac abdominal Verified 12/10/20 08:41 pain naproxen AdvReac Nausea/Vom/ Verified 12/10/20 08:41 Diarrhea NSAIDS (Non-Steroidal AdvReac Abd Verified 12/10/20 08:41 Anti-Inflamma cramps/diarrhea phenazopyridine HCl AdvReac Itching Verified 12/10/20 08:41 [From Pyridium] potassium clavulanate AdvReac Abd Verified 12/10/20 08:41 [From Augmentin] cramps/diarrhea sulfamethoxazole AdvReac Unknown Verified 12/10/20 08:41 [From Septra] trimethoprim [From Septra] AdvReac Unknown Verified 12/10/20 08:41 IV DYE Allergy Rash Uncoded 12/10/20 08:41 URISED AdvReac Other Uncoded 12/10/20 08:41 Family History Mother Cancer Father Diabetes Surgical History History of History of colectomy History of hemicolectomy History of laparoscopic cholecystectomy History of left heart catheterization (06/30/18) History of repair of hiatal hernia Status post placement of implantable loop recorder Social History Smoking Status: Never smoker alcohol intake: never substance use type: does not use ROS ROS ED Constitutional Constitutional ED: Denies chills or fever(s) ENT ENT ED: Denies sore throat Cardiovascular Cardiovascular: Denies chest pain Respiratory/Chest Respiratory/Chest: Reports dyspnea Gastrointestinal Gastrointestinal: Denies abdominal pain, constipation, diarrhea or nausea Genitourinary Genitourinary ED: Denies dysuria, hematuria or urinary frequency Musculoskeletal Musculoskeletal: Denies myalgias Integumentary Reports rash Neurologic Neurologic: Denies paresthesias or weakness Psychiatric Psychiatric: Denies depression Endocrine Endocrinology: Denies polyuria Hematologic/Lymphatic Hematologic/Lymphatic: Denies easy bleeding or easy bruising Allergic/Immunologic Allergic/Immunologic ED: Denies urticaria EXAM Physical Exam Const Vital Signs: 12/10/20 08:35 Temperature 97.5 F L Temperature Source Oral Pulse Rate 84 Respiratory Rate 15 Blood Pressure 185/68 H Blood Pressure Mean 107 Pulse Ox 98 Oxygen Delivery Method Room Air Positive well nourished and well developed General Appearance ED: well developed and NAD HEENT normocephalic and atraumatic Eyes EOMs intact bilaterally General Eye ED: Negative for pale conjunctiva or scleral icterus Neck no lymphadenopathy and supple Resp normal respiratory effort and clear to auscultation bilaterally Cardio regular rate, regular rhythm, no murmurs and peripheral pulses 2+ throughout GI non-tender, non-distended and no masses Palpation: soft; Negative for guarding, rigid or rebound tenderness present Back/Spine no CVA tenderness Extremity full ROM Extremity Narrative: Patient has +1 lower extremity edema that is pitting bilaterally. There are some chronic venous stasis changes of the pretibial regions, no evidence of cellulitis. No lymphangitic streaking. No subcutaneous emphysema. No evidence of skin ulcers. Normal distal pulses and sensation. General Extremety ED: Yes edema General Extremity: edema Neuro moves all extremities and no sensory deficits noted Sensorium / Orientation: alert, oriented to person, oriented to place and oriented to time Motor Exam: strength 5/5 throughout Psych mental status grossly normal Skin Rashes: no rashes MDM MDM MDM Narrative Medical decision making narrative: Patient presented with skin changes the legs. Physical exam shows what appears to be some edema and chronic venous stasis. Patient was concerned about cardiac etiology, her chest x-ray does not show any signs of congestive heart failure her lab work does not show any evidence of leukocytosis or anemia normal renal function normal troponin and normal BNP. Patient's changes likely are secondary to an element of edema she is already on hydrochlorothiazide believe that compression stockings would benefit the patient. Patient was discharged with instructions on that, she will follow-up with primary care. Lab Data Labs: Laboratory Results - last 24 hr 12/10/20 12/10/20 12/10/20 09:20 09:20 09:20 WBC 7.9 RBC 4.63 Hgb 13.7 Hct 41.6 MCV 89.8 MCH 29.6 MCHC 32.9 RDW Std Deviation 46.9 H RDW Coeff of Alanna 14.2 Plt Count 234 MPV 11.2 Immature Gran % (Auto) 0.400 Neut % (Auto) 55.9 Lymph % (Auto) 31.9 Roosevelt % (Auto) 9.7 Eos % (Auto) 1.6 Baso % (Auto) 0.5 Absolute Neuts (auto) 4.4 Absolute Lymphs (auto) 2.53 Nucleated RBC % 0 Sodium 141 Potassium 3.9 Chloride 105 Carbon Dioxide 29.0 Anion Gap 7 BUN 20 H Creatinine 0.76 Estim Creat Clear Calc 32.77 Est GFR (MDRD) Af Amer 94 Est GFR (MDRD) Non-Af 78 BUN/Creatinine Ratio 26.2 H Glucose 148 H Calcium 9.0 Troponin I High Sens 11.6 B-Natriuretic Peptide 64.7 Radiography Diagnostic Testing: Radiology Impression Chest X-Ray 12/10/20 08:59 IMPRESSION: No radiographic evidence of acute cardiopulmonary disease. at 1008 Reported and signed by: Odilia Barahona MD Electronically Signed: Odilia Barahona MD at 10:07 EDT Tel , Service support , Radiograph by my personal review shows no signs of congestive heart failure EKG Initial EKG: Attestation: I personally reviewed and interpreted this EKG as follows: (First-degree AV block with a normal sinus rhythm no evidence of acute ischemic or arrhythmic changes. No evidence of pathologic ST elevation or depression or T wave inversion.) Discharge Plan Triage Chief Complaint: Lower Extremity Injury ED Provider: Javed Garcia Dx/Rx/DC Orders Clinical Impression: Bilateral edema of lower extremity, Chronic venous stasis dermatitis Instructions: ED Peripheral Edema, Bilateral Prescriptions: No Action rosuvastatin 40 mg tablet 40 mg PO DAILY RF: 0 Caltrate + D3 Plus Minerals 300 mg-800 unit -25 mg-0.5 mg tablet 1 tab PO DAILY RF: 0 estradiol 0.01 % (0.1 mg/gram) cream 0.5 g VAGINAL 2XW PRNRF: 0 montelukast 10 MG tablet 10 mg PO QHS RF: 0 fluticasone propionate 1 SPRAY spray,suspension 2 spray NASAL DAILY RF: 0 folic acid 0.8 MG tablet 2.4 mg PO DAILY RF: 0 budesonide-formoterol 1 INHALER inhaler 2 puff inhalation DAILY RF: 0 cholecalciferol (vitamin D3) 1,000 UNIT tablet 1,000 unit PO DAILY RF: 0 albuterol sulfate 90 MCG aerosol powdr breath activated 2 puff PO Q6H PRN PRN (Reason: Sob &/Or Wheezing) RF: 0 Lactobacillus acidophilus 1 EACH tablet 1 ea PO DAILY Qty: 0 RF: 0 acetaminophen 500 MG tablet 1,000 mg PO Q6H PRN (Reason: Mild Pain (-08/03)) RF: 0 losartan 50 MG tablet 25 mg PO DAILY RF: 0 tolterodine 4 MG capsule,extended release 24hr 4 mg PO DAILY RF: 0 garlic 500 MG capsule 500 mg PO DAILY RF: 0 hydrochlorothiazide 25 MG tablet 25 mg PO DAILY RF: 0 xayyhogidde-rohbosfpa-esj C-Mn 1 EACH tablet 1 tab PO DAILY RF: 0 vitamin E (dl, acetate) 400 UNITS capsule 800 units PO DAILY RF: 0 wh-awt-nrfhm acid-lutein 1 EACH tablet,chewable 1 tab PO DAILY RF: 0 menthol-zinc oxide 1 APPLIC ointment 1 applic topical TID PRN PRN (Reason: skin) RF: 0 aspirin [Adult Low Dose Aspirin] 81 mg tablet,delayed release (DR/EC) 81 mg PO DAILY RF: 0 Other Ambulatory Orders: [facility] Location: None Selected Ordered By: Dr. Javed Garcia Primary Care Provider: Christo Bland Referrals: Christo Bland MD [Primary Care Provider] - 1-2 Weeks Disposition Disposition: Home, Self Care
== END 2020-12-10 11:23 | disposition home or self-care (01) ==
PROVIDERS: Emergency Provider Emergency Medicine; PCP Family Medicine
DX: R60.0 Localized edema (principal); I87.2 Venous insufficiency (chronic) (peripheral); I25.10 Atherosclerotic heart disease of native coronary artery without angina pectoris; I25.2 Old myocardial infarction; E78.5 Hyperlipidemia, unspecified; J45.909 Unspecified asthma, uncomplicated; I11.0 Hypertensive heart disease with heart failure; I50.9 Heart failure, unspecified; Z86.73 Personal history of transient ischemic attack (TIA), and cerebral infarction without residual deficits; Z79.899 Other long term (current) drug therapy; Z79.82 Long term (current) use of aspirin
CPT/HCPCS: 71046; 80048; 83880; 84484; 85025; 93005; 99285; A4216

== ENCOUNTER → 2021-02-07 12:51 | Outpatient (CLI) | payer MEDICARE, SELFPAY ==
[2020-12-21 09:00] VITALS: BMI 41.8
--- NOTE | 2021-02-07 12:54 | CDU_ITS ---
Reason For Study: STENOSIS Rt. Velocities/BP Lt. Velocities/BP Prox CCA 107/12 cm/sec. Prox CCA 111/23 cm/sec. Mid CCA 109/16 cm/sec. Mid CCA 85/21 cm/sec. Dist CCA 81/12 cm/sec. Dist CCA 80/10 cm/sec. Prox ICA 193/40 cm/sec. Prox ICA 110/22 cm/sec. Mid ICA 152/28 cm/sec. Mid ICA 102/20 cm/sec. Dist ICA 76/16 cm/sec. Dist ICA 77/15 cm/sec. Rt. ICA/CCA = 1.8. Lt. ICA/CCA = 1.3. Prox ECA 131/0 cm/sec. Prox ECA 129/13 cm/sec. Rt. Vert. 114/18 cm/sec. Lt. Vert. RETROGRADE FLOW cm/sec. Right Extracranial There is heterogeneous, irregular atherosclerotic plaque noted in the right common carotid artery. There is heterogeneous, irregular atherosclerotic plaque noted in the right internal carotid artery. There is no significant atherosclerotic plaque noted in the right external carotid artery. Antegrade flow is noted in the right vertebral artery. Left Extracranial There is heterogeneous, smooth atherosclerotic plaque noted in the left common carotid artery. There is heterogeneous, irregular atherosclerotic plaque noted in the left internal carotid artery. There is homogeneous, smooth atherosclerotic plaque noted in the left external carotid artery. RETROGRADE FLOW is noted in the Lt Vert A. Procedure Carotid Duplex [id number]. The study was technically difficult. Exam performed in department. VL/Carotid Duplex Ultrasound Interpretation Summary Irregular calcific plaque with shadowing at the proximal right internal carotid artery with 50 to 69% stenosis. Less than 50% stenosis right external carotid artery More mild irregular calcific plaque in the proximal left internal carotid arter y with less than 50% stenosis. Less than 50% stenosis left external carotid artery Retrograde flow left vertebral arteries suspicious for proximal left subclavian artery stenosis Patent and antegrade right vertebral Findings are similar to the previous examination of April 08, 2018 Ordering Physician: Roberta Solares Referring Physician: CHARLEY GALLOWAY Performed By: Lakshmi Carlson RDCS, RVT
--- NOTE | 2021-02-07 12:54 | ECHOD_ITS ---
Reason For Study: Dyspnea/SOB Procedure This was a 2D Doppler, Color Flow transthoracic echocardiogram. The study was technically difficult. Contrast injection was performed. Exam performed in department. Left Ventricle Normal LV size. Moderate concentric left ventricular hypertrophy. Left ventricular systolic function is hyperdynamic. The estimated ejection fraction is 70 %. No regional wall motion abnormalities noted. Right Ventricle Normal RV size. Normal systolic function. Atria The left atrium is mildly enlarged. Normal right atrium. Mitral Valve There is mild mitral annular calcification. Tricuspid Valve Normal tricuspid valve. Mild to moderate (1-2+) tricuspid valve insufficiency. Pulmonary artery systolic pressure is 42 mmHg. Aortic Valve The aortic valve is not well visualized. Peak aortic valve gradient 20 mmHg. Mean aortic valve gradient 10 mmHg. Mild aortic stenosis. Pulmonic Valve The pulmonic valve is not well visualized. Pericardium/Pleural No pericardial effusion. Medication 22 gauge I.V. with prn adaptor inserted into right arm. Diluted definity 3ml given slow IV push to enhance endocardial definition. MMode/2D Measurements & Calculations LVIDd: 3.8 cm IVSd: 1.3 cm LVOT diam: 2.0 cm LVIDs: 2.3 cm LVPWd: 1.7 cm LVOT area: 3.2 cm2 FS: 38.5 % LAV(MOD-sp4): 71.9 ml LA A4 area: 24.1 cm2 RA A4 area: 18.5 cm2 Time Measurements MV dec time: 0.18 sec Doppler Measurements & Calculations MV E max andrea: 192.0 cm/sec Lat Peak E' Andrea: 10.3 cm/sec Med Peak E' Andrea: 9.4 cm/sec MV A max andrea: 39.7 cm/sec E/E' lat: 18.6 E/E' med: 20.5 MV E/A: 4.8 MV V2 max: 196.9 cm/sec MV P1/2t max andrea: 197.9 cm/sec Ao V2 max: 227.8 cm/sec MV max P.5 mmHg MV P1/2t: 62.8 msec Ao max P.8 mmHg MV V2 mean: 109.8 cm/sec MV dec slope: 923.5 cm/sec2 Ao V2 mean: 150.7 cm/sec MV mean P.2 mmHg MVA(P1/2t): 3.5 cm2 Ao mean P.5 mmHg MV V2 VTI: 45.4 cm Ao V2 VTI: 43.7 cm MVA(VTI): 2.0 cm2 JANY(I,D): 2.0 cm2 JANY(V,D): 1.9 cm2 LV V1 max: 136.1 cm/sec SV(LVOT): 89.0 ml PA V2 max: 131.0 cm/sec LV V1 max P.4 mmHg LV V1 mean P.1 mmHg LV V1 mean: 95.9 cm/sec LV V1 VTI: 28.0 cm TR max andrea: 306.8 cm/sec TR max P.6 mmHg ECHO/Echo Complete W/ Contrast Interpretation Summary Normal LV size. Moderate concentric left ventricular hypertrophy. Left ventricular systolic function is hyperdynamic. The estimated ejection fraction is 70 %. The left atrium is mildly enlarged. Pulmonary artery systolic pressure is 42 mmHg. Mean aortic valve gradient 10 mmHg. Mild aortic stenosis. Contrast injection was performed. Ordering Physician: Roberta Solares Referring Physician: Christo Bland Performed By: Chip Sarah RCS
== END ==
PROVIDERS: PCP Family Medicine; Referring Provider Physician Assistant Medical; Visit Provider Physician Assistant Medical
DX: I21.4 Non-ST elevation (NSTEMI) myocardial infarction (principal); R06.00 Dyspnea, unspecified; R06.02 Shortness of breath; I65.21 Occlusion and stenosis of right carotid artery
CPT/HCPCS: 93306; 93880; Q9957; A4216; C8929; J3490

== ENCOUNTER 2021-10-18 14:02 | Emergency (ER) | payer MEDICARE, SELFPAY ==
[2021-10-18 14:03] VITALS: BP 117/65; PULSE 85; RESP 14; TEMP 38.3; O2SAT 97; BMI 54.3
--- NOTE | 2021-10-18 14:46 | EKG12_ITS ---
Test Reason : SOB Blood Pressure : / mmHG Vent. Rate : 080 BPM Atrial Rate : 093 BPM P-R Int : 000 ms QRS Dur : 092 ms QT Int : 438 ms P-R-T Axes : 000 013 088 degrees QTc Int : 505 ms Normal sinus rhythm Low voltage QRS Septal infarct , age undetermined Abnormal ECG Confirmed by SINGH JOSEPH, JADE ([id number]), rewrite editor KAILA MORGAN ([id number]) on 10/19/2021 11:10:51 AM Referred By: CHRIS Confirmed By:JADE WINTERS MD
--- NOTE | 2021-10-18 15:02 | EDS_ITS ---
HPI History of Present Illness Chief Complaint: General Illness Informant: patient Narrative Narrative: Patient presents with not feeling well and slight fever since yesterday. Of note she is a very poor informant for past medical history. With extensive questioning I find out that she had heart attack and stroke a few years ago but no stenting was done. She has high blood pressure. She states she is on a lot of medicines for a lot of illnesses. She states she has a lot of allergies. But she cannot define most of these. The only specific illness she can tell me about his high blood pressure but she does not know the meds that she takes for this. She is oriented x3 though. She is just not knowledgeable of her specific medical history. Patient states that yesterday she started with some fevers myalgias, slight headache. She has mild nausea but no vomiting or diarrhea. She is able to eat and drink. She has a slight nonproductive cough. She has very slight dyspnea but only with activity. However she states she has dyspnea not uncommonly. She does have urinary frequency but states this is not new. No rashes. Nothing really makes symptoms better or worse but she has not yet tried anything. She has had COVID vaccines but does not know which ones or when. She does not know if she has been exposed anyone with illness. She generally lives alone at home. [facility] Medical History (Updated 10/18/21 @ 17:[address] Lee Capellan MD) Age related osteoporosis Asthma Atherosclerosis of coronary artery of [place] heart without angina pectoris Diverticulosis Elevated fasting blood sugar Essential (primary) hypertension Essential tremor GERD (gastroesophageal reflux disease) History of CVA (cerebrovascular accident) (03/2018) Hyperlipidemia Lower GI bleed (2014) Morbid obesity Morbid obesity Non-rheumatic tricuspid valve insufficiency NSTEMI (non-ST elevated myocardial infarction) (04/08/18) Paroxysmal supraventricular tachycardia Stenosis of left subclavian artery Stenosis of right carotid artery Stress and adjustment reaction Syncope Thyroid nodule Home Medications fluticasone propionate 2 spray NASAL DAILY 08/07/13 [History Last Taken 11/16/18] folic acid 2.4 mg PO DAILY 08/07/13 [History Last Taken 11/17/18] montelukast 10 mg PO QHS 08/07/13 [History Last Taken 11/16/18] budesonide-formoterol 2 puff INHALATION DAILY 04/25/15 [History Last Taken 11/17/18] albuterol sulfate 2 puff PO Q6H PRN PRN 04/07/18 [History Last Taken Unknown] cholecalciferol (vitamin D3) 1,000 unit PO DAILY 04/07/18 [History Last Taken 11/17/18] Lactobacillus acidophilus 1 ea PO DAILY #0 04/11/18 [Rx Last Taken 11/17/18] acetaminophen 1,000 mg PO Q6H PRN tab 04/24/18 [Rx Last Taken 11/14/18] aspirin 81 mg tablet,delayed release 81 mg PO DAILY 06/20/18 [History Last Taken 11/17/18] fbbnnpxqvok-goqlwwltv-lab C-Mn 1 tab PO DAILY 11/17/18 [History Last Taken 11/17/18] hydrochlorothiazide 25 mg PO DAILY 11/17/18 [History Last Taken 11/17/18] losartan 25 mg PO DAILY 11/17/18 [History Last Taken 11/17/18] wq-gsu-owbgs acid-lutein 1 tab PO DAILY 11/17/18 [History Last Taken 11/16/18] tolterodine 4 mg PO DAILY 11/17/18 [History Last Taken 11/17/18] vitamin E (dl, acetate) 800 units PO DAILY 11/17/18 [History Last Taken 11/16/18] calcium carb 300 mg-D3 800 unit-mag ox 25 mg-copper miner blasting 0.5 mg-soren-Zn tablet 1 tab PO DAILY 12/24/19 [History Last Taken Unknown] rosuvastatin 40 mg tablet 40 mg PO DAILY tab 12/24/19 [History Last Taken Unknown] estradiol 0.5 g VAGINAL 2XW PRN g 01/06/20 [History Last Taken Unknown] ondansetron 4 mg PO Q8H PRN #10 tab 10/18/21 [Rx Last Taken Unknown] Allergy/AdvReac Type Severity Reaction Status Date / Time primidone Allergy Itching Verified 10/18/21 14:02 albuterol sulfate AdvReac Unknown Verified 10/18/21 14:02 [From Ventolin HFA] amoxicillin [Amoxicillin] AdvReac Nausea Verified 10/18/21 14:02 amoxicillin trihydrate AdvReac Abd Verified 10/18/21 14:02 [From Augmentin] cramps/diarrhea aspartame AdvReac Dizziness Verified 10/18/21 14:02 caffeine AdvReac Dizziness Verified 10/18/21 14:02 cephalexin monohydrate AdvReac Unknown Verified 10/18/21 14:02 [From Keflex] chocolate flavor AdvReac Other Verified 10/18/21 14:02 erythromycin base AdvReac Diarrhea Verified 10/18/21 14:02 [Erythromycin Base] hyoscyamine [Hyoscyamine] AdvReac Rash Verified 10/18/21 14:02 hyoscyamine sulfate AdvReac Rash Verified 10/18/21 14:02 [From Levbid] levofloxacin AdvReac Itching Verified 10/18/21 14:02 lisinopril AdvReac Unknown Verified 10/18/21 14:02 metronidazole [From Flagyl] AdvReac Rash Verified 10/18/21 14:02 Metronidazole HCl AdvReac Rash Verified 10/18/21 14:02 [From Flagyl] morphine AdvReac abdominal Verified 10/18/21 14:02 pain naproxen AdvReac Nausea/Vom/ Verified 10/18/21 14:02 Diarrhea NSAIDS (Non-Steroidal AdvReac Abd Verified 10/18/21 14:02 Anti-Inflamma cramps/diarrhea phenazopyridine HCl AdvReac Itching Verified 10/18/21 14:02 [From Pyridium] potassium clavulanate AdvReac Abd Verified 10/18/21 14:02 [From Augmentin] cramps/diarrhea sulfamethoxazole AdvReac Unknown Verified 10/18/21 14:02 [From Septra] trimethoprim [From Septra] AdvReac Unknown Verified 10/18/21 14:02 IV DYE Allergy Rash Uncoded 10/18/21 14:02 URISED AdvReac Other Uncoded 10/18/21 14:02 Family History Mother Cancer Father Diabetes Surgical History History of History of colectomy History of hemicolectomy History of laparoscopic cholecystectomy History of left heart catheterization (06/30/18) History of repair of hiatal hernia Status post placement of implantable loop recorder Social History Smoking Status: Never smoker alcohol intake: never substance use type: does not use ROS ROS ED Constitutional Constitutional ED: Reports fever(s) and subjective Eyes Eyes: Denies blurry vision ENT ENT ED: Denies ear pain, rhinorrhea or sore throat Cardiovascular Cardiovascular: Denies chest pain or palpitations Respiratory/Chest Respiratory/Chest: Reports cough and dyspnea; Denies sputum Gastrointestinal Gastrointestinal: Reports nausea; Denies abdominal pain, diarrhea or vomiting Genitourinary Genitourinary ED: Reports urinary frequency; Denies dysuria or hematuria Musculoskeletal Musculoskeletal: Reports myalgias Integumentary Denies rash Neurologic Neurologic: Reports headache(s); Denies paresthesias or weakness Endocrine Endocrinology: Denies polydipsia or polyuria Allergic/Immunologic Allergic/Immunologic ED: Denies urticaria EXAM Physical Exam Const Vital Signs: 10/18/21 14:03 10/18/21 14:43 10/18/21 16:02 Temperature 101 F H Temperature Source Temporal Pulse Rate 85 92 Respiratory Rate 14 19 H Respiratory Effort Short of Breath Respiratory Pattern Tachypnea Blood Pressure 117/65 106/60 Blood Pressure Mean 82 75 Pulse Ox 97 92 Oxygen Delivery Method Room Air Room Air Patient sitting comfortably in bed. She has a normal blood pressure pulse respiratory rate and O2 saturation sitting in bed. She does not look dyspneic or toxic. Positive well nourished and well developed General Appearance ED: well developed and NAD; Negative for cyanotic or diaphoretic HEENT Reports moist mucous membranes HEENT Narrative: No sinus tenderness or nasal discharge. Eyes General Eye ED: Negative for pale conjunctiva or scleral icterus Neck no lymphadenopathy Chest Wall inspection of chest normal Resp normal respiratory effort and clear to auscultation bilaterally Effort and Inspection: Negative for pain with movement Auscultation: Negative for rales, rhonchi or wheezes Cardio regular rate GI normal to inspection, nondistended, normoactive bowel sounds and non-tender Palpation: soft Back/Spine no CVA tenderness Extremity normal to inspection General Extremety ED: Negative for tenderness Neuro oriented x3 Sensorium / Orientation: alert Psych mental status grossly normal Skin no rashes or lesions noted MDM MDM MDM Narrative Medical decision making narrative: Patient CBC is normal. Electrolytes are unremarkable other than minimal elevation in glucose. Patient has a few white cells in the urine and mild cloudiness. Nitrites are negative. She is not having any dysuria. She has some chronic frequency but this is unchanged. Troponin was done twice and are both within normal. Patient was ambulated in the room. She was able to walk actually pretty fair distance. She went to the bathroom herself and actually got herself dressed. Her lowest saturation was 9 1%. Patient will be going home. She is not D satting. I will write her for some Zofran as she has had some mild queasiness but no vomiting. We discussed reasons to return. Lab Data Attestation: I reviewed the patient's lab results. Labs: Laboratory Results - last 24 hr 10/18/21 10/18/21 10/18/21 15:18 15:18 15:30 WBC 6.6 RBC 4.52 Hgb 13.3 Hct 40.5 MCV 89.6 MCH 29.4 MCHC 32.8 RDW Std Deviation 46.1 H RDW Coeff of Alanna 14.1 Plt Count 219 MPV 11.2 Immature Gran % (Auto) 0.500 Neut % (Auto) 75.6 H Lymph % (Auto) 9.2 L [place] % (Auto) 13.7 H Eos % (Auto) 0.5 Baso % (Auto) 0.5 Absolute Neuts (auto) 5.0 Absolute Lymphs (auto) 0.61 L Nucleated RBC % 0 Sodium 137 Potassium 3.6 Chloride 102 Carbon Dioxide 28.0 Anion Gap 7 BUN 13 Creatinine 0.76 Estim Creat Clear Calc 83.54 Est GFR (MDRD) Af Amer 95 Est GFR (MDRD) Non-Af 78 BUN/Creatinine Ratio 17.2 Glucose 138 H Calcium 9.1 Troponin I High Sens 31 Urine Color Yellow Urine Clarity Cloudy Urine pH 7.0 Ur Specific [place] 1.010 Urine Protein 15 H Urine Glucose (UA) Normal Urine Ketones 15 H Urine Occult Blood 25 H Urine Nitrite Negative Urine Bilirubin Negative Urine Urobilinogen 4 H Ur Leukocyte Esterase 100 H Urine RBC 0-5 SEEN Urine WBC 10-25 SEEN Ur Squamous Epith Cells 0-5 SEEN Urine Bacteria 3+ Urine Mucus 0 SEEN 10/18/21 17:20 WBC RBC Hgb Hct MCV MCH MCHC RDW Std Deviation RDW Coeff of Alanna Plt Count MPV Immature Gran % (Auto) Neut % (Auto) Lymph % (Auto) [place] % (Auto) Eos % (Auto) Baso % (Auto) Absolute Neuts (auto) Absolute Lymphs (auto) Nucleated RBC % Sodium Potassium Chloride Carbon Dioxide Anion Gap BUN Creatinine Estim Creat Clear Calc Est GFR (MDRD) Af Amer Est GFR (MDRD) Non-Af BUN/Creatinine Ratio Glucose Calcium Troponin I High Sens 40 Urine Color Urine Clarity Urine pH Ur Specific [place] Urine Protein Urine Glucose (UA) Urine Ketones Urine Occult Blood Urine Nitrite Urine Bilirubin Urine Urobilinogen Ur Leukocyte Esterase Urine RBC Urine WBC Ur Squamous Epith Cells Urine Bacteria Urine Mucus Radiography Diagnostic Testing: Clinical Impression(s) from Imaging Studies Chest X-Ray 10/18/21 15:30 IMPRESSION: Normal x-ray examination of the chest. Electronically Signed: Burton Mccoy MD at 15:41 EDT , EKG Initial EKG: Comments: EKG done for dyspnea read by me shows sinus rhythm with PACs. Computer reads this is atrial fibrillation but I do see consistency with P waves. I do not see ventricular ectopy. She has poor anterior R wave and inverted T wave in V2. No evidence of acute STEMI. HI interval, QRS duration are normal. QTc is a bit long. I compared this to prior EKGs in the anterior T wave changes are new since 12/10 2000. However, patient denies any chest pain with the symptoms. Discharge Plan Triage Chief Complaint: General Illness ED Provider: Lee Capellan Dx/Rx/DC Orders Clinical Impression: COVID Instructions: Coronavirus Disease 2019 (COVID-19): Caring for Yourself or Others Prescriptions: New ondansetron 4 mg tablet,disintegrating 4 mg PO Q8H PRN (Reason: nausea and vomiting) Qty: 10 RF: 0 No Action rosuvastatin 40 mg tablet 40 mg PO DAILY RF: 0 Caltrate + D3 Plus Minerals 300 mg-800 unit -25 mg-0.5 mg tablet 1 tab PO DAILY RF: 0 estradiol 0.01 % (0.1 mg/gram) cream 0.5 g VAGINAL 2XW PRN (Reason: cream) RF: 0 montelukast 10 MG tablet 10 mg PO QHS RF: 0 fluticasone propionate 1 SPRAY spray,suspension 2 spray NASAL DAILY RF: 0 folic acid 0.8 MG tablet 2.4 mg PO DAILY RF: 0 budesonide-formoterol 1 INHALER inhaler 2 puff inhalation DAILY RF: 0 cholecalciferol (vitamin D3) 1,000 UNIT tablet 1,000 unit PO DAILY RF: 0 albuterol sulfate 90 MCG aerosol powdr breath activated 2 puff PO Q6H PRN PRN (Reason: Sob &/Or Wheezing) RF: 0 Lactobacillus acidophilus 1 EACH tablet 1 ea PO DAILY Qty: 0 RF: 0 acetaminophen 500 MG tablet 1,000 mg PO Q6H PRN (Reason: Mild Pain (-08/03)) RF: 0 losartan 50 MG tablet 25 mg PO DAILY RF: 0 tolterodine 4 MG capsule,extended release 24hr 4 mg PO DAILY RF: 0 hydrochlorothiazide 25 MG tablet 25 mg PO DAILY RF: 0 axendqxxcny-wxttzpany-owt C-Mn 1 EACH tablet 1 tab PO DAILY RF: 0 vitamin E (dl, acetate) 400 UNITS capsule 800 units PO DAILY RF: 0 ck-hzk-ozpaq acid-lutein 1 EACH tablet,chewable 1 tab PO DAILY RF: 0 aspirin [Adult Low Dose Aspirin] 81 mg tablet,delayed release (DR/EC) 81 mg PO DAILY RF: 0 Primary Care Provider: Christo Bland Referrals: Christo Bland MD [Primary Care Provider] - 1 Week if not improving Disposition Disposition: Home, Self Care
[2021-10-18] MEDS: Acetaminophen 325 MG Tablet 650 MG PO (15:17)
[2021-10-18] MEDS: Ondansetron 4 MG/2 ML Vial IV (15:17)
[2021-10-18 15:27] LABS: Absolute Lymphocyte Count 0.61 X10^3/uL (0.83-4.51); Basophil# 0.03 X10^3/uL; Basophil% 0.5 % (0-1); Eosinophil# 0.03 X10^3/uL; Eosinophils% 0.5 % (0-5); Hematocrit 40.5 % (37-47); Hemoglobin 13.3 g/dL (12.0-15.0); Lymphocyte # 0.61 X10^3/ul (0.83-4.51); Lymphocyte % 9.2 % (19-41); Mean Corp Hgb Conc 32.8 g/dL (32-36); Mean Corpuscular Hgb 29.4 pg (27.0-32.0); Mean Corpuscular Volume 89.6 fL (81-99); Mean Platelet Vol. 11.2 fl (6.2-12.0); Monocyte# 0.91 X10^3/uL; Monocyte% 13.7 % (0-10); NRBC Flagged by Analyzer 0 % (0-5); Neutrophil # 5.02 X10^3/uL (2.7-7.7); Neutrophil % 75.6 % (47-70); Platelet Count 219 K/mm3 (150-450); RBC Distribution Width CV 14.1 % (11.6-14.6); RBC Distribution Width SD 46.1 fl (35.1-43.9); Red Blood Count 4.52 M/mm3 (4.2-5.4); White Blood Count 6.6 K/mm3 (4.4-11.0)
--- NOTE | 2021-10-18 15:30 | RAD_ITS ---
STUDY: X-RAY CHEST REASON FOR EXAM: Female, 81 years old. cough TECHNIQUE: Single AP portable view of the chest. COMPARISON: 12/10/2020 FINDINGS: The lungs are clear and expanded. There is no demonstrated pleural abnormality. Normal size heart. Normal mediastinum and arnaldo. Normal visualized pulmonary arteries. Normal visualized aortic arch and descending thoracic aorta. Normal visualized thoracic spine. Normal visualized ribs, clavicles, and shoulders. There is no demonstrated abnormality of the visualized soft tissue structures of the upper abdomen. RAD/Chest 1 View (Portable) IMPRESSION: Normal x-ray examination of the chest. Electronically Signed: Burton Mccoy MD at 15:41 EDT ,
[2021-10-18 15:48] LABS: Anion Gap 7 (5-15); BUN 13 mg/dL (7-18); BUN/Creat Ratio 17.2 RATIO (10-20); Calcium,Total 9.1 mg/dL (8.5-10.1); Chloride 102 mmol/L (98-107); Creatinine, Serum 0.76 mg/dL (0.55-1.02); EST Glomerular Filtration Rate 78 mL/min (>60); Est Glom Filt Rate - Afr Amer 95 mL/min (>60); Estimated Creatinine Clearance 83.54 ml/min; Glucose 138 mg/dL (74-106); Potassium 3.6 mmol/L (3.5-5.1); Sodium Level 137 mmol/L (136-145); Troponin-I HS 31 pg/mL (3.0-54.0)
[2021-10-18 16:02] VITALS: BP 106/60; PULSE 92; RESP 19; O2SAT 92
[2021-10-18 16:03] LABS: Color, Urine Yellow (Yellow); Glucose, Dipstick Normal (Normal); Ketone-Dipstick 15 mg/dl (Negative); Leukocyte Esterase-Dipstick 100 /ul (Negative); Nitrite-Dipstick Negative (Negative); Occult Blood-Urine 25 /ul (Negative); Protein-Dipstick 15 mg/dl (Negative); Urine Bilirubin Dipstick Negative (Negative); Urine Clarity Cloudy (Clear); Urine Urobilinogen 4 mg/dl (Normal)
[2021-10-18 16:06] LABS: Mucous, Urine 0 SEEN /hpf (<or=2+)
[2021-10-18 16:17] LABS: Bacteria 3+ /hpf (None Seen); Red Blood Cells-Urine 0-5 SEEN /hpf (0-5); Squamous Epithelial Cells - UA 0-5 SEEN /hpf (5-10); White Blood Cells 10-25 SEEN /hpf (0-5)
[2021-10-18 17:40] LABS: Troponin-I HS 40 pg/mL (3.0-54.0)
[2021-10-18 18:01] VITALS: O2SAT 93
[2021-10-18 18:22] VITALS: PULSE 77; RESP 17; O2SAT 95
[2021-10-18 18:35] VITALS: RESP 20; O2SAT 93
--- NOTE | 2021-10-18 19:12 | ED.RN ---
pt daughter updated on d/c instructions, I.S and pulse ox education.
== END 2021-10-18 20:13 | disposition home or self-care (01) ==
PROVIDERS: Emergency Provider Emergency Medicine; PCP Family Medicine; Visit Provider Emergency Medicine
DX: U07.1 COVID-19 (principal); I25.10 Atherosclerotic heart disease of native coronary artery without angina pectoris; I25.2 Old myocardial infarction; Z86.73 Personal history of transient ischemic attack (TIA), and cerebral infarction without residual deficits
CPT/HCPCS: 71045; 80048; 81002; 84484; 85025; 87428; 93005; 96374; 99251; 99285; A4216; G0463; J2405

== ENCOUNTER 2024-05-31 11:49 | Emergency (ER) | payer MEDICARE, SELFPAY ==
[2024-05-31 11:50] VITALS: BP 153/91; PULSE 77; RESP 16; TEMP 36.9; O2SAT 96; BMI 42.9
[2024-05-31 11:55] VITALS: BP 153/61; PULSE 77; RESP 15; TEMP 36.9; O2SAT 95
--- NOTE | 2024-05-31 12:08 | RAD_ITS ---
EXAM: XR CHEST, 1 VIEW CLINICAL INDICATION: chest pain TECHNIQUE: Frontal view of the chest. COMPARISON: 10/18/2021 FINDINGS: LUNGS AND PLEURAL SPACES: No significant abnormality. No consolidation or edema. No pneumothorax. No effusion. HEART: No significant abnormality. Cardiac silhouette not enlarged. MEDIASTINUM: Central airways and mediastinal contour are unremarkable. BONES/JOINTS: No significant abnormality. No acute fracture. SOFT TISSUES: No significant abnormality. VASCULATURE: Atherosclerosis. RAD/Chest 1 View (Portable) IMPRESSION: No acute findings in the chest. Electronically Signed: Norm De La Rosa DO at 12:41 EST ,
--- NOTE | 2024-05-31 12:08 | EKG12_ITS ---
Test Reason : Blood Pressure : */* mmHG Vent. Rate : 73 BPM Atrial Rate : 73 BPM P-R Int : 296 ms QRS Dur : 88 ms QT Int : 436 ms P-R-T Axes : 112 -14 19 degrees QTcB Int : 480 ms Sinus rhythm with 1st degree A-V block with Premature supraventricular complexes Otherwise normal ECG Confirmed by Javed Hendrickson ([id number]), newspaper copy editor KAILA MORGAN ([id number]) on 06/01/2024 9:54:52 AM Referred By: JOHNATHAN Confirmed By: Javed Hendrickson
--- NOTE | 2024-05-31 12:08 | EX.ED.DYSGE1 ---
HPI History of Present Illness Chief Complaint: Edema Detail of Chief Complaint: Bilateral lower extremity edema for the last 3 days. Informant: patient Onset/Context/Timing Onset: Days Context: Gradual Onset Timing: Continuous Current Severity: Mild Maximum Severity: Mild Narrative Narrative: 84-year-old female states that she has had bilateral lower extremity swelling since Saturday. Denies shortness of breath. No vomiting or diarrhea. No fever. No history of CHF. Denies any known kidney disease other than kidney stones in the past. Denies any fever or chills. Prior similar symptoms: No Recent Illness/Hospitalization: No PFSH PFS Medical History Nonobstructive atherosclerosis of coronary artery Lower GI bleed (2014) Stenosis of left subclavian artery History of CVA (cerebrovascular accident) (03/2018) Paroxysmal supraventricular tachycardia NSTEMI (non-ST elevated myocardial infarction) (04/08/18) Non-rheumatic tricuspid valve insufficiency Stenosis of right carotid artery Diverticulosis GERD (gastroesophageal reflux disease) Essential (primary) hypertension Hyperlipidemia Morbid obesity Essential tremor Asthma Stress and adjustment reaction Elevated fasting blood sugar Age related osteoporosis Syncope Thyroid nodule Home Medications ?Medication ?Instructions ?Recorded ?Last Taken ?Type fluticasone propionate 50 2 spray NASAL DAILY ALLERGIES 08/07/13 11/16/18 History mcg/actuation nasal spray,suspension folic acid 800 mcg tablet 2.4 mg PO DAILY SUPPLEMENT 08/07/13 11/17/18 History montelukast 10 mg tablet 10 mg PO QHS ALLERGIES 08/07/13 11/16/18 History budesonide-formoterol HFA 160 2 puff inhalation DAILY BREATHING 04/25/15 11/17/18 History mcg-4.5 mcg/actuation aerosol inhaler albuterol sulfate 90 mcg/actuation 2 puff PO Q6H PRN PRN Sob &/Or 04/07/18 Unknown History breath activated powder inhaler Wheezing cholecalciferol (vitamin D3) 25 1,000 unit PO DAILY supplement 04/07/18 11/17/18 History mcg (1,000 unit) tablet acetaminophen 500 mg tablet 1,000 mg (2 x 500 mg) PO Q6H PRN 04/24/18 11/14/18 Rx Mild Pain (1-3/10) aspirin 81 mg tablet,delayed 81 mg PO DAILY heart health 06/20/18 11/17/18 History release (Adult Low Dose Aspirin) hjqsshjyqci-ueswftujl-zap C-Mn 750 1 tab PO DAILY arthritis 11/17/18 11/17/18 History mg-600 mg-55 mg-5 mg tablet hydrochlorothiazide 25 mg tablet 25 mg PO DAILY bp 11/17/18 11/17/18 History losartan 50 mg tablet 25 mg PO DAILY bp 11/17/18 11/17/18 History qonikyevhdjz-uuddluu-ryxpx acid 1 tab PO DAILY supplement 11/17/18 11/16/18 History 400 mcg-lutein 250 mcg chewable tablet tolterodine 4 mg capsule,extended 4 mg PO DAILY bladder 11/17/18 11/17/18 History release 24 hr vitamin E (dl, acetate) 180 mg 800 units PO DAILY supplement 11/17/18 11/16/18 History (400 unit) capsule calcium 300 mg-D3 20 mcg-magnesium 1 tab PO DAILY 12/24/19 Unknown History 25 mg-coppr 0.5 hf-jald-awlk tablet (Caltrate-D3 Plus Minerals) rosuvastatin 40 mg tablet 40 mg PO DAILY 12/24/19 Unknown History estradiol 0.01% (0.1 mg/gram) 0.5 g vaginal 2XW PRN cream 01/06/20 Unknown History vaginal cream ondansetron 4 mg disintegrating 4 mg PO Q8H PRN nausea and 10/18/21 Unknown Rx tablet vomiting #10 tabs ketoconazole 2 % topical cream 1 applic topical BID 12/21/21 Unknown History clindamycin HCl 300 mg capsule 300 mg PO Q6H #28 CAPSULES 05/31/24 Unknown Rx (Cleocin HCl) Allergy/AdvReac Type Severity Reaction Status Date / Time Iodinated Contrast Media Allergy Rash Verified 05/31/24 11:56 primidone Allergy Itching Verified 05/31/24 11:56 albuterol sulfate (From AdvReac Unknown Verified 05/31/24 11:56 Ventolin HFA) amoxicillin (Amoxicillin) AdvReac Nausea Verified 05/31/24 11:56 amoxicillin trihydrate (From AdvReac Abd Verified 05/31/24 11:56 Augmentin) cramps/diarrhea aspartame AdvReac Dizziness Verified 05/31/24 11:56 atropine (From Urised) AdvReac NEEDS Verified 05/31/24 11:56 FOLLOW-UP benzoic acid (From Urised) AdvReac NEEDS Verified 05/31/24 11:56 FOLLOW-UP caffeine AdvReac Dizziness Verified 05/31/24 11:56 cephalexin monohydrate (From AdvReac Unknown Verified 05/31/24 11:56 Keflex) chocolate flavor AdvReac Other Verified 05/31/24 11:56 erythromycin base AdvReac Diarrhea Verified 05/31/24 11:56 (Erythromycin Base) hyoscyamine (Hyoscyamine) AdvReac Rash Verified 05/31/24 11:56 hyoscyamine sulfate (From AdvReac Rash Verified 05/31/24 11:56 Levbid) levofloxacin AdvReac Itching Verified 05/31/24 11:56 lisinopril AdvReac Unknown Verified 05/31/24 11:56 methenamine (From Urised) AdvReac NEEDS Verified 05/31/24 11:56 FOLLOW-UP methylene blue (From Urised) AdvReac NEEDS Verified 05/31/24 11:56 FOLLOW-UP metronidazole (From Flagyl) AdvReac Rash Verified 05/31/24 11:56 Metronidazole HCl (From AdvReac Rash Verified 05/31/24 11:56 Flagyl) morphine AdvReac abdominal Verified 05/31/24 11:56 pain naproxen AdvReac Nausea/Vom/ Verified 05/31/24 11:56 Diarrhea NSAIDS (Non-Steroidal AdvReac Abd Verified 05/31/24 11:56 Anti-Inflamma cramps/diarrhea phenazopyridine HCl (From AdvReac Itching Verified 05/31/24 11:56 Pyridium) potassium clavulanate (From AdvReac Abd Verified 05/31/24 11:56 Augmentin) cramps/diarrhea salicylates (From Urised) AdvReac NEEDS Verified 05/31/24 11:56 FOLLOW-UP sulfamethoxazole (From AdvReac Unknown Verified 05/31/24 11:56 Septra) trimethoprim (From Septra) AdvReac Unknown Verified 05/31/24 11:56 Family History Mother Cancer Father Diabetes Surgical History History of left heart catheterization (06/30/18) History of hemicolectomy History of colectomy History of repair of hiatal hernia History of laparoscopic cholecystectomy History of Status post placement of implantable loop recorder Social History Smoking Status: Never smoker alcohol intake: never substance use type: does not use ROS ROS ED ROS Narrative Denies recent illness. Denies shortness of breath. Constitutional Constitutional ED: Denies chills or fever(s) Eyes Eyes: Denies blurry vision ENT ENT ED: Denies ear pain Cardiovascular Cardiovascular: Denies chest pain Respiratory/Chest Respiratory/Chest: Denies cough, dyspnea or dyspnea on exertion Gastrointestinal Gastrointestinal: Denies abdominal pain Genitourinary Genitourinary ED: Denies dysuria or hematuria Musculoskeletal Musculoskeletal: Denies arthralgias or back pain Integumentary Denies abscess or Abrasions Neurologic Neurologic: Denies headache(s) Psychiatric Psychiatric: Denies anxiety Endocrine Endocrinology: Denies cold intolerance Hematologic/Lymphatic Hematologic/Lymphatic: Reports none Allergic/Immunologic Allergic/Immunologic ED: Denies mouth swelling, tongue swelling or urticaria EXAM Physical Exam Narrative Exam Narrative: Well-appearing 84-year-old female. Vital signs stable afebrile. Pulse ox 96% on room air no hypoxia. No respiratory distress. No shortness of breath. H EENT exam unremarkable. Moist weeks membranes. Neck nontender JVD. Lungs clear to auscultation bilaterally. No rales rhonchi or wheezing. Equal symmetrical. Heart regular rhythm rate about 75 no murmur. Chest wall ribs nontender. Abdomen soft nontender. Back nontender. Moving all 4 extremities. 1+ pitting edema bilaterally. Calves are nontender with neurologically she is awake and alert. Answering questions and following commands. Very benign exam other than the edema. Out cords. Const Vital Signs: 05/31/24 11:50 05/31/24 11:55 05/31/24 11:56 Temperature 98.5 F 98.5 F Temperature Source Oral Oral Pulse Rate 77 77 Respiratory Rate 16 15 Respiratory Effort Normal Non-Labored Respiratory Pattern Normal Blood Pressure 153/91 H 153/61 H Blood Pressure Mean 111 91 Pulse Ox 96 95 Oxygen Delivery Method Room Air Room Air 05/31/24 12:08 05/31/24 12:55 05/31/24 13:00 Temperature 97.8 F 97.8 F Temperature Source Oral Oral Pulse Rate 68 68 Respiratory Rate 16 16 Respiratory Effort Respiratory Pattern Blood Pressure 146/76 H 146/76 H Blood Pressure Mean 99 99 Pulse Ox 98 98 Oxygen Delivery Method Room Air Room Air Room Air 05/31/24 14:00 Temperature 97.8 F Temperature Source Oral Pulse Rate 71 Respiratory Rate 16 Respiratory Effort Respiratory Pattern Blood Pressure 140/50 H Blood Pressure Mean 80 Pulse Ox 97 Oxygen Delivery Method Room Air Positive well nourished and well developed; Negative for cachectic, contractures or unkempt General Appearance ED: well developed and NAD; Negative for unkempt, cachectic, contractures, cyanotic, diaphoretic or pallor Nutritional Appearance: Negative for cachectic HEENT Reports moist mucous membranes Negative for trauma or tenderness Eyes PERRL and EOMs intact bilaterally General Eye ED: Negative for pale conjunctiva Neck no lymphadenopathy, supple and no JVD General: Negative for tenderness Lymph Lymphatic: Negative for other Chest Wall inspection of chest normal and palpation of chest normal Resp normal respiratory effort and clear to auscultation bilaterally Effort and Inspection: Negative for retractions Auscultation: Negative for rales, rhonchi, wheezes or diminished lung sounds Cardio regular rate, regular rhythm, S1 normal heart sound, S2 normal heart sound and no murmurs Rate: Negative for bradycardia Rhythm: Negative for abnormal rhythm GI normal to inspection, nondistended, normoactive bowel sounds, non-tender, non-distended and no masses Palpation: soft; Negative for tender, guarding or rebound tenderness present Back/Spine no CVA tenderness General Back: Negative for CVA tenderness Cervical Spine: Negative for cervical spine tenderness Thoracic Spine / Upper Back: Negative for thoracic spinal tenderness or paraspinal muscle tenderness Lumbar Spine / Lower Back: Negative for lumbar spinal tenderness Extremity normal to inspection General Extremety ED: Negative for edema, tenderness or other findings General Extremity: Negative for edema or other findings Neuro oriented x3 and CN's II-XII intact bilaterally Sensorium / Orientation: alert; Negative for orientation impaired, lethargic or stuporous Motor Exam: strength 5/5 throughout Psych mental status grossly normal Appearance: Negative for unkempt Attitude: No agitated Mood & Affect: Negative for depressed, anxious or tearful Skin no rashes or lesions noted, no wounds and skin turgor normal General Skin Exam: Negative for jaundice or pallor Lesions: No lesion noted Rashes: No rashes noted Trauma: Negative for abrasion Wounds: Negative for wounds noted MDM MDM MDM Narrative Medical decision making narrative: 84-year-old female bilateral lower extremity mild edema. No shortness of breath. She undergo a cardiac workup. Differential would include CHF, renal disease, lymphedema, cellulitis versus other etiologies. Repeat exam patient is doing well at 3 PM. We went over her test results. She had an echocardiogram a few years ago her EF at that time was 70%. She has very dry skin on her lower legs. She said she fell a week or so ago may have had some abrasions to her legs currently there is no trauma. This could be secondary to cellulitis. It is red and warm to touch. It is up about two thirds of the lower legs bilaterally. Does not make it to the knees or above. There is no inguinal lymphadenopathy. There is no streaking. There is no hot or swollen joints. She and I discussed treatment options we will treat this as a cellulitis. She has multiple drug allergies I put her on clindamycin 4 times a day for a week. Follow-up with her doctor insurance improving or for further testing. History & Record Review Discussion w/independent historian: Patient Additional record(s) reviewed:: Prior inpatient record, Prior outpatient record, Prior ED visit and Prior labs Lab Data Attestation: I reviewed the patient's lab results. Lab results narrative: CBC normal. White count of 9. H&H 14 and 44. Platelets 239. Electrolytes show a potassium 3.4. Gap 6. Normal BUN of 16 creatinine 0.78. Glucose 145. Troponin normal at 19. BNP just slightly elevated at 127. Chest x-ray chronic changes. Labs: Laboratory Results - last 24 hr 05/31/24 11:50 WBC 9.2 RBC 4.84 Hgb 14.5 Hct 44.3 MCV 91.5 MCH 30.0 MCHC 32.7 RDW Std Deviation 47.4 H RDW Coeff of Alanna 13.9 Plt Count 239 MPV 12.0 Immature Gran % (Auto) 0.300 Neut % (Auto) 59.8 Lymph % (Auto) 29.4 [place] % (Auto) 8.5 Eos % (Auto) 1.5 Baso % (Auto) 0.5 Absolute Neuts (auto) 5.5 Absolute Lymphs (auto) 2.71 Nucleated RBC % 0 Sodium 138 Potassium 3.4 L Chloride 103 Carbon Dioxide 29.0 Anion Gap 6 BUN 16 Creatinine 0.78 Estim Creat Clear Calc 54.29 Est GFR (MDRD) Af Amer 91 Est GFR (MDRD) Non-Af 75 BUN/Creatinine Ratio 20.6 H Glucose 145 H Calcium 9.4 Troponin I High Sens 19 B-Natriuretic Peptide 127.8 H Radiography Chest X-Ray - ED: 1 View, Read by ED Physician, Read by Radiologist, Heart, Lungs, Mediastinum, Bony Structures, No Acute Disease and Chronic Changes Diagnostic Testing: Clinical Impression(s) from Imaging Studies Chest X-Ray 05/31/24 12:08 IMPRESSION: No acute findings in the chest. Electronically Signed: Norm De La Rosa DO at 12:41 EST , Chest x-ray, portable, single view interpreted both by myself and radiologist shows no acute abnormality. Normal cardiac silhouette. Normal lung yan. No effusions. No pulmonary edema. Rhythm Strip Rhythm Strip: Sinus Rhythm Rate: 73 Ectopy: None EKG Initial EKG: Attestation: I personally reviewed and interpreted this EKG as follows: Interpretation: Sinus Rhythm and No Acute Injury Pattern Comments: Normal sinus rhythm rate of 73. First-degree AV block with CO interval of 296. No acute signs of HI nor ischemia nor dysrhythmia. Discharge Plan Triage Chief Complaint: Edema ED Provider: Kali Amin Dx/Rx/DC Orders Clinical Impression: Bilateral cellulitis of lower leg, Edema, peripheral, History of HI (myocardial infarction) Instructions: ED Cellulitis Prescriptions: New clindamycin HCl [Cleocin HCl] 300 mg capsule 300 mg PO Q6H Qty: 28 0RF No Action rosuvastatin 40 mg tablet 40 mg PO DAILY Caltrate-D3 Plus Minerals 300 mg-800 unit -25 mg-0.5 mg tablet 1 tab PO DAILY estradiol 0.01 % (0.1 mg/gram) cream 0.5 g VAGINAL 2XW PRN (Reason: cream) Patient Comments: USE 1/2 GRAM 1 TO 3 TIMES PER WEEK FOR MAINTENANCE ketoconazole 2 % cream 1 applic topical BID montelukast 10 MG tablet 10 mg PO QHS Patient Comments: allergies fluticasone propionate 1 SPRAY spray,suspension 2 spray NASAL DAILY Patient Comments: allergies folic acid 0.8 MG tablet 2.4 mg PO DAILY Patient Comments: suppliment budesonide-formoterol 1 INHALER inhaler 2 puff inhalation DAILY Patient Comments: shortness of breath cholecalciferol (vitamin D3) 1,000 UNIT tablet 1,000 unit PO DAILY albuterol sulfate 90 MCG aerosol powdr breath activated 2 puff PO Q6H PRN PRN (Reason: Sob &/Or Wheezing) acetaminophen 500 MG tablet 1,000 mg PO Q6H PRN (Reason: Mild Pain (-08/03)) 0RF losartan 50 MG tablet 25 mg PO DAILY tolterodine 4 MG capsule,extended release 24hr 4 mg PO DAILY hydrochlorothiazide 25 MG tablet 25 mg PO DAILY wjsmxictbkv-anxpxlwha-abp C-Mn 1 EACH tablet 1 tab PO DAILY vitamin E (dl, acetate) 400 UNITS capsule 800 units PO DAILY ldejngnu-xsz-rwduy acid-lutein 1 EACH tablet,chewable 1 tab PO DAILY ondansetron 4 mg tablet,disintegrating 4 mg PO Q8H PRN (Reason: nausea and vomiting) Qty: 10 0RF aspirin [Adult Low Dose Aspirin] 81 mg tablet,delayed release (DR/EC) 81 mg PO DAILY Primary Care Provider: Christo Bland Referrals: Christo Bland MD [Primary Care Provider] - 3-5 Days Activity Restrictions/Additional Instructions: This is either fluid is collected in your legs called peripheral edema or it is an early infection called cellulitis. Will treat with antibiotic in case it is an infection. You will take the antibiotic, clindamycin, 4 times a day for the next 7 days. Take it with food on your stomach. Follow-up with your doctor in the next 3 to 5 days to ensure it is improving. Whenever you are sitting down or lying down elevate your legs to decrease the swelling. This should progressively get better if it is getting a lot worse or you are feeling worse return to the emergency department. Print Language: Turkmen Disposition Disposition: Home, Self Care
[2024-05-31 12:17] LABS: Absolute Lymphocyte Count 2.71 X10^3/uL (0.83-4.51); Absolute Neutrophil Count 5.5 X10^3/uL (2.0-7.7); Basophil# 0.05 X10^3/uL; Basophil% 0.5 % (0-1); Eosinophil# 0.14 X10^3/uL; Eosinophils% 1.5 % (0-5); Hematocrit 44.3 % (37-47); Hemoglobin 14.5 g/dL (12.0-15.0); Lymphocyte # 2.71 X10^3/ul (0.83-4.51); Lymphocyte % 29.4 % (19-41); Mean Corp Hgb Conc 32.7 g/dL (32-36); Mean Corpuscular Volume 91.5 fL (81-99); Monocyte# 0.78 X10^3/uL; Monocyte% 8.5 % (0-10); NRBC Flagged by Analyzer 0 % (0-5); Neutrophil # 5.52 X10^3/uL (2.7-7.7); Neutrophil % 59.8 % (47-70); Platelet Count 239 K/mm3 (150-450); RBC Distribution Width CV 13.9 % (11.6-14.6); RBC Distribution Width SD 47.4 fl (35.1-43.9); Red Blood Count 4.84 M/mm3 (4.2-5.4); White Blood Count 9.2 K/mm3 (4.4-11.0)
[2024-05-31 12:33] LABS: Anion Gap 6 (5-15); BUN 16 mg/dL (7-18); BUN/Creat Ratio 20.6 RATIO (10-20); Calcium,Total 9.4 mg/dL (8.5-10.1); Chloride 103 mmol/L (98-107); Creatinine, Serum 0.78 mg/dL (0.55-1.02); EST Glomerular Filtration Rate 75 mL/min (>60); Est Glom Filt Rate - Afr Amer 91 mL/min (>60); Estimated Creatinine Clearance 54.29 ml/min; Glucose 145 mg/dL (74-106); Potassium 3.4 mmol/L (3.5-5.1); Sodium Level 138 mmol/L (136-145); Troponin-I HS 19 pg/mL (3.0-54.0)
[2024-05-31 12:41] LABS: BNP,B-Type NATRIURETIC PEPTIDE 127.8 pg/mL (0-100)
[2024-05-31 12:55] VITALS: BP 146/76; PULSE 68; RESP 16; TEMP 36.6; O2SAT 98
[2024-05-31 13:00] VITALS: BP 146/76; PULSE 68; RESP 16; TEMP 36.6; O2SAT 98
[2024-05-31 14:00] VITALS: BP 140/50; PULSE 71; RESP 16; TEMP 36.6; O2SAT 97
[2024-05-31 15:00] VITALS: BP 136/81; BP 143/71; PULSE 69; RESP 16; TEMP 36.6; O2SAT 98
[2024-05-31] MEDS: Clindamycin HCl 150 MG Capsule 300 MG PO (15:14)
== END 2024-05-31 16:21 | disposition home or self-care (01) ==
PROVIDERS: Emergency Provider Emergency Medicine; PCP Family Medicine; Visit Provider Emergency Medicine
DX: L03.116 Cellulitis of left lower limb (principal); L03.115 Cellulitis of right lower limb; R60.9 Edema, unspecified; I25.2 Old myocardial infarction; I25.10 Atherosclerotic heart disease of native coronary artery without angina pectoris; Z86.73 Personal history of transient ischemic attack (TIA), and cerebral infarction without residual deficits
CPT/HCPCS: 71045; 80048; 83880; 84484; 85025; 93005; 99285